=== PATIENT | male | born 1935 | race Caucasian/White ===

== ENCOUNTER 2025-01-03 19:52 | Inpatient (IN) | payer OTHER, SELFPAY ==
[2025-01-03] VITALS (13 sets, daily range): BP systolic 106–187; BP diastolic 57–140; BMI 25.0; BMI 24.7
[2025-01-03 17:17] LABS: % Basophils 0.9 % (0-2); % Eosinophils 3.9 % (0-6); % Immature Granulocytes 0.3 % (0-0.5); % Lymphocytes 20.6 % (20.5-51.1); % Monocytes 8.4 % (1.7-9.3); % Neutrophils 65.9 % (42.2-75.2); Absolute Basophils 0.1 10^3/uL (0-0.2); Absolute Eosinophils 0.4 10^3/uL (0-0.7); Absolute Lymphocytes 1.9 10^3/uL (1.2-3.4); Absolute Monocytes 0.8 10^3/uL (0.1-0.6); Absolute Neutrophils 5.9 10^3/uL (1.4-6.5); Hemoglobin 13.8 g/dL (13.0-18.0); Mean Corp Hgb Conc. 32.9 g/dL (33.0-37.0); Mean Corpuscular Hgb 28.6 pg (27.0-31.0); Mean Platelet Volume 9.2 fL (7.4-10.4); Nucleated Red Blood Cells % 0 % (-); Platelet Count 271 10^3/uL (130-400); Red Blood Cell Count 4.83 10^6/uL (4.70-6.10); Red Cell Dist. Width 13.5 % (11.5-14.5)
[2025-01-03 17:40] LABS: ALT (SGPT) 16 U/L (0-50); AST (SGOT) 19 U/L (17-59); Alkaline Phosphatase 85 U/L (38-126); Blood Urea Nitrogen 22 mg/dl (9-20); Calcium 8.8 mg/dl (8.4-10.2); Carbon Dioxide 29 mmol/L (22-30); Chloride 97 mmol/L (98-107); Glucose 185 mg/dl (70-99); Potassium 4.5 mmol/L (3.5-5.1); Sodium 135 mmol/L (135-145); Total Bilirubin 0.9 mg/dl (0.2-1.3); Total Protein 7.4 g/dl (6.3-8.2); eGFR 52.84
[2025-01-03 18:23] LABS: Lactic Acid 1.7 mmol/L (0.7-2.0)
--- NOTE | 2025-01-03 19:08 | ED.GENMED ---
History of Present Illness
General
Chief Complaint: Vascular Symptoms
Time Seen by Provider: 01/03/25 18:08
History of Present Illness
History of Present Illness:
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 States he has had a wound to the right great toe for the past 2 weeks that over the past
several days has become increasingly gangrenous. Was referred in by podiatry for vascular evaluation. He denies fevers or chills. Does have severe lower extremity neuropathy but denies claudication symptoms
Review of Systems
Review of Systems
Allergies reviewed?: Yes
All Other Systems: ROS reviewed and negative except as documented in HPI and ROS
Phy Exam
Physical Exam
Physical Exam:
GEN: Well appearing, NAD, WDWN
HEENT: Oral mucosa moist, no scleral icterus
Cardiac: Regular rate and rhythm. Dorsalis pedis and posterior tibialis pulses are strong by Doppler on the right
Lung: No respiratory distress, no tachypnea
MSK: No gross deformity or injuries
Skin: Good color, no pallor or jaundice. Dry gangrene to the medial aspect of the right great toe with associated superficial ulceration, moderate erythema and swelling extending beyond the MTP joint. There is an additional gangrenous ulceration
to the lateral hindfoot just proximal to the base of the fifth metatarsal without associated erythema.
Neuro: AO x3, moves all extremities freely
Psych: Calm, cooperative
Course
Orders/Labs/Results
Orders:
Orders
01/03/25 Breakfast
2000 calorie (17 carb) Diabetic
01/03/25 17:11
C-Reactive Protein Urgent
Comment: ADD ON
Complete Blood Count/With Diff Urgent
Comprehensive Metabolic Panel Urgent
Erythrocyte Sed Rate Urgent
Comment: ADD ON
01/03/25 17:56
Foot, Right 3 View [CR Foot - Right Min 3 Views] Urgent
Comment:
Reason For Exam: chronic wound
01/03/25 18:00
Lactic Acid Q4H
Comment: ON ICE, CANCEL 2ND ORDER IF FIRST LACTIC ACID LEVEL <2
Blood Culture Q20M
PAUL Source: Blood/Venous
Specimen Description:
Comment: Urgent from separate sites. If patient screens positive for possible sepsis
Blood Culture Q20M
PAUL Source: Blood/Venous
Specimen Description:
Comment: Urgent from separate sites. If patient screens positive for possible sepsis
01/03/25 19:07
Add On- LAB Urgent
Tests Added?: ESR, CRP
01/03/25 19:24
Vancomycin [Vancocin] 2,000 mg 0.9% Sodium Chloride 500 ml [Nss] 500 ml IV NOW
01/03/25 19:39
Admit/Transfer Patient As Directed
Co-Sign Provider:
Level of Care: Inpatient admission
Assign to:: Telemetry
Physician / Group: bettye
Diagnosis: cellulitis
Reason for Telemetry: Arrhythmia
Date to Stop Telemetry: 01/06/25
Time to Stop Telemetry: 11:00
Reason for Hospitalization: cellulitis
Expected length of stay greater than two midnights?: Yes
ELOS- Estimated Length of Stay in days: 3
I certify the patient meets the requirements for IP care: Yes
PRN Pain Medication Management As Directed
May give lesser potent ordered pain med per pt: Yes
preference::
Protocol:: Medication orders for pain may be administered in a
manner that supports deferring to patient preference
when the pt is:
- Requesting an ordered lesser potent pain medication.
Least to most potent pain medications are defined
as: acetaminophen < NSAID < tramadol < opioids
(morphine, oxycodone, hydromorphone).
- Requesting a lesser dose of the same medication IF
ORDERED.
- Requesting a less intrusive route of administration
if both routes are prescribed by the provider (PO <
IV).
01/03/25 19:40
Code Status As Directed
Resuscitation Status: Do not resuscitate
Reached after discussion with pt or family/Healthcare POA: Yes
DNR Bracelet Application ONCE
01/03/25 19:52
EKG [Electrocardiogram (*1)] Stat
Reason for Study: Atrial Fibrillation
01/03/25 21:02
Acetaminophen [Tylenol] 650 mg PO Q4HPRN PRN
01/03/25 21:45
Lactic Acid Q4H
Comment: ON ICE, CANCEL 2ND ORDER IF FIRST LACTIC ACID LEVEL <2
01/06/25 11:00
DC Protocol for Telemetry ONCE
Abnormal Lab Results
01/03/25
17:11
MCHC 32.9 L g/dL
(33.0-37.0)
Absolute Monos (auto) 0.8 H 10^3/uL
(0.1-0.6)
Chloride 97 L mmol/L
(98-107)
BUN 22 H mg/dl
(9-20)
Glucose 185 H mg/dl
(70-99)
01/03/25 17:11
01/03/25 17:11
Vital Signs
Initial and Last Documented VS:
Initial Vital Signs
Temp Pulse Resp BP Pulse Ox
97.7 F 63 16 123/62 98
01/03/25 17:01 01/03/25 17:01 01/03/25 17:01 01/03/25 17:01 01/03/25 17:01
Last Documented Vital Signs
Temp Pulse Resp BP Pulse Ox
97.7 F 102 22 187/103 96
01/03/25 17:01 01/03/25 21:15 01/03/25 21:15 01/03/25 21:07 01/03/25 21:15
MDM/Problems Addressed
MDM/Problems Addressed:
Patient will be admitted due to cellulitis of the right great toe associated with gangrene. I suspect the gangrene is more of a vascular issue given lack of malodor or discharge. Does have pulses by Doppler however significant atherosclerotic
disease is noted on plain films. Will be admitted on IV antibiotics
*Critical Care Note
Total Time (30-74mins, 75-104mins- exclusive of procedures): Not Applicable
ED Attending Note
-
Portions of this chart may have been created with voice recognition software.� Occasional wrong word or��sound alike� substitutions may have occurred due to the inherent limitations of voice recognition software.
Discharge Plan
Departure
Patient Disposition: Admit
Date of Disposition: 01/03/25
Time of Disposition: 19:10
Admit to: Med/Surg
Presentation/result/management discussed w/ accepting MD/DO: Hospitalist
Discharge Problem:
Cellulitis of great toe, right, Dry gangrene
Interventions
Interventions:
*Risk Screen - Suicide Last Done: 01/03/25 17:06
*General Assessment Last Done: 01/03/25 17:07
*Neglect/Abuse Screening Last Done: 01/03/25 17:57
*ED- Fall Risk Assessment Last Done: 01/03/25 17:06
*ED COVID-19 Vaccine History Last Done: 01/03/25 17:06
ED- Cardiac Assessment Last Done: 01/03/25 18:00
ED- Pulmonary Assessment Last Done: 01/03/25 17:57
ED-Peripheral Vascular Assessment Last Done: 01/03/25 18:00
ED-Skin Assessment Last Done: 01/03/25 18:00
--- NOTE | 2025-01-03 19:14 | HPS.HSE ---
Addendum entered and electronically signed by Guilherme Alcantara DO 01/03/25 21:12:
Patient seen and examined independently. Agree with findings and plan as set forth by ELY Alas.
Patient is an 89y M with PMH significant for ASCVD, DM-II and A-Fib who presents to ED for evaluation of R great toe gangrene. Patient is followed by Band Attacher as an outpatient (not at this facility - associated with [facility]) who saw patient in
the office today and recommended hospitalization for further evaluation of R great toe gangrene. Patient has decreased sensation and thus no significant pain, etc. There is some mild associated redness to the medial aspect of the R foot. Patient
also has two small wounds on the lateral aspect of the R foot that Podiatry states are stable.
Patient denies any fevers / chills, N/V/D, etc.
Ass:
R Great Toe Gangrene
Diabetic Foot Infection
DM-II with Peripheral Neuropathy
ASCVD
Paroxysmal Atrial Fibrillation
BPH
Chronic HF - Unknown Type
Renal Insufficiency - RONDA v CKD
Plan:
Admit for further evaluation and treatment.
IV abx with Vanco / Zosyn for now.
Local care.
Vascular Surgery evaluation for additional recommendations.
Continue usual home medications.
Follow renal function for changes to determine baseline SCr.
Cover with SSI / update A1C.
Original Note:
Family Physician
-
Family Physician: Etelvina Lowe
Chief Complaint
-
right foot wounds
History of Present Illness
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 States he has had a wound to
the right side of the foot for past 4 to 6 weeks. he was treated with oral abx four weeks ago by podiatry. he was noted to have right great toe wound more than two weeks ago. today he was evaluated by podiatry, recommended ER visit for gangrenous
wound. patient denied fever, chills, CUEVAS,dizzy or syncope. denied chest pain, sob.denied abdominal pain,n,v,d. denied dysuria or hematuria.
X-ray of the foot pending. Patient received a dose of vancomycin in ER. Blood culture ordered in the ER. Admitting for further management
Medical History
Past Medical History
Past Medical History: Reports Other
Additional Past Medical History:
Type 2 diabetes
Hypertension
Coronary artery disease
A-fib
LA
Past Surgical History: Reports Other
Additional Past Surgical History:
Cardiac stents
-Back surgery x 2
Social History
Tobacco: Non-smoker
Alcohol: None
Drug: None
Family History
Family History: Not pertinent
Allergies / Home Medications
Allergies reflects when Allergies were last updated in [facility].
Home Medications with original date entered in [facility]
Allergy/Medication List:
Allergies
Allergy/AdvReac Type Severity Reaction Status Date / Time
No Known Allergies Allergy Verified 01/03/25 17:07
Review of Systems
-
Constitutional: Reports No Symptoms
EENT: Reports No Symptoms
Respiratory: Reports No Symptoms
Cardiac: Reports No Symptoms
Abdomen/GI: Reports No Symptoms
: Reports No Symptoms
Musculoskeletal: Reports No Symptoms
Skin: Reports Other (Right foot gangrenous wound, right toe gangrenous wound)
Neurological: Reports No Symptoms
Endocrine: Reports No Symptoms
Hematologic/Lymphatic: Reports No Symptoms
Psych: Reports No Symptoms
Physical Exam
Vital Signs
Vital Signs
Temp Pulse Resp BP Pulse Ox
97.7 F 62 17 120/62 96
01/03/25 17:01 01/03/25 18:01 01/03/25 18:01 01/03/25 18:01 01/03/25 18:01
Physical Exam
General: Well Developed, Well Nourished and No Apparent Distress
HEENT: NormoCephalic, Moist mucous membranes and Atraumatic
Respiratory: Clear
Cardiac: S1/S2 and Regular Rhythm; No Murmur or Rub
GI: Soft, Non Tender, Non Distended and Normal Bowel Sounds; No Organomegaly
Rectal: Deferred by Provider
Musculoskeletal: No Clubbing, No Cyanosis and No Edema
Skin: Rash and Other (ry gangrene to the medial aspect of the right great toe with associated superficial ulceration, moderate erythema and swelling extending beyond the MTP joint. There is an additional gangrenous ulceration to the lateral
hindfoot just proximal to the base of the fifth metatarsal without associated er)
Neuro: AO x 3 and Nonfocal/grossly intact
Psych: Calm
Laboratory Results
-
01/03/25 17:11
01/03/25 17:11
Laboratory Results
Lactic Acid 1.7 mmol/L (0.7-2.0) 01/03/25 18:00
Total Bilirubin 0.9 mg/dl (0.2-1.3) 01/03/25 17:11
AST 19 U/L (17-59) 01/03/25 17:11
ALT 16 U/L (0-50) 01/03/25 17:11
Alkaline Phosphatase 85 U/L (38-126) 01/03/25 17:11
Data Reviewed
-
Lab Data: Labs Reviewed by me
Impression/Plan
-
# Gangrenous right great toe/foot with associated cellulitis
-Vancomycin and Unasyn continued
-vascular consulted
-Tylenol as needed for fever and pain
-X-ray pending
-Blood culture sent from ER
-NPO after MN
# Type 2 diabetes
-Sliding scale
-CHO diet
-hold glimepiride and metformin
-NPH 7 units bid
# Coronary artery disease
-Cardiac stents
# History of neuropathy
-gabapentin continued
# History of A-fib
-Obtain EKG
-Patient is on Xarelto, which will be held
-coreg continued with hold parameter
#BPH
-finasteride continued
#possible CHF
-Lasix continued
-strict I &O
-daily weight
# DVT prophylaxis
-scd
CODE STATUS
# DNR
[2025-01-03 19:19] LABS: Erythrocyte Sed Rate 17 mm/hour (0-20)
[2025-01-03] MEDS: VANCOCIN 540 MG IV (20:02)
[2025-01-03] MEDS: TYLENOL 650 MG PO (21:11)
[2025-01-03 21:27] LABS: Glucose - Point of Care 104 mg/dl (70-99)
[2025-01-03] MEDS: LASIX 40 MG IV (21:39)
--- NOTE | 2025-01-03 22:45 | W.PN.UPDATE ---
Update Note
Progress Note Update
possible CHF exacerbation
-chest x ray with MODERATE ACUTE INTERSTITIAL CARDIOGENIC PULMONARY EDEMA.
-iv Lasix bid
-strict I &O
-daily weight
-obtain ECHO
--- NOTE | 2025-01-03 23:00 | PTCARENOTE ---
Pt admitted to 413-2 from ED. Slid over to bed x3, pt states 'I can't walk. I use a scooter at home' AAOx3, MESA GRANDE wearing b/l aids. Wounds noted on R foot/ big toe, as well as mid back and sacrum/L buttock blanchable red. Dressings placed. pt denies
pain or SOB. VSS. Call pollack within reach.
--- NOTE | 2025-01-03 23:05 | PHA.VAN.IN ---
Assessment
- Assessment
Renal Function: Unknown baseline
Concomitant Antimicrobials: UNASYN
- Previous Dosing Experience
Previous Regimen: NONE
Plan
- Plan
Initial / Loading Dose: 2GM
Maintenance Regimen: DOSING BY RANDOM LEVEL
Monitoring: RANDOM VANCOMYCIN LEVEL 01/04/25 AM
Pharmacokinetics Vancomycin I
- -
Patient Age: 89
Vancomycin Day #: 1
Indication: Skin And Soft Tissue (GANGRENE OF FOOT)
Requesting Provider: LEVON STEINBERG
Height / Weight:
Height 6 ft
Actual Weight 83.6 kg
Pertinent Past Medical History: DM; CHRONIC FOOT WOUNDS
- Vital Signs / Lab Results
Temp Pulse Resp BP Pulse Ox
97.7 F 84 14 106/66 98
01/03/25 17:01 01/03/25 22:30 01/03/25 22:30 01/03/25 22:00 01/03/25 22:15
Lab Results - Hematology
01/03/25
17:11
WBC 9.0
Lab Results - Chemistry
01/03/25
17:11
BUN 22 H
Creatinine 1.3
Albumin 4.0
01/03/25 01/03/25
18:00 21:45
Lactic Acid 1.7 Cancelled
[2025-01-03] MEDS: RESTORIL 30 MG PO (23:15)
[2025-01-03] MEDS: NEURONTIN 300 MG PO (23:15)
[2025-01-03] MEDS: COREG 6.25 MG PO (23:15)
[2025-01-03] MEDS: FLORASTOR 250 MG PO (23:17)
[2025-01-03 23:23] LABS: Glucose - Point of Care 189 mg/dl (70-99)
[2025-01-03] MEDS: HUMULIN N KWIKPEN SC (23:25)
[2025-01-03] MEDS: UNASYN IV (23:51)
[2025-01-04] VITALS (7 sets, daily range): BP systolic 101–139; BP diastolic 52–69; PULSE 59; O2SAT 98; BMI 24.6
[2025-01-04] MEDS: UNASYN IV ×4 (05:22→23:18)
[2025-01-04 05:37] LABS: Glucose - Point of Care 154 mg/dl (70-99)
[2025-01-04] MEDS: NOVOLOG FLEXPEN-LOW RESISTANCE 1 UNITS SC (07:12)
[2025-01-04 07:15] LABS: Hemoglobin 13.7 g/dL (13.0-18.0); Mean Corp Hgb Conc. 33.4 g/dL (33.0-37.0); Mean Corpuscular Hgb 28.4 pg (27.0-31.0); Mean Corpuscular Volume 85.1 fL (80.0-94.0); Platelet Count 241 10^3/uL (130-400); Red Blood Cell Count 4.82 10^6/uL (4.70-6.10); Red Cell Dist. Width 13.6 % (11.5-14.5)
[2025-01-04 07:30] LABS: Blood Urea Nitrogen 23 mg/dl (9-20); Calcium 8.8 mg/dl (8.4-10.2); Carbon Dioxide 26 mmol/L (22-30); Chloride 102 mmol/L (98-107); Estimated Creatinine Clearance 51 ml/min; Glucose 153 mg/dl (70-99); HDL Cholesterol 25 mg/dl; LDL Cholesterol, Calculated 55 mg/dl; Magnesium 2.2 mg/dl (1.6-2.3); Potassium 4.4 mmol/L (3.5-5.1); Sodium 136 mmol/L (135-145); Total Cholesterol 101 mg/dl (50-199); Triglyceride 105 mg/dl (10-149); Very Low Density Lipoprotein 21 mg/dl (0-30); eGFR > 60.00
[2025-01-04 08:00] LABS: TSH Reflex To Free T4 2.94 uIU/ml (0.47-4.68)
--- NOTE | 2025-01-04 08:28 | PHA.VAN.FU ---
Vancomycin Assessment / Plan
- Assessment
Renal Function: SCR Decreasing
In the past 24 hrs, patient has been: Afebrile
Concomitant Antimicrobials: ampicillin/sulbactam
- Assessment - Therapeutic Drug Monitoring
Random Level: 16 - drawn ~11H after 2g loading dose
- Dosing Plan
Dosing by Level: Re-dose today (Vanc 1000mg)
- Monitoring Plan
Random Level: 01/05 06
- Follow Up
Pharmacy will continue to follow.
Vancomycin Follow UP
- -
Patient Age: 89
Vancomycin Day #: 2
Indication: Skin And Soft Tissue
Requesting Provider: Austin Foster
Pertinent Antimicrobial Allergies:
NKDA
Height / Weight:
Height 6 ft
Actual Weight 82.355 kg
Pertinent Past Medical History: DM II
- Vital Signs / Lab Results
Temp Pulse Resp BP Pulse Ox
97.9 F 67 20 102/61 96
01/04/25 03:30 01/04/25 03:30 01/04/25 03:30 01/04/25 03:30 01/04/25 07:55
Lab Results - Hematology
01/03/25 01/04/25
17:11 06:57
WBC 9.0 7.0
Lab Results - Chemistry
01/03/25 01/04/25
17:11 06:57
BUN 22 H 23 H
Creatinine 1.3 1.1
Estimated Creat Clear 51
Albumin 4.0
01/03/25 01/03/25
18:00 21:45
Lactic Acid 1.7 Cancelled
Therapeutic Drug Monitoring
Random Vancomycin 16.0 ug/ml 01/04/25 06:57
--- NOTE | 2025-01-04 08:35 | CARDSERVLU ---
Echocardiogram with Lumason completed after protocol screening completed. Allergies verified.
Patent IV site: __R AC___
IV site flushed with 0.9% NaCl pre and post administration.
Diluted bolus method utilized to enhance visualization of ventricular whyte.
Total volume given: __1.0__ mL
Patient tolerated all procedures well without complications.
[2025-01-04 09:21] LABS: Glycohemoglobin (HgbA1c) 9.3 % (4.0-5.6)
[2025-01-04] MEDS: NEURONTIN 300 MG PO ×3 (09:44→21:40)
[2025-01-04] MEDS: PROSCAR 5 MG PO (09:44)
[2025-01-04] MEDS: COREG 6.25 MG PO ×2 (09:44→21:41)
[2025-01-04] MEDS: LASIX 40 MG IV ×2 (09:45→16:19)
[2025-01-04] MEDS: LIPITOR 40 MG PO (09:45)
[2025-01-04] MEDS: HUMULIN N KWIKPEN 7 UNITS SC (09:46)
--- NOTE | 2025-01-04 09:51 | WOUNDNOTE ---
RIGHT GREAT TOE
--- NOTE | 2025-01-04 09:51 | WOUNDNOTE ---
RIGHT GREAT TOE
--- NOTE | 2025-01-04 09:52 | WOUNDNOTE ---
RIGHT LATERAL MEDIAL FOOT
--- NOTE | 2025-01-04 09:53 | WOUNDNOTE ---
LEFT ANTERIOR LOWER LEG
--- NOTE | 2025-01-04 09:55 | WOUNDNOTE ---
WON RN note: Patient admitted with pulmonary edema and R great toe cellulitis, dry gangrene toe and foot.
See H&P for complete history. Lives at [facility] with .
PMH: Back surgery, AR- cardiac stent, DM, self catheterizes 3 x day, neuropathy, PAD- gangrene of R great toe/foot.
Wound Location and type/assessment: Patient admitted with: Arterial/diabetic wounds to R foot, sent from Extract Operator to have vascular see him in hospital. R great toe dry gangrene, periwound pink moist base, scant drainage. R medial foot and heel
with dry gangrene no drainage. Both feet warm and dry. Vascular on consult, vascular ultrasound pending. Sacrum and L heel are blanchable red. Mid back with chronic ulcer stage 2 PI. Hypergranulated and friable, red base. Patient reports he sits and
sleeps in a recliner chair all day, that is how he got the back wound. He states he gets around the house with a scooter, can assist as needed.
Appetite: NPO otherwise good. Dietary on consult.
Pressure redistribution devices in place: On Accumax, turns self to sides. Air chair cushion on pillow and placed under calves to offload heels. Instructed patient he can take cushion home for use in recliner chair for back.
Plan: Foams applied to back, sacrum and heels. Painted gangrene on R foot with Betadine then dry dressing. Pressure ulcer prevention measures reviewed with patient, states he understands. Will confirm orders with hospitalist and updated nurse Janice.
Updated care plan and will follow as needed.
Note to case management of equipment requested for discharge:TBD
Recommend follow up at wound care center upon discharge.
--- NOTE | 2025-01-04 10:26 | CON.VAS ---
Addendum entered and electronically signed by George Wang MD 01/04/25 16:19:
Seen and examined with FRUIT THINNER. Agree with findings as noted below. 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
dry gangrene. As noted below he has resided in [facility] and uses a scooter to get around secondary to spinal issues. Limited ambulation therefore. He does also have a history of tobacco use smoked for about 20 years but quit 50
years ago. He does have a history of coronary stents, but no lower extremity revascularization procedures ever. No pain in the foot currently.
On exam/ He is awake and alert, oriented x 3. In no acute distress. Breathing is unlabored. Abdomen is soft. Lower extremity with 1+ or 1+/2+ femoral pulses palpable bilaterally. Nonpalpable distally. Feet are warm bilaterally. Right foot
with first toe and fifth metatarsal dry gangrene (see pictures below).
Noninvasive ultrasound studies reviewed. 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
Plan/ Chronic limb threatening ischemia right lower extremity. Discussed with patient risk of amputation without any intervention. Recommend angiography. Discussed with him likely infrapopliteal disease. Therefore discussed scenarios from
angiography to be: #1 successful revascularization with endovascular therapy, #2 need for staged surgical bypass or revascularization, #3 nonreconstructable distal disease which would potentially place him at amputation risk (if not a candidate for
a salvage type procedure such as LimFlow). He understands all these things. Risks/benefits/alternatives of angiography were discussed. He understands all wishes to proceed. Will schedule him for tomorrow for right lower extremity angiogram,
possible angioplasty/stent.
Original Note:
Consultation
Consultation Request
Date/Time Consultation Performed: 01/04/25
Requesting Provider: Hospitalist
Performing Provider: Gabrielle Holland, FRUIT THINNER-C for George Wang MD
Reason for Consultation: Left foot dry gangrene wounds chronic
Medical History
-
Chief Complaint: Right foot dry gangrene
History of Present Illness:
This is an 89-year-old male with significant past medical history for chronic right foot wound, diabetes, CAD, paroxysmal atrial fibrillation, heart failure, BPH, and renal insufficiency who presented to [place] ED on 01/03/2025 at the
encouragement of his outpatient export specialist (out of [facility] network) for progressing right foot wounds. Patient endorses that wounds have been present for roughly 4 weeks, and then about 2 weeks ago they began to transition into gangrene. He
resides in [facility] with his , and utilizes a scooter to get around. He reports that he has been nonambulatory for roughly a year, due to spinal cord compression. He endorses that his ambulatory dysfunction began roughly 2018, when he
noted increased falling. He was seen by neurosurgery and underwent a laminectomy which she was told would improve his ambulation. However, following the surgery he began to slowly decompensate in regards to ambulatory function, thus leading to his
current nonambulatory state. He does also have peripheral neuropathy and endorses near complete lack of sensation in bilateral feet. He has a history of smoking cigarettes for roughly 20 years, but has been a non-smoker for the past 50 years. He
has never seen a vascular surgeon or required intervention to peripheral arteries. He does endorse cardiac catheterization with stent placement. Denies fever, chills, nausea, vomiting, and cough.
Right hallux
Right lateral foot wound
Past Medical History
Past Medical History: Arrhythmias (Atrial fibrillation), CAD, CHF, IDDM and Other (BPH, renal insufficiency)
Past Surgical History: Cardiac (Cardiac cath with PCI), Orthopedic (Laminectomy) and Other
Social History
Tobacco: Former Smoker (Quit roughly 50 years ago but does endorse 20-year history of smoking)
Alcohol: None
Drug: None
Personal:
Living: Assisted Living (Resides at [facility] with )
Allergies / Home Medications
Allergy/AdvReac Type Severity Reaction Status Date / Time
No Known Allergies Allergy Verified 01/03/25 17:07
�Medication �Instructions �Recorded �Confirmed �Type
Saccharomyces boulardii 250 mg 250 mg PO BID Supplement 01/03/25 01/03/25 History
capsule
atorvastatin 40 mg tablet 40 mg PO DAILY High Cholesterol 01/03/25 01/03/25 History
carvedilol 6.25 mg tablet 6.25 mg PO BID Blood Pressure 01/03/25 01/03/25 History
cranberry extract 200 mg capsule 200 mg PO DAILY Supplement 01/03/25 01/03/25 History
(Ellura)
finasteride 5 mg tablet 5 mg PO DAILY BPH 01/03/25 01/03/25 History
fluticasone 250 mcg-salmeterol 50 1 inh inhalation R DAILY 01/03/25 01/03/25 History
mcg/dose blistr powdr for Lung/Breathing Issues
inhalation (Wixela Inhub)
furosemide 40 mg tablet 40 mg PO BID Fluid 01/03/25 01/03/25 History
Retention/Swelling
gabapentin 300 mg capsule 600 mg PO TID Pain 01/03/25 01/03/25 History
glimepiride 4 mg tablet 4 mg PO BID Diabetes 01/03/25 01/03/25 History
insulin NPH isoph U-100 human 100 14 unit SC BID Diabetes 01/03/25 01/03/25 History
unit/mL (3 mL) subcutaneous pen
(Humulin N NPH U-100 Insulin
KwikPen)
metformin 500 mg tablet 500 mg PO DAILY Diabetes 01/03/25 01/03/25 History
polyethylene glycol 3350 17 gram 17 g PO DAILYPRN PRN constipation 01/03/25 01/03/25 History
oral powder packet (Miralax)
rivaroxaban 15 mg tablet (Xarelto) 15 mg PO DAILY Blood Clot 01/03/25 01/03/25 History
Prevention/Tx
temazepam 30 mg capsule 30 mg PO HS Sleep 01/03/25 01/03/25 History
Review of Systems
-
History Source: Patient
Constitutional: Reports No Symptoms
EENT: Reports No Symptoms
Respiratory: Reports No Symptoms
Cardiac: Reports No Symptoms
Vascular: Reports Numbness; Denies Leg Pain / Claudication
Abdomen/GI: Reports No Symptoms
: Reports No Symptoms
Musculoskeletal: Reports No Symptoms
Skin: Reports Other (Dry gangrene to right hallux and lateral aspect of foot, please see pictures in HPI, non-malodorous)
Neurological: Reports No Symptoms
Endocrine: Reports No Symptoms
Physical Exam
Vital Signs
Temp Pulse Resp BP Pulse Ox
98.4 F 62 22 139/69 96
01/04/25 07:42 01/04/25 09:45 01/04/25 07:42 01/04/25 09:45 01/04/25 07:55
Lab Results
01/04/25 06:57
01/04/25 06:57
Physical Exam
General: No Apparent Distress and Comfortable
HEENT: Normocephalic, Anicteric and Atraumatic
Cardiac: Negative JVD
GI: Soft, Non Tender and Non Distended
Musculoskeletal: Edema (Bilateral trace lower extremity edema)
Skin: Other (Dry gangrene to right hallux and lateral aspect of foot, please see pictures in HPI, non-malodorous)
Neuro: Awake and Alert
Pulses: Left Femoral: +1 (Unable to palpate right femoral pulse, unable to palpate bilateral distal pulses)
Assessment / Plan
-
Assessment: 89-year-old male with suspected peripheral arterial disease and chronic right foot lateral and hallux wound
Plan:
Arterial ultrasound with FRANCES/TBI pending, may also require CTA aorta with runoff to assess for inflow disease vs. angiogram. Will have to review risk vs. benefit given RONDA, final surgical plan per attending and pending results of noninvasive
studies.
Continue antibiotics
Recommend consult to wound care nurse
I performed this shared service with the attending. I evaluated the patient [id number] and have entered clinical documentation as shown in the encounter note. I performed the following component(s):�history and physical exam. Note that medical
decision making is not final until attested by vascular attending.
[2025-01-04] MEDS: FLORASTOR 250 MG PO ×2 (10:46→21:42)
[2025-01-04] MEDS: VANCOCIN 200 IV (10:46)
--- NOTE | 2025-01-04 12:39 | W.PN.HOSP.TC ---
Today's Communication/Plan
-
cards consult
DM ASSEMBLER SEMICONDUCTOR consult
diuresis as per cards
apprec vascular--possible intervention tomorrow
Assessment / Plan
Assessment / Plan
pt is an 89 year old male
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
angiogram--perhaps amputation?--cont wound care
acute congestive heart failure exacerbation with preserved EF--ECHO done this AM--will consult cards, daily weights, I/Os--no signs of RONDA on admission (creat 1.3, 1.1)--diuresis per cards--on coreg, lasix, statin,
uncontrolled type 2 DM with neuropathy--HGB A1C 9.3--cont glimepiride, insulin NPH, metformin--may need DM ASSEMBLER SEMICONDUCTOR--poor control not helping with wound healing--cont gabapentin
Coronary artery disease--Cardiac stents in past--cont meds ass able
History of paroxysmal A-fib--Xarelto on hold--consider bridging with IV heparin--will defer to cards
BPH with urinary retention--smallwood placed--cont finasteride
DVT prophylaxis
CODE STATUS--DNR
Anticipated Discharge: > 48 hours
Subjective/Interval History
-
Date of Service: January 04, 2025
pt without c/o
Objective Data
-
Labs:
Laboratory Results
01/04/25
06:57
WBC 7.0
Hgb 13.7
Hct 41.0
Plt Count 241
Sodium 136
Potassium 4.4
Chloride 102
Carbon Dioxide 26
BUN 23 H
Creatinine 1.1
Glucose 153 H
Calcium 8.8
Vital Signs:
max temp for 24 hours
01/03/25
23:40
Temp 98.3 F
Vital Signs
Temp Pulse Resp BP Pulse Ox
97.8 F 61 20 101/52 99
01/04/25 11:48 01/04/25 11:48 01/04/25 11:48 01/04/25 11:48 01/04/25 11:48
I&O
01/03/25 01/04/25 01/05/25
06:59 06:59 06:59
Intake Total 300 / 300
Output Total 600 / 600
Balance -300 / -300
Review of Systems
-
All other systems: Reviewed and negative
Physical Exam
-
General: Well Developed, Well Nourished and No Apparent Distress
HEENT: Normocephalic, Atraumatic and Oxygen
Respiratory: Clear to Auscultation; Negative Wheezes or Crackles
Cardiac: Regular Rhythm and S1/S2; Negative Murmur
GI: Soft, Nontender, Nondistended and Normal Bowel Sounds
Genito-urinary: Smallwood
Musculoskeletal: No Clubbing, No Cyanosis, No Edema and Other (right foot wrapped--pictures reviewed from wound care)
Neuro: Awake and Alert
--- NOTE | 2025-01-04 13:23 | PN.DE.MGMTRT ---
Insulin Management
- -
01/04/2025 Diabetes Management Consult
Patient admitted 01/03 with worsening wound on R great toe, cellulitis, gangrene. Patient is from [facility] medical provider there. PMH Afiv, CAD, CHF, diabetes BPH, renal insufficiency, non healing wound of R great toe and R lateral ankle
both with gangrene. Prior to admission was taking glimepiride 4 mg BID, NPH 14 units BID and metformin 500 mg Daily. A1C on admission 9.3%, cr 1.1, eGFR >60.
Patient is off the unit for ultrasound. Will return to interview him. All information retrieved from chart review and patient nurse.
Patient is currently ordered 7 units NPH bid. With corrective insulin Fasting glucose this AM 154, no further glucose results at this time.
Nurse to notify me when patient returns and glucose is obtained. Will assess glucose results to determine if AC novolog is required.
Patient for possible OR tomorrow will not restart glimepiride 4 mg BID or metformin.
Will follow
Discussed with nurse.
Diabetes History
- -
Type of Diabetes: 2
Pre-Admission Diabetes Regimen
01/03/25 01/04/25
17:11 06:57
Creatinine 1.3 1.1
Lab Results
Hemoglobin A1c 9.3 % (4.0-5.6) H 01/04/25 06:57
Insulin Pump Settings
IP Diabetes Regimen
01/03/25 01/03/25 01/03/25
17:11 21:26 23:22
Glucose 185 H
POC Glucose 104 H 189 H
01/04/25 01/04/25
05:36 06:57
Glucose 153 H
POC Glucose 154 H
Patient Education
--- NOTE | 2025-01-04 13:27 | CON.CAR ---
Addendum entered and electronically signed by Wan Ruano MD 01/04/25 14:59:
I saw and examined the patient.
The Master Rigger's note was reviewed and I agree with the note.
Comment: Briefly, 89-year-old man past medical history of CAD with prior PCI, ischemic cardiomyopathy and heart failure with recovered ejection fraction who presented with gangrene of the right great toe and is planned for intervention tomorrow.
Cardiology is consulted with concern for acute decompensated heart failure.
Patient is not reporting any cardiac complaints to me and feels that his breathing is comfortable on room air.
Based on chest x-ray there was concern for pulmonary edema however his lungs sound clear today after receiving two doses of IV Lasix
Transthoracic echocardiogram earlier today with normal biventricular function and no significant valvular pathology and normal estimated pulmonary artery pressure
Okay to continue IV Lasix today but hopefully can transition back to oral in the next 24 to 48 hours
Agree with checking proBNP for completeness
In regards to his operative risk, he appears relatively well compensated from a heart failure perspective. Given history of CAD and heart failure he is at elevated but not prohibitive risk to proceed. No further cardiac testing necessary at this
time from my standpoint.
Rest per Lupe Tamayo
Original Note:
Consultation
Consultation Request
Date/Time Consultation Performed: 01/04/25
Requesting Provider: Dr. Hannah
Performing Provider: Lupe Tamayo PA-C for Dr. Ruano
Reason for Consultation: CHF, preop
Medical History
-
Chief Complaint: R great toe wound
History of Present Illness:
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
Patient reports R great toe wound which has been worsening over last several weeks. He is noted to be essentially nonambulatory over the last year - he has history of spinal cord compression resulting in laminectomy with subsequent decline. He
reports his blood sugar is not particularly well-controlled, however hemoglobin A1c is typically around 8. He reports no one has been following his sugars as an outpatient. He reports his sugars 'go crazy' in the setting of an infection. Vascular
consulted and patient for possible R great toe amp in AM. Cardiology consulted as CXR showed evidence of acute CHF. He does not weigh himself daily at home, however states that his baseline weight is around 180 pounds. He reports he has been
compliant with p.o. Lasix 40 mg twice daily which he states he has been on since his ME in 2016. He denies known history of cardiomyopathy. Cardiology asked for preop evaluation. He is chronically on po lasix 40mg BID as OP. Not requiring
supplemental O2. He previously followed with Dr. Olivera's of [facility], however was last seen in 2021. He states due to his worsening ambulatory status, he has been unable to make it to appointments. He states he is scheduled to see Dr. Dobbs at [facility] to establish care 01/2025.
PMH:
DM2
Peripheral neuropathy
Chronic CHF
Parox aflutter, asymptomatic, diagnosed 2021
Chronic OAC with xarelto
CAD with posterior ME status post circ PCI 01/2017, LAD with 60% prox stenosis and 80-90% distal stenosis, and known NUT CHOPPER of RCA with collaterals
History of GI bleed 02/2017
History of ischemic cardiomyopathy, EF previously 40-45%, now recovered EF 55% by echo
COPD
CKD
HTN
HLD
BPH
Spinal cord compression s/p laminectomy
Ambulatory dysfunction as result of above, uses scooter
Former smoker
Past Medical History
Past Medical History: Other (in HPI)
Social History
Tobacco: Former Smoker
Alcohol: None
Personal:
Living: Assisted Living (at [facility] with )
Family History
Family History: Reviewed & Not Pertinent
Allergies / Home Medications
Allergy/AdvReac Type Severity Reaction Status Date / Time
No Known Allergies Allergy Verified 01/03/25 17:07
�Medication �Instructions �Recorded �Confirmed �Type
Saccharomyces boulardii 250 mg 250 mg PO BID Supplement 01/03/25 01/03/25 History
capsule
atorvastatin 40 mg tablet 40 mg PO DAILY High Cholesterol 01/03/25 01/03/25 History
carvedilol 6.25 mg tablet 6.25 mg PO BID Blood Pressure 01/03/25 01/03/25 History
cranberry extract 200 mg capsule 200 mg PO DAILY Supplement 01/03/25 01/03/25 History
(Ellura)
finasteride 5 mg tablet 5 mg PO DAILY BPH 01/03/25 01/03/25 History
fluticasone 250 mcg-salmeterol 50 1 inh inhalation R DAILY 01/03/25 01/03/25 History
mcg/dose blistr powdr for Lung/Breathing Issues
inhalation (Wixela Inhub)
furosemide 40 mg tablet 40 mg PO BID Fluid 01/03/25 01/03/25 History
Retention/Swelling
gabapentin 300 mg capsule 600 mg PO TID Pain 01/03/25 01/03/25 History
glimepiride 4 mg tablet 4 mg PO BID Diabetes 01/03/25 01/03/25 History
insulin NPH isoph U-100 human 100 14 unit SC BID Diabetes 01/03/25 01/03/25 History
unit/mL (3 mL) subcutaneous pen
(Humulin N NPH U-100 Insulin
KwikPen)
metformin 500 mg tablet 500 mg PO DAILY Diabetes 01/03/25 01/03/25 History
polyethylene glycol 3350 17 gram 17 g PO DAILYPRN PRN constipation 01/03/25 01/03/25 History
oral powder packet (Miralax)
rivaroxaban 15 mg tablet (Xarelto) 15 mg PO DAILY Blood Clot 01/03/25 01/03/25 History
Prevention/Tx
temazepam 30 mg capsule 30 mg PO HS Sleep 01/03/25 01/03/25 History
Review of Systems
-
History Source: Patient
All other systems: Negative unless noted
Physical Exam
Vital Signs
Temp Pulse Resp BP Pulse Ox
97.8 F 61 20 101/52 96
01/04/25 11:48 01/04/25 11:48 01/04/25 11:48 01/04/25 11:48 01/04/25 13:08
Lab Results
01/04/25 06:57
01/04/25 06:57
Physical Exam
General: No Apparent Distress and Comfortable
HEENT: Normocephalic, Anicteric and Moist Mucous Membranes
Respiratory: Non Labored Respirations
Cardiac: S1/S2 and Regular Rhythm
GI: Soft, Non Tender, Non Distended and Normal Bowel Sounds
Musculoskeletal: No Clubbing, No Cyanosis and No Edema
Skin: Warm and Dry
Neuro: AO x 3
Impression / Plan
-
Primary Duct Layer Helper: Dr. Ortega of [facility], last seen in 2021
Assessment:
Diabetic foot wounds
R great toe cellulitis/dry gangrene
DM2
Peripheral neuropathy
Parox aflutter, asymptomatic, diagnosed 2021
Chronic OAC with xarelto
CAD with posterior ME status post circ PCI 01/2017, LAD with 60% prox stenosis and 80-90% distal stenosis, and known NUT CHOPPER of RCA with collaterals by cath at that time
History of GI bleed 02/2017
History of ischemic cardiomyopathy, EF previously 40-45%, now recovered EF 55% by echo
Chronic HFimpEF
COPD
CKD
HTN
HLD
BPH
Spinal cord compression s/p laminectomy 2018
Ambulatory dysfunction as result of above, uses scooter
Former smoker
DNR code status
Lexiscan stress test 12/2018: Inferoapical scar with eliana-infarct ischemia, EF 56%
Echo 03/26/2022 at [facility]: TDS, EF 55 to 60%, mild MR, mild TR
ECHO 01/04/25: EF 56%, mild MR, mild TR, PAP 25-30mmHg
Plan:
-Patient presented to [facility] on referral from investment banking associate due to progression of diabetic foot wounds with concern for cellulitis/dry gangrene. vascular following. plan for possible R great toe amp in AM
-Records requested, obtained, and reviewed from [facility]. Last EKG from 02/28/2022 showed typical atrial flutter, rate controlled. Last blood work from 09/13/2021 with creatinine of 1.6, hemoglobin A1c of 8.3. Last office note 02/28/22 and Lexiscan stress
test summary 2019 reviewed in addition.
-FR[facility] vascular US pending
-CXR with evidence of acute CHF. proBNP added by me. does not appear grossly volume overloaded on exam today. currently on IV lasix 40mg BID, consider transition back to po lasix in AM. Cr stable at 1.1. on po lasix 40mg BID prior to admission
-in SR/SB on review of tele
-CHF education
-echo with results as above, EF preserved, stable compared to prior study from 2021 at [place]
-Last stress test from 2019 as above
-EKG 01/03 normal sinus rhythm with left axis deviation.
-patient denies CP, SOB.
-patient at elevated but acceptable cardiovascular risk to proceed with planned procedure as scheduled. no further cardiac testing required at this time
-continue wound care
-discussed improved diabetic mgmt. he will need to establish care with PCP at [facility].
-he is scheduled for follow up with Dr. Dobbs at [facility] 01/2025 due to his ambulatory issues
-d/w patient and at bedside
Data Reviewed
-
EKG: Tracing Personally Visualized and interpreted
Radiology: Report Reviewed by me
Medical Tests (Nuc Med, Echo etc): Report Reviewed by me
Labs: Labs Reviewed by me
Old Records: Requested and Reviewed
[2025-01-04 14:08] LABS: Glucose - Point of Care 210 mg/dl (70-99)
[2025-01-04] MEDS: NOVOLOG FLEXPEN-LOW RESISTANCE 2 UNITS SC (14:32)
[2025-01-04] MEDS: NOVOLOG FLEXPEN 3 UNITS SC ×2 (14:33→17:44)
[2025-01-04] MEDS: NOVOLOG FLEXPEN-LOW RESISTANCE SC ×2 (14:37→17:43)
--- NOTE | 2025-01-04 15:00 | CM ---
Patient seen at bedside. Patient lives at [facility] in the independent apartments with . Patient PCP is Dr. Lowe and he uses the [facility]. Patient stated he uses a scooter for all movement in apartment and outside of the
apartment. Patient plan is for discharge home with VN. Patient denied home O2 previously. CM will continue to follow for discharge planning needs.
Plan; SNF vs home with VN pending functional status/medical treatment plans
[2025-01-04 15:51] LABS: NT-proBNP 1240 pg/ml
[2025-01-04 17:04] LABS: Glucose - Point of Care 136 mg/dl (70-99)
[2025-01-04] MEDS: ADVAIR HFA 115/21 MCG INHALER INH (17:45)
[2025-01-04] MEDS: ADVAIR HFA 115/21 MCG INHALER 2 PUFF INH (19:17)
[2025-01-04 21:39] LABS: Glucose - Point of Care 154 mg/dl (70-99)
[2025-01-04] MEDS: RESTORIL 30 MG PO (21:40)
[2025-01-05 03:27] VITALS: BP 116/59
[2025-01-05] MEDS: UNASYN IV ×3 (05:24→17:00)
[2025-01-05 06:00] VITALS: BMI 24.6
[2025-01-05 06:03] LABS: Glucose - Point of Care 127 mg/dl (70-99)
[2025-01-05] MEDS: NOVOLOG FLEXPEN-LOW RESISTANCE SC ×2 (06:07→12:14)
[2025-01-05 07:19] LABS: Hematocrit 43.8 % (39.0-52.0); Hemoglobin 14.5 g/dL (13.0-18.0); Mean Corp Hgb Conc. 33.1 g/dL (33.0-37.0); Mean Corpuscular Hgb 28.8 pg (27.0-31.0); Mean Corpuscular Volume 86.9 fL (80.0-94.0); Platelet Count 246 10^3/uL (130-400); Red Blood Cell Count 5.04 10^6/uL (4.70-6.10); Red Cell Dist. Width 13.7 % (11.5-14.5); White Blood Cell Count 7.6 10^3/uL (4.8-10.8)
[2025-01-05 07:40] LABS: Vancomycin Random 16.8 ug/ml
--- NOTE | 2025-01-05 07:41 | PN.DE.MGMTRT ---
Insulin Management
- -
01/05/2025 Diabetes Management Consult Follow up
Patient admitted 01/03 with worsening wound on R great toe, cellulitis, gangrene. Patient is from [facility] medical provider there. PMH Afiv, CAD, CHF, diabetes BPH, renal insufficiency, non healing wound of R great toe and R lateral ankle
both with gangrene. Prior to admission was taking glimepiride 4 mg BID, NPH 14 units BID and metformin 500 mg Daily. A1C on admission 9.3%, cr 1.1, eGFR >60.
Patient is NPO for procedure today. Awake alert and oriented able to discuss diabetes care.
01/04 Patient ordered 7 units NPH bid. Glucose range yesterday 136 to 210. AC novolog ordered, first dose with lunch. Patient refused evening dose of NPH.
01/05 Fasting glucose this AM 127. Will reduce NPH dose to 10 units and continue novolog 3 units AC with low corrective.
Patient for procedure today, will not restart glimepiride 4 mg BID or metformin.
Will follow
Discussed with nurse.
Diabetes History
- -
Type of Diabetes: 2 requiring insulin
Pre-Admission Diabetes Regimen
Lab Results
Hemoglobin A1c 9.3 % (4.0-5.6) H 01/04/25 06:57
Insulin Pump Settings
IP Diabetes Regimen
01/04/25 01/04/25 01/04/25
14:07 17:03 21:38
POC Glucose 210 H 136 H 154 H
01/05/25
06:02
POC Glucose 127 H
Patient Education
[2025-01-05 07:45] VITALS: BP 125/61
[2025-01-05 07:53] LABS: Blood Urea Nitrogen 23 mg/dl (9-20); Calcium 8.9 mg/dl (8.4-10.2); Carbon Dioxide 30 mmol/L (22-30); Chloride 98 mmol/L (98-107); Estimated Creatinine Clearance 47 ml/min; Glucose 145 mg/dl (70-99); Magnesium 2.1 mg/dl (1.6-2.3); Potassium 4.7 mmol/L (3.5-5.1); Sodium 138 mmol/L (135-145); eGFR 58.17
[2025-01-05] MEDS: NOVOLOG FLEXPEN SC ×2 (08:24→12:14)
[2025-01-05] MEDS: COREG PO (08:25)
[2025-01-05] MEDS: PROSCAR 5 MG PO (08:25)
[2025-01-05] MEDS: NEURONTIN 300 MG PO ×3 (08:25→21:15)
[2025-01-05] MEDS: LASIX 40 MG IV (08:26)
[2025-01-05] MEDS: LIPITOR 40 MG PO (08:26)
[2025-01-05] MEDS: FLORASTOR 250 MG PO ×2 (08:26→21:15)
[2025-01-05] MEDS: ADVAIR HFA 115/21 MCG INHALER 2 PUFF INH ×2 (08:38→20:01)
--- NOTE | 2025-01-05 08:47 | PHA.VAN.FU ---
Vancomycin Assessment / Plan
- Assessment
Renal Function: Stable
WBC's are: WNL
In the past 24 hrs, patient has been: Afebrile
Concomitant Antimicrobials: ampicillin/sulbactam
- Assessment - Therapeutic Drug Monitoring
Random Level: 16.8 - drawn ~20.5H after previous dose of 1000mg
- Dosing Plan
Dosing by Level: Re-dose today (Vanc 750mg)
Dosing Comments: reduced dosing today
- Monitoring Plan
Random Level: 01/06 06
- Follow Up
Pharmacy will continue to follow.
Vancomycin Follow UP
- -
Patient Age: 89
Vancomycin Day #: 3
Indication: Skin And Soft Tissue
Requesting Provider: Austin Foster
Pertinent Antimicrobial Allergies:
NKDA
Height / Weight:
Height 6 ft
Actual Weight 82.185 kg
Pertinent Past Medical History: DM II
- Vital Signs / Lab Results
Temp Pulse Resp BP Pulse Ox
97.5 F 58 16 125/61 96
01/05/25 07:45 01/05/25 07:45 01/05/25 07:45 01/05/25 07:45 01/05/25 07:45
Lab Results - Hematology
01/03/25 01/04/25 01/05/25
17:11 06:57 07:09
WBC 9.0 7.0 7.6
Lab Results - Chemistry
01/03/25 01/04/25 01/05/25
17:11 06:57 07:09
BUN 22 H 23 H 23 H
Creatinine 1.3 1.1 1.2
Estimated Creat Clear 51 47
Albumin 4.0
01/03/25 01/03/25
18:00 21:45
Lactic Acid 1.7 Cancelled
Microbiology Results
01/03/25 18:00 Blood Culture - Preliminary
Blood/Venous No Growth in 24 hours- Final report to follow
01/03/25 18:00 Blood Culture - Preliminary
Blood/Venous No Growth in 24 hours- Final report to follow
Therapeutic Drug Monitoring
Random Vancomycin 16.8 ug/ml 01/05/25 07:09
[2025-01-05 11:25] VITALS: BP 117/53
[2025-01-05 11:54] LABS: Glucose - Point of Care 114 mg/dl (70-99)
--- NOTE | 2025-01-05 12:13 | CM ---
Addendum entered by Chula Weller 01/05/25 14:55:
Procedure delayed until tomorrow per physician.
Original Note:
Patient seen at bedside with physician. Patient for procedure today per physician. CM will continue to follow for discharge planning needs.
Plan; home with VN vs SNF pending functional assessment/medical treatment plan
[2025-01-05] MEDS: VANCOCIN 150 IV (12:15)
--- NOTE | 2025-01-05 13:48 | W.PN.HOSP.TC ---
Today's Communication/Plan
-
waiting for angiogram
Assessment / Plan
Assessment / Plan
pt is an 89 year old male
wounds (POA) arterial/diabetic--right toe gangrene, right medial foot/heel with dry gangrene no drainage, sacrum and left heel red/blanchable, mid back with chronic pressure ulcer stage 2--apprec wound care--mains and service supervisor sent for eval--vascular to do
angiogram--perhaps amputation?--cont wound care
acute congestive heart failure exacerbation with preserved EF--ECHO with preserved EF--apprec cards, daily weights, I/Os--no signs of RONDA on admission (creat 1.3, 1.1)--diuresis per cards--on coreg, lasix, statin,
uncontrolled type 2 DM with neuropathy--HGB A1C 9.3--cont glimepiride, insulin NPH, metformin--apprec DM CIVIL ENGINEERING PROFESSIONAL--poor control not helping with wound healing--cont gabapentin
Coronary artery disease--Cardiac stents in past--cont meds as able
History of paroxysmal A-fib--Xarelto on hold--consider bridging with IV heparin--will defer to cards
BPH with urinary retention--smallwood placed--cont finasteride
DVT prophylaxis
CODE STATUS--DNR
Anticipated Discharge: > 48 hours
Subjective/Interval History
-
Date of Service: January 05, 2025
pt waiting for angiogram
Objective Data
-
Labs:
Laboratory Results
01/05/25
07:09
WBC 7.6
Hgb 14.5
Hct 43.8
Plt Count 246
Sodium 138
Potassium 4.7
Chloride 98
Carbon Dioxide 30
BUN 23 H
Creatinine 1.2
Glucose 145 H
Calcium 8.9
Vital Signs:
max temp for 24 hours
01/05/25
03:27
Temp 98.2 F
Vital Signs
Temp Pulse Resp BP Pulse Ox
97.8 F 63 16 117/53 96
01/05/25 11:25 01/05/25 11:25 01/05/25 11:25 01/05/25 11:25 01/05/25 11:25
I&O
01/04/25 01/05/25 01/06/25
06:59 06:59 06:59
Intake Total 300 / 300 920 / 920
Output Total 600 / 600 1974
Balance -300 / -300 -1055 / -1055
Review of Systems
-
All other systems: Reviewed and negative
Physical Exam
-
General: Well Developed, Well Nourished and No Apparent Distress
HEENT: Normocephalic and Atraumatic; Negative Oxygen
Respiratory: Clear to Auscultation; Negative Wheezes or Rhonchi
Cardiac: Regular Rhythm and S1/S2; Negative Murmur
GI: Soft, Nontender, Nondistended and Normal Bowel Sounds
Musculoskeletal: No Clubbing, No Cyanosis and Other (foot wrapped); Negative No Edema
Neuro: Awake and Alert
Psych: Calm
--- NOTE | 2025-01-05 14:34 | W.PN.CARDCBS ---
Addendum entered and electronically signed by Kia Angelo DO 01/05/25 18:05:
I saw and examined the patient.
The Physical Ther's note was reviewed and I agree with the note.
Comment: Patient was seen and examined prior to anticipated peripheral angiogram later today. Offers no new complaints.
GEN: NAD, RA
LUNGS: Bronchovesicular breath sounds, clear bilaterally
CV: Reg and nancy, S1/S2, no murmur
ABD: soft, BS+, NT/ND
EXT: No edema. Foot wrapped
Plan:
Diabetic foot wounds/cellulitis with dry gangrene
-Vascular surgery consulted with plan for right lower extremity angiogram
-Patient is at elevated risk but acceptable and may proceed with procedure as planned
-Appears euvolemic and will transition to oral Lasix
-Monitor renal function/electrolytes
Will follow along peripherally
Original Note:
Today's Communication / Plan
-
patient at elevated but acceptable cardiovascular risk to proceed with planned procedure, timing per vascular
transition to po lasix 40mg BID
Impression / Plan
-
Primary Industrial Truck Driver: Dr. Ortega of [facility], last seen in 2021
Assessment:
Diabetic foot wounds
R great toe cellulitis/dry gangrene
DM2
Peripheral neuropathy
Parox aflutter, asymptomatic, diagnosed 2021
Chronic OAC with xarelto
CAD with posterior NC status post circ PCI 01/2017, LAD with 60% prox stenosis and 80-90% distal stenosis, and known TANK CREWMEMBER of RCA with collaterals by cath at that time
History of GI bleed 02/2017
History of ischemic cardiomyopathy, EF previously 40-45%, now recovered EF 55% by echo
Chronic HFimpEF
COPD
CKD
HTN
HLD
BPH
Spinal cord compression s/p laminectomy 2018
Ambulatory dysfunction as result of above, uses scooter
Former smoker
DNR code status
Lexiscan stress test 12/2018: Inferoapical scar with eliana-infarct ischemia, EF 56%
Echo 03/26/2022 at [facility]: TDS, EF 55 to 60%, mild MR, mild TR
ECHO 01/04/25: EF 56%, mild MR, mild TR, PAP 25-30mmHg
Plan:
-presented with diabetic foot wounds with cellulitis/dry gangrene
-planned for RLE angiogram. was planned for today but had to be postponed due to vascular schedule. timing TBD
-remains without CP, SOB, palpitations
-BPs stable
-in SB on review of tele
-Cr up slightly to 1.2. transition to po lasix 40mg BID, outpatient dosing
-echo with results as above, EF preserved, stable compared to prior study from 2021 at [place]
-patient at elevated but acceptable cardiovascular risk to proceed with planned procedure as scheduled. no further cardiac testing required at this time
-continue wound care
-discussed need for improved diabetic mgmt. he will need to establish care with PCP at [facility].
-he is scheduled for follow up with Dr. Dobbs at [facility] 01/2025 due to his ambulatory issues
-d/w vascular PA
Progress Note - Industrial Truck Driver
Subjective
Date of Service: January 05, 2025
Without complaints. Disappointed that his procedure has been postponed
Objective
Labs:
01/05/25 07:09
01/05/25 07:09
Labs
Hgb 14.5 g/dL (13.0-18.0) 01/05/25 07:09
Hct 43.8 % (39.0-52.0) 01/05/25 07:09
Plt Count 246 10^3/uL (130-400) 01/05/25 07:09
Sodium 138 mmol/L (135-145) 01/05/25 07:09
Potassium 4.7 mmol/L (3.5-5.1) 01/05/25 07:09
BUN 23 mg/dl (9-20) H 01/05/25 07:09
Creatinine 1.2 mg/dL (0.7-1.3) 01/05/25 07:09
Glucose 145 mg/dl (70-99) H 01/05/25 07:09
Vital Signs and I&O:
Vital Signs
Temp Pulse Resp BP Pulse Ox
97.8 F 63 16 117/53 96
01/05/25 11:25 01/05/25 11:25 01/05/25 11:25 01/05/25 11:25 01/05/25 11:25
Vital Signs
Temp Pulse Resp BP Pulse Ox
97.8 F 63 16 117/53 96
01/05/25 11:25 01/05/25 11:25 01/05/25 11:25 01/05/25 11:25 01/05/25 11:25
Intake & Output
01/03/25 01/04/25 01/05/25 01/06/25
07:59 07:59 07:59 07:59
Intake Total 300 / 300 920 / 920
Output Total 600 / 600 1974
Balance -300 / -300 -1055 / -1055
Physical Exam
Physical Exam
GEN: No distress, awake, alert, oriented x3
HEENT: supple, anicteric, mmm, EOMI.
LUNGS: CTA bilaterally, no wheezes/rales
CV: Reg and nancy, S1/S2, no murmur
ABD: soft, BS+, NT/ND
EXT: No cyanosis, clubbing, edema
NEURO: Gross non-focal
SKIN: Warm, pink, dry. No rash
--- NOTE | 2025-01-05 14:50 | PTCARENOTE ---
Scabbed area on right elbow opned and bleeding; area cleansed with saline, adaptic and silicone border foam applied.
[2025-01-05 16:05] VITALS: BP 123/54
[2025-01-05 16:20] LABS: Glucose - Point of Care 177 mg/dl (70-99)
[2025-01-05] MEDS: NEURONTIN PO (16:52)
[2025-01-05] MEDS: HUMULIN N KWIKPEN 10 UNITS SC ×2 (16:54→21:19)
[2025-01-05] MEDS: NOVOLOG FLEXPEN-LOW RESISTANCE 1 UNITS SC (16:55)
[2025-01-05] MEDS: NOVOLOG FLEXPEN 3 UNITS SC (16:55)
--- NOTE | 2025-01-05 17:03 | W.PN.UPDATE ---
Update Note
Progress Note Update
To the emergency OR add-on to our OR schedule, patient is now rescheduled for tomorrow. N.p.o. at midnight. Patient is aware and agreeable.
[2025-01-05 19:55] VITALS: BP 126/64
[2025-01-05] MEDS: COREG 6.25 MG PO (21:14)
[2025-01-05] MEDS: RESTORIL 30 MG PO (21:15)
[2025-01-05 21:21] LABS: Glucose - Point of Care 281 mg/dl (70-99)
[2025-01-05 23:34] VITALS: BP 129/60
[2025-01-06] VITALS (18 sets, daily range): BP systolic 105–137; BP diastolic 58–76; BMI 24.6
[2025-01-06] MEDS: UNASYN IV ×4 (00:53→18:34)
[2025-01-06] MEDS: NOVOLOG FLEXPEN-LOW RESISTANCE SC ×2 (01:01→18:35)
[2025-01-06 05:47] LABS: Glucose - Point of Care 384 mg/dl (70-99)
[2025-01-06] MEDS: NOVOLOG FLEXPEN-LOW RESISTANCE 5 UNITS SC (05:49)
[2025-01-06] MEDS: ADVAIR HFA 115/21 MCG INHALER 2 PUFF INH ×2 (07:34→19:48)
[2025-01-06 07:44] LABS: Hematocrit 41.2 % (39.0-52.0); Hemoglobin 14.2 g/dL (13.0-18.0); Mean Corp Hgb Conc. 34.5 g/dL (33.0-37.0); Mean Corpuscular Hgb 28.6 pg (27.0-31.0); Mean Corpuscular Volume 83.1 fL (80.0-94.0); Mean Platelet Volume 9.1 fL (7.4-10.4); Platelet Count 240 10^3/uL (130-400); Red Blood Cell Count 4.96 10^6/uL (4.70-6.10); Red Cell Dist. Width 13.6 % (11.5-14.5); White Blood Cell Count 6.6 10^3/uL (4.8-10.8)
--- NOTE | 2025-01-06 07:50 | PN.DE.MGMTRT ---
Insulin Management
- -
01/06/2025: Diabetes Management Follow up
Patient admitted 01/03 with worsening wound on R great toe, cellulitis, gangrene. Patient is from [facility] medical provider there. PMH Afiv, CAD, CHF, diabetes BPH, renal insufficiency, non healing wound of R great toe and R lateral ankle
both with gangrene. Prior to admission was taking glimepiride 4 mg BID, NPH 14 units BID and metformin 500 mg Daily. A1C on admission 9.3%, cr 1.1, eGFR >60.
Patient awake alert and oriented, able to discuss diabetes care. NPO for RLE angiogram today
01/05 Glucose trended up to 281@ HS, pt received an additional dose of NPH 10 units, FBG was 301(V), 384 POC this AM
Will increase his NPH dose to 14 units BID. Will give 10 units NPH this AM while NPO. Continue low corrective.
HOLD NovoLog 3 units AC, Metformin and glimepiride for now while NPO. Will resume Metformin and Glimepiride after procedures.
Will cont to follow. Discussed with nurse.
Diabetes History
- -
Type of Diabetes: 2 requiring insulin
Pre-Admission Diabetes Regimen
01/05/25
07:09
Creatinine 1.2
Lab Results
Hemoglobin A1c 9.3 % (4.0-5.6) H 01/04/25 06:57
Insulin Pump Settings
IP Diabetes Regimen
01/05/25 01/05/25 01/05/25
07:09 11:53 16:18
Glucose 145 H
POC Glucose 114 H 177 H
01/05/25 01/06/25
21:20 05:46
Glucose
POC Glucose 281 H 384 H
Meal type: Lunch
Patient Education
[2025-01-06 08:05] LABS: Vancomycin Random 15.6 ug/ml
[2025-01-06 08:24] LABS: Blood Urea Nitrogen 22 mg/dl (9-20); Calcium 8.9 mg/dl (8.4-10.2); Carbon Dioxide 24 mmol/L (22-30); Chloride 100 mmol/L (98-107); Estimated Creatinine Clearance 51 ml/min; Glucose 301 mg/dl (70-99); Magnesium 2.3 mg/dl (1.6-2.3); Potassium 3.8 mmol/L (3.5-5.1); Sodium 138 mmol/L (135-145); eGFR > 60.00
[2025-01-06 08:30] LABS: Glucose - Point of Care 242 mg/dl (70-99)
[2025-01-06] MEDS: NOVOLOG FLEXPEN SC ×3 (08:32→18:34)
[2025-01-06] MEDS: HUMULIN N KWIKPEN SC (08:33)
[2025-01-06] MEDS: COREG 6.25 MG PO ×2 (08:40→21:28)
[2025-01-06] MEDS: LIPITOR 40 MG PO (08:41)
[2025-01-06] MEDS: LASIX 40 MG PO ×2 (08:41→18:34)
[2025-01-06] MEDS: FLORASTOR 250 MG PO ×2 (08:41→21:28)
[2025-01-06] MEDS: PROSCAR 5 MG PO (08:41)
[2025-01-06] MEDS: NEURONTIN 300 MG PO ×3 (08:41→21:28)
[2025-01-06] MEDS: HUMULIN N KWIKPEN 10 UNITS SC (08:52)
--- NOTE | 2025-01-06 09:44 | PHA.VAN.FU ---
Vancomycin Assessment / Plan
- Assessment
Renal Function: Stable
WBC's are: WNL
In the past 24 hrs, patient has been: Afebrile
Concomitant Antimicrobials: ampicillin/sulbactam
- Assessment - Therapeutic Drug Monitoring
Random Level: 15.6 - drawn ~19H after previous dose of 750mg
- Dosing Plan
Dosing by Level: Re-dose today (Vanc 1000mg)
Level decreased slightly but not as much as would be expected
Anticipate patient may require prolonged re-dosing interval
Patient scheduled for vascular OR today so will re-dose today to ensure levels appropriate through procedure
Will re-dose with 1000mg (~ 12mg/kg) anticipating that may be able to hold dosing tomorrow
- Monitoring Plan
Random Level: 01/07 0600
- Follow Up
Pharmacy will continue to follow.
Vancomycin Follow UP
- -
Patient Age: 89
Vancomycin Day #: 4
Indication: Skin And Soft Tissue
Requesting Provider: Austin Foster
Pertinent Antimicrobial Allergies:
NKDA
Height / Weight:
Height 6 ft
Actual Weight 82.129 kg
Pertinent Past Medical History: DM II
- Vital Signs / Lab Results
Temp Pulse Resp BP Pulse Ox
98.4 F 62 20 132/62 96
01/06/25 07:55 01/06/25 07:55 01/06/25 07:55 01/06/25 07:55 01/06/25 07:55
Lab Results - Hematology
01/03/25 01/04/25 01/05/25
17:11 06:57 07:09
WBC 9.0 7.0 7.6
01/06/25
07:28
WBC 6.6
Lab Results - Chemistry
01/03/25 01/04/25 01/05/25
17:11 06:57 07:09
BUN 22 H 23 H 23 H
Creatinine 1.3 1.1 1.2
Estimated Creat Clear 51 47
Albumin 4.0
01/06/25
07:28
BUN 22 H
Creatinine 1.1
Estimated Creat Clear 51
Albumin
01/03/25 01/03/25
18:00 21:45
Lactic Acid 1.7 Cancelled
Microbiology Results
01/03/25 18:00 Blood Culture - Preliminary
Blood/Venous No Growth in 48 hours- Final report to follow
01/03/25 18:00 Blood Culture - Preliminary
Blood/Venous No Growth in 48 hours- Final report to follow
01/04/25 05:40 MRSA Screen - Final
Nose No Methicillin Resistant Staphylococcus aureus isolated.
Therapeutic Drug Monitoring
Random Vancomycin 15.6 ug/ml 01/06/25 07:28
--- NOTE | 2025-01-06 10:16 | W.PN.CARDCBS ---
Today's Communication / Plan
-
Right lower extremity angiogram today.
Outpatient cardiac follow-up with Dr. Dobbs at [facility]
Impression / Plan
-
Primary Director Mortgage: Dr. Ortega of [facility], last seen in 2021
Assessment:
Diabetic foot wounds
R great toe cellulitis/dry gangrene
DM2
Peripheral neuropathy
Parox aflutter, asymptomatic, diagnosed 2021
Chronic OAC with xarelto
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
History of GI bleed 02/2017
History of ischemic cardiomyopathy, EF previously 40-45%, now recovered EF 55% by echo
Chronic HFimpEF
COPD
CKD
HTN
HLD
BPH
Spinal cord compression s/p laminectomy 2018
Ambulatory dysfunction as result of above, uses scooter
Former smoker
DNR code status
Lexiscan stress test 12/2018: Inferoapical scar with eliana-infarct ischemia, EF 56%
Echo 03/26/2022 at [facility]: TDS, EF 55 to 60%, mild MR, mild TR
ECHO 01/04/25: EF 56%, mild MR, mild TR, PAP 25-30mmHg
Plan:
Diabetic foot wounds/cellulitis with dry gangrene
-Vascular surgery consulted with plan for right lower extremity angiogram today
-Patient is at elevated risk but acceptable and may proceed with procedure as planned
-Appears euvolemic and will transition to oral Lasix
-Monitor renal function/electrolytes
-discussed need for improved diabetic mgmt. he will need to establish care with PCP at [facility].
-he is scheduled for follow up with Dr. Dobbs at [facility] 01/2025 due to his ambulatory issues
-d/w vascular PA
Progress Note - Director Mortgage
Subjective
Date of Service: January 06, 2025
Seen and examined. N.p.o. for angiogram today. No events overnight.
Objective
Labs:
01/06/25 07:28
01/06/25 07:28
Labs
Hgb 14.2 g/dL (13.0-18.0) 01/06/25 07:28
Hct 41.2 % (39.0-52.0) 01/06/25 07:28
Plt Count 240 10^3/uL (130-400) 01/06/25 07:28
Sodium 138 mmol/L (135-145) 01/06/25 07:28
Potassium 3.8 mmol/L (3.5-5.1) 01/06/25 07:28
BUN 22 mg/dl (9-20) H 01/06/25 07:28
Creatinine 1.1 mg/dL (0.7-1.3) 01/06/25 07:28
Glucose 301 mg/dl (70-99) H 01/06/25 07:28
Vital Signs and I&O:
Vital Signs
Temp Pulse Resp BP Pulse Ox
98.4 F 62 20 132/62 96
01/06/25 07:55 01/06/25 07:55 01/06/25 07:55 01/06/25 07:55 01/06/25 07:55
Vital Signs
Temp Pulse Resp BP Pulse Ox
98.4 F 62 20 132/62 96
01/06/25 07:55 01/06/25 07:55 01/06/25 07:55 01/06/25 07:55 01/06/25 07:55
Intake & Output
01/04/25 01/05/25 01/06/25 01/07/25
06:59 06:59 06:59 06:59
Intake Total 300 / 300 920 / 920 750 / 750
Output Total 600 / 600 1974 1125 / 1125
Balance -300 / -300 -1055 / -1055 -375 / -375
Physical Exam
Physical Exam
GEN: NAD, RA
LUNGS: Bronchovesicular breath sounds, clear bilaterally
CV: Reg and nancy, S1/S2, no murmur
ABD: soft, BS+, NT/ND
EXT: No edema. Foot wrapped
[2025-01-06] MEDS: VANCOCIN 200 IV (10:39)
[2025-01-06 11:37] LABS: Glucose - Point of Care 199 mg/dl (70-99)
[2025-01-06] MEDS: DESENEX/MITRAZOL/ZEASORB 1 APPLIC TOPICAL ×2 (11:47→21:29)
[2025-01-06] MEDS: NOVOLOG FLEXPEN-LOW RESISTANCE 1 UNITS SC (11:49)
--- NOTE | 2025-01-06 12:10 | W.PN.HOSP.TC ---
Today's Communication/Plan
-
for OR today
Assessment / Plan
Assessment / Plan
pt is an 89 year old male
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
angiogram today--cont wound care
acute congestive heart failure exacerbation with preserved EF--ECHO with preserved EF--apprec cards, daily weights, I/Os--no signs of RONDA on admission (creat 1.3, 1.1)--diuresis per cards--on coreg, lasix, statin,
uncontrolled type 2 DM with neuropathy--HGB A1C 9.3--cont glimepiride, insulin NPH, metformin--apprec DM CLAIM ANALYST--poor control not helping with wound healing--cont gabapentin
Coronary artery disease--Cardiac stents in past--cont meds as able
History of paroxysmal A-fib--Xarelto on hold--consider bridging with IV heparin--will defer to cards
BPH with urinary retention--smallwood placed--cont finasteride
DVT prophylaxis
CODE STATUS--DNR
Anticipated Discharge: > 48 hours
Subjective/Interval History
-
Date of Service: January 06, 2025
pt waiting to go to OR
Objective Data
-
Labs:
Laboratory Results
01/06/25
07:28
WBC 6.6
Hgb 14.2
Hct 41.2
Plt Count 240
Sodium 138
Potassium 3.8
Chloride 100
Carbon Dioxide 24
BUN 22 H
Creatinine 1.1
Glucose 301 H
Calcium 8.9
Vital Signs:
max temp for 24 hours
01/05/25
19:55
Temp 98.3 F
Vital Signs
Temp Pulse Resp BP Pulse Ox
98.4 F 62 20 132/62 96
01/06/25 07:55 01/06/25 07:55 01/06/25 07:55 01/06/25 07:55 01/06/25 07:55
I&O
01/05/25 01/06/25 01/07/25
06:59 06:59 06:59
Intake Total 920 / 920 750 / 750
Output Total 1974 1125 / 1125
Balance -1055 / -1055 -375 / -375
Review of Systems
-
All other systems: Reviewed and negative
Physical Exam
-
General: Well Developed, Well Nourished and No Apparent Distress
HEENT: Normocephalic and Atraumatic; Negative Oxygen
Respiratory: Clear to Auscultation; Negative Wheezes or Rhonchi
Cardiac: Regular Rhythm and S1/S2; Negative Murmur
GI: Soft, Nontender, Nondistended and Normal Bowel Sounds
Musculoskeletal: No Clubbing, No Cyanosis and No Edema
Neuro: Awake and Alert
--- NOTE | 2025-01-06 13:01 | W.SUR.PREOP ---
Pre-Operative Surgical Note
-
I have examined this patient prior to the performance of the scheduled procedure.
The patient's condition is unchanged from the time of the current History and
Physical and the patient is able to undergo the scheduled procedure.
--- NOTE | 2025-01-06 15:22 | W.SUR.POST ---
Surgical Immediate Post Op
Note
Pre Op Diagnosis: PAD; dry gangrene of R first toe, lateral R foot
Post Op Diagnosis: PAD; dry gangrene of R first toe, lateral R foot
Procedure Performed: RLE angio, shockwave, PHONE BANKER, stent
Primary Surgeon: Cesar Aragon
Secondary Surgeons: Brandon Leonard
Anesthesia: see anesthesia flow sheet
Estimated Blood Loss: 2cc
Fluids: see anesthesia flowsheet
Drains/Shunts: none
Specimens/Cultures: none
Doppler/Duplex/Angio (Y/N): y
Complications: none
Operative Findings: RLE angiogram via antegrade stick in R groin demonstrating popliteal disease, one vessel runoff via AT to the ankle, short segment occlusion, and reconstitution distally via collaterals. Javelin of AT down through the DP
followed by PHONE BANKER of R DP and AT. DCB x 2 to AT takeoff and popliteal artery. BMS to popliteal. Completion angio with one vessel runoff to foot. Palpable DP at ankle, dopplerable DP out to first digit.
[2025-01-06 16:08] LABS: Glucose - Point of Care 121 mg/dl (70-99)
[2025-01-06] MEDS: DILAUDID 0.25 MG IV (16:36)
[2025-01-06] MEDS: NSS 1000 IV (17:16)
--- NOTE | 2025-01-06 17:28 | CM ---
Chart reviewed and patient may benefit from skilled referral sent to [facility]
Plan; To follow with patient progress and assist with discharge planning.
--- NOTE | 2025-01-06 17:50 | PTCARENOTE ---
Pt was received from PACU at 1740. Pt is AAOx3, HOB elevated to 30 degrees at 1750 per order. Right groin site dressing with a small amount on bloody drainage. No increase in drainage per PACU. Neurovascular checks within normal limits. Pt resting
in bed. Family at the bedside.
[2025-01-06 18:18] LABS: Glucose - Point of Care 85 mg/dl (70-99)
[2025-01-06] MEDS: PLAVIX 300 MG PO (18:37)
--- NOTE | 2025-01-06 19:12 | W.PN.UPDATE ---
Update Note
Progress Note Update
Patient seen at bedside
-Betadine to hallux wound
-Wound care consult
-Stable gangrenous changes, no intervention needed at this time
-NWB, touch down for transfers RLE
-Float heels while in bed for offloading
-Will follow
--- NOTE | 2025-01-06 19:29 | OR.RPT ---
Operative Report
Operative Report
Date of Operation: 01/06/2025
Pre Op Diagnosis:
1. Chronic limb threatening ischemia, right lower extremity
2. Atherosclerosis, [place] arteries lower extremity with gangrene and ulceration of the right toes and foot
3. Diabetes complicated by atherosclerosis
Post Op Diagnosis:
1. Chronic limb threatening ischemia, right lower extremity
2. Atherosclerosis, [place] arteries lower extremity with gangrene and ulceration of the right toes and foot
3. Diabetes complicated by atherosclerosis
Procedure:
1.) Intravascular lithotripsy to right anterior tibial artery and dorsalis pedis artery using Shockwave Javelin catheter
2.) Balloon angioplasty of right dorsalis pedis artery (2 mm angioplasty balloon; 2.5 mm noncompliant balloon)
3.) Balloon angioplasty of right anterior tibial artery 2.5 mm angioplasty balloon; 3 mm angioplasty balloon; 3.5 mm angioplasty balloon proximal/origin)
4.) Drug-coated balloon angioplasty of right popliteal artery stenosis behind and below the knee (4 mm x 150 mm Lutonix DCB)
5.) Balloon angioplasty and stenting of right above-knee popliteal artery (6 mm x 120 mm LifeStent; post dilated with 5 mm angioplasty balloon)
6.) Diagnostic right lower extremity arteriogram
7.) Ultrasound-guided percutaneous ANTEGRADE access to the right lower extremity
Surgeon: Cesar Aragon III, MD
Art Coordinator: Brandon Leonard MD, PGY4
Anesthesia: Sedation with local
Fluoroscopy:
38.7 min
75 mGy
17.56 Gy.cm2
Complications: None
Estimated Blood Loss: 20 cc
History and Indications for Procedure: 89-year-old male with multiple medical comorbidities who developed chronic limb threatening ischemia of his right lower extremity manifested by gangrene and nonhealing wounds of his hallux and lateral foot.
Preoperative duplex imaging showed multiphasic common femoral waveforms on the right with no velocity evidence of superficial femoral artery disease. FRANCES was noncompressible and he had a severely reduced TBI indicating the presence of
infrapopliteal disease. I therefore made the decision to proceed with an antegrade access approach on the right.
Procedure in Detail: Elvis Enriquez was correctly identified and placed supine on the operating table. After adequate induction of anesthesia the bilateral groins were prepped and draped in the usual sterile fashion. A timeout was performed with
the nursing and anesthesia staff confirming the patient's identity as well as the nature and laterality of the procedure.
The right common femoral artery was identified under ultrasound guidance. The proximal SFA origin was identified. The arteries were patent. The superior and inferior aspects of the femoral head were identified with radiographic guidance and marked
at the skin level. The proposed puncture site was infiltrated with local anesthesia. Under ultrasound guidance we accessed the origin of the superficial femoral artery with a micropuncture needle and upsized to a 5 Fr sheath over a Umweltech wire. A
diagnostic RIGHT lower extremity arteriogram was then performed which demonstrated the following:
RIGHT LOWER EXTREMITY:
Superficial femoral artery: Patent. Scattered areas of mild stenosis identified. Diffuse peripheral calcification
Popliteal artery: Diffuse disease identified throughout the above-knee popliteal artery, behind the knee and below the knee popliteal artery
Anterior tibial artery: Patent. Scattered areas of high-grade stenosis. Focal occlusion of the dorsalis pedis artery.
Tibioperoneal trunk: Patent but diseased
Peroneal artery: Patent but occluded in the mid calf
Posterior tibial artery: Occluded
ENDOVASCULAR INTERVENTION: Systemic heparin was administered. Exchanged out for a 5 Fr 45 cm sheath over a Storq wire. The radiopaque tip was brought down to the popliteal artery behind the knee. Selected the anterior tibial artery under roadmap
guidance with Quickcross catheter and glidewire. The anterior tibial artery disease was crossed with a Quickcross and Glidewire. At the ankle I exchanged out for a 0.014 Mongo wire. The wire was advanced successfully across the dorsalis pedis
artery occlusion and out towards the hallux. Due to the heavily calcified nature of the anterior tibial artery and dorsalis pedis artery disease and in an effort to successfully cross the lesion, modify the calcium and achieve luminal gain with
endovascular intervention I elected to proceed with intravascular lithotripsy with a Shockwave Javelin catheter. The Javelin catheter was brought into position under radiographic guidance over the 0.014 wire. The catheter was advanced through the
anterior tibial and dorsalis pedis artery and across the disease while simultaneously delivering lithotripsy pulses. 120 pulses were delivered. Subsequent arteriogram demonstrated improvement in flow. A 2 mm angioplasty balloon was then used to
treat the dorsalis pedis artery and distal anterior tibial artery. The balloon was positioned in the desired location and inflated to nominal pressure. A 3-minute inflation was performed. Following this I treated the remainder of the anterior
tibial artery with a 3 mm angioplasty balloon. Each inflation was performed at nominal pressure and held in place for 3 minutes. Subsequent arteriogram demonstrated a significantly improved result but residual stenosis remained in the distal
anterior tibial artery and dorsalis pedis artery. I then brought into position a 2.5 mm angioplasty balloon and treated the dorsalis pedis and distal anterior tibial artery. The balloon was inflated to nominal pressure and held in place for
4-minute inflation. Subsequent arteriogram demonstrated significant improvement with only a focal area of residual stenosis identified. This focal area was treated with a 2.5 mm x 12 mm noncompliant coronary balloon. The balloon was inflated to
burst pressure and held in place at this location for 4-minute inflation. Subsequent arteriogram demonstrated a good result with flow throughout a patent anterior tibial artery and dorsalis pedis artery which was now patent and supplied flow to the
hallux and lateral foot. Significant improvement compared to pretreatment.
I then focused my attention on the more proximal disease. The sheath was pulled back. An arteriogram identified once again the disease in the popliteal artery as well as the anterior tibial artery origin disease. I brought into position a 3.5 mm
x 40 mm angioplasty balloon and placed this across the anterior tibial the balloon was inflated to nominal pressure and held in place for 3-minute inflation artery origin. Before deflating and removing over the wire. The popliteal artery below the
knee and behind the knee was treated with a 4 mm x 150 mm drug-coated angioplasty balloon (Lutonix). The balloon was inflated in the desired location and held in place for 3-minute inflation. Stenosis in the above-knee popliteal artery was treated
with a 6 mm x 120 mm LifeStent. The stent was positioned in the desired location under roadmap guidance and deployed. The stent was profiled with a 5 mm angioplasty balloon. Completion arteriogram demonstrated a widely patent popliteal artery
stent with no residual stenosis identified. The popliteal artery behind the knee and below the knee was patent with no residual stenosis identified. The anterior tibial artery origin and proximal artery were widely patent with no residual stenosis
identified.
Satisfied with this result we concluded the procedure. Protamine was administered. The sheath was removed in the operating room. Direct manual pressure was held over the puncture site until hemostasis was achieved. A sterile dressing was applied.
The patient tolerated the procedure well and was taken to the recovery area in stable condition.
Attestation: I was present and responsible for the entire procedure.
Signed:
Cesar Aragon III, MD
[facility]
[phone] (cell)
[2025-01-06 21:17] LABS: Glucose - Point of Care 151 mg/dl (70-99)
[2025-01-06] MEDS: RESTORIL 30 MG PO (21:28)
[2025-01-06] MEDS: HUMULIN N KWIKPEN 14 UNITS SC (21:29)
[2025-01-07] MEDS: UNASYN IV ×3 (00:25→13:43)
[2025-01-07 03:05] VITALS: BP 105/71
[2025-01-07 06:00] VITALS: BMI 24.7
[2025-01-07 07:32] LABS: Glucose - Point of Care 105 mg/dl (70-99)
[2025-01-07 07:56] LABS: Hematocrit 42.2 % (39.0-52.0); Hemoglobin 13.9 g/dL (13.0-18.0); Mean Corp Hgb Conc. 32.9 g/dL (33.0-37.0); Mean Corpuscular Hgb 28.7 pg (27.0-31.0); Mean Platelet Volume 9.1 fL (7.4-10.4); Platelet Count 239 10^3/uL (130-400); Red Blood Cell Count 4.85 10^6/uL (4.70-6.10); Red Cell Dist. Width 13.8 % (11.5-14.5); White Blood Cell Count 7.6 10^3/uL (4.8-10.8)
[2025-01-07 08:03] VITALS: BP 143/64
[2025-01-07 08:13] LABS: Blood Urea Nitrogen 16 mg/dl (9-20); Calcium 8.6 mg/dl (8.4-10.2); Carbon Dioxide 32 mmol/L (22-30); Chloride 100 mmol/L (98-107); Estimated Creatinine Clearance 47 ml/min; Glucose 107 mg/dl (70-99); Magnesium 2.1 mg/dl (1.6-2.3); Potassium 3.7 mmol/L (3.5-5.1); Sodium 141 mmol/L (135-145); eGFR 58.17
[2025-01-07] MEDS: NOVOLOG FLEXPEN-LOW RESISTANCE SC (08:16)
[2025-01-07 08:17] LABS: Vancomycin Random 15.3 ug/ml
[2025-01-07] MEDS: NEURONTIN 300 MG PO (08:17)
[2025-01-07] MEDS: PROSCAR 5 MG PO (08:18)
[2025-01-07] MEDS: FLORASTOR 250 MG PO (08:18)
[2025-01-07] MEDS: LASIX 40 MG PO (08:18)
[2025-01-07] MEDS: PLAVIX 75 MG PO (08:18)
[2025-01-07] MEDS: COREG 6.25 MG PO (08:19)
[2025-01-07] MEDS: DESENEX/MITRAZOL/ZEASORB 1 APPLIC TOPICAL (08:21)
[2025-01-07] MEDS: LIPITOR 40 MG PO (08:29)
[2025-01-07] MEDS: NOVOLOG FLEXPEN 3 UNITS SC ×2 (08:30→13:43)
[2025-01-07] MEDS: HUMULIN N KWIKPEN 14 UNITS SC (08:31)
--- NOTE | 2025-01-07 08:54 | PHA.VAN.FU ---
Vancomycin Assessment / Plan
- Assessment
Renal Function: Stable
WBC's are: Stable
In the past 24 hrs, patient has been: Afebrile
Concomitant Antimicrobials: AMPICILLIN/SULBACTAM
- Assessment - Therapeutic Drug Monitoring
Random Level: 15.3 - DRAWN ~21 HRS AFTER PREVIOUS DOSE OF 1000MG
- Dosing Plan
Adjust Regimen to: VANCO 1000MG Q24H
- Monitoring Plan
No level(s) ordered at this time: CONSIDER LEVEL PRIOR TO 4TH MAINTENANCE DOSE
- Follow Up
Pharmacy will continue to follow.
Vancomycin Follow UP
- -
Patient Age: 89
Vancomycin Day #: 5
Indication: Skin And Soft Tissue
Requesting Provider: Austin Foster
Pertinent Antimicrobial Allergies:
NKDA
Height / Weight:
Height 6 ft
Actual Weight 82.554 kg
Pertinent Past Medical History: DM II
- Vital Signs / Lab Results
Temp Pulse Resp BP Pulse Ox
98.6 F 63 20 143/64 95
01/07/25 08:03 01/07/25 08:19 01/07/25 08:03 01/07/25 08:19 01/07/25 08:03
Lab Results - Hematology
01/05/25 01/06/25 01/07/25
07:09 07:28 07:34
WBC 7.6 6.6 7.6
Lab Results - Chemistry
01/05/25 01/06/25 01/07/25
07:09 07:28 07:34
BUN 23 H 22 H 16
Creatinine 1.2 1.1 1.2
Estimated Creat Clear 47 51 47
Microbiology Results
01/03/25 18:00 Blood Culture - Preliminary
Blood/Venous No Growth in 72 hours- Final report to follow
01/03/25 18:00 Blood Culture - Preliminary
Blood/Venous No Growth in 72 hours- Final report to follow
01/04/25 05:40 MRSA Screen - Final
Nose No Methicillin Resistant Staphylococcus aureus isolated.
Therapeutic Drug Monitoring
Random Vancomycin 15.3 ug/ml 01/07/25 07:34
--- NOTE | 2025-01-07 09:14 | W.PN.VS ---
Today's Communication / Plan
-
Plan reviewed with attending Dr. Cesar Aragon III
Assessment/Plan
-
Assessment: 89-year-old male POD #1 Intravascular lithotripsy to right anterior tibial artery and dorsalis pedis artery using Shockwave Javelin catheter, balloon angioplasty of right dorsalis pedis artery (2 mm angioplasty balloon; 2.5 mm
noncompliant balloon), balloon angioplasty of right anterior tibial artery 2.5 mm angioplasty balloon; 3 mm angioplasty balloon; 3.5 mm angioplasty balloon proximal/origin), Drug-coated balloon angioplasty of right popliteal artery stenosis behind
and below the knee (4 mm x 150 mm Lutonix DCB), Balloon angioplasty and stenting of right above-knee popliteal artery (6 mm x 120 mm LifeStent; post dilated with 5 mm angioplasty balloon), Diagnostic right lower extremity arteriogram,
Ultrasound-guided percutaneous ANTEGRADE access to the right lower extremity
Plan:
From a vascular surgical perspective okay to reinitiate home anticoagulation
Continue Plavix p.o. 75 mg daily
Remove right groin Tegaderm later this afternoon
Follow-up appointment and ultrasound placed in discharge instructions
We will sign off please call with questions or concerns
Subjective Data
-
Date of Service: January 07, 2025
Patient seen and examined at bedside, offers no complaints. Denies swelling or moderate to severe discomfort at right groin puncture site, does endorse very mild tenderness with deep palpation to right groin puncture site. Tolerating p.o. diet.
Denies nausea, vomiting, fever, and chills.
Objective Data
-
Vital Signs
Temp Pulse Resp BP Pulse Ox
98.6 F 63 20 143/64 95
01/07/25 08:03 01/07/25 08:19 01/07/25 08:03 01/07/25 08:19 01/07/25 08:03
Intake and Output
01/06/25 01/07/25 01/08/25
06:59 06:59 06:59
Intake Total 750 / 750 50 / 50
Output Total 1125 / 1125 850 / 850 900 / 900
Balance -375 / -375 -800 / -800 -900 / -900
Intake:
Oral fluids 480 / 480
IV fluids (Total) 50 / 50
NSS 50 / 50
IV piggybacks 270 / 270
Output:
Urine, Aragon 1125 / 1125 850 / 850 900 / 900
Lab Results
01/07/25 07:34
01/07/25 07:34
Calcium 8.6 mg/dl (8.4-10.2) 01/07/25 07:34
Magnesium 2.1 mg/dl (1.6-2.3) 01/07/25 07:34
Total Bilirubin 0.9 mg/dl (0.2-1.3) 01/03/25 17:11
AST 19 U/L (17-59) 01/03/25 17:11
ALT 16 U/L (0-50) 01/03/25 17:11
Alkaline Phosphatase 85 U/L (38-126) 01/03/25 17:11
Total Protein 7.4 g/dl (6.3-8.2) 01/03/25 17:11
Albumin 4.0 g/dl (3.5-5.0) 01/03/25 17:11
Physical Exam
-
No apparent distress, resting in bed comfortably
No tachycardia
No dyspnea on room air
ABD rotund, nondistended, nontender
Right groin puncture site dry and intact, no evidence of hematoma or edema, all surrounding compartments soft
Right foot with Doppler signal DP
[2025-01-07] MEDS: ADVAIR HFA 115/21 MCG INHALER 2 PUFF INH (09:30)
--- NOTE | 2025-01-07 09:59 | W.PN.UPDATE ---
Update Note
Progress Note Update
Stable from a cardiac standpoint. Agree with vascular recommendations. Agree with recommendations regarding reinitiation of home anticoagulation.
Please call us if we can be of any further assistance.
[2025-01-07] MEDS: VANCOCIN 200 IV (11:11)
[2025-01-07 11:26] VITALS: BP 143/70
[2025-01-07 11:50] LABS: Glucose - Point of Care 166 mg/dl (70-99)
--- NOTE | 2025-01-07 13:40 | W.PN.UPDATE ---
Update Note
Progress Note Update
Patient seen at bedside with stable right foot wounds
-Okay for D/C, follow up 1 week
-Continue home nursing with dressing changes 3 x per week
-ABx per ID
-float heels while in bed, touch down for transfers only, otherwise NWB RLE
--- NOTE | 2025-01-07 13:44 | W.PN.HOSP.TC ---
Today's Communication/Plan
-
d/c
Assessment / Plan
Assessment / Plan
pt is an 89 year old male
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
today--cont wound care--ok for d/c
acute congestive heart failure exacerbation with preserved EF--ECHO with preserved EF--apprec cards, daily weights, I/Os--no signs of RONDA on admission (creat 1.3, 1.1)--diuresis per cards--on coreg, lasix, statin,
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
Coronary artery disease--Cardiac stents in past--cont meds as able
History of paroxysmal A-fib--Xarelto on hold--consider bridging with IV heparin--will defer to cards
BPH with urinary retention--smallwood placed--cont finasteride
DVT prophylaxis
CODE STATUS--DNR
Anticipated Discharge: Today
Subjective/Interval History
-
Date of Service: January 07, 2025
pt asking about d/c--cleared from vascular and podiatry
Objective Data
-
Labs:
Laboratory Results
01/07/25
07:34
WBC 7.6
Hgb 13.9
Hct 42.2
Plt Count 239
Sodium 141
Potassium 3.7
Chloride 100
Carbon Dioxide 32 H
BUN 16
Creatinine 1.2
Glucose 107 H
Calcium 8.6
Vital Signs:
max temp for 24 hours
01/07/25
08:03
Temp 98.6 F
Vital Signs
Temp Pulse Resp BP Pulse Ox
98.1 F 56 20 143/70 95
01/07/25 11:26 01/07/25 11:26 01/07/25 11:26 01/07/25 11:26 01/07/25 11:26
I&O
01/06/25 01/07/25 01/08/25
06:59 06:59 06:59
Intake Total 750 / 750 50 / 50 320 / 320
Output Total 1125 / 1125 850 / 850 900 / 900
Balance -375 / -375 -800 / -800 -580 / -580
Review of Systems
-
All other systems: Reviewed and negative
Physical Exam
-
General: Well Developed, Well Nourished and No Apparent Distress
HEENT: Normocephalic and Atraumatic; Negative Oxygen
Respiratory: Clear to Auscultation; Negative Wheezes or Rhonchi
Cardiac: Regular Rhythm and S1/S2; Negative Murmur
GI: Soft, Nontender, Nondistended and Normal Bowel Sounds
Musculoskeletal: No Clubbing and No Cyanosis
Neuro: Awake and Alert
Psych: Calm
[2025-01-07] MEDS: NOVOLOG FLEXPEN-LOW RESISTANCE 1 UNITS SC (13:45)
--- NOTE | 2025-01-07 13:46 | W.PN.UPDATE ---
Update Note
Progress Note Update
Patient s/p Right Ex Fix application for temporary stabilization of pilon and lisfranc fractures
-Strict NWB RLE
-Ancef x 24 hours
-Dressings C/D/I
-Pain control prn
-Plan for ORIF after swelling improves likely 01/12/25
-Will follow
--- NOTE | 2025-01-07 14:10 | CM ---
CM following re: discharge planning.
Reviewed pt's chart, met with pt and spoke to pt's spouse over the phone to update on discharge plan progress.
Discharge order noted. Both pt and his spouse are aware, expressed their agreement with discharge. IMM reviewed, placed on chart, pt has a copy.
PT and OT evaluations noted - SNF level of care recommended. both pt and his spouse are aware, declined SNF level of care and preferred to return back home with [facility] services. A referral to [facility] made. pt's spouse stated she and
their son Hosea will transport pt home today.
Please fax discharge instruction to [facility] at [phone]
D/C plan: return back to Independent apartment at [facility] with [facility] and family support. Spouse and son to transport.
[2025-01-07 15:54] VITALS: BP 130/61
--- NOTE | 2025-01-08 16:30 | W.DCSUMMARY ---
Discharge Summary
Discharge Data
Date of Admission: 01/03/25
Date of Discharge: 01/07/25
-
Pending Results: No
Hospital Course
Primary care physician : Etelvina Lowe
Principal Discharge diagnosis : Arterial and diabetic wounds present on admission, acute congestive heart failure exacerbation with preserved ejection fraction
Chronic Discharge diagnosis : Uncontrolled type 2 diabetes with neuropathy, coronary artery disease, history of paroxysmal atrial fibrillation, benign prostatic hyperplasia with urinary retention self catheterizes
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 He has a wound on the right side of his foot for the past 4 to 6 weeks as well. He was treated
with oral antibiotics by podiatry 4 weeks prior to admission. He was noted to have the right great toe wound more than 2 weeks prior to admission. Patient denied any fevers chills, nausea, vomiting, diarrhea. Patient was admitted.
Problem #1: Arterial and diabetic wounds present on admission. These wounds included right toe gangrene, right medial foot/heel with dry gangrene and no drainage, sacrum and left heel red/blanchable, mid back with chronic pressure ulcer stage II.
Patient was admitted and seen in consultation by vascular surgery, cardiology, diabetic nurse practitioners. He underwent right lower extremity angiography, shockwave, DETAILER FURNITURE, and stent placement. Blood flow was improved to the lower leg. He was
seen in consultation by podiatry who recommended outpatient follow-up as no acute surgical needs are present. He was started on broad-spectrum antibiotics and will be discharged on Augmentin for 7 more days.
Problem #2: Acute congestive heart failure exacerbation with preserved ejection fraction. Patient was found to be in acute heart failure and cardiology was consulted. They did an echocardiogram, results of which are below. He was given IV Lasix
with improvement prior to being cleared for the vascular surgery procedure. He was continued on Coreg, Lasix, and his statin.
Problem #3: All other medical issues. These include Uncontrolled type 2 diabetes with neuropathy, coronary artery disease, history of paroxysmal atrial fibrillation, benign prostatic hyperplasia with urinary retention self catheterizes. These
medical issues were stable during his hospitalization. Medications were continued as able. In regards to his type 2 diabetes mellitus, this is uncontrolled with a hemoglobin A1c of 9.3. He was seen in consultation by the diabetic nurse
practitioner. Uncontrolled glucose will impede wound healing. Patient did have a Aragon catheter during his hospitalization. This was removed on the day of discharge as the patient self catheterizes.
Patient is stable for discharge home at this time. If there are any questions regarding this dictation or his hospital stay, please not hesitate to call. Our office number is [phone].
Time for discharge 37 minutes.
Important imaging findings :
ECHOCARDIOGRAM CONCLUSIONS:
Normal left ventricular size, wall thickness and systolic function. No gross
regional wall motion abnormalities. LV ejection fraction is 56% by Crandall's
method of discs. Diastolic function indeterminate.
Normal right ventricular size and function.
Mild mitral regurgitation.
Mild tricuspid regurgitation. Estimated pulmonary artery pressure of 25-30 mmHg
No prior study for comparison
Procedure findings :
Pre Op Diagnosis: PAD; dry gangrene of R first toe, lateral R foot
Post Op Diagnosis: PAD; dry gangrene of R first toe, lateral R foot
Procedure Performed: RLE angio, shockwave, DETAILER FURNITURE, stent
Primary Surgeon: Cesar Aragon
Secondary Surgeons: Brandon Leonard
Anesthesia: see anesthesia flow sheet
Estimated Blood Loss: 2cc
Fluids: see anesthesia flowsheet
Drains/Shunts: none
Specimens/Cultures: none
Doppler/Duplex/Angio (Y/N): y
Complications: none
Operative Findings: RLE angiogram via antegrade stick in R groin demonstrating popliteal disease, one vessel runoff via AT to the ankle, short segment occlusion, and reconstitution distally via collaterals. [place] of AT down through the DP
followed by DETAILER FURNITURE of R DP and AT. DCB x 2 to AT takeoff and popliteal artery. BMS to popliteal. Completion angio with one vessel runoff to foot. Palpable DP at ankle, dopplerable DP out to first digit.
Discharge Plan
-
Patient Disposition: Home with Home Care
Discharge Diagnosis/Procedures: Arterial and diabetic wounds present on admission including gangrene, acute congestive heart failure exacerbation with preserved ejection fraction, uncontrolled type 2 diabetes with neuropathy, coronary artery
disease, history of paroxysmal atrial fibrillation, benign prostatic hyperplasia with urinary retention
Condition: Good
Diet: Diabetic, Carb Controlled
Activity: No strenuous activity
Additional Activity: Please do not lift anything greater than 10 pounds for 2 weeks
Driving Restrictions: Not until seen by your Dr
Bathing Restrictions: as per wound care
Others Tests: Your repeat arterial ultrasound appointment is on 02/02 @ 2:30 here at [facility]
Other Services: VN
Activity Restrictions/Additional Instructions:
Wound Care Instructions
R great toe, medial foot and heel: [place] gangrene with Betadine swab then dry dressing change daily.
Mid back: clean with soap and water, silicone foam (can add adaptic if sticking) change daily and prn drainage.
L barrett: clean with soap and water, dry dressing change q 3 days and prn soilage.
Follow up with [facility] and vascular as recommended
Follow up at wound care center for back wound, call for an appointment.
Stand Alone Forms: DC Instr - Vascular OR
Referrals:
Cira Carlson PA-C [Specified Professional Personl] - 02/08/25 11:00 am (Vascular office follow up)
Etelvina Lowe MD [Family Provider] - in less than 1 week
Prescriptions:
New
clopidogrel 75 mg Tablet
75 mg PO DAILY Qty: 90 0RF
gabapentin 300 mg Capsule
300 mg PO TID Qty: 90 0RF
Rx Instructions:
NEW DOSE
miconazole nitrate [Miconazorb AF] 2 % Powder
1 applic topical BID Qty: 85 0RF
amoxicillin-pot clavulanate 500-125 mg tablet
1 tab PO Q12H 7 Days Qty: 14 0RF
Continued
furosemide 40 mg Tablet
40 mg PO BID
atorvastatin 40 mg Tablet
40 mg PO DAILY
metformin 500 mg Tablet
500 mg PO DAILY
fluticasone propion-salmeterol [Wixela Inhub] 250-50 mcg/dose Blister With Device
1 inh INHALATION R DAILY
carvedilol 6.25 mg Tablet
6.25 mg PO BID
polyethylene glycol 3350 [Miralax] 17 gram Powder In Packet
17 g PO DAILYPRN PRN (Reason: constipation)
temazepam 30 mg Capsule
30 mg PO HS
glimepiride 4 mg Tablet
4 mg PO BID
finasteride 5 mg Tablet
5 mg PO DAILY
Humulin N NPH Insulin KwikPen 100 unit/mL (3 mL) Insulin Pen
14 unit SC BID
Saccharomyces boulardii 250 mg Capsule
250 mg PO BID
cranberry extract [Ellura] 200 mg Capsule
200 mg PO DAILY
Xarelto 15 mg Tablet
15 mg PO DAILY
Discontinued
gabapentin 300 mg Capsule
600 mg PO TID
Discharge Orders:
Discharge Patient (As Directed); Ordered 01/07/25
Ordered By: Nohelia Hannah
Discharge Date and Time
Discharge Date/Time: 01/07/25 17:26
Print Language: [place] CITIZEN
== END 2025-01-07 17:26 | disposition home health service (06) | DRG 278 ==
LOC: 4 EAST ACU 19:52
PROVIDERS: Emergency Medicine; Registered Nurse; Surgery Vascular Surgery; ADMITTING PHYSICIAN Hospitalist; ATTENDING PHYSICIAN Internal Medicine; CONSULT PHYSICIAN Internal Medicine Cardiovascular Disease; CONSULT PHYSICIAN Student in an Organized Health Care Education/Training Program; EMERGENCY PHYSICIAN Emergency Medicine; FAMILY PHYSICIAN Internal Medicine Geriatric Medicine; OTHER PHYSICIAN Surgery Vascular Surgery
PROC: 04FP3ZZ Fragmentation of Right Anterior Tibial Artery, Percutaneous Approach (ICD-10-PCS; 2025-01-06)
PROC: 047P3ZZ Dilation of Right Anterior Tibial Artery, Percutaneous Approach (ICD-10-PCS; 2025-01-06)
PROC: 047M3D1 Dilation of Right Popliteal Artery with Intraluminal Device, using Drug-Coated Balloon, Percutaneous Approach (ICD-10-PCS; 2025-01-06)
DX: E11.52 Type 2 diabetes mellitus with diabetic peripheral angiopathy with gangrene (principal); I50.33 Acute on chronic diastolic (congestive) heart failure; I70.261 Atherosclerosis of native arteries of extremities with gangrene, right leg; I48.92 Unspecified atrial flutter; E11.42 Type 2 diabetes mellitus with diabetic polyneuropathy; Z66 Do not resuscitate; I48.0 Paroxysmal atrial fibrillation; I25.10 Atherosclerotic heart disease of native coronary artery without angina pectoris; L03.031 Cellulitis of right toe; N40.1 Benign prostatic hyperplasia with lower urinary tract symptoms; R33.8 Other retention of urine; L89.102 Pressure ulcer of unspecified part of back, stage 2; I25.5 Ischemic cardiomyopathy; L97.519 Non-pressure chronic ulcer of other part of right foot with unspecified severity; I11.0 Hypertensive heart disease with heart failure; E78.00 Pure hypercholesterolemia, unspecified; E11.65 Type 2 diabetes mellitus with hyperglycemia; E11.628 Type 2 diabetes mellitus with other skin complications; I25.2 Old myocardial infarction; Z95.5 Presence of coronary angioplasty implant and graft; Z87.891 Personal history of nicotine dependence; Z79.899 Other long term (current) drug therapy; Z79.84 Long term (current) use of oral hypoglycemic drugs; Z79.4 Long term (current) use of insulin; Z79.01 Long term (current) use of anticoagulants
CPT/HCPCS: 37224; 71045; 73630; 75710; 80048; 80053; 80061; 80202; 82962; 83036; 83605; 83735; 83880; 84443; 85025; 85027; 85652; 86140; 86850; 86900; 86901; 87040; 87070; 93005; 93306; 93922; 93925; 94640; 97163; 99285; C1725; C1769; C1876; C1894; C2623; C9772; Q9950; Q9967

== ENCOUNTER → 2025-01-31 12:30 | Outpatient (REF) | payer OTHER, SELFPAY | LOC: WOUND 12:30 | PROVIDERS: ATTENDING PHYSICIAN Surgery | DX: I70.234 Atherosclerosis of native arteries of right leg with ulceration of heel and midfoot (principal); I70.235 Atherosclerosis of native arteries of right leg with ulceration of other part of foot; L97.519 Non-pressure chronic ulcer of other part of right foot with unspecified severity; I73.9 Peripheral vascular disease, unspecified; E11.65 Type 2 diabetes mellitus with hyperglycemia; Z79.4 Long term (current) use of insulin; Z79.01 Long term (current) use of anticoagulants | CPT/HCPCS: 99203 ==

== ENCOUNTER → 2025-02-10 13:17 | Outpatient (REF) | payer OTHER, SELFPAY | LOC: RAD 13:17 | PROVIDERS: ATTENDING PHYSICIAN Surgery Vascular Surgery; FAMILY PHYSICIAN Internal Medicine Geriatric Medicine | DX: I73.9 Peripheral vascular disease, unspecified (principal) | CPT/HCPCS: 93922; 93925 ==

== ENCOUNTER 2025-05-08 22:29 | Inpatient (IN) | payer OTHER, SELFPAY ==
[2025-05-08 15:36] VITALS: BP 114/54
[2025-05-08 16:15] LABS: Hematocrit 35.4 % (39.0-52.0); Hemoglobin 11.1 g/dL (13.0-18.0); Mean Corp Hgb Conc. 31.4 g/dL (33.0-37.0); Mean Corpuscular Volume 80.1 fL (80.0-94.0); Nucleated Red Blood Cells % 0 % (-); Platelet Count 310 10^3/uL (130-400); Red Cell Dist. Width 13.3 % (11.5-14.5)
[2025-05-08 16:56] LABS: ALT (SGPT) < 10 U/L (0-50); AST (SGOT) 15 U/L (17-59); Albumin 4.1 g/dl (3.5-5.0); Alkaline Phosphatase 92 U/L (38-126); Blood Urea Nitrogen 27 mg/dl (9-20); Calcium 8.8 mg/dl (8.4-10.2); Carbon Dioxide 28 mmol/L (22-30); Chloride 103 mmol/L (98-107); Glucose 199 mg/dl (70-99); Potassium 4.5 mmol/L (3.5-5.1); Sodium 139 mmol/L (135-145); Total Protein 7.4 g/dl (6.3-8.2); eGFR 41.19
[2025-05-08 19:59] VITALS: BMI 24.4
--- NOTE | 2025-05-08 20:01 | ED.GENMED ---
History of Present Illness
General
Chief Complaint: Skin Problem
Time Seen by Provider: 05/08/25 19:43
History of Present Illness
History of Present Illness:
89-year-old male presents the emergency department for evaluation of ulceration and oozing from the right great toe associated with redness and swelling of the right foot. He has a history of insulin-dependent diabetes and peripheral arterial
disease status post stenting in the right lower extremity.He underwent intravascular lithotripsy as well as balloon angioplasty and stenting of numerous vessels to the right lower extremity in December and states he has been doing well since that time.
He denies any fevers or chills. Noted for the past 2 to 3 days he has had bleeding and discharge from the right great toe.
Review of Systems
Review of Systems
Allergies reviewed?: Yes
All Other Systems: ROS reviewed and negative except as documented in HPI and ROS
Phy Exam
Physical Exam
Physical Exam:
GEN: Well appearing, NAD, WDWN
HEENT: Oral mucosa moist, no scleral icterus
Cardiac: Regular rate And rhythm, no murmurs. Right dorsalis pedis pulse strong by Doppler, right posterior tibialis pulse strong by Doppler
Lung: No respiratory distress, no tachypnea
MSK: No gross deformity or injuries
Skin: Good color, no pallor or jaundice. Significant skin excoriation and ulceration to the right medial great toe with overlying eschar, does not probe beyond the superficial layer. There is an additional ulceration to the right lateral foot at
the base of the fifth metatarsal but also does not probe with an overlying eschar. Diffuse edema to the right foot with erythema
Neuro: AO x3, moves all extremities freely
Psych: Calm, cooperative
Course
Orders/Labs/Results
Orders:
Orders
05/08/25 15:39
CR Foot - Right Min 3 Views Urgent
Comment:
Reason For Exam: oozing wound
05/08/25 16:07
Complete Blood Count/With Diff Urgent
Comprehensive Metabolic Panel Urgent
Lactic Acid Urgent
05/08/25 20:14
Wound Culture [Wound/Abscess/Other Culture] Urgent
PAUL Source: Toe
Specimen Description:
Date Specimen was Collected: 05/08/25
Time Specimen was Collected: 20:10
Comment: R great toe
05/08/25 20:25
Vancomycin [Vancocin] 2,000 mg 0.9% Sodium Chloride 500 ml [Nss] 500 ml IV NOW
05/08/25 21:36
Temazepam [Restoril] 15 mg PO NOW STA
05/08/25 21:38
Admit/Transfer Patient As Directed
Co-Sign Provider:
Level of Care: Inpatient admission
Assign to:: Telemetry
Physician / Group: Quinton
Diagnosis: Osteomyelitis R Great Toe
Reason for Telemetry: Arrhythmia
Date to Stop Telemetry: 05/11/25
Time to Stop Telemetry: 11:00
Reason for Hospitalization: Osteomyelitis R Great Toe
Expected length of stay greater than two midnights?: Yes
ELOS- Estimated Length of Stay in days: 4
I certify the patient meets the requirements for IP care: Yes
PRN Pain Medication Management As Directed
May give lesser potent ordered pain med per pt: Yes
preference::
Protocol:: Medication orders for pain may be administered in a
manner that supports deferring to patient preference
when the pt is:
- Requesting an ordered lesser potent pain medication.
Least to most potent pain medications are defined
as: acetaminophen < NSAID < tramadol < opioids
(morphine, oxycodone, hydromorphone).
- Requesting a lesser dose of the same medication IF
ORDERED.
- Requesting a less intrusive route of administration
if both routes are prescribed by the provider (PO <
IV).
05/08/25 21:42
Gabapentin [Neurontin] 1,800 mg PO NOW STA
05/08/25 21:43
Code Status As Directed
Resuscitation Status: Do not resuscitate
Reached after discussion with pt or family/Healthcare POA: Yes
05/08/25 21:44
DNR Bracelet Application ONCE
05/11/25 11:00
DC Protocol for Telemetry ONCE
Abnormal Lab Results
05/08/25
16:07
RBC 4.42 L 10^6/uL
(4.70-6.10)
Hgb 11.1 L g/dL
(13.0-18.0)
Hct 35.4 L %
(39.0-52.0)
MCH 25.1 L pg
(27.0-31.0)
MCHC 31.4 L g/dL
(33.0-37.0)
Absolute Monos (auto) 0.8 H 10^3/uL
(0.1-0.6)
Monocytes % 10.0 H %
(1.7-9.3)
BUN 27 H mg/dl
(9-20)
Creatinine 1.6 H mg/dL
(0.7-1.3)
Glucose 199 H mg/dl
(70-99)
AST 15 L U/L
(17-59)
05/08/25 16:07
05/08/25 16:07
Vital Signs
Initial and Last Documented VS:
Initial Vital Signs
Temp Pulse Resp BP Pulse Ox
98.0 F 66 18 114/54 97
05/08/25 15:36 05/08/25 15:36 05/08/25 15:36 05/08/25 15:36 05/08/25 15:36
Last Documented Vital Signs
Temp Pulse Resp BP Pulse Ox
97.7 F 66 18 148/85 98
05/08/25 20:06 05/08/25 15:36 05/08/25 15:36 05/08/25 20:05 05/08/25 20:06
MDM/Problems Addressed
MDM/Problems Addressed:
Given patient has signs of active cellulitis with severe swelling and erythema of the foot we will start empiric antibiotics. Wound culture from the right great toe was sent. Will be admitted for acute osteomyelitis of the right great toe and
concern for developing osteomyelitis of the right lateral foot
*Pulse Oximetry
SaO2: 97
Oxygen Mode of Delivery: Room air
Patient hypoxic: no
*Critical Care Note
Total Time (30-74mins, 75-104mins- exclusive of procedures): Not Applicable
ED Attending Note
-
Portions of this chart may have been created with voice recognition software.� Occasional wrong word or��sound alike� substitutions may have occurred due to the inherent limitations of voice recognition software.
Discharge Plan
Departure
Patient Disposition: Admit
Date of Disposition: 05/08/25
Time of Disposition: 20:16
Admit to: Med/Surg
Admit to doctor: Quinton
Presentation/result/management discussed w/ accepting MD/DO: Hospitalist
Discharge Problem:
Right hallux osteomyelitis, Cellulitis of foot, right
Prescriptions:
No Action
furosemide 40 mg Tablet
40 mg PO BID
atorvastatin 40 mg Tablet
40 mg PO DAILY
metformin 500 mg Tablet
500 mg PO DAILY
fluticasone propion-salmeterol [Wixela Inhub] 250-50 mcg/dose Blister With Device
1 inh INHALATION R DAILY
carvedilol 6.25 mg Tablet
6.25 mg PO BID
polyethylene glycol 3350 [Miralax] 17 gram Powder In Packet
8.5 g PO DAILY
temazepam 30 mg Capsule
30 mg PO HS
glimepiride 4 mg Tablet
4 mg PO BID
finasteride 5 mg Tablet
5 mg PO DAILY
Humulin N NPH Insulin KwikPen 100 unit/mL (3 mL) Insulin Pen
14 unit SC BID
Saccharomyces boulardii 250 mg Capsule
250 mg PO BID
cranberry extract [Ellura] 200 mg Capsule
200 mg PO DAILY
Xarelto 15 mg Tablet
15 mg PO DAILY
clopidogrel 75 mg Tablet
75 mg PO DAILY Qty: 90 0RF
gabapentin 300 mg capsule
1,800 mg PO HS
Patient Comments:
05/08/2025, precribed for pt. to take 2 capsules TID but pt. takes all 6 capsules at once at bedtime.
Interventions
Interventions:
*Risk Screen - Suicide Last Done: 05/08/25 19:59
*General Assessment Last Done: 05/08/25 15:36
*Neglect/Abuse Screening Last Done: 05/08/25 20:01
*ED- Fall Risk Assessment Last Done: 05/08/25 19:59
*ED COVID-19 Vaccine History Last Done: 05/08/25 19:59
ED-Skin Assessment Last Done: 05/08/25 20:06
Discharge Date and Time
Print Language: ARMENIAN
[2025-05-08 20:05] VITALS: BP 148/85
[2025-05-08] MEDS: VANCOCIN 540 MG IV (20:36)
[2025-05-08 21:00] VITALS: BP 135/76
--- NOTE | 2025-05-08 21:48 | HPS.HSE ---
Family Physician
-
Family Physician: Etelvina Lowe
Chief Complaint
-
R Toe Wound
History of Present Illness
Patient is an 89y M with PMH significant for ASCVD, HTN and DM-II who presents to ED complaining of worsening R great toe wound. Patient was previously hospitalized at in December of this year for similar complaints. He was evaluated at that
time Vascular Surgery and Podiatry. He underwent angio of the RLE with balloon angioplasty and stent placement. He has been receiving wound care at [facility] and has followed up with Vascular and Ortho / Podiatry as an outpatient. Patient
states that his wound has been 'stable' since that time - until about 2 days ago when he noted increased / new drainage or discharge from the area. He reports scant amount of blood. He has chronic neuropathic pain in both feet - no change in this.
He denies any fevers / chills, N/V/D, etc.
He spoke with [facility] this afternoon and was advised to present to the ED for evaluation of these wound changes.
Medical History
Past Medical History
Past Medical History: Reports Other
Additional Past Medical History:
ASCVD (CAD, PAD)
Paroxysmal Atrial Fibrillation
Hypertension
DM-II
BPH / Chronic Urinary Retention
Chronic HFpEF
CKD III
Past Surgical History: Reports Other
Additional Past Surgical History:
Cardiac stents
Back surgery x 2
RLE Angio / Stent (01/06/25)
Social History
Tobacco: Non-smoker
Alcohol: None
Drug: None
Family History
Family History: Not pertinent
Allergies / Home Medications
Allergies reflects when Allergies were last updated in [employer].
Home Medications with original date entered in [facility]
Allergy/Medication List:
Allergies
Allergy/AdvReac Type Severity Reaction Status Date / Time
No Known Allergies Allergy Verified 05/08/25 15:36
Home Medications
Saccharomyces boulardii 250 mg capsule 250 mg PO BID Supplement 01/03/25
atorvastatin 40 mg tablet 40 mg PO DAILY High Cholesterol 01/03/25
carvedilol 6.25 mg tablet 6.25 mg PO BID Blood Pressure 01/03/25
cranberry extract 200 mg capsule (Ellura) 200 mg PO DAILY Supplement 01/03/25
finasteride 5 mg tablet 5 mg PO DAILY BPH 01/03/25
fluticasone 250 mcg-salmeterol 50 mcg/dose blistr powdr for inhalation (Wixela Inhub) 1 inh inhalation R DAILY Lung/Breathing Issues 01/03/25
furosemide 40 mg tablet 40 mg PO BID Fluid Retention/Swelling 01/03/25
glimepiride 4 mg tablet 4 mg PO BID Diabetes 01/03/25
insulin NPH isoph U-100 human 100 unit/mL (3 mL) subcutaneous pen (Humulin N NPH U-100 Insulin KwikPen) 14 unit SC BID Diabetes 01/03/25
metformin 500 mg tablet 500 mg PO DAILY Diabetes 01/03/25
polyethylene glycol 3350 17 gram oral powder packet (Miralax) 8.5 g PO DAILY 01/03/25
rivaroxaban 15 mg tablet (Xarelto) 15 mg PO DAILY Blood Clot Prevention/Tx 01/03/25
temazepam 30 mg capsule 30 mg PO HS Sleep 01/03/25
clopidogrel 75 mg tablet 75 mg PO DAILY Blood clot prevention/tx #90 tabs 01/06/25
gabapentin 300 mg capsule 1,800 mg PO HS Neurological Condition 05/08/25
Review of Systems
-
History Source: Patient
A 12 point ROS was completed and negative except as noted: Yes
Constitutional: Denies Fever or Chills
Respiratory: Denies Cough or Trouble Breathing
Cardiac: Denies Chest Pain or Palpitations
Abdomen/GI: Denies Abdominal Pain, Nausea, Vomiting or Diarrhea
: Reports Difficulty Voiding; Denies Dysuria
Musculoskeletal: Reports Edema
Skin: Reports Other (R great toe wound with oozing / discharge.)
Neurological: Reports Other (bilateral foot pain - chronic)
Physical Exam
Vital Signs
Vital Signs
Temp Pulse Resp BP Pulse Ox
97.7 F 66 18 148/85 98
05/08/25 20:06 05/08/25 15:36 05/08/25 15:36 05/08/25 20:05 05/08/25 20:06
Physical Exam
General: Other (89y M in no acute distress.)
HEENT: Moist mucous membranes and PERRLA
Respiratory: Clear; No Wheezes, Rales or Rhonchi
Cardiac: S1/S2, Regular Rhythm and Murmur (II/ TIKI)
GI: Soft, Non Tender, Non Distended and Normal Bowel Sounds
Musculoskeletal: No Clubbing, No Cyanosis and Other (1+ pitting edema of the feet bilaterally. R great toe with eschar formation and scant serosanguinous discharge. )
Neuro: AO x 3
Hematologic/Lymphatic: Other (Excellent pulses at the R foot.)
Laboratory Results
-
05/08/25 16:07
05/08/25 16:07
Laboratory Results
Lactic Acid 1.8 mmol/L (0.7-2.0) 05/08/25 16:07
Total Bilirubin 0.6 mg/dl (0.2-1.3) 05/08/25 16:07
AST 15 U/L (17-59) L 05/08/25 16:07
ALT < 10 U/L (0-50) 05/08/25 16:07
Alkaline Phosphatase 92 U/L (38-126) 05/08/25 16:07
Impression/Plan
-
A/P: Patient is an 89y M with PMH signficant for ASCVD, HTN and DM-II who presents to ED fo evaluation of worsening R great toe wound.
R Great Toe Osteomeylitis
- Admit for further evaluation and treatment.
- X-rays done in the ED this evening show bony changes of the R great toe distal phalanx concerning for osteomyelitis.
- IV abx for now with Vanco / Zosyn.
- Follow-up operative culture data and adjust regimen as appropriate.
- Ortho / Podiatry consulted for further evaluation and possible amputation.
- Follow temperature curve / monitor for any new symptoms.
RONDA on CKD III
- SCr = 1.6 increased from prior baseline of 1.2.
- Hold Lasix acutely.
- Follow labs / lytes for changes.
ASCVD
- s/p recent RLE angio with stenting on 01/06/25.
- Excellent pulses appreciated at the R foot on today's exam.
- Will ask Vascular Surgery to evaluate - but suspect any remaining issues are non-intervenable / small vessel issues.
- Holding Plavix / Xarelto acutely given potential surgery.
- Will begin ASA 81mg daily for now instead given stent placement.
Paroxysmal Atrial Fibrillation
- Stable. Continue carvedilol.
- Holding xarelto acutely as noted above.
Chronic HFpEF
- Stable. Does not appear grossly volume overloaded.
- Holding Lasix acutely as noted above.
- Follow I/Os, daily weights, etc.
DM-II
- Stable. Hold oral med regimen acutely.
- Follow glucose and cover with SSI as needed.
- Update A1C.
BPH / Chronic Bladder Outlet Obstruction
- Patient notes that he self-caths at home 3 times daily - and still has incontinence / overflow in the interim.
- He is requesting Aragon placement during his stay.
DVT Prophylaxis: Subcut Heparin while Xarelto on hold.
Code Status: DNR
[2025-05-08 22:00] VITALS: BP 156/84
--- NOTE | 2025-05-08 22:16 | W.PN.UPDATE ---
Update Note
Progress Note Update
Patient with worsening Right foot gangrene with new onset cellulitis and acute osteomyelitis
-NPO for possibe OR tomorrow
-Will re-evaluate on morning rounds
-Likely will need vascular input
-Full consult to follow
[2025-05-08 23:05] VITALS: BP 133/78; BMI 24.8
[2025-05-08] MEDS: ZOSYN 50 IV (23:51)
[2025-05-09] VITALS (17 sets, daily range): BP systolic 12–131; BP diastolic 51–64; BMI 24.8; BMI 24.7; BMI 24.0
[2025-05-09] MEDS: NEURONTIN 1800 MG PO (00:11)
[2025-05-09] MEDS: RESTORIL 15 MG PO (01:18)
[2025-05-09] MEDS: ZOSYN 50 IV ×3 (05:10→19:01)
[2025-05-09 07:04] LABS: Hematocrit 32.5 % (39.0-52.0); Hemoglobin 10.3 g/dL (13.0-18.0); Mean Corp Hgb Conc. 31.7 g/dL (33.0-37.0); Mean Corpuscular Volume 80.2 fL (80.0-94.0); Platelet Count 298 10^3/uL (130-400); Red Cell Dist. Width 13.4 % (11.5-14.5)
[2025-05-09 07:35] LABS: Blood Urea Nitrogen 24 mg/dl (9-20); Calcium 8.4 mg/dl (8.4-10.2); Carbon Dioxide 27 mmol/L (22-30); Chloride 106 mmol/L (98-107); Estimated Creatinine Clearance 43 ml/min; Glucose 136 mg/dl (70-99); Potassium 4.1 mmol/L (3.5-5.1); Sodium 140 mmol/L (135-145); eGFR 52.84
[2025-05-09] MEDS: LIPITOR 40 MG PO (08:12)
[2025-05-09] MEDS: LOW STRENGTH ASPIRIN 81 MG PO (08:12)
[2025-05-09] MEDS: PROSCAR 5 MG PO (08:12)
[2025-05-09] MEDS: COREG 6.25 MG PO ×2 (08:12→20:04)
[2025-05-09] MEDS: HEPARIN SC (08:23)
[2025-05-09] MEDS: ADVAIR HFA 115/21 MCG INHALER 2 PUFF INH (08:26)
--- NOTE | 2025-05-09 08:31 | CON.VAS ---
Documented by User: Chelsey Carrasquillo MD, Resident 05/09/25 08:51
Consultation
Consultation Request
Date/Time Consultation Requested: 05/08/2025; 22:00
Date/Time Consultation Performed: 05/09/25; 8:00
Requesting Provider: Guilherme Alcantara
Performing Provider: Cesar Aragon
Reason for Consultation: R toe osteo
Medical History
-
Chief Complaint: R toe ulceration & infection
History of Present Illness:
Patient is an 89y M with PMH significant for ASCVD, HTN, CKD III, a fib (on Xarelto), DM-II, & chronic R foot wound who p/w worsening R great toe wound. Vascular consulted for eval for operative mgmt of RLE vasculature.
Pt noticed worsening wound on R great toe 2 days prior to presentation, with ulceration, pain, new drainage/discharge. Advised to present to ED. In December 2024, seen by vascular & podiatry and underwent angio of the RLE with balloon angioplasty and
stent placement. He has been receiving wound care at [facility] and has followed up with Vascular and Ortho / Podiatry as an outpatient. He has chronic neuropathic pain in both feet - no change in this. Denied fevers / chills, N/V/D on
presentation. Last peripheral arterial US study done on February 10, 2025, demonstrated right FRANCES 0.23 and right TBI 0.09, previously 0.17. Patient had been scheduled for RLE arteriogram for May 23.
X-rays in ED showed bony changes of the right great toe distal phalanx concerning for osteomyelitis. Started on IV antibiotics (Vanco/Zosyn). Held Xarelto.
Pt this am reports pain well-controlled. Concern for new blood blisters on underside of left great toe and second toe that recently appeared. Reports that spoke with podiatry and understands plan for right great toe amputation today.
Past Medical History
Past Medical History: IDDM, Renal Failure (CKD III ) and Other (ASCVD, paroxysmal A-fib, chronic HFpEF)
Past Surgical History: Other (RLE angio/stent (december 2024) ; cardiac stents)
Social History
Tobacco: Non-Smoker
Allergies / Home Medications
Allergy/AdvReac Type Severity Reaction Status Date / Time
No Known Allergies Allergy Verified 05/08/25 15:36
�Medication �Instructions �Recorded �Confirmed �Type
Saccharomyces boulardii 250 mg 250 mg PO BID Supplement 01/03/25 05/08/25 History
capsule
atorvastatin 40 mg tablet 40 mg PO DAILY High Cholesterol 01/03/25 05/08/25 History
carvedilol 6.25 mg tablet 6.25 mg PO BID Blood Pressure 01/03/25 05/08/25 History
cranberry extract 200 mg capsule 200 mg PO DAILY Supplement 01/03/25 05/08/25 History
(Ellura)
finasteride 5 mg tablet 5 mg PO DAILY BPH 01/03/25 05/08/25 History
fluticasone 250 mcg-salmeterol 50 1 inh inhalation R DAILY 01/03/25 05/08/25 History
mcg/dose blistr powdr for Lung/Breathing Issues
inhalation (Wixela Inhub)
furosemide 40 mg tablet 40 mg PO BID Fluid 01/03/25 05/08/25 History
Retention/Swelling
glimepiride 4 mg tablet 4 mg PO BID Diabetes 01/03/25 05/08/25 History
insulin NPH isoph U-100 human 100 14 unit SC BID Diabetes 01/03/25 05/08/25 History
unit/mL (3 mL) subcutaneous pen
(Humulin N NPH U-100 Insulin
KwikPen)
metformin 500 mg tablet 500 mg PO DAILY Diabetes 01/03/25 05/08/25 History
polyethylene glycol 3350 17 gram 8.5 g PO DAILY Constipation 01/03/25 05/08/25 History
oral powder packet (Miralax)
rivaroxaban 15 mg tablet (Xarelto) 15 mg PO DAILY Blood Clot 01/03/25 05/08/25 History
Prevention/Tx
temazepam 30 mg capsule 30 mg PO HS Sleep 01/03/25 05/08/25 History
clopidogrel 75 mg tablet 75 mg PO DAILY Blood clot 01/06/25 05/08/25 Rx
prevention/tx #90 tabs
gabapentin 300 mg capsule 1,800 mg PO HS Neurological 05/08/25 05/08/25 History
Condition
Review of Systems
-
History Source: Patient
Constitutional: Reports No Symptoms
Skin: Reports Other (2 blood blisters on distal left great toe and left second toe; right great toe pain)
Physical Exam
Vital Signs
Temp Pulse Resp BP Pulse Ox
97.9 F 63 16 113/61 96
05/09/25 07:25 05/09/25 08:12 05/09/25 08:30 05/09/25 08:12 05/09/25 08:30
Lab Results
05/09/25 06:33
05/09/25 06:33
Physical Exam
General: Well Developed
HEENT: Normocephalic, Anicteric and Atraumatic
Respiratory: Non Labored Respirations
Musculoskeletal: Edema
Skin: Other (R great toe with ulceration, swelling, erythema; L great toe & second toe with blood blisters on sole/tip)
Neuro: Awake, Alert and Oriented
Psych: Calm
Assessment / Plan
-
Patient is an 89y M with PMH significant for ASCVD, HTN, CKD III, a fib (on Xarelto), DM-II, & chronic R foot wound who p/w worsening R great toe wound. Vascular consulted for eval for operative mgmt of RLE vasculature.
Assessment: AVSS. Patient planned for OR with podiatry this afternoon for amputation of right great toe secondary to osteomyelitis. Patient due for peripheral vascular ultrasound to evaluate flow, ideally to be done prior to amputation today. The
following amputation, advise performing right lower extremity arteriogram to evaluate for blood flow as it may influence potential for right foot wound healing. Patient had been scheduled for RLE arteriogram in office on May 23. New blistering on
left foot likely warrants future left lower extremity arteriogram to be conducted at future point anytime with RLE taking precedence.
Plan:
- RLE vascular ultrasound for flow evaluation this morning
- OR today with podiatry for right great toe amputation
- RLE angiogram later this week
- Follow-up outpatient regarding LLE angiogram
Data Reviewed
-
Ultrasound: Report Reviewed by me
Labs: Labs Reviewed by me
Critical Care Time (in minutes): 35
Total Time Spent with Patient (in minutes): 15

Documented by User: Cesar Aragon III, MD 05/09/25 15:52
Assessment / Plan
-
Patient is an 89y M with PMH significant for ASCVD, HTN, CKD III, a fib (on Xarelto), DM-II, & chronic R foot wound who p/w worsening R great toe wound. Vascular consulted for eval for operative mgmt of RLE vasculature.
Assessment: AVSS. Patient planned for OR with podiatry this afternoon for amputation of right great toe secondary to osteomyelitis. Patient due for peripheral vascular ultrasound to evaluate flow, ideally to be done prior to amputation today. The
following amputation, advise performing right lower extremity arteriogram to evaluate for blood flow as it may influence potential for right foot wound healing. Patient had been scheduled for RLE arteriogram in office on May 23. New blistering on
left foot likely warrants future left lower extremity arteriogram to be conducted at future point anytime with RLE taking precedence.
Plan:
- RLE vascular ultrasound for flow evaluation this morning
- OR today with podiatry for right great toe amputation
- RLE angiogram later this week
- Follow-up outpatient regarding LLE angiogram
ATTENDING ADDENDUM:
This patient was seen and examined in collaboration with Dr. Carrasquillo. I agree with the history and physical exam as well as the assessment and plan. I have the following additions:
Patient is well-known to me Zaire Jensen MD PGY2 prior endovascular intervention for limb threatening ischemia on the right lower extremity. He is now admitted with worsening gangrene of the right great toe along with osteomyelitis. New left
toe wounds as well
He has nonpalpable pedal pulses bilaterally
I personally reviewed his lower extremity arterial studies. He has significant arterial disease bilaterally with noncompressible ABIs and abnormal toe pressures
My recommendation is that we proceed with an updated right lower extremity arteriogram and possible endovascular intervention given upcoming amputation by Dr. Fierro. Will plan to stage an arteriogram/endovascular intervention of the left lower
extremity, perhaps while he is in-house.
Discussed plan with Dr. Fierro as well as the patient who agrees with this approach
Call with questions or concerns
Arteriogram tentatively planned for Monday, May 12, 2025
Signed:
Cesar Aragon III, MD
Vascular Surgery
[facility]
--- NOTE | 2025-05-09 11:24 | W.PN.HOSP.TC ---
Today's Communication/Plan
-
renally dose-gabapentin
IV abx for now
vascular/podiatry following
cr improving
restart DOAC post op/surgery clearance
Assessment / Plan
Assessment / Plan
General: Other (89y M in no acute distress.)
HEENT: Moist mucous membranes and PERRLA
Respiratory: Clear; No Wheezes, Rales or Rhonchi
Cardiac: S1/S2, Regular Rhythm and Murmur (II/ TIKI)
GI: Soft, Non Tender, Non Distended and Normal Bowel Sounds
Musculoskeletal: No Clubbing, No Cyanosis and Other (1+ pitting edema of the feet bilaterally. R great toe with eschar formation and scant serosanguinous discharge. )
Neuro: AO x 3
A/P: Patient is an 89y M with H signficant for ASCVD, HTN and DM-II who presents to ED fo evaluation of worsening R great toe wound.
R Great Toe Osteomeylitis
- X-rays done in the ED this evening show bony changes of the R great toe distal phalanx concerning for osteomyelitis.
- IV abx for now with Vanco / Zosyn.
- Follow-up operative culture data and adjust regimen as appropriate.
- Ortho / Podiatry consulted for further evaluation and possible amputation. If amputation-?surgical cure. Probably will require ID input in next 24h.
- Follow temperature curve / monitor for any new symptoms.
- Arterial US ordered urgently per vascular. May require vascular intervention. Await further input.
RONDA on CKD III
- SCr = 1.3 downtreneded.
- Hold Lasix acutely for now.
- Follow labs / lytes for changes.
PAD
- s/p recent RLE angio with stenting on 01/06/25.
- Excellent pulses appreciated at the R foot on today's exam.
- Holding Plavix / Xarelto acutely given potential surgery.
- Will begin ASA 81mg daily for now instead given stent placement.
Paroxysmal Atrial Fibrillation
- Stable. Continue carvedilol.
- Holding xarelto acutely as noted above.
Chronic HFpEF
- Stable. Does not appear grossly volume overloaded.
- Holding Lasix acutely as noted above.
- Follow I/Os, daily weights, etc.
DM-II
- Stable. Hold oral med regimen acutely.
- Follow glucose and cover with SSI as needed.
- Update A1C.
BPH / Chronic Bladder Outlet Obstruction
- Patient notes that he self-caths at home 3 times daily - and still has incontinence / overflow in the interim.
- He is requesting Aragon placement during his stay.
Neuropathy
-gabapentin dose decreased -renally dose.
DVT Prophylaxis: Subcut Heparin while Xarelto on hold.
Code Status: DNR
Anticipated Discharge: > 48 hours
Subjective/Interval History
-
Date of Service: May 09, 2025
Seen post ultrasounds
Denies any severe pain to the right foot
Objective Data
-
Labs:
Laboratory Results
05/09/25
06:33
WBC 7.8
Hgb 10.3 L
Hct 32.5 L
Plt Count 298
Sodium 140
Potassium 4.1
Chloride 106
Carbon Dioxide 27
BUN 24 H
Creatinine 1.3
Glucose 136 H
Calcium 8.4
Vital Signs:
Vital Signs
Temp Pulse Resp BP Pulse Ox
98.4 F 62 18 101/53 96
05/09/25 11:08 05/09/25 11:08 05/09/25 11:08 05/09/25 11:08 05/09/25 11:08
I&O
05/08/25 05/09/25 05/10/25
06:59 06:59 06:59
Intake Total 100 / 100
Output Total 225 / 225
Balance -125 / -125
Data Reviewed
-
Total Time Spent with Patient (in minutes): 55
--- NOTE | 2025-05-09 11:25 | WOUNDNOTE ---
L GREAT AND 2ND TOE PLANTAR
--- NOTE | 2025-05-09 11:25 | WOUNDNOTE ---
L ANTERIOR VIEW OF TOES
--- NOTE | 2025-05-09 11:26 | WOUNDNOTE ---
R ANTERIOR VIEW OF TOES
--- NOTE | 2025-05-09 11:27 | WOUNDNOTE ---
SACRUM AND GLUTEAL CLEFT
--- NOTE | 2025-05-09 11:28 | WOUNDNOTE ---
R LATERAL FOOT AND HEEL
--- NOTE | 2025-05-09 11:30 | WOUNDNOTE ---
[facility] RN note: Patient admitted with R hallux osteomyelitis.
See H&P for complete history.
PMH: 89-year-old male presents the emergency department for evaluation of ulceration and oozing from the right great toe associated with redness and swelling of the right foot. He has a history of insulin-dependent diabetes and peripheral arterial
disease status post stenting in the right lower extremity.He underwent intravascular lithotripsy as well as balloon angioplasty and stenting of numerous vessels to the right lower extremity in December and states he has been doing well since that time.
Wound Location and type/assessment: Patient admitted with: foul smelling necrotic R great toe with additional necrotic black eschar on lateral foot, heel and few toes. Patient for OR later today for an amputation per Dr. Fierro, pending vascular
input. Patient had an arterial study done this morning and results pending. L great and 2nd toe with intact dry blood blisters. Patient reports no pain in feet due to neuropathy. Patient turned self to side, sacrum blanchable red with tiny dry scab
in gluteal cleft. Suspect scab is old PI that scabbed over. Patient reports he had a sore there in past and admits to sitting in chair allot. Mid back with atypical raised pink bishop paiute, tiny drainage in center. Patient reports his primary MD silver
nitrated site twice and it came back. Has not been to a extractions technician yet.
Appetite: NPO for OR.
Pressure redistribution devices in place: On [employer], called bed [employer] to bring a [facility] [place] air bed to floor. Nurse Jeimy aware to switch bed when patient goes to OR. Pillows under calves and foams applied to heels to protect.
Plan: Painted eschar on feet/toes with Betadine. Covered R foot with abd pads and aneta. Silicone foam in use on sacrum and back, re applied after assessing. Recommended to patient to see extractions technician for back growth.
Will confirm orders with hospitalist and follow along peripherally, assist as needed.
Updated nurse and care plan.
Note to case management of equipment requested for discharge: TBD.
Recommend follow up with vascular and podiatry.
--- NOTE | 2025-05-09 15:39 | PHA.VAN.IN ---
Assessment
- Assessment
Renal Function: Appears similar to baseline
Concomitant Antimicrobials: piperacillin/tazobactam
Plan
- Plan
Initial / Loading Dose: 2000mg - 05/08 20:36
Maintenance Regimen: dosing by level - give 1000mg x1 today
Monitoring: random 05/10 06
Pharmacokinetics Vancomycin I
- -
Patient Age: 89
Patient Sex: Male
Vancomycin Day #: 1
Indication: Bone And Joint
Requesting Provider: Dr. Alcantara
Pertinent Antimicrobial Allergies:
NKDA
Height / Weight:
Height 6 ft
Actual Weight 82.611 kg
Pertinent Past Medical History: CKD III, PAD, DM II
- Vital Signs / Lab Results
Temp Pulse Resp BP Pulse Ox
98.6 F 64 18 112/62 96
05/09/25 15:30 05/09/25 15:30 05/09/25 15:30 05/09/25 15:30 05/09/25 15:30
Lab Results - Hematology
05/08/25 05/09/25
16:07 06:33
WBC 7.9 7.8
Lab Results - Chemistry
05/08/25 05/09/25
16:07 06:33
BUN 27 H 24 H
Creatinine 1.6 H 1.3
Estimated Creat Clear 43
Albumin 4.1
05/08/25
16:07
Lactic Acid 1.8
Microbiology Results
05/08/25 20:14 Gram Stain - Preliminary
Toe
--- NOTE | 2025-05-09 16:50 | PTCARENOTE ---
Pt is on his way down to OR at this time with transport, the chart and zosyn dose
[2025-05-09] MEDS: ZOSYN IV (17:17)
--- NOTE | 2025-05-09 17:45 | W.PN.UPDATE ---
Update Note
Progress Note Update
s/p right hallux partial ampuation and lateral wound debridement
-Santyl to lateral wound
-Dressing changes daily
-Heel weight bearing RLE for transfers only
-Presumed surgical cure, 2 weeks soft tissue coverage for ABx
-Await further vascular plans
-Will follow
[2025-05-09 17:53] LABS: Glucose - Point of Care 86 mg/dl (70-99)
[2025-05-09] MEDS: HEPARIN 5000 UNITS SC (20:04)
[2025-05-09] MEDS: NEURONTIN 900 MG PO (21:41)
[2025-05-09] MEDS: RESTORIL 30 MG PO (21:42)
[2025-05-09] MEDS: DILAUDID 0.5 MG IV (22:15)
[2025-05-10] VITALS (8 sets, daily range): BP systolic 106–133; BP diastolic 52–65; PULSE 65; O2SAT 96; BMI 24.0
--- NOTE | 2025-05-10 01:15 | PTCARENOTE ---
19:30 Pt rec'vd from PACU , indwelling smallwood in place, Lisa OCCUPATIONAL HEALTH PHYSIOTHERAPIST assessed right foot with receiving nurse dressing to right foot CDI Kerlix weak palpable pulses. VS stable, pt oriented to unit .
[2025-05-10] MEDS: ZOSYN 50 IV ×4 (02:34→19:55)
--- NOTE | 2025-05-10 05:56 | PTCARENOTE ---
Patient refused to take weight. Nurse was present.
[2025-05-10 06:07] LABS: Hematocrit 32.2 % (39.0-52.0); Hemoglobin 10.2 g/dL (13.0-18.0); Mean Corp Hgb Conc. 31.7 g/dL (33.0-37.0); Mean Corpuscular Volume 80.1 fL (80.0-94.0); Nucleated Red Blood Cells % 0 % (-); Platelet Count 304 10^3/uL (130-400); Red Cell Dist. Width 13.3 % (11.5-14.5)
[2025-05-10 06:35] LABS: Blood Urea Nitrogen 26 mg/dl (9-20); Calcium 8.4 mg/dl (8.4-10.2); Carbon Dioxide 28 mmol/L (22-30); Chloride 105 mmol/L (98-107); Estimated Creatinine Clearance 37 ml/min; Glucose 252 mg/dl (70-99); Potassium 4.7 mmol/L (3.5-5.1); Sodium 136 mmol/L (135-145); eGFR 44.50
--- NOTE | 2025-05-10 06:47 | PTCARENOTE ---
pt refused am wt, turning and reposition, dressing changes and refused Doppler . Pt was educated regarding skin, mobility and pulses, pt did refuse however the importance of doppler pt did accept Doppler pulse checks.
[2025-05-10] MEDS: ADVAIR HFA 115/21 MCG INHALER 2 PUFF INH (07:39)
[2025-05-10 07:40] LABS: Glucose - Point of Care 229 mg/dl (70-99)
[2025-05-10] MEDS: PROSCAR 5 MG PO (08:36)
[2025-05-10] MEDS: COREG 6.25 MG PO ×2 (08:36→19:55)
[2025-05-10] MEDS: LIPITOR 40 MG PO (08:36)
[2025-05-10] MEDS: HEPARIN 5000 UNITS SC (08:37)
[2025-05-10] MEDS: SANTYL OINTMENT 1 APPLIC TOPICAL (08:38)
[2025-05-10] MEDS: PLAVIX 75 MG PO (08:58)
--- NOTE | 2025-05-10 08:59 | PHA.VAN.FU ---
Vancomycin Assessment / Plan
- Assessment
Renal Function: SCR Increasing
WBC's are: WNL
In the past 24 hrs, patient has been: Afebrile
Concomitant Antimicrobials: piperacillin/tazobactam
- Assessment - Therapeutic Drug Monitoring
Random Level: 15.7 - drawn ~12.5H after previous dose of 1000mg
Vancomycin received in OR yesterday: Vancomycin 1000 g 05/09/2025 17:18
- Dosing Plan
Dosing by Level: Re-dose today (Vanc 1000mg)
- Monitoring Plan
Random Level: 05/11 06
- Follow Up
Pharmacy will continue to follow.
Vancomycin Follow UP
- -
Patient Age: 89
Patient Sex: Male
Vancomycin Day #: 2
Indication: Bone And Joint
Requesting Provider: Dr. Alcantara
Pertinent Antimicrobial Allergies:
NKDA
Height / Weight:
Height 6 ft
Actual Weight 80.286 kg
Pertinent Past Medical History: CKD III, PAD, DM II
- Vital Signs / Lab Results
Temp Pulse Resp BP Pulse Ox
97.8 F 70 16 128/66 95
05/10/25 07:22 05/10/25 08:36 05/10/25 07:42 05/10/25 08:36 05/10/25 07:42
Lab Results - Hematology
05/08/25 05/09/25 05/10/25
16:07 06:33 05:51
WBC 7.9 7.8 7.3
Lab Results - Chemistry
05/08/25 05/09/25 05/10/25
16:07 06:33 05:51
BUN 27 H 24 H 26 H
Creatinine 1.6 H 1.3 1.5 H
Estimated Creat Clear 43 37
Albumin 4.1
05/08/25
16:07
Lactic Acid 1.8
Microbiology Results
05/09/25 06:51 MRSA Screen - Final
Nose No Methicillin Resistant Staphylococcus aureus isolated.
05/09/25 17:26 Gram Stain - Preliminary
Foot - Right
05/08/25 20:14 Gram Stain - Preliminary
Toe
Therapeutic Drug Monitoring
Random Vancomycin 15.7 ug/ml 05/10/25 05:51
[2025-05-10] MEDS: LOW STRENGTH ASPIRIN PO (09:02)
[2025-05-10 09:12] LABS: Glycohemoglobin (HgbA1c) 7.4 % (4.0-5.6)
--- NOTE | 2025-05-10 09:15 | W.PN.UPDATE ---
Update Note
Progress Note Update
s/p right hallux partial ampuation and lateral wound debridement
-Santyl to lateral wound, dressing changed
-Dressing changes daily
-Heel weight bearing RLE for transfers only
-Presumed surgical cure, 2 weeks soft tissue coverage for ABx
-Await further vascular plans, pending angiogram
-Will follow
--- NOTE | 2025-05-10 09:30 | WOUNDNOTE ---
[facility] RN note: Patient on a [employer] air bed. Discussed with DUNCAN Ricketts who will coordinate switching bed to a air bed (i.e. [facility] Max air). T/c Spoke with Bed tech [employer] who will bring air mattress. Patient's sacrum slow to vivien red with a small dry
scab. Sacral shaped silicone border foam applied. Patient turned to L semi side lying position with help from [facility] RN senior office support assistant sosa Quinn. Heels off bed with pillows. t/c SPD and ordered a bariatric air chair cushion to help off load heels. Discussed
with DUNCAN Ricketts. Air chair cushion given. Care plan to be updated. Will follow peripherally as needed.
--- NOTE | 2025-05-10 10:12 | CON.ID ---
Consultation
-
Date/Time Consultation Requested: 05/10/2025824
Date/Time Consultation Performed: 05/10/2025 0930
Requesting Provider: Dr. Nunez
Performing Provider: Dr. Parra
Reason for Consultation: Right foot osteomyelitis
Chief Complaint / Past History
History of Present Illness
Elvis Enriquez is an 89-year-old male being seen in Infectious Disease consultation at the request of Dr. Nunez in regards to right foot osteomyelitis. History is obtained from chart review, along with patient interview.
The patient has a significant past medical history of PAD, along with diabetes mellitus with significant neuropathy. The patient was admitted to [facility] in December 2024 secondary to PAD and right hallux dry gangrene. At that time he
underwent right lower extremity angiography with stent placement. He was evaluated by Podiatry, but no surgery was deemed necessary and he was discharged on a 7-day course of Augmentin.
The patient reports that he has remained stable over the past several months, but approximately 3 2 to 3 days ago he developed some bleeding and discharge from the tip of his right hallux. He called his Annual Giving Manager and was advised to go to the
emergency room. Here he was evaluated, and it was determined that there was osteomyelitis of the distal tip of the right hallux. The patient was taken to the OR yesterday and underwent a partial right hallux amputation. Patient also admits that
since December she has had a right lateral foot wound which has been otherwise stable. An additional wound is reportedly now healed.
The patient admits to some prior mild erythema of the right foot, but denies any pain secondary to underlying neuropathy.
Past History
Additional Past Medical History:
CAD; Hx [facility]
DM with neuropathy
Atrial fibrillation
COPD
Additional Past Surgical History:
Lower extremity angiography
Cervical and lumbar laminectomy
PCI with stenting
Allergy History:
No Known Allergies Allergy (Verified 05/08/25 15:36)
Medications Reviewed: Yes
Current Antibiotics:
Zosyn 3.375 g IV every 6 hours
Vancomycin (dosing per pharmacy
Social History
Tobacco: Non-Smoker
Alcohol: Former
Drug: None
Employment: Retired
Family History
Family History: Not Pertinent
Review of Systems
Vital Signs
Temp Pulse Resp BP Pulse Ox
97.8 F 70 16 128/66 95
05/10/25 07:22 05/10/25 08:36 05/10/25 07:42 05/10/25 08:36 05/10/25 07:42
Physical Exam
Physical Exam
Constitutional: No Acute Distress, Comfortable, Chronically Ill and Non-toxic
Head: Normocephalic
Eyes: Pupils Equal, Pupils Round, No Conjunctival Hemorrhage and Sclera Anicteric
Oral: No Thrush and No Ulcers
Cardiovascular: Irregular Rate and S1/S2; Negative S3/S4
Pulmonary: Clear; Negative Wheezes, Rales or Rhonchi
Gastrointestinal: Soft, Non Tender, Non Distended and Normal Bowel Sounds
Extremities: Edema (1+ lower extremities) and Erythema (Minimal right foot)
Skin: Warm and Dry; Negative Rash or Jaundice
Wound: Other (Right hallux status post partial amputation. Sutures intact. No drainage. Right lateral foot wound noted with positive probe to bone)
Neurological: Awake and Alert
Psychological: Calm
Lab / Diagnostic Study Results
05/10/25 05:51
05/10/25 05:51
Abs Immat Gran (auto) 0.1 10^3/uL (0-0.05) H 05/10/25 05:51
Absolute Neuts (auto) 6.0 10^3/uL (1.4-6.5) 05/10/25 05:51
Absolute Lymphs (auto) 0.8 10^3/uL (1.2-3.4) L 05/10/25 05:51
Absolute Monos (auto) 0.5 10^3/uL (0.1-0.6) 05/10/25 05:51
Absolute Basos (auto) 0.0 10^3/uL (0-0.2) 05/10/25 05:51
Immature Gran % 0.7 % (0-0.5) H 05/10/25 05:51
Neutrophils % 82.2 % (42.2-75.2) H 05/10/25 05:51
Lymphocytes % 10.2 % (20.5-51.1) L 05/10/25 05:51
Monocytes % 6.3 % (1.7-9.3) 05/10/25 05:51
Eosinophils % 0.1 % (0-6) 05/10/25 05:51
Basophils % 0.5 % (0-2) 05/10/25 05:51
Lactic Acid 1.8 mmol/L (0.7-2.0) 05/08/25 16:07
Microbiology Results
Micro:
05/08/25 20:14 Wound Culture - Preliminary
Toe Pseudomonas aeruginosa
Staphylococcus aureus
Gram Stain - Preliminary
05/09/25 06:51 MRSA Screen - Final
Nose No Methicillin Resistant Staphylococcus aureus isolated.
05/09/25 17:26 Wound Culture - Pending
Foot - Right Gram Stain - Preliminary
05/09/25 17:26 Anaerobic Culture - Pending
Foot - Right
Imaging:
05/08/2025 X-ray right foot: Diffuse osteopenia noted. New osseous erosion of the distal phalanx of the great toe with adjacent soft tissue swelling and questionable subcutaneous gas. Mild degenerative changes of the first metatarsal joint.
Extensive vascular calcifications. The soft tissue swelling at the great toe tip consistent with acute osteomyelitis. Please see full dictation for additional detail. Film personally viewed.
Assessment / Plan
Right hallux osteomyelitis s/p partial amputation
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
Profound neuropathy
Diabetes mellitus (uncontrolled; HbA1c = 7.4)
Renal insufficiency
PAD
CAD
A-fib
COPD
Recommendations:
Right hallux wound culture reveals growth of Pseudomonas aeruginosa and Staph aureus (sensitivities pending)
Additional right foot wound culture on 05/09 is pending. Source unclear (?Right lateral foot wound)
Continue with empiric Zosyn and vancomycin pending further cultures.
Follow vancomycin levels closely to prevent nephrotoxicity.
Recommend MRI of right foot to determine whether there is osteomyelitis adjacent to the chronic wound on the lateral aspect of the foot.
Follow white count and temperature.
Await further culture data to further guide antibiotic selection and potential de-escalation.
Local care to the right foot wound.
Further recommendations as additional data is available.
Care Review
Plan reviewed with: Physician
--- NOTE | 2025-05-10 11:01 | W.PN.HOSP.TC ---
Today's Communication/Plan
-
Continue with broad-spectrum antibiotics for now
Monitor creatinine closely.
If with worsening of creatinine may need nephrology input as plan for arteriogram
Restarted Plavix
Heparin infusion
Assessment / Plan
Assessment / Plan
General: in NAD, hard of hearing
HEENT: Moist mucous membranes
Respiratory: Clear; No Wheezes, Rales or Rhonchi
Cardiac: S1/S2, Regular Rhythm and Murmur
GI: Soft, Non Tender, Non Distended and Normal Bowel Sounds
Musculoskeletal: No Clubbing, No Cyanosis and Other (1+ pitting edema of the feet bilaterally. R foot covered in dressing)
Neuro: AO x 3
A/P: Patient is an 89y M with PMH signficant for ASCVD, HTN and DM-II who presents to ED fo evaluation of worsening R great toe wound.
R Great Toe Osteomeylitis
- X-rays done in the ED this evening show bony changes of the R great toe distal phalanx concerning for osteomyelitis.
- IV abx for now with Vanco / Zosyn.
- Follow-up operative culture data and adjust regimen as appropriate.
- Ortho / Podiatry consulted for further evaluation and possible amputation.
- Wound cultures for Pseudomonas and Staph aureus.
- Plan for right lower extremity arteriogram on Thursday.
- ID consultation
RONDA on CKD III
- SCr = 1.3 downtreneded.
- Hold Lasix acutely for now.
- Follow labs / lytes for changes.
PAD
- s/p recent RLE angio with stenting on 01/06/25.
- Discussed with vascular surgery. Recommending to restart Plavix.
Paroxysmal Atrial Fibrillation
- Stable. Continue carvedilol.
- Per vascular surgery and podiatry okay to be started on heparin infusion.
Chronic HFpEF
- Stable. Does not appear grossly volume overloaded.
- Holding Lasix acutely as noted above.
- Follow I/Os, daily weights, etc.
DM-II
- Stable. Hold oral med regimen acutely.
- Follow glucose and cover with SSI as needed.
- Update A1C at 7.4.
BPH / Chronic Bladder Outlet Obstruction
- Patient notes that he self-caths at home 3 times daily - and still has incontinence / overflow in the interim.
- He is requesting Aragon placement during his stay.
Neuropathy
-gabapentin dose decreased -renally dose.
DVT Prophylaxis: Heparin infusion
Code Status: DNR
Discussed with vascular surgery
Anticipated Discharge: > 48 hours
Subjective/Interval History
-
Date of Service: May 10, 2025
Status post operating room
No overnight events
states of intermittent R foot pain
Objective Data
-
Labs:
Laboratory Results
05/10/25
05:51
WBC 7.3
Hgb 10.2 L
Hct 32.2 L
Plt Count 304
Sodium 136
Potassium 4.7
Chloride 105
Carbon Dioxide 28
BUN 26 H
Creatinine 1.5 H
Glucose 252 H
Calcium 8.4
Vital Signs:
Vital Signs
Temp Pulse Resp BP Pulse Ox
97.8 F 70 16 128/66 95
05/10/25 07:22 05/10/25 08:36 05/10/25 07:42 05/10/25 08:36 05/10/25 07:42
I&O
05/09/25 05/10/25 05/11/25
06:59 06:59 06:59
Intake Total 100 / 100 660 / 660
Output Total 225 / 225 1900 / 1900 350 / 350
Balance -125 / -125 -1900 / -1900 310 / 310
Data Reviewed
-
Total Time Spent with Patient (in minutes): 55
[2025-05-10] MEDS: VANCOCIN 200 IV (11:42)
[2025-05-10 12:00] LABS: APTT 30.8 Sec (23.4-35.0)
[2025-05-10 12:06] LABS: Glucose - Point of Care 235 mg/dl (70-99)
[2025-05-10] MEDS: HEPARIN 25000 UNITS/250 ML IV (12:21)
[2025-05-10] MEDS: NOVOLOG FLEXPEN-LOW RESISTANCE 2 UNITS SC (12:41)
--- NOTE | 2025-05-10 16:44 | CM ---
Alert awake oriented patient who lives with his Peg at [facility] .He is assisted with care by private care givers.He is assisted.PT indicated SNF . Pt declined SNF . He requested to return to [facility] with RN. He uses scooter and wheel
chair.
Nazario ROCHA hx / No SNF history
Pharmacy [facility]
PCP DR Bee Lowe
PLAN Return to [facility]
[2025-05-10] MEDS: NOVOLOG FLEXPEN-LOW RESISTANCE 3 UNITS SC (17:39)
[2025-05-10 17:40] LABS: Glucose - Point of Care 262 mg/dl (70-99)
[2025-05-10 19:32] LABS: APTT > 200 Sec (23.4-35.0)
[2025-05-10 21:15] LABS: Glucose - Point of Care 267 mg/dl (70-99)
[2025-05-10] MEDS: NEURONTIN 900 MG PO (21:30)
[2025-05-10] MEDS: RESTORIL 30 MG PO (21:30)
[2025-05-10] MEDS: DILAUDID 0.5 MG IV (22:45)
[2025-05-11] VITALS (7 sets, daily range): BP systolic 123–142; BP diastolic 57–68; BMI 24.4
[2025-05-11] MEDS: ZOSYN 50 IV ×4 (02:30→21:00)
[2025-05-11 04:13] LABS: APTT 154.1 Sec (23.4-35.0)
[2025-05-11 07:15] LABS: Glucose - Point of Care 180 mg/dl (70-99)
[2025-05-11] MEDS: ADVAIR HFA 115/21 MCG INHALER 2 PUFF INH (08:54)
[2025-05-11] MEDS: NOVOLOG FLEXPEN-LOW RESISTANCE 1 UNITS SC (09:01)
[2025-05-11] MEDS: PROSCAR 5 MG PO (09:02)
[2025-05-11] MEDS: LIPITOR 40 MG PO (09:02)
[2025-05-11] MEDS: FLUSH (NSS) 1 FLUSH IV (09:02)
[2025-05-11] MEDS: PLAVIX 75 MG PO (09:02)
[2025-05-11] MEDS: COREG 6.25 MG PO ×2 (09:03→21:00)
--- NOTE | 2025-05-11 09:57 | CM ---
Reviewed the chart notes and spoke with the patient at the bedside. Patient is s/p right hallux amputation. Per PT notes, patient was unable to pivot to chair due to weakness. Patient refusing possible need for SNF prior to transitioning back to
home. Patient resides in independent living at [facility]. CM continues to be available to patient/family and is monitoring medical plan for needs at discharge.
Plan: Discharge plans will depend on the patient's progress.
[2025-05-11 11:12] LABS: APTT 76.5 Sec (23.4-35.0)
[2025-05-11 11:18] LABS: Glucose - Point of Care 250 mg/dl (70-99)
[2025-05-11 11:33] LABS: Blood Urea Nitrogen 23 mg/dl (9-20); Calcium 8.3 mg/dl (8.4-10.2); Carbon Dioxide 27 mmol/L (22-30); Chloride 103 mmol/L (98-107); Estimated Creatinine Clearance 40 ml/min; Glucose 222 mg/dl (70-99); Potassium 3.7 mmol/L (3.5-5.1); Sodium 135 mmol/L (135-145); eGFR 48.34
[2025-05-11] MEDS: NOVOLOG FLEXPEN-LOW RESISTANCE 3 UNITS SC (12:03)
[2025-05-11] MEDS: VISBIOME 1 CAP PO (12:04)
--- NOTE | 2025-05-11 12:08 | W.PN.HOSP.TC ---
Today's Communication/Plan
-
Continue current broad-spectrum Vanco and Zosyn
Wound culture with polymicrobial growth
Creatinine improving
Continue with Plavix and heparin infusion
Probiotics added
Assessment / Plan
Assessment / Plan
General: in NAD, hard of hearing
HEENT: Moist mucous membranes
Respiratory: Clear; No Wheezes, Rales or Rhonchi
Cardiac: S1/S2, Regular Rhythm and Murmur
GI: Soft, Non Tender, Non Distended and Normal Bowel Sounds
Musculoskeletal: No Clubbing, No Cyanosis and Other (1+ pitting edema of the feet bilaterally. R foot covered in dressing)
Neuro: AO x 3
A/P: Patient is an 89y M with PMH significant for ASCVD, HTN and DM-II who presents to ED fo evaluation of worsening R great toe wound.
Right hallux gangrene with osteomyelitis and subcutaneous wound concern for cellulitis
- X-rays done in the ED this evening show bony changes of the R great toe distal phalanx concerning for osteomyelitis.
- IV abx for now with Vanco / Zosyn. Added probiotic.
- Status post right partial hallux amputation and wound debridement
- Wound cultures for Pseudomonas and Staph aureus and Klebsiella.
- May require additional imaging. Will discuss with ID.
- Plan for right lower extremity arteriogram on Thursday.
- ID consultation
RONDA on CKD III
- Creatinine improving.
- Hold Lasix acutely for now.
- Follow labs / lytes for changes.
PAD
- s/p recent RLE angio with stenting on 01/06/25.
- Continue with Plavix.
Paroxysmal Atrial Fibrillation
- Stable. Continue carvedilol.
- Per vascular surgery and podiatry okay to be started on heparin infusion.
Chronic HFpEF
- Stable. Does not appear grossly volume overloaded.
- Holding Lasix acutely as noted above.
- Follow I/Os, daily weights, etc.
DM-II uncontrolled
- Stable. Hold oral med regimen acutely.
- Follow glucose and cover with SSI as needed. Add low-dose Lantus
- Update A1C at 7.4.
BPH / Chronic Bladder Outlet Obstruction
- Patient notes that he self-caths at home 3 times daily - and still has incontinence / overflow in the interim.
- He is requesting Aragon placement during his stay.
Neuropathy
-gabapentin dose decreased -renally dose.
DVT Prophylaxis: Heparin infusion
Code Status: DNR
Anticipated Discharge: > 48 hours
Subjective/Interval History
-
Date of Service: May 11, 2025
Requesting probiotic. States history of C. difficile in the past.
No overnight events
Remains on heparin drip
Objective Data
-
Labs:
Laboratory Results
05/11/25 05/11/25
03:29 10:51
APTT 154.1 H* 76.5 H
Sodium 135
Potassium 3.7
Chloride 103
Carbon Dioxide 27
BUN 23 H
Creatinine 1.4 H
Glucose 222 H
Calcium 8.3 L
Vital Signs:
Vital Signs
Temp Pulse Resp BP Pulse Ox
98.0 F 82 16 142/68 94
05/11/25 07:15 05/11/25 08:58 05/11/25 08:58 05/11/25 07:15 05/11/25 08:58
I&O
05/10/25 05/11/25 05/12/25
06:59 06:59 06:59
Intake Total 1190 / 1190
Output Total 1900 / 1900 850 / 850
Balance -1900 / -1900 340 / 340
Data Reviewed
-
Total Time Spent with Patient (in minutes): 55
[2025-05-11] MEDS: MIRALAX 17 GRAMS PO (13:04)
[2025-05-11] MEDS: SANTYL OINTMENT 1 APPLIC TOPICAL (13:04)
[2025-05-11] MEDS: HEPARIN 25000 UNITS/250 ML IV (14:09)
[2025-05-11] MEDS: LASIX 40 MG PO (14:57)
--- NOTE | 2025-05-11 14:59 | PTCARENOTE ---
pt c/o feeling SOB at rest, pox 97% on RA, lungs diminished throughout. Pt upset concerning not receiving Lasix this am. Dr Carol Nunez notified and Lasix PO provided per DEC. care ongoing.
--- NOTE | 2025-05-11 15:16 | W.PN.ID1 ---
Date of Service
Date of Service: May 11, 2025
Today's Communication
Continue Zosyn. Discontinue further vancomycin.
Assessment / Plan
Right hallux osteomyelitis s/p partial amputation
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
Profound neuropathy
Diabetes mellitus (uncontrolled; HbA1c = 7.4)
Renal insufficiency
PAD
CAD
A-fib
COPD
Recommendations:
Right hallux wound culture reveals growth of Pseudomonas aeruginosa and Staph aureus (MSSA)
Additional right foot wound culture on 05/09 is pending. Source unclear (?Right lateral foot wound)
Continue with empiric Zosyn. Discontinue further vancomycin.
MRI of right foot (ordered) to determine whether there is osteomyelitis adjacent to the chronic wound on the lateral aspect of the foot.
Follow white count and temperature.
Local care to the right foot wound.
Close monitoring of left toes for development of ongoing ischemic changes.
Further recommendations as additional data is available.
Chief Complaint
-: Other (Right hallux osteomyelitis)
Subjective / Review of Systems
Patient seen and examined. Reports shortness of breath today. Pain is controlled in the right foot.
Review of Systems: No Fever and No Chills
Vital Signs / Physical Exam
Vital Signs
Vital Signs
Temp Pulse Resp BP Pulse Ox
97.9 F 77 22 125/66 97
05/11/25 15:01 05/11/25 15:01 05/11/25 15:01 05/11/25 15:01 05/11/25 15:01
Physical Exam
Constitutional: No Acute Distress, Comfortable, Chronically Ill and Non-toxic
Eyes: Sclera Anicteric
Cardiovascular: S1/S2; Negative S3/S4
Pulmonary: Clear and Non Labored; Negative Wheezes or Rales
Gastrointestinal: Soft and Non Tender
Skin: Other (Left hallux tip with unstageable eschar. Developing eschar noted at the tip of left second toe)
Wound: Other (Right hallux area dressed.)
Neurological: Awake and Alert
Psychological: Calm
Objective Data
Lab Data
Lab Results
05/10/25 11:24
05/11/25 10:51
APTT 76.5 Sec (23.4-35.0) H 05/11/25 10:51
Estimated Creat Clear 40 ml/min 05/11/25 10:51
Lactic Acid 1.8 mmol/L (0.7-2.0) 05/08/25 16:07
Total Bilirubin 0.6 mg/dl (0.2-1.3) 05/08/25 16:07
AST 15 U/L (17-59) L 05/08/25 16:07
ALT < 10 U/L (0-50) 05/08/25 16:07
Alkaline Phosphatase 92 U/L (38-126) 05/08/25 16:07
Most recent labs reviewed.
Micro Results:
05/09/25 17:26 Anaerobic Culture - Preliminary
Foot - Right Culture pending. Anaerobic cultures are examined after 3
days incubation. Additional information to follow.
05/09/25 17:26 Wound Culture - Preliminary
Foot - Right Pseudomonas aeruginosa
Klebsiella pneumoniae
S aureus-Methicillin Sensitive
Gram Stain - Preliminary
05/08/25 20:14 Wound Culture - Final
Toe Pseudomonas aeruginosa
S aureus-Methicillin Sensitive
Gram Stain - Final
05/09/25 06:51 MRSA Screen - Final
Nose No Methicillin Resistant Staphylococcus aureus isolated.
Imaging:
05/08/2025 X-ray right foot: Diffuse osteopenia noted. New osseous erosion of the distal phalanx of the great toe with adjacent soft tissue swelling and questionable subcutaneous gas. Mild degenerative changes of the first metatarsal joint.
Extensive vascular calcifications. The soft tissue swelling at the great toe tip consistent with acute osteomyelitis. Please see full dictation for additional detail. Film personally viewed.
--- NOTE | 2025-05-11 16:02 | PN.CDI ---
CDI
- -
CDI:
Physician Documentation Request
Admit Date: 05/08/25 22:29
Dear Doctor ,
Please review the following and provide your response in the progress notes.
Clinical Indicators:
Pt admitted with right hallux gangrene /osteomyelitis
Podiatry consult ,'...discussed need for right hallux amputation secondary to acute on chronic gangrenous changes and osteomyelitis as well as debridement of gangrenous patches....'
Foot Xray 05/08, ' There is new osseous erosion of the distal phalanx of the great toe with adjacent soft tissue swelling and questionable subcutaneous gas. ....'
ID consult, ' ...admitted to [facility] in December 2024 secondary to PAD and right hallux dry gangrene. ..Zosyn 3.375 g IV every 6 hours Vancomycin (dosing per pharmacy...'
Please Further specify the above findings/Diagnosis of gangrene:
Diabetes with Dry gangrene
Diabetes with gangrene only
Other ( please specify)
Use of terms such as suspected, likely, concern for, or probable (associated with a specific diagnosis that is being evaluated, monitored, or treated as if it exists) are acceptable and can be coded in the inpatient setting, when documented at the
time of discharge.
Thank you,
Claudia Guerrero RN
CDI Specialist
[place] [facility]
Please use your independent medical judgment in providing your response.
[2025-05-11 16:21] LABS: Glucose - Point of Care 228 mg/dl (70-99)
[2025-05-11] MEDS: NOVOLOG FLEXPEN-LOW RESISTANCE 2 UNITS SC (17:44)
[2025-05-11 18:11] LABS: APTT 56.3 Sec (23.4-35.0)
[2025-05-11 20:35] LABS: Glucose - Point of Care 164 mg/dl (70-99)
[2025-05-11] MEDS: LANTUS 0.04 UNITS SC (20:59)
[2025-05-11] MEDS: DILAUDID 0.5 MG IV (20:59)
[2025-05-11] MEDS: NEURONTIN 900 MG PO (21:00)
[2025-05-11] MEDS: RESTORIL 30 MG PO (21:00)
[2025-05-12] VITALS (25 sets, daily range): BP systolic 114–152; BP diastolic 50–77; BMI 24.1
[2025-05-12 01:19] LABS: APTT 110.5 Sec (23.4-35.0)
[2025-05-12] MEDS: ZOSYN 50 IV ×4 (01:39→21:19)
[2025-05-12 05:54] LABS: Glucose - Point of Care 149 mg/dl (70-99)
[2025-05-12] MEDS: ADVAIR HFA 115/21 MCG INHALER 2 PUFF INH (07:44)
[2025-05-12] MEDS: LIPITOR 40 MG PO (07:50)
[2025-05-12] MEDS: SANTYL OINTMENT 1 APPLIC TOPICAL (07:50)
[2025-05-12] MEDS: VISBIOME 1 CAP PO (07:50)
[2025-05-12] MEDS: PROSCAR 5 MG PO (07:50)
[2025-05-12] MEDS: PLAVIX 75 MG PO (07:50)
[2025-05-12] MEDS: COREG 6.25 MG PO ×2 (07:51→22:56)
[2025-05-12] MEDS: MIRALAX PO (07:51)
--- NOTE | 2025-05-12 08:45 | W.PN.HOSP.TC ---
Today's Communication/Plan
-
cont zosyn
[facility] mgmt - will inform on LLE dry gangrene
Assessment / Plan
Assessment / Plan
89yo M with PMHx of HTN, BPH, neuropathy, DM, CAD, PAD s/p stent in RLE on Xarelto, bedbound for years due to Hx of lower back pain s/p Sx and eventual calf atrophy due to poor ambulatory capacity came with worsening RLE swelling, found R hallux OM
and had amputation by podiatry on 05/09/25
A/P:
#R hallux acute OM
#L foot found, chronic
#PAD with L foot dry gangrene of 1st and 2nd toes, chronic limb ischemia
Podiatry follows: s/p hallux amputation on 05/09/25
ID continuing Zosyn only as of 05/11/25 pending further wound Cx taken periOP
MRI R foot to look or extent of lateral foot infection
Wound care
[facility]x for angiogram on 05/12/25 on R, then planned for L
cont heparin drip, Plavix
#RONDA on CKD stage 3
Holding lasix
follow Cr
#Paroxysmal Afib
#Chronic HFpEF
#BPH
#Neuropathy
Requested [place]
watch for fluid overload
cont rate control
#DM type 2 with neuropathy
Insulin SS, accuchgecks, DM diet
#Chronic mild anemia
outpatient folow up with PCP
#Chronic ambulatory dysfnction
essentially bedbound for couple of years
rehab
DVT ppx hep drip
DNR/DNI
I have spent at least 56min reviewing chart, test results, communication with consultants and providing direct patient care
Anticipated Discharge: > 48 hours
Subjective/Interval History
-
Date of Service: May 12, 2025
Objective Data
-
Labs:
Laboratory Results
05/12/25 05/12/25 05/12/25
00:56 06:00 07:30
WBC Pending
Hgb Pending
Hct Pending
Plt Count Pending
PT Pending
INR Pending
APTT 110.5 H Pending Pending
Sodium Pending
Potassium Pending
Chloride Pending
Carbon Dioxide Pending
BUN Pending
Creatinine Pending
Glucose Pending
Calcium Pending
Vital Signs:
Vital Signs
Temp Pulse Resp BP Pulse Ox
98.4 F 67 16 135/59 95
05/12/25 07:13 05/12/25 07:51 05/12/25 07:48 05/12/25 07:51 05/12/25 07:48
I&O
05/11/25 05/12/25 05/13/25
06:59 06:59 06:59
Intake Total 1190 / 1190 619 / 619
Output Total 850 / 850 2600 / 2600
Balance 340 / 340 -1980 /
Review of Systems
-
History Source: Patient
All other systems: Reviewed and negative
Physical Exam
-
General: Comfortable
HEENT: Normocephalic and Hearing Impaired
Respiratory: Clear to Auscultation
GI: Soft, Nontender and Nondistended
Musculoskeletal: Other (R foot in dressing, dark discoloration on 1st and 2nd toes on L)
Neuro: Awake, Alert, Oriented and AO x 3
Psych: Calm
[2025-05-12 09:20] LABS: Hematocrit 30.7 % (39.0-52.0); Hemoglobin 10.1 g/dL (13.0-18.0); Mean Corp Hgb Conc. 32.9 g/dL (33.0-37.0); Mean Corpuscular Volume 77.7 fL (80.0-94.0); Platelet Count 283 10^3/uL (130-400); Red Cell Dist. Width 13.6 % (11.5-14.5)
--- NOTE | 2025-05-12 09:20 | PN.CDI ---
CDI
- -
CDI:
Physician Documentation Request
Admit Date: 05/08/25 22:29
Dear Doctor ,
Please review the following and provide your response in the progress notes.
Clinical Indicators:
The diagnosis of soft tissue swelling and questionable subcutaneous gas. was included in the signed Foot Xray on 05/08.
Additional clinical indicators in the chart include:
Progress note 05/12, ' [facility] mgmt - will inform on LLE dry gangrene ...#PAD with L foot dry gangrene of 1st and 2nd toes, chronic limb ischemia...'
Foot Xray: 'There is new osseous erosion of the distal phalanx of the great toe with adjacent soft tissue swelling and questionable subcutaneous gas.'
Please further specify the diagnosis of gangrene :
Dry Gangrene/ Gas Gangrene
Dry Gangrene only
Other ( please specify )
Use of terms such as suspected, likely, concern for, or probable are acceptable for a diagnosis that is being evaluated, monitored or treated as if it exists and can be coded in the inpatient setting, when documented at the time of discharge.
Thank you,
Claudia Guerrero RN
CDI Specialist
[place] [facility]
Please use your independent medical judgment in providing your response.
[2025-05-12 09:29] LABS: INR 1.22; PT 15.7 Sec (11.4-14.6)
[2025-05-12 09:31] LABS: APTT 87.0 Sec (23.4-35.0)
--- NOTE | 2025-05-12 10:05 | W.PN.ID1 ---
Date of Service
Date of Service: May 12, 2025
Today's Communication
Continue Zosyn for today. Await MRI
Assessment / Plan
Right hallux osteomyelitis s/p partial amputation
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
Profound neuropathy
Diabetes mellitus (uncontrolled; HbA1c = 7.4)
Renal insufficiency
PAD
CAD
A-fib
COPD
Recommendations:
Right hallux wound culture with growth of Pseudomonas aeruginosa and Staph aureus (MSSA).
Additional right foot wound culture on 05/09 is pending. Source unclear (?Right lateral foot wound)
Continue with empiric Zosyn.
MRI of right foot (ordered) to determine whether there is osteomyelitis adjacent to the chronic wound on the lateral aspect of the foot.
Follow white count and temperature.
Local care to the right foot wound.
Close monitoring of left toes for development of progressive ischemic changes.
����������������������������������������������������������
Chief Complaint
-: Other (Right hallux osteomyelitis)
Subjective / Review of Systems
Review of Systems: No Fever and No Chills
Vital Signs / Physical Exam
Vital Signs
Vital Signs
Temp Pulse Resp BP Pulse Ox
98.4 F 67 16 135/59 95
05/12/25 07:13 05/12/25 07:51 05/12/25 07:48 05/12/25 07:51 05/12/25 07:48
Physical Exam
Constitutional: No Acute Distress, Comfortable, Chronically Ill and Non-toxic
Eyes: Sclera Anicteric
Cardiovascular: S1/S2; Negative S3/S4
Pulmonary: Clear and Non Labored; Negative Wheezes or Rales
Gastrointestinal: Soft and Non Tender
Skin: Other (Left hallux tip with unstageable eschar. Developing eschar noted at the tip of left second toe)
Wound: Other (Right hallux area dressed. Sutures in place. No drainage.)
Neurological: Awake and Alert
Psychological: Calm
Objective Data
Lab Data
Lab Results
05/12/25 09:08
PT 15.7 Sec (11.4-14.6) H 05/12/25 09:08
INR 1.22 05/12/25 09:08
APTT 87.0 Sec (23.4-35.0) H 05/12/25 09:08
APTT Cancelled 05/12/25 09:08
Estimated Creat Clear 40 ml/min 05/11/25 10:51
Lactic Acid 1.8 mmol/L (0.7-2.0) 05/08/25 16:07
Total Bilirubin 0.6 mg/dl (0.2-1.3) 05/08/25 16:07
AST 15 U/L (17-59) L 05/08/25 16:07
ALT < 10 U/L (0-50) 05/08/25 16:07
Alkaline Phosphatase 92 U/L (38-126) 05/08/25 16:07
Most recent labs reviewed.
Micro Results:
05/09/25 17:26 Anaerobic Culture - Preliminary
Foot - Right Culture pending. Anaerobic cultures are examined after 3
days incubation. Additional information to follow.
05/09/25 17:26 Wound Culture - Preliminary
Foot - Right Pseudomonas aeruginosa
Klebsiella pneumoniae
S aureus-Methicillin Sensitive
Gram Stain - Preliminary
05/08/25 20:14 Wound Culture - Final
Toe Pseudomonas aeruginosa
S aureus-Methicillin Sensitive
Gram Stain - Final
05/09/25 06:51 MRSA Screen - Final
Nose No Methicillin Resistant Staphylococcus aureus isolated.
Imaging:
05/08/2025 X-ray right foot: Diffuse osteopenia noted. New osseous erosion of the distal phalanx of the great toe with adjacent soft tissue swelling and questionable subcutaneous gas. Mild degenerative changes of the first metatarsal joint.
Extensive vascular calcifications. The soft tissue swelling at the great toe tip consistent with acute osteomyelitis. Please see full dictation for additional detail. Film personally viewed.
[2025-05-12 10:13] LABS: Blood Urea Nitrogen 20 mg/dl (9-20); Calcium 8.4 mg/dl (8.4-10.2); Carbon Dioxide 22 mmol/L (22-30); Chloride 108 mmol/L (98-107); Estimated Creatinine Clearance 40 ml/min; Glucose 131 mg/dl (70-99); Potassium 3.8 mmol/L (3.5-5.1); Sodium 137 mmol/L (135-145); eGFR 48.34
[2025-05-12 11:50] LABS: Glucose - Point of Care 125 mg/dl (70-99)
--- NOTE | 2025-05-12 14:39 | CM ---
Reviewed the chart notes. MRI results pending. Patient continues to want home with VN services, no SNF. CM continues to be available to patient/family and is monitoring medical plan for needs at discharge.
Plan: Discharge plans will depend on the patient's progress.
[2025-05-12 17:22] LABS: Glucose - Point of Care 116 mg/dl (70-99)
--- NOTE | 2025-05-12 17:34 | PTCARENOTE ---
DUNCAN Franco received report from 2S RN. VSS. Pt seen by anesthesia, awaiting to be seen by MD Aragon prior to procedure.
--- NOTE | 2025-05-12 19:57 | W.SUR.POST ---
Surgical Immediate Post Op
Note
Pre Op Diagnosis: Critical limb ischemia
Post Op Diagnosis: Critical limb ischemia
Procedure Performed: RLE angiogram via R SFA antegrade access. Intravascular lithotripsy and angioplasty of anterior tibial artery and dorsalis pedis.
Primary Surgeon:Cesar Aragon III, MD
Secondary Surgeons: Tommy Blandon MD
Anesthesia: see anesthesia report
Estimated Blood Loss: 2 cc
Fluids: see anesthesia report
Drains/Shunts: none
Specimens/Cultures: none
Doppler/Duplex/Angio (Y/N): Y
Complications: none
Operative Findings: RLE angiogram via R SFA antegrade access. Intravascular lithotripsy and angioplasty of anterior tibial artery and dorsalis pedis.
--- NOTE | 2025-05-12 20:55 | PTCARENOTE ---
PT received in PACU @ 1948, Sheath removed @ 1956, Pressure was held for a total of 43 mins until hemostasis achieved, Hemostasis achieved @ 2044, DR Aragon at bedside to check pulses and sheath site
[2025-05-12] MEDS: SUBLIMAZE 25 MCG IV (21:14)
[2025-05-12] MEDS: NSS 1000 IV (21:18)
[2025-05-12 21:32] LABS: Glucose - Point of Care 115 mg/dl (70-99)
[2025-05-12] MEDS: DILAUDID 0.5 MG IV (22:00)
--- NOTE | 2025-05-12 22:15 | PTCARENOTE ---
Patient back from OR at 2150. Pt AOx3, spoke to his on the phone. Vital signs and assessment done, see flowsheets. Gave dilaudid per order, see MAR. neurovascular checks completed as ordered. Will continue to monitor. Call pollack within reach.
[2025-05-12] MEDS: NEURONTIN 900 MG PO (22:55)
[2025-05-12] MEDS: LANTUS 0.04 UNITS SC (22:56)
[2025-05-12] MEDS: RESTORIL 30 MG PO (22:57)
[2025-05-13] VITALS (8 sets, daily range): BP systolic 106–130; BP diastolic 50–62; BMI 24.4
[2025-05-13] MEDS: ZOSYN 50 IV ×4 (01:43→20:15)
[2025-05-13] MEDS: DILAUDID 0.5 MG IV ×3 (02:41→22:18)
[2025-05-13 05:48] LABS: Blood Urea Nitrogen 18 mg/dl (9-20); Calcium 8.5 mg/dl (8.4-10.2); Carbon Dioxide 25 mmol/L (22-30); Chloride 105 mmol/L (98-107); Estimated Creatinine Clearance 37 ml/min; Glucose 101 mg/dl (70-99); Iron 30 ug/dl (49-181); Potassium 3.9 mmol/L (3.5-5.1); Sodium 140 mmol/L (135-145); eGFR 44.50
[2025-05-13 05:59] LABS: Total Iron Binding Capacity 299 ug/dl (261-462)
[2025-05-13 06:23] LABS: Ferritin 20.5 ng/ml (17.9-464.0)
[2025-05-13] MEDS: ADVAIR HFA 115/21 MCG INHALER 2 PUFF INH (07:20)
[2025-05-13 08:01] LABS: Glucose - Point of Care 96 mg/dl (70-99)
[2025-05-13] MEDS: NOVOLOG FLEXPEN-LOW RESISTANCE SC (08:59)
[2025-05-13] MEDS: LIPITOR 40 MG PO (09:01)
[2025-05-13] MEDS: COREG 6.25 MG PO ×2 (09:01→20:17)
[2025-05-13] MEDS: PLAVIX 75 MG PO (09:01)
[2025-05-13] MEDS: MIRALAX 17 GRAMS PO (09:01)
[2025-05-13] MEDS: VISBIOME 1 CAP PO (09:01)
[2025-05-13] MEDS: PROSCAR 5 MG PO (09:01)
[2025-05-13] MEDS: SANTYL OINTMENT 1 APPLIC TOPICAL (09:02)
--- NOTE | 2025-05-13 09:16 | W.PN.VS ---
Addendum entered and electronically signed by ELY Ramirez 05/15/25 09:49:
correction multi-Podus boot to RIGHT lower extremity as blood flow to DP is optimal in dorsiflexion position, order reads RIGHT
Original Note:
Today's Communication / Plan
-
Patient seen and examined at bedside with attending Dr. Pollard, below plan reviewed with attending.
Assessment/Plan
-
Assessment: 89-year-old male POD #1 RLE angiogram via R SFA antegrade access. Intravascular lithotripsy and angioplasty of anterior tibial artery and dorsalis pedis.
Plan:
Okay to reinitiate anticoagulation of heparin infusion
Trend kidney function with a.m. BMP
Continue Plavix p.o. 75 mg daily
Remove right groin Tegaderm later this afternoon
Possible left lower extremity angiogram planned for Thursday pending kidney function
N.p.o. at midnight on 05/15 in preparation of possible angiogram for Thursday
Recommend Multi-Podus boot to left lower extremity as blood flow to DP is optimal in dorsiflexion position
Subjective Data
-
Date of Service: May 13, 2025
Patient seen and examined at bedside, denies pain at right groin puncture site. Reports eagerness for angiogram of left leg as he would like to be discharged soon as possible. Reeducated patient on importance of observing kidney function in
between angiograms, we will tentatively plan for angiogram on left lower extremity for Thursday if patient has appropriate response with kidney function.
Objective Data
-
Vital Signs
Temp Pulse Resp BP Pulse Ox
98.1 F 65 16 106/62 97
05/13/25 07:30 05/13/25 07:30 05/13/25 07:30 05/13/25 07:30 05/13/25 07:30
Intake and Output
05/12/25 05/13/25 05/14/25
06:59 06:59 06:59
Intake Total 619 / 619 100 / 100
Output Total 2600 / 2600 520 / 520 325 / 325
Balance -1980 / -1980 - / - - / -
Intake:
Oral fluids 300 / 300
IV fluids (Total) 75 / 75
IV piggybacks 244 / 244 100 / 100
Output:
Urine, Aragon 2600 / 2600 520 / 520 325 / 325
Lab Results
05/12/25 09:08
05/13/25 05:00
Calcium 8.5 mg/dl (8.4-10.2) 05/13/25 05:00
Total Bilirubin 0.6 mg/dl (0.2-1.3) 05/08/25 16:07
AST 15 U/L (17-59) L 05/08/25 16:07
ALT < 10 U/L (0-50) 05/08/25 16:07
Alkaline Phosphatase 92 U/L (38-126) 05/08/25 16:07
Total Protein 7.4 g/dl (6.3-8.2) 05/08/25 16:07
Albumin 4.1 g/dl (3.5-5.0) 05/08/25 16:07
Physical Exam
-
No apparent distress, resting in bed comfortably
No tachycardia
No dyspnea on room air
ABD rotund, nondistended, nontender
Right groin puncture site dry and intact, no evidence of hematoma or edema, all surrounding compartments soft
Right foot with Doppler signal DP
--- NOTE | 2025-05-13 10:14 | W.PN.ID1 ---
Date of Service
Date of Service: May 13, 2025
Today's Communication
Continue antibiotics.
Assessment / Plan
Right hallux osteomyelitis s/p partial amputation
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
Right fifth met osteomyelitis
Profound neuropathy
Diabetes mellitus (uncontrolled; HbA1c = 7.4)
Renal insufficiency
PAD
CAD
A-fib
COPD
Recommendations:
Right hallux wound culture with growth of Pseudomonas aeruginosa and Staph aureus (MSSA).
Additional right foot wound culture on 05/09 reveals Pseudomonas aeruginosa, Klebsiella pneumoniae and MSSA.
MRI of the right foot reviewed. Official read reports 'osteomyelitis' at hallux amputation site, which I suspect is reactive secondary to amputation. Additionally, osteomyelitis noted in the fifth metatarsal, adjacent to the longstanding wound.
Given findings of osteomyelitis of the fifth metatarsal, would continue with Zosyn. All isolates noted to be susceptible. Unless area is resected, patient will require a 6-week course of antibiotics.
Follow white count and temperature.
Local care to the right foot wound.
Close monitoring of left toes for development of progressive ischemic changes.
����������������������������������������������������������
Chief Complaint
-: Other (Right hallux osteomyelitis)
Subjective / Review of Systems
Review of Systems: No Fever and No Chills
Vital Signs / Physical Exam
Vital Signs
Vital Signs
Temp Pulse Resp BP Pulse Ox
98.1 F 65 16 106/62 97
05/13/25 07:30 05/13/25 07:30 05/13/25 07:30 05/13/25 07:30 05/13/25 07:30
Physical Exam
Constitutional: No Acute Distress, Comfortable and Non-toxic
Eyes: Sclera Anicteric
Pulmonary: Non Labored
Gastrointestinal: Non Distended
Skin: Other (Left hallux tip with unstageable eschar. Developing eschar noted at the tip of left second toe)
Wound: Other (Right hallux area dressed. Sutures in place. No drainage. Right lateral foot wound dressed. No strikethrough.)
Neurological: Awake and Alert
Psychological: Calm
Objective Data
Lab Data
Lab Results
05/12/25 09:08
05/13/25 05:00
PT 15.7 Sec (11.4-14.6) H 05/12/25 09:08
INR 1.22 05/12/25 09:08
APTT 87.0 Sec (23.4-35.0) H 05/12/25 09:08
APTT Cancelled 05/12/25 09:08
Estimated Creat Clear 37 ml/min 05/13/25 05:00
Lactic Acid 1.8 mmol/L (0.7-2.0) 05/08/25 16:07
Total Bilirubin 0.6 mg/dl (0.2-1.3) 05/08/25 16:07
AST 15 U/L (17-59) L 05/08/25 16:07
ALT < 10 U/L (0-50) 05/08/25 16:07
Alkaline Phosphatase 92 U/L (38-126) 05/08/25 16:07
Most recent labs reviewed.
Micro Results:
05/09/25 17:26 Anaerobic Culture - Preliminary
Foot - Right Culture pending. Anaerobic cultures are examined after 3
days incubation. Additional information to follow.
05/09/25 17:26 Wound Culture - Preliminary
Foot - Right Pseudomonas aeruginosa
Klebsiella pneumoniae
S aureus-Methicillin Sensitive
Gram Stain - Preliminary
05/08/25 20:14 Wound Culture - Final
Toe Pseudomonas aeruginosa
S aureus-Methicillin Sensitive
Gram Stain - Final
05/09/25 06:51 MRSA Screen - Final
Nose No Methicillin Resistant Staphylococcus aureus isolated.
Imaging:
05/11/2025 MRI right lower extremity: first toe has been amputated to the level of the distal aspect of the proximal phalanx. Bone marrow edema and enhancement of the first proximal phalanx adjacent to the resection margin noted. Soft tissue wound
at the lateral aspect of the proximal forefoot with associated bone marrow edema enhancement and T1 hypointense marrow replacement of the base of the fifth metatarsal adjacent to the soft tissue ulceration. No acute fracture or dislocation.
05/08/2025 X-ray right foot: Diffuse osteopenia noted. New osseous erosion of the distal phalanx of the great toe with adjacent soft tissue swelling and questionable subcutaneous gas. Mild degenerative changes of the first metatarsal joint.
Extensive vascular calcifications. The soft tissue swelling at the great toe tip consistent with acute osteomyelitis. Please see full dictation for additional detail. Film personally viewed.
[2025-05-13 10:43] LABS: APTT 31.4 Sec (23.4-35.0)
[2025-05-13 11:22] LABS: Glucose - Point of Care 213 mg/dl (70-99)
[2025-05-13] MEDS: HEPARIN 25000 UNITS/250 ML IV (11:30)
--- NOTE | 2025-05-13 12:34 | W.PN.HOSP.TC ---
Today's Communication/Plan
-
cont heparin
start iron
pending LLE angio
Assessment / Plan
Assessment / Plan
89yo M with PMHx of HTN, BPH, neuropathy, DM, CAD, PAD s/p stent in RLE on Xarelto, bedbound for years due to Hx of lower back pain s/p Sx and eventual calf atrophy due to poor ambulatory capacity came with worsening RLE swelling, found R hallux OM
and had amputation by podiatry on 05/09/25. RLE angio with RLE angiogram via R SFA antegrade access. Intravascular lithotripsy and angioplasty of anterior tibial artery and dorsalis pedis on 05/12/25, pending LLE angio. Also found Acute osteomyelitis
at the base of the fifth proximal phalanx adjacent to the soft tissue wound and will need 6 weeks of Abx since debridement will not reach surgical cure
A/P:
#R hallux acute OM
#L foot found, chronic
#PAD with L foot dry gangrene of 1st and 2nd toes, chronic limb ischemia
Podiatry follows: s/p hallux amputation on 05/09/25
ID continuing Zosyn only as of 05/11/25 pending further wound Cx taken periOP
MRI R foot: Acute osteomyelitis at the base of the fifth proximal phalanx adjacent to the soft tissue wound at the lateral aspect of the proximal forefoot. Without Sx intervention will need 6 weeks of Abx - as per podiatry - debridement will not be
able to acheve surgical cure
Acute osteomyelitis of the first proximal phalanx at the amputation margin - most liekly postOP changes
Wound care
VascSx for angiogram on 05/12/25 on R - RLE angiogram via R SFA antegrade access. Intravascular lithotripsy and angioplasty of anterior tibial artery and dorsalis pedis, then planned for L on 05/15/25
cont heparin drip, Plavix
#RONDA on CKD stage 3
Holding lasix
follow Cr
#Paroxysmal Afib
#Chronic HFpEF
#BPH
#Neuropathy
Requested [facility]
watch for fluid overload
cont rate control
#DM type 2 with neuropathy
Insulin SS, accuchgecks, DM diet
#Chronic mild anemia. JOHANNA
outpatient follow up with PCP for GI referral
Iron
#Chronic ambulatory dysfunction
essentially bedbound for couple of years
rehab
DVT ppx hep drip
DNR/DNI
I have spent at least 56min reviewing chart, test results, communication with consultants and providing direct patient care
Anticipated Discharge: > 48 hours
Subjective/Interval History
-
Date of Service: May 13, 2025
Objective Data
-
Labs:
Laboratory Results
05/13/25 05/13/25 05/13/25
05:00 10:27 17:30
APTT 31.4 Pending
Sodium 140
Potassium 3.9
Chloride 105
Carbon Dioxide 25
BUN 18
Creatinine 1.5 H
Glucose 101 H
Calcium 8.5
Vital Signs:
Vital Signs
Temp Pulse Resp BP Pulse Ox
98.8 F 80 16 116/58 95
05/13/25 11:20 05/13/25 11:20 05/13/25 11:20 05/13/25 11:20 05/13/25 11:20
I&O
05/12/25 05/13/25 05/14/25
06:59 06:59 06:59
Intake Total 619 / 619 100 / 100
Output Total 2600 / 2600 520 / 520 325 / 325
Balance -1980 / -1980 - / - - /
Review of Systems
-
History Source: Patient
All other systems: Reviewed and negative
Physical Exam
-
General: No Apparent Distress
HEENT: Normocephalic
Cardiac: Regular Rhythm
GI: Soft, Nontender and Nondistended
Neuro: Awake
Psych: Calm
[2025-05-13] MEDS: NOVOLOG FLEXPEN-LOW RESISTANCE 2 UNITS SC ×2 (13:49→18:08)
[2025-05-13] MEDS: FERRLECIT 110 MG IV (13:57)
[2025-05-13 16:42] LABS: Glucose - Point of Care 244 mg/dl (70-99)
[2025-05-13 19:04] LABS: APTT 175.3 Sec (23.4-35.0)
[2025-05-13] MEDS: NEURONTIN 900 MG PO (20:17)
[2025-05-13 22:07] LABS: Glucose - Point of Care 199 mg/dl (70-99)
[2025-05-13] MEDS: RESTORIL 30 MG PO (22:17)
[2025-05-13] MEDS: LANTUS 0.04 UNITS SC (22:19)
[2025-05-14] MEDS: ZOSYN 50 IV ×2 (02:14→08:49)
[2025-05-14 02:36] LABS: Hematocrit 30.9 % (39.0-52.0); Hemoglobin 9.9 g/dL (13.0-18.0); Mean Corp Hgb Conc. 32.0 g/dL (33.0-37.0); Mean Corpuscular Volume 78.0 fL (80.0-94.0); Nucleated Red Blood Cells % 0 % (-); Platelet Count 296 10^3/uL (130-400); Red Cell Dist. Width 13.6 % (11.5-14.5)
[2025-05-14 02:47] LABS: APTT 87.6 Sec (23.4-35.0)
[2025-05-14 03:02] LABS: Blood Urea Nitrogen 20 mg/dl (9-20); Calcium 8.2 mg/dl (8.4-10.2); Carbon Dioxide 25 mmol/L (22-30); Chloride 106 mmol/L (98-107); Estimated Creatinine Clearance 43 ml/min; Glucose 159 mg/dl (70-99); Potassium 3.4 mmol/L (3.5-5.1); Sodium 137 mmol/L (135-145); eGFR 52.84
[2025-05-14 06:00] VITALS: BMI 24.5
[2025-05-14] MEDS: ADVAIR HFA 115/21 MCG INHALER 2 PUFF INH (07:22)
[2025-05-14 07:35] VITALS: BP 116/60
[2025-05-14 07:50] LABS: Glucose - Point of Care 140 mg/dl (70-99)
[2025-05-14] MEDS: NOVOLOG FLEXPEN-LOW RESISTANCE SC (08:49)
[2025-05-14] MEDS: COREG 6.25 MG PO ×2 (08:50→20:13)
[2025-05-14] MEDS: LIPITOR 40 MG PO (08:50)
[2025-05-14] MEDS: PROSCAR 5 MG PO (08:50)
[2025-05-14] MEDS: PLAVIX 75 MG PO (08:50)
[2025-05-14] MEDS: VISBIOME 1 CAP PO (08:50)
[2025-05-14] MEDS: KCL 20 MEQ PO ×2 (08:50→20:13)
[2025-05-14] MEDS: SANTYL OINTMENT 1 APPLIC TOPICAL (08:50)
[2025-05-14] MEDS: MIRALAX 17 GRAMS PO (08:51)
[2025-05-14 08:53] LABS: APTT 84.0 Sec (23.4-35.0)
[2025-05-14] MEDS: HEPARIN 25000 UNITS/250 ML IV (09:57)
--- NOTE | 2025-05-14 11:37 | W.PN.ID1 ---
Date of Service
Date of Service: May 14, 2025
Today's Communication
Continue antibiotics.
Assessment / Plan
Right hallux osteomyelitis s/p partial amputation
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
Right fifth met osteomyelitis
Profound neuropathy
Diabetes mellitus (uncontrolled; HbA1c = 7.4)
Renal insufficiency
PAD
CAD
A-fib
COPD
Recommendations:
Right hallux wound culture with growth of Pseudomonas aeruginosa and Staph aureus (MSSA).
Additional right foot wound culture on 05/09 reveals Pseudomonas aeruginosa, Klebsiella pneumoniae and MSSA.
MRI of the right foot reviewed. Official read reports 'osteomyelitis' at hallux amputation site, which I suspect is reactive secondary to amputation.
Additionally, osteomyelitis noted in the fifth metatarsal, adjacent to the longstanding wound. Area with positive probe to bone.
Given findings of osteomyelitis of the fifth metatarsal, would continue with Zosyn. All isolates noted to be susceptible. Unless area is resected, patient will require a 6-week course of antibiotics.
Follow white count and temperature.
Local care to the right foot wound.
Close monitoring of left toes for development of progressive ischemic changes.
����������������������������������������������������������
Chief Complaint
-: Other (Right hallux osteomyelitis)
Subjective / Review of Systems
Review of Systems: No Fever and No Chills
Vital Signs / Physical Exam
Vital Signs
Vital Signs
Temp Pulse Resp BP Pulse Ox
98.4 F 73 18 116/60 91
05/14/25 07:35 05/14/25 07:35 05/14/25 07:35 05/14/25 07:35 05/14/25 07:35
Physical Exam
Constitutional: No Acute Distress, Comfortable and Non-toxic
Eyes: Sclera Anicteric
Pulmonary: Non Labored
Gastrointestinal: Non Distended
Skin: Other (Left hallux tip with unstageable eschar. Developing eschar noted at the tip of left second toe)
Wound: Other (Right hallux area dressed. Sutures in place. No drainage. Right lateral foot wound dressed. No strikethrough.)
Neurological: Awake and Alert
Psychological: Calm
Objective Data
Lab Data
Lab Results
05/14/25 02:28
05/14/25 02:28
PT 15.7 Sec (11.4-14.6) H 05/12/25 09:08
INR 1.22 05/12/25 09:08
APTT 84.0 Sec (23.4-35.0) H 05/14/25 08:33
Estimated Creat Clear 43 ml/min 05/14/25 02:28
Lactic Acid 1.8 mmol/L (0.7-2.0) 05/08/25 16:07
Total Bilirubin 0.6 mg/dl (0.2-1.3) 05/08/25 16:07
AST 15 U/L (17-59) L 05/08/25 16:07
ALT < 10 U/L (0-50) 05/08/25 16:07
Alkaline Phosphatase 92 U/L (38-126) 05/08/25 16:07
Most recent labs reviewed.
Micro Results:
05/09/25 17:26 Anaerobic Culture - Preliminary
Foot - Right Culture pending. Anaerobic cultures are examined after 3
days incubation. Additional information to follow.
05/09/25 17:26 Wound Culture - Preliminary
Foot - Right Pseudomonas aeruginosa
Klebsiella pneumoniae
S aureus-Methicillin Sensitive
Gram Stain - Preliminary
05/08/25 20:14 Wound Culture - Final
Toe Pseudomonas aeruginosa
S aureus-Methicillin Sensitive
Gram Stain - Final
05/09/25 06:51 MRSA Screen - Final
Nose No Methicillin Resistant Staphylococcus aureus isolated.
Wound/abscess/other Cult Preliminary 05/11/25-1032
Few Pseudomonas aeruginosa
Few Klebsiella pneumoniae
Moderate S aureus-Methicillin Sensitive*
Organism 1 Pseudomonas aeruginosa
Organism 2 Klebsiella pneumoniae
Organism 3 S aureus-Methicillin Sensitive
1. Pseudomonas aeruginosa
M.I.C. RX
--------- ---
Aztreonam <=4 S
Cefepime <=2 S
Ceftazidime <=1 S
Ciprofloxacin <=0.25 S
Meropenem <=1 S
Piperacillin/Tazobactam <=8 S
Tobramycin <=2 S
2. Klebsiella pneumoniae
M.I.C. RX
--------- ---
Amoxicillin/Potas. Clavulanate >16/8 R
Ampicillin >16 R
Ampicillin/Sulbactam 16/8 I
Aztreonam <=4 S
Cefazolin >16 R
Cefepime <=2 S
Ceftazidime <=1 S
Ceftriaxone <=1 S
Ertapenem <=0.5 S
Ciprofloxacin <=0.25 S
Gentamicin <=2 S
Meropenem <=1 S
Piperacillin/Tazobactam <=8 S
Tetracycline 8 I
Tobramycin <=2 S
Trimethoprim/Sulfamethoxazole <=2/38 S
3. S aureus-Methicillin Sensitive
M.I.C. RX
--------- ---
Amoxicillin/Potas. Clavulanate <=4/2 S
Ampicillin <=2 R
Clindamycin <=0.5 S
Gentamicin <=4 S
Erythromycin <=0.5 S
Levofloxacin <=1 S
Oxacillin <=0.25 S
Tetracycline <=4 S
Trimethoprim/Sulfamethoxazole <=0.5/9.5 S
Vancomycin 1 S
Imaging:
05/11/2025 MRI right lower extremity: first toe has been amputated to the level of the distal aspect of the proximal phalanx. Bone marrow edema and enhancement of the first proximal phalanx adjacent to the resection margin noted. Soft tissue wound
at the lateral aspect of the proximal forefoot with associated bone marrow edema enhancement and T1 hypointense marrow replacement of the base of the fifth metatarsal adjacent to the soft tissue ulceration. No acute fracture or dislocation.
05/08/2025 X-ray right foot: Diffuse osteopenia noted. New osseous erosion of the distal phalanx of the great toe with adjacent soft tissue swelling and questionable subcutaneous gas. Mild degenerative changes of the first metatarsal joint.
Extensive vascular calcifications. The soft tissue swelling at the great toe tip consistent with acute osteomyelitis. Please see full dictation for additional detail. Film personally viewed.
[2025-05-14 12:05] LABS: Glucose - Point of Care 172 mg/dl (70-99)
--- NOTE | 2025-05-14 12:18 | W.PN.HOSP.TC ---
Today's Communication/Plan
-
replete potassium
cont ZOsyn
Angio in AM
cont hep drip
Assessment / Plan
Assessment / Plan
89yo M with PMHx of HTN, BPH, neuropathy, DM, CAD, PAD s/p stent in RLE on Xarelto, bedbound for years due to Hx of lower back pain s/p Sx and eventual calf atrophy due to poor ambulatory capacity came with worsening RLE swelling, found R hallux OM
and had amputation by podiatry on 05/09/25. RLE angio with RLE angiogram via R SFA antegrade access. Intravascular lithotripsy and angioplasty of anterior tibial artery and dorsalis pedis on 05/12/25, pending LLE angio. Also found Acute osteomyelitis
at the base of the fifth proximal phalanx adjacent to the soft tissue wound and will need 6 weeks of Abx since debridement will not reach surgical cure
A/P:
#R hallux acute OM
#L foot found, chronic
#PAD with L foot dry gangrene of 1st and 2nd toes, chronic limb ischemia
Podiatry follows: s/p hallux amputation on 05/09/25
ID continuing Zosyn only as of 05/11/25 pending further wound Cx taken periOP
MRI R foot: Acute osteomyelitis at the base of the fifth proximal phalanx adjacent to the soft tissue wound at the lateral aspect of the proximal forefoot. Without Sx intervention will need 6 weeks of Abx (zosyn) - as per podiatry - debridement will
not be able to achieve surgical cure
Acute osteomyelitis of the first proximal phalanx at the amputation margin - most liekly postOP changes
Wound care
VascSx for angiogram on 05/12/25 on R - RLE angiogram via R SFA antegrade access. Intravascular lithotripsy and angioplasty of anterior tibial artery and dorsalis pedis, then planned for L on 05/15/25
cont heparin drip, Plavix
#RONDA on CKD stage 3
Holding lasix
follow Cr
#Paroxysmal Afib
#Chronic HFpEF
#BPH
#Neuropathy
Requested [facility]
watch for fluid overload
cont rate control
#DM type 2 with neuropathy
Insulin SS, accuchgecks, DM diet
#Chronic mild anemia. JOHANNA
outpatient follow up with PCP for GI referral
Iron
#Chronic ambulatory dysfunction
essentially bedbound for couple of years
rehab
DVT ppx hep drip
DNR/DNI
I have spent at least 38min reviewing chart, test results, communication with consultants and providing direct patient care
Anticipated Discharge: > 48 hours
Subjective/Interval History
-
Date of Service: May 14, 2025
Objective Data
-
Labs:
Laboratory Results
05/14/25 05/14/25
02:28 08:33
WBC 8.0
Hgb 9.9 L
Hct 30.9 L
Plt Count 296
APTT 87.6 H 84.0 H
Sodium 137
Potassium 3.4 L
Chloride 106
Carbon Dioxide 25
BUN 20
Creatinine 1.3
Glucose 159 H
Calcium 8.2 L
Vital Signs:
Vital Signs
Temp Pulse Resp BP Pulse Ox
98.4 F 73 18 116/60 91
05/14/25 07:35 05/14/25 07:35 05/14/25 07:35 05/14/25 07:35 05/14/25 07:35
I&O
05/13/25 05/14/25 05/15/25
06:59 06:59 06:59
Intake Total 1460 / 1460
Output Total 520 / 520 1275 / 1275
Balance -520 / -520 185 / 185
Review of Systems
-
History Source: Patient
All other systems: Reviewed and negative
Physical Exam
-
General: No Apparent Distress
HEENT: Normocephalic and Hearing Impaired
Respiratory: Clear to Auscultation
GI: Soft, Nontender and Nondistended
Neuro: Awake, Alert, Oriented and AO x 3
Psych: Calm
[2025-05-14] MEDS: NOVOLOG FLEXPEN-LOW RESISTANCE 1 UNITS SC (13:39)
[2025-05-14] MEDS: FERRLECIT 110 MG IV (14:04)
[2025-05-14] MEDS: ZOSYN 100 IV ×2 (14:04→20:13)
[2025-05-14 15:45] VITALS: BP 110/58
[2025-05-14] MEDS: DILAUDID 0.5 MG IV ×2 (17:30→21:36)
[2025-05-14 17:32] LABS: Glucose - Point of Care 208 mg/dl (70-99)
[2025-05-14] MEDS: NOVOLOG FLEXPEN-LOW RESISTANCE 2 UNITS SC (17:40)
[2025-05-14] MEDS: NEURONTIN 900 MG PO (20:13)
[2025-05-14 21:37] LABS: Glucose - Point of Care 139 mg/dl (70-99)
[2025-05-14] MEDS: LANTUS 0.04 UNITS SC (21:41)
[2025-05-14] MEDS: RESTORIL 30 MG PO (21:41)
[2025-05-14 23:00] VITALS: BP 113/49
[2025-05-15] VITALS (11 sets, daily range): BP systolic 105–136; BP diastolic 50–71; BMI 24.5
[2025-05-15] MEDS: ZOSYN 100 IV ×4 (01:34→20:45)
[2025-05-15] MEDS: NOVOLOG FLEXPEN-LOW RESISTANCE SC ×3 (07:00→17:16)
[2025-05-15 07:11] LABS: APTT 41.6 Sec (23.4-35.0)
[2025-05-15 07:26] LABS: Blood Urea Nitrogen 18 mg/dl (9-20); Calcium 8.6 mg/dl (8.4-10.2); Carbon Dioxide 26 mmol/L (22-30); Chloride 108 mmol/L (98-107); Estimated Creatinine Clearance 37 ml/min; Glucose 117 mg/dl (70-99); Potassium 3.7 mmol/L (3.5-5.1); Sodium 139 mmol/L (135-145); eGFR 44.50
--- NOTE | 2025-05-15 09:48 | W.SUR.POST ---
Surgical Immediate Post Op
Note
Pre Op Diagnosis: Critical limb ischemia
Post Op Diagnosis: Critial limb ischemia
Procedure Performed: LLE angiography via retrograde R femoral access. Intravascular lithotripsy ([place]). DCB to distal popliteal, popliteal artery stent. Drug coated stent (6x80 to popliteal artery)
Primary Surgeon: Cesar Aragon III, MD
Secondary Surgeons: Tommy Blandon MD
Anesthesia: see anesthesia report
Estimated Blood Loss: 2 cc
Fluids: see anesthesia report
Drains/Shunts: None
Specimens/Cultures: None
Doppler/Duplex/Angio (Y/N): Y
Complications: none
Operative Findings: LLE above knee popliteal disease. Single vessel AT runoff with multiple stenotic segments.
[2025-05-15 10:50] LABS: Glucose - Point of Care 121 mg/dl (70-99)
[2025-05-15] MEDS: MORPHINE SULFATE 1 MG IV (11:05)
[2025-05-15] MEDS: ADVAIR HFA 115/21 MCG INHALER INH (11:10)
--- NOTE | 2025-05-15 11:45 | PTCARENOTE ---
Patient received from PACU at 1145. Patient with doppler pedal pulse, right groin dressing CDI. Call pollack in reach, patient called and updated that he is back in his room. Patient is cranky and c/o that he is being kept in the dark. Patient is
refusing to eat lunch. Physician at bedside and updated patient about angioplasty and called spouse.
[2025-05-15] MEDS: LIPITOR 40 MG PO (12:01)
[2025-05-15] MEDS: VISBIOME 1 CAP PO (12:01)
[2025-05-15] MEDS: PROSCAR 5 MG PO (12:01)
[2025-05-15] MEDS: COREG 6.25 MG PO ×2 (12:01→20:45)
[2025-05-15] MEDS: SANTYL OINTMENT 1 APPLIC TOPICAL (12:02)
[2025-05-15] MEDS: MIRALAX 17 GRAMS PO (12:03)
[2025-05-15] MEDS: NSS 1000 IV (12:07)
[2025-05-15] MEDS: PLAVIX 75 MG PO (12:11)
--- NOTE | 2025-05-15 12:35 | W.PN.HOSP.TC ---
Today's Communication/Plan
-
anticoagulation as per VascSX
follow Cr
Echo
Assessment / Plan
Assessment / Plan
89yo M with PMHx of HTN, BPH, neuropathy, DM, CAD, PAD s/p stent in RLE on Xarelto, bedbound for years due to Hx of lower back pain s/p Sx and eventual calf atrophy due to poor ambulatory capacity came with worsening RLE swelling, found R hallux OM
and had amputation by podiatry on 05/09/25. RLE angio with RLE angiogram via R SFA antegrade access. Intravascular lithotripsy and angioplasty of anterior tibial artery and dorsalis pedis on 05/12/25, pending LLE angio. Also found Acute osteomyelitis
at the base of the fifth proximal phalanx adjacent to the soft tissue wound and will need 6 weeks of Abx since debridement will not reach surgical cure
A/P:
#R hallux acute OM
#L foot found, chronic
#PAD with L foot dry gangrene of 1st and 2nd toes, chronic limb ischemia
Podiatry follows: s/p hallux amputation on 05/09/25
ID continuing Zosyn only as of 05/11/25 with Pseudomonas, K.pneumonia, MSSA, Peptostreptococcus prevotti - all sensitive to Zosyn
MRI R foot: Acute osteomyelitis at the base of the fifth proximal phalanx adjacent to the soft tissue wound at the lateral aspect of the proximal forefoot. Without Sx intervention will need 6 weeks of Abx (zosyn) - as per podiatry - debridement will
not be able to achieve surgical cure
Acute osteomyelitis of the first proximal phalanx at the amputation margin - most likely postOP changes
Wound care
VascSx for angiogram on 05/12/25 on R - RLE angiogram via R SFA antegrade access. Intravascular lithotripsy and angioplasty of anterior tibial artery and dorsalis pedis, on 05/15/25: LLE angiography via retrograde R femoral access. Intravascular
lithotripsy (Javelin). DCB to distal popliteal, popliteal artery stent. Drug coated stent (6x80 to popliteal artery)
Anticoag as per VascSx, Plavix
#RONDA on CKD stage 3
Holding lasix
follow Cr
#Systolic cardiac murmur
review of Echo from december 2024 - no significant valvular disease
will repeat
#Paroxysmal Afib
#Chronic HFpEF
#BPH
#Neuropathy
Requested smallwood
watch for fluid overload
cont rate control
#DM type 2 with neuropathy
Insulin SS, accuchgecks, DM diet
#Chronic mild anemia. JOHANNA
outpatient follow up with PCP for GI referral
Iron
#Chronic ambulatory dysfunction
essentially bedbound for couple of years
rehab
DVT ppx hep drip
DNR/DNI
I have spent at least 51min reviewing chart, test results, communication with consultants and providing direct patient care
Anticipated Discharge: 24 - 48 hours
Subjective/Interval History
-
Date of Service: May 15, 2025
Objective Data
-
Labs:
Laboratory Results
05/15/25
06:53
APTT 41.6 H
Sodium 139
Potassium 3.7
Chloride 108 H
Carbon Dioxide 26
BUN 18
Creatinine 1.5 H
Glucose 117 H
Calcium 8.6
Vital Signs:
Vital Signs
Temp Pulse Resp BP Pulse Ox
97.5 F 69 15 130/68 92
05/15/25 11:45 05/15/25 11:45 05/15/25 11:45 05/15/25 11:45 05/15/25 11:45
I&O
05/14/25 05/15/25 05/16/25
06:59 06:59 06:59
Intake Total 1460 / 1460 1000 / 1000
Output Total 1275 / 1275 1200 / 1200
Balance 185 / 185 -200 / -200
Review of Systems
-
History Source: Patient
All other systems: Reviewed and negative
Physical Exam
-
General: No Apparent Distress
HEENT: Normocephalic
Respiratory: Clear to Auscultation
Cardiac: Regular Rhythm and Murmur
GI: Soft, Nontender and Nondistended
Skin: Warm
Neuro: Awake, Alert, Oriented and AO x 3
Psych: Calm
--- NOTE | 2025-05-15 12:54 | OR.RPT ---
Operative Report
Operative Report
Date of Operation: 05/12/2025
Pre Op Diagnosis:
1. [place] artery atherosclerosis with right lateral foot ulcer and gangrene
2. Right hallux amputation for gangrene and osteomyelitis
Post Op Diagnosis:
1. [place] artery atherosclerosis with right lateral foot ulcer and gangrene
2. Right hallux amputation for gangrene and osteomyelitis
Procedure:
1.) Intravascular lithotripsy to right anterior tibial artery and dorsalis pedis artery (Shockwave Javelin)
2.) Balloon angioplasty of right anterior tibial artery (2 mm x 100 mm angioplasty balloon distal; 3 mm x 220 mm balloon mid/proximal)
3.) Balloon angioplasty of right dorsalis pedis artery (2 mm x 100 mm angioplasty balloon; 2.25 mm x 20 mm noncompliant balloon)
4.) Diagnostic right lower extremity arteriogram
5.) Ultrasound guided percutaneous ANTEGRADE access to the right common femoral artery
Surgeon: Cesar Aragon III, MD
Cupola Liner Helper: Tommy Blandon MD PGY-6
Anesthesia: Sedation with local
Fluoroscopy:
28.6 min
62 mGy
11.36 gy.cm2
Complications: None
Estimated Blood Loss: Less than 20 cc
History and Indications for Procedure: 89-year-old male with known peripheral arterial occlusive disease. He developed gangrene of his right hallux and an associated infection. He underwent toe amputation and I recommended an arteriogram with
possible endovascular intervention.
Procedure in Detail: Elvis Enriquez was correctly identified and placed supine on the operating table. After adequate induction of anesthesia the bilateral groins were prepped and draped in the usual sterile fashion. A timeout was performed with
the nursing and anesthesia staff confirming the patient's identity as well as the nature and laterality of the procedure.
The right common femoral artery was identified under ultrasound guidance. The artery was patent. The superior and inferior aspects of the femoral head were identified with radiographic guidance and marked at the skin level. The proposed puncture
site was infiltrated with local anesthesia. Under ultrasound guidance we accessed the right at the common femoral artery SFA origin in an antegrade direction with a micropuncture needle and upsized to a 5 Fr sheath over a [employer] wire. A diagnostic
right lower extremity arteriogram was then performed which demonstrated the following:
RIGHT LOWER EXTREMITY:
Profunda femoral artery: Patent
Superficial femoral artery: Patent. No significant stenosis identified
Popliteal artery: Patent. Mild stenosis at the proximal aspect of the popliteal artery stent. Popliteal artery stent is patent with no significant in-stent restenosis. Popliteal artery below the knee patent.
Anterior tibial artery: Patent with diffuse segmental high-grade stenoses throughout. Dorsalis pedis artery occluded proximally with distal reconstitution identified
Tibioperoneal trunk: Patent but heavily diseased
Peroneal artery: Patent proximal aspect but occluded thereafter
Posterior tibial artery: Occluded with no distal reconstitution identified
ENDOVASCULAR INTERVENTION: Systemic heparin was administered. Exchanged out for a 5 Fr 45 cm sheath over a [employer] wire. Selected the anterior tibial artery under roadmap guidance with Quickcross catheter and glidewire. The anterior tibial artery
disease was crossed with a Quickcross and Glidewire. The wire and catheter were advanced into the distal anterior tibial artery and subtraction angio confirmed proper position in the true lumen. A 0.014 wire and 0.014 Quickcross were then used to
navigate across the occluded dorsalis pedis artery segment and into the distal reconstituted segment. We confirmed proper position in the true lumen with an arteriogram through the 0.014 Quickcross.
Due to the heavily calcified nature of the anterior tibial artery and dorsalis pedis artery disease and in an effort to successfully cross the lesion, modify the calcium and achieve luminal gain with endovascular intervention I elected to proceed
with intravascular lithotripsy with a Shockwave Javelin catheter. The Javelin catheter was brought into position under radiographic guidance over the 0.014 wire. The Javelin catheter was advanced through the anterior tibial artery and dorsalis pedis
artery while simultaneously delivering lithotripsy pulses. 120 pulses were delivered. Subsequent arteriogram demonstrated improved luminal gain. I then followed this with 2 mm x 100 mm angioplasty balloon across the previously occluded dorsalis
pedis artery segment and extending proximally to the distal anterior tibial artery. The balloon was positioned in the desired location under roadmap guidance and inflated to nominal pressure for 3-minute inflation. We then used a 3 mm x 220 mm
angioplasty balloon to treat the remaining length of anterior tibial artery from the distal aspect to its origin. The balloon was positioned in the desired location under roadmap guidance, inflated to nominal pressure and held in place for 3-minute
inflation at each segment. 2 separate inflations were performed.
Subsequent arteriogram demonstrated significant improvement. There was brisk flow through the anterior tibial artery and a now patent dorsalis pedis artery with clear flow out to the forefoot and hallux. An area of residual stenosis was identified
in the proximal dorsalis pedis artery which was treated with a 2.25 mm x 20 mm noncompliant balloon at burst pressure for a 4-minute inflation. Subsequent arteriogram demonstrated significant improvement with brisk flow through the anterior tibial
artery and dorsalis pedis artery.
Satisfied with this result we concluded the procedure. Protamine was administered. The sheath was secured in place with the plan to pull it in the recovery room.
The patient tolerated the procedure well and was taken to the recovery area in stable condition.
Attestation: I was present and responsible for the entire procedure.
Signed:
Cesar Aragon III, MD
Vascular Surgery
[facility]
[2025-05-15] MEDS: FERRLECIT 110 MG IV (14:44)
--- NOTE | 2025-05-15 15:08 | CM ---
Addendum entered by Maria Esther Marquez RN 05/15/25 15:28:
Received call from patient's son with questions regarding IV abx administration. Discussed that no VNs would come to the patient's home four times daily to administer medication. Patient's son provide with attending ortho office number and ID
office number. Son question if the medication can be oral instead.
Original Note:
Reviewed the chart notes and spoke with the patient at the bedside. Discussed with the patient that he would required IV abx for six weeks per notes. Discussed SNF for IV abx and therapy. Permission granted to send referral to the [facility].
CM continues to be available to patient/family and is monitoring medical plan for needs at discharge.
Plan: Discharge to SNF/rehab once medically stable. Auth will be required.
--- NOTE | 2025-05-15 15:41 | VATNOTE ---
Routine rounds: attempted to assess pt's IVs at this time, when asked if I could look at his IVs he responded 'no! I'm tired of people looking at me today.' Asked pt if I could come back later, pt said 'OK.' Will try and return later for PIV
assessment.
--- NOTE | 2025-05-15 15:46 | WOUNDNOTE ---
R LATERAL FOOT AND HEEL
--- NOTE | 2025-05-15 15:47 | WOUNDNOTE ---
L GREAT TOE AND 2ND TOE
--- NOTE | 2025-05-15 15:48 | WOUNDNOTE ---
SACRUM WITH SKIN TAG
[2025-05-15] MEDS: DILAUDID 0.5 MG IV ×2 (15:49→22:30)
--- NOTE | 2025-05-15 15:58 | WOUNDNOTE ---
WON RN NOTE: Followed up today with assist of nurse Marisa who helped me turn patient. Small scab on sacrum fell off revealing what appears to be a skin tag. Had soft BM, skin care given, sacrum and buttocks blanchable red. Mid back with dry chronic
raised growth unchanged. L great and 2nd toe unchanged. L heel intact, using Prevalon heel boot that was ordered by vascular. R heel scab fell off and now with small callus. R lateral foot with yellow slough mixed with pink, Santyl in use. R great
toe amp site with sutures, no drainage, tip discolored purple. confirmed with Dr. Fierro that discoloration not new. Dressings changed and repositioned onto R semi side lying position. Air cushion under R heel and on [facility] max air bed.
--- NOTE | 2025-05-15 16:25 | PTCARENOTE ---
RN to remove smallwood per protocol. Patient refused for smallwood to be removed. Patient states, 'I have to be straight cathed 3x a day. I would rather keep the catheter in place.' Physician made aware, awaiting response.
[2025-05-15 16:32] LABS: Glucose - Point of Care 148 mg/dl (70-99)
--- NOTE | 2025-05-15 19:40 | OR.RPT ---
Operative Report
Operative Report
Date of Operation: 05/15/2025
Pre Op Diagnosis: [place] artery atherosclerosis with left toe gangrene
Post Op Diagnosis: [place] artery atherosclerosis with left toe gangrene
Procedure:
1.) Intravascular lithotripsy to left popliteal artery (Shockwave Javelin)
2.) Intravascular lithotripsy to left anterior tibial artery (Shockwave Javelin)
3.) Balloon angioplasty and drug-eluting stent placement to left popliteal artery (6 mm x 80 mm Zilver PTX)
4.) Balloon angioplasty of left anterior tibial artery (3 mm x 200 mm balloon; 3.5 mm x 60 mm balloon)
5.) Diagnostic aortobiiliac arteriogram
6.) Diagnostic left lower extremity arteriogram
7.) Ultrasound-guided percutaneous access to the right common femoral artery
Surgeon: Cesar Aragon III, MD
Steam Box Hand: Tommy Blandon MD PGY-6
Anesthesia: Sedation with local
Fluoroscopy:
41.3 min
172 mGy
45.23 Gy.cm2
Complications: None
Estimated Blood Loss: Less than 20 cc
History and Indications for Procedure: 89 yo male with known peripheral arterial occlusive disease. Developed gangrenous skin changes of the toes on his left foot.
Procedure in Detail: Elvis Enriquez was correctly identified and placed supine on the operating table. After adequate induction of anesthesia the bilateral groins were prepped and draped in the usual sterile fashion. A timeout was performed with
the nursing and anesthesia staff confirming the patient's identity as well as the nature and laterality of the procedure.
The right common femoral artery was identified under ultrasound guidance. The artery was patent. The superior and inferior aspects of the femoral head were identified with radiographic guidance and marked at the skin level. The proposed puncture
site was infiltrated with local anesthesia. Under ultrasound guidance we accessed the right common femoral artery with a micropuncture needle and upsized to a 5 Fr sheath over a [employer] wire. The wire and a [employer]cher hook flush catheter were
advanced into the distal abdominal aorta and a diagnostic aorto-biiliac arteriogram was performed:
AORTO-ILIAC ARTERIOGRAM:
Aorta: Patent with no significant stenosis identified
Right common iliac artery: Patent with no significant stenosis identified
Right external iliac artery: Patent with no significant stenosis identified
Left common iliac artery: Patent with no significant stenosis identified
Left external iliac artery: Patent with no significant stenosis identified
Under roadmap guidance using a Glidewire and the Shepherds hook catheter we selected the left common iliac artery and then the external iliac artery. A catheter was tracked up and over the aortic bifurcation and placed in the distal external iliac
artery. A diagnostic left lower extremity arteriogram was then performed which demonstrated the following:
LEFT LOWER EXTREMITY:
Common femoral artery: Patent with no significant stenosis identified
Profunda femoral artery: Patent with no significant stenosis identified
Superficial femoral artery: Patent with no significant stenosis identified
Popliteal artery: Patent. Significant long segment stenosis identified behind the knee and below the knee
Anterior tibial artery: Patent as the single tibial artery runoff. Diffusely diseased. Scattered areas of high-grade stenosis identified. Continues across the ankle to form the dorsalis pedis artery which supplies the forefoot.
Tibioperoneal trunk: Patent but heavily diseased
Peroneal artery: Occluded
Posterior tibial artery: Occluded
ENDOVASCULAR INTERVENTION: Systemic heparin was administered. Selected the superficial femoral artery with the Quickcross and shepherds hook catheter. Exchanged out for a 6 Fr 90 cm sheath over a [employer] wire. Using a Quickcross catheter and
Glidewire under roadmap guidance we were able to navigate through the popliteal artery stenosis. We then selected the anterior tibial artery with the same approach. The catheter and wire were advanced into the mid anterior tibial artery. We
exchanged out for a 0.014 wire.
Due to the heavily calcified nature of the popliteal artery and anterior tibial artery disease and in an effort to successfully cross the lesion, modify the calcium and achieve luminal gain with endovascular intervention I elected to proceed with
intravascular lithotripsy with a Shockwave Javelin catheter. The Javelin catheter was brought into position and the popliteal artery under radiographic guidance over the 0.014 wire. The Javelin catheter was advanced through the popliteal artery and
anterior tibial artery and across the disease while simultaneously delivering lithotripsy pulses. 120 pulses were delivered. Subsequent arteriogram demonstrated improvement.
A 3 mm x 200 mm angioplasty balloon was used to treat the entire length of anterior tibial artery from the ankle to the origin. The balloon was brought into position under roadmap guidance. The balloon was inflated to nominal pressure and held in
place at each segment for 3 minutes. 2 separate inflations were performed to treat the entire length of the anterior tibial artery.
A 4 mm x 100 mm Lutonix drug-coated angioplasty balloon was then brought into position to treat the popliteal artery stenosis below the knee and behind the knee. This was positioned in the desired location, inflated to nominal pressure and then
slowly deflated and removed over the wire. Subsequent arteriogram demonstrated a dissection in the popliteal artery behind the knee. This was treated with a 6 mm x 80 mm Zilver PTX stent. The stent was brought into position under roadmap guidance
and deployed in the desired location. The stent was profiled with a 5 mm angioplasty balloon. Subsequent arteriogram demonstrated an excellent technical result with a widely patent popliteal artery and no significant residual stenosis identified.
The proximal anterior tibial artery was treated with a 3.5 mm x 60 mm angioplasty balloon with a 3-minute inflation at nominal pressure.
COMPLETION ARTERIOGRAM: Excellent technical result. Widely patent popliteal artery stent with brisk flow and no significant residual stenosis identified. Widely patent anterior tibial artery with brisk flow across the ankle and into the foot via
the dorsalis pedis artery. Improved flow to the forefoot was identified compared to pretreatment..
Satisfied with this result we concluded the procedure. The sheath tip was pulled back into the right external iliac artery. Protamine was administered. The sheath was pulled with direct manual pressure held over the puncture site until hemostasis
was achieved. A sterile dressing was applied..
The patient tolerated the procedure well and was taken to the recovery area in stable condition.
Attestation: I was present and responsible for the entire procedure.
Signed:
Cesar Aragon III, MD
Vascular Surgery
[facility]
[2025-05-15] MEDS: NEURONTIN 900 MG PO (21:30)
[2025-05-15] MEDS: RESTORIL 30 MG PO (21:30)
[2025-05-15] MEDS: LANTUS 0.04 UNITS SC (21:37)
[2025-05-15 21:39] LABS: Glucose - Point of Care 125 mg/dl (70-99)
[2025-05-16] MEDS: ZOSYN 100 IV ×4 (02:30→20:34)
[2025-05-16 03:12] VITALS: BP 120/58
[2025-05-16 06:00] VITALS: BMI 24.5
[2025-05-16 06:56] LABS: Hematocrit 30.6 % (39.0-52.0); Hemoglobin 9.5 g/dL (13.0-18.0); Mean Corp Hgb Conc. 31.0 g/dL (33.0-37.0); Mean Corpuscular Volume 80.1 fL (80.0-94.0); Nucleated Red Blood Cells % 0 % (-); Platelet Count 317 10^3/uL (130-400); Red Cell Dist. Width 14.1 % (11.5-14.5)
[2025-05-16] MEDS: ADVAIR HFA 115/21 MCG INHALER 2 PUFF INH (07:31)
[2025-05-16 07:35] VITALS: BP 130/66
[2025-05-16 07:37] LABS: ALT (SGPT) 23 U/L (0-50); AST (SGOT) 21 U/L (17-59); Albumin 3.1 g/dl (3.5-5.0); Alkaline Phosphatase 90 U/L (38-126); Blood Urea Nitrogen 14 mg/dl (9-20); Calcium 8.2 mg/dl (8.4-10.2); Carbon Dioxide 26 mmol/L (22-30); Chloride 107 mmol/L (98-107); Estimated Creatinine Clearance 40 ml/min; Glucose 90 mg/dl (70-99); Potassium 3.7 mmol/L (3.5-5.1); Sodium 139 mmol/L (135-145); Total Protein 6.1 g/dl (6.3-8.2); eGFR 48.34
[2025-05-16 08:08] LABS: Glucose - Point of Care 102 mg/dl (70-99)
[2025-05-16] MEDS: NOVOLOG FLEXPEN-LOW RESISTANCE SC ×3 (09:12→17:24)
[2025-05-16] MEDS: COREG 6.25 MG PO ×2 (09:16→20:34)
[2025-05-16] MEDS: LIPITOR 40 MG PO (09:17)
[2025-05-16] MEDS: VISBIOME 1 CAP PO (09:17)
[2025-05-16] MEDS: SANTYL OINTMENT 1 APPLIC TOPICAL (09:17)
[2025-05-16] MEDS: PLAVIX 75 MG PO (09:17)
[2025-05-16] MEDS: MIRALAX PO (09:17)
[2025-05-16] MEDS: PROSCAR 5 MG PO (09:17)
--- NOTE | 2025-05-16 10:08 | CM ---
Addendum entered by Payal Casillas 05/16/25 14:21:
spoke with patient and updated Peg & daughter in law Amada (Rich ) [phone]
PLAN: [facility], pending bed availability, with IV antibiotic
Addendum entered by Payal Casillas 05/16/25 14:04:
Spoke with Bee at [facility], no bed available tomorrow, possibly /Thursday
PICC to be placed
Original Note:
Patient chart reviewed
vascular procedure yesterday
Referral in [facility] for [facility]
will need IV abx 6 wks
LM for Bee to update
PLAN: [facility] when stable, IV abx
--- NOTE | 2025-05-16 10:36 | W.PN.VS ---
Addendum entered and electronically signed by Cesar Aragon III, MD 05/16/25 17:59:
This patient was seen and examined in collaboration with Dr. Carrasquillo. I agree with the history and physical exam as well as the assessment and plan.
Signed:
Cesar Aragon III, MD
Vascular Surgery
[facility]
Original Note:
Today's Communication / Plan
-
Plan:
Restart home xarelto today
Continue Plavix p.o. 75 mg daily
Remove right groin Tegaderm later this afternoon
Continue Multi-Podus boot to left lower extremity as blood flow to DP is optimal in dorsiflexion position
Abx mgmt per primary team
Signed off from vascular perspective
Assessment/Plan
-
89-year-old male POD#1 s/p LLE angiography via retrograde R femoral access w intravascular lithotripsy & DCB to distal popliteal, popliteal artery stent; POD#4 s/p RLE angiogram via R SFA antegrade access w intravascular lithotripsy and angioplasty
of anterior tibial artery and dorsalis pedis, now recovering post-op.
Assessment: Recovering well post-op, no concerns. AVSS.
Plan:
Restart home xarelto today
Continue Plavix p.o. 75 mg daily
Remove right groin Tegaderm later this afternoon
Continue Multi-Podus boot to left lower extremity as blood flow to DP is optimal in dorsiflexion position
Abx mgmt per primary team
Signed off from vascular perspective
-
Total Time Spent with Patient (in minutes): 10
Subjective Data
-
Date of Service: May 16, 2025
Pt without new complaints this morning. No new pain or changes overnight. Curious about plan for IV abx post-discharge.
Objective Data
-
Vital Signs
Temp Pulse Resp BP Pulse Ox
99.2 F 73 18 127/82 93
05/16/25 07:35 05/16/25 09:16 05/16/25 07:35 05/16/25 09:16 05/16/25 07:35
Intake and Output
05/15/25 05/16/25 05/17/25
06:59 06:59 06:59
Intake Total 1000 / 1000 740 / 740
Output Total 1200 / 1200 550 / 550
Balance -200 / -200 190 / 190
Intake:
Oral fluids 1000 / 1000 540 / 540
IV piggybacks 200 / 200
Output:
Urine, Aragon 1200 / 1200 550 / 550
Other:
Number of unmeasured liquid
stools
Rectum 1
Lab Results
05/16/25 05:55
05/16/25 05:55
Calcium 8.2 mg/dl (8.4-10.2) L 05/16/25 05:55
Total Bilirubin 0.6 mg/dl (0.2-1.3) 05/16/25 05:55
AST 21 U/L (17-59) 05/16/25 05:55
ALT 23 U/L (0-50) 05/16/25 05:55
Alkaline Phosphatase 90 U/L (38-126) 05/16/25 05:55
Total Protein 6.1 g/dl (6.3-8.2) L 05/16/25 05:55
Albumin 3.1 g/dl (3.5-5.0) L 05/16/25 05:55
Physical Exam
-
General: no apparent distress, resting in bed comfortably
Pulm: non-labored respirations
Abdominal: nondistended
MSK/Vascular: R groin puncture site dry and intact, no evidence of hematoma or edema, all surrounding compartments soft; unchanged from prior exam
[2025-05-16 11:20] VITALS: BP 129/61
--- NOTE | 2025-05-16 11:25 | W.PN.ID1 ---
Date of Service
Date of Service: May 16, 2025
Today's Communication
Continue abx.
Assessment / Plan
Right hallux osteomyelitis s/p partial amputation
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
Right fifth met osteomyelitis
Profound neuropathy
Diabetes mellitus (uncontrolled; HbA1c = 7.4)
Renal insufficiency
PAD
CAD
A-fib
COPD
Recommendations:
Right hallux wound culture with growth of Pseudomonas aeruginosa and Staph aureus (MSSA).
Additional right foot wound culture on 05/09 reveals Pseudomonas aeruginosa, Klebsiella pneumoniae and MSSA.
MRI of the right foot reviewed. Official read reports 'osteomyelitis' at hallux amputation site, which I suspect is reactive secondary to amputation.
Additionally, osteomyelitis noted in the fifth metatarsal, adjacent to the longstanding wound. Area with positive probe to bone.
Given findings of osteomyelitis of the fifth metatarsal, would continue with Zosyn. All isolates from superficial wound culture noted to be susceptible.
Unless area is resected, patient will require a 6-week course of antibiotics.
Follow white count and temperature.
Local care to the right foot wound.
Close monitoring of left toes for development of progressive ischemic changes.
����������������������������������������������������������
Chief Complaint
-: Other (Right hallux osteomyelitis)
Subjective / Review of Systems
Review of Systems: No Fever and No Chills
Vital Signs / Physical Exam
Vital Signs
Vital Signs
Temp Pulse Resp BP Pulse Ox
99.2 F 73 18 127/82 93
05/16/25 07:35 05/16/25 09:16 05/16/25 07:35 05/16/25 09:16 05/16/25 07:35
Physical Exam
Constitutional: No Acute Distress, Comfortable and Non-toxic
Eyes: Sclera Anicteric
Pulmonary: Non Labored
Gastrointestinal: Non Distended
Skin: Other (Left hallux tip with unstageable eschar. Developing eschar noted at the tip of left second toe)
Wound: Other (Right hallux area dressed. Sutures in place. No drainage. Right lateral foot wound dressed. No strikethrough.)
Neurological: Awake and Alert
Psychological: Calm
Objective Data
Lab Data
Lab Results
05/16/25 05:55
05/16/25 05:55
PT 15.7 Sec (11.4-14.6) H 05/12/25 09:08
INR 1.22 05/12/25 09:08
APTT 41.6 Sec (23.4-35.0) H 05/15/25 06:53
Estimated Creat Clear 40 ml/min 05/16/25 05:55
Lactic Acid 1.8 mmol/L (0.7-2.0) 05/08/25 16:07
Total Bilirubin 0.6 mg/dl (0.2-1.3) 05/16/25 05:55
AST 21 U/L (17-59) 05/16/25 05:55
ALT 23 U/L (0-50) 05/16/25 05:55
Alkaline Phosphatase 90 U/L (38-126) 05/16/25 05:55
Most recent labs reviewed.
Micro Results:
05/09/25 17:26 Wound Culture - Final
Foot - Right Pseudomonas aeruginosa
Klebsiella pneumoniae
S aureus-Methicillin Sensitive
Gram Stain - Final
05/09/25 17:26 Anaerobic Culture - Final
Foot - Right Peptostreptococcus prevotii
05/08/25 20:14 Wound Culture - Final
Toe Pseudomonas aeruginosa
S aureus-Methicillin Sensitive
Gram Stain - Final
05/09/25 06:51 MRSA Screen - Final
Nose No Methicillin Resistant Staphylococcus aureus isolated.
Wound/abscess/other Cult Preliminary 05/11/25-1032
Few Pseudomonas aeruginosa
Few Klebsiella pneumoniae
Moderate S aureus-Methicillin Sensitive*
Organism 1 Pseudomonas aeruginosa
Organism 2 Klebsiella pneumoniae
Organism 3 S aureus-Methicillin Sensitive
1. Pseudomonas aeruginosa
M.I.C. RX
--------- ---
Aztreonam <=4 S
Cefepime <=2 S
Ceftazidime <=1 S
Ciprofloxacin <=0.25 S
Meropenem <=1 S
Piperacillin/Tazobactam <=8 S
Tobramycin <=2 S
2. Klebsiella pneumoniae
M.I.C. RX
--------- ---
Amoxicillin/Potas. Clavulanate >16/8 R
Ampicillin >16 R
Ampicillin/Sulbactam 16/8 I
Aztreonam <=4 S
Cefazolin >16 R
Cefepime <=2 S
Ceftazidime <=1 S
Ceftriaxone <=1 S
Ertapenem <=0.5 S
Ciprofloxacin <=0.25 S
Gentamicin <=2 S
Meropenem <=1 S
Piperacillin/Tazobactam <=8 S
Tetracycline 8 I
Tobramycin <=2 S
Trimethoprim/Sulfamethoxazole <=2/38 S
3. S aureus-Methicillin Sensitive
M.I.C. RX
--------- ---
Amoxicillin/Potas. Clavulanate <=4/2 S
Ampicillin <=2 R
Clindamycin <=0.5 S
Gentamicin <=4 S
Erythromycin <=0.5 S
Levofloxacin <=1 S
Oxacillin <=0.25 S
Tetracycline <=4 S
Trimethoprim/Sulfamethoxazole <=0.5/9.5 S
Vancomycin 1 S
Imaging:
05/11/2025 MRI right lower extremity: first toe has been amputated to the level of the distal aspect of the proximal phalanx. Bone marrow edema and enhancement of the first proximal phalanx adjacent to the resection margin noted. Soft tissue wound
at the lateral aspect of the proximal forefoot with associated bone marrow edema enhancement and T1 hypointense marrow replacement of the base of the fifth metatarsal adjacent to the soft tissue ulceration. No acute fracture or dislocation.
05/08/2025 X-ray right foot: Diffuse osteopenia noted. New osseous erosion of the distal phalanx of the great toe with adjacent soft tissue swelling and questionable subcutaneous gas. Mild degenerative changes of the first metatarsal joint.
Extensive vascular calcifications. The soft tissue swelling at the great toe tip consistent with acute osteomyelitis. Please see full dictation for additional detail. Film personally viewed.
[2025-05-16 11:49] LABS: Glucose - Point of Care 112 mg/dl (70-99)
--- NOTE | 2025-05-16 11:56 | CON.CAR ---
Addendum entered and electronically signed by Wan Ruano MD 05/16/25 14:56:
I saw and examined the patient.
The Weight Guesser's note was reviewed and I agree with the note.
Comment: Briefly, 89-year-old man past medical history of heart failure with preserved ejection fraction, atrial flutter, hypertension, hyperlipidemia, diabetes complicated by peripheral neuropathy who presents with cellulitis of the right great
toe.
Echocardiogram was performed this admission showed echodensity involving the mitral valve for which cardiology is consulted
Transthoracic echo from 01/04/2025 as well as 05/15/2025 reviewed. Both show dense mitral annular calcification and focal thickening/calcification of mitral leaflets and chordae. But most recent study was technically difficult and there does not
appear to be any change within limits of the study quality.
No high grade valvular disease� mitral regurgitation graded as mild on both studies
There does not seem to be concern for active clinical endocarditis. Patient has remained afebrile here and no stigmata of infectious endocarditis on physical exam. Prior blood cultures were no growth.
At this point would not pursue GEORGES, especially when weighing risk/benefit given his age and comorbidities.
Stable cardiac status, we will sign off
Patient should follow-up with his primary it infrastructure manager Dr. Dobbs
Original Note:
Consultation
Consultation Request
Date/Time Consultation Performed: 05/16/25
Requesting Provider: Dr. Gonzalez
Performing Provider: Lupe Tamayo PA-C for Dr. Ruano
Reason for Consultation: abnormal echo
Medical History
-
Chief Complaint: R foot pain/drainage
History of Present Illness:
Patient is a 89 yo M with PMH of DM2 with peripheral neuropathy, chronic CHF, Parox aflutter (asymptomatic) on chronic xarelto, HTN, HLD, BPH who presented to [facility] 05/09/25 due to worsening of R great toe wound. He had been admitted in 12/2024 for R
first toe wound and underwent ENVIRONMENTAL SERVICES LEAD and stent during that admission. He underwent right partial hallux amputation and subcutaneous wound debridement by podiatry 05/09/2025, followed by right lower extremity angiogram with intravascular lithotripsy and
angioplasty of anterior tibial artery and dorsalis pedis by vascular 05/12/2025. He then underwent left lower extremity angiogram with intravascular lithotripsy, with stent placement to popliteal artery 05/15/25. He lives at [facility] and states
he gets around in a scooter but is mostly nonambulatory. he has history of spinal cord compression resulting in laminectomy with subsequent decline. He is on plavix and xarelto 15mg QPM. He is receiving IV abx per ID. Underwent echo due to murmur
noted on exam and report lists slightly mobile calcified echodensity on anterior mitral valve leaflet as well as MAC and mild MR resulting in cardiology consultation. He was previously followed by Dr. Beauchamp of [facility], however is transferring his
care to Dr. Dobbs at [facility] however has not yet established care. He denies CP, SOB, palpitations.
PMH:
PAD s/p ENVIRONMENTAL SERVICES LEAD and stent RLE 12/2024
DM2
Peripheral neuropathy
Chronic CHF
Parox aflutter, asymptomatic, diagnosed 2021
Chronic OAC with xarelto
CAD with posterior UT status post circ PCI 01/2017, LAD with 60% prox stenosis and 80-90% distal stenosis, and known OCC THERAPY ASST of RCA with collaterals
History of GI bleed 02/2017
History of recovered ischemic cardiomyopathy
COPD
CKD
HTN
HLD
BPH
Spinal cord compression s/p laminectomy
Ambulatory dysfunction as result of above, uses scooter
Former smoker
Past Medical History
Past Medical History: Other (in HPI)
Social History
Tobacco: Former Smoker
Alcohol: None
Personal:
Living: Assisted Living (at [facility] with )
Family History
Family History: Reviewed & Not Pertinent
Allergies / Home Medications
Allergy/AdvReac Type Severity Reaction Status Date / Time
No Known Allergies Allergy Verified 05/08/25 15:36
�Medication �Instructions �Recorded �Confirmed �Type
Saccharomyces boulardii 250 mg 250 mg PO BID Supplement 01/03/25 05/08/25 History
capsule
atorvastatin 40 mg tablet 40 mg PO DAILY High Cholesterol 01/03/25 05/08/25 History
carvedilol 6.25 mg tablet 6.25 mg PO BID Blood Pressure 01/03/25 05/08/25 History
cranberry extract 200 mg capsule 200 mg PO DAILY Supplement 01/03/25 05/08/25 History
(Ellura)
finasteride 5 mg tablet 5 mg PO DAILY BPH 01/03/25 05/08/25 History
fluticasone 250 mcg-salmeterol 50 1 inh inhalation R DAILY 01/03/25 05/08/25 History
mcg/dose blistr powdr for Lung/Breathing Issues
inhalation (Wixela Inhub)
furosemide 40 mg tablet 40 mg PO BID Fluid 01/03/25 05/08/25 History
Retention/Swelling
glimepiride 4 mg tablet 4 mg PO BID Diabetes 01/03/25 05/08/25 History
insulin NPH isoph U-100 human 100 14 unit SC BID Diabetes 01/03/25 05/08/25 History
unit/mL (3 mL) subcutaneous pen
(Humulin N NPH U-100 Insulin
KwikPen)
metformin 500 mg tablet 500 mg PO DAILY Diabetes 01/03/25 05/08/25 History
polyethylene glycol 3350 17 gram 8.5 g PO DAILY Constipation 01/03/25 05/08/25 History
oral powder packet (Miralax)
rivaroxaban 15 mg tablet (Xarelto) 15 mg PO DAILY Blood Clot 01/03/25 05/08/25 History
Prevention/Tx
temazepam 30 mg capsule 30 mg PO HS Sleep 01/03/25 05/08/25 History
clopidogrel 75 mg tablet 75 mg PO DAILY Blood clot 01/06/25 05/08/25 Rx
prevention/tx #90 tabs
gabapentin 300 mg capsule 1,800 mg PO HS Neurological 05/08/25 05/08/25 History
Condition
Review of Systems
-
History Source: Patient
All other systems: Negative unless noted
Physical Exam
Vital Signs
Temp Pulse Resp BP Pulse Ox
99.2 F 73 18 127/82 93
05/16/25 07:35 05/16/25 09:16 05/16/25 07:35 05/16/25 09:16 05/16/25 07:35
Lab Results
05/16/25 05:55
05/16/25 05:55
Physical Exam
General: No Apparent Distress, Comfortable and Other (on supp O2)
HEENT: Normocephalic, Anicteric and Moist Mucous Membranes
Respiratory: Clear and Non Labored Respirations
Cardiac: S1/S2, Regular Rhythm and Murmur
GI: Soft, Non Tender, Non Distended and Normal Bowel Sounds
Musculoskeletal: No Clubbing, No Cyanosis and Other (LLE in boot, RLE with dressing to foot)
Skin: Warm and Dry
Neuro: AO x 3
Impression / Plan
-
Primary Medical Records Technician: Previously Dr. Ortega, transferring care to Dr. Dobbs as resident of [facility]
Assessment:
Presentation with worsening of R foot wound
s/p LLE angiography via retrograde R femoral access w intravascular lithotripsy & DCB to distal popliteal, popliteal artery stent 05/15/25
s/p RLE angiogram via R SFA antegrade access w intravascular lithotripsy and angioplasty of anterior tibial artery and dorsalis pedis 05/12/25
s/p right partial hallux amputation and subcutaneous wound debridement by podiatry 05/09/2025
Abnormal echo with concern for MAC vs echodensity
PAD s/p ENVIRONMENTAL SERVICES LEAD and stent RLE 12/2024
DM2
Peripheral neuropathy
Chronic CHF
Parox aflutter, asymptomatic, diagnosed 2021
Chronic OAC with xarelto
CAD with posterior UT status post circ PCI 01/2017, LAD with 60% prox stenosis and 80-90% distal stenosis, and known OCC THERAPY ASST of RCA with collaterals
History of GI bleed 02/2017
History of recovered ischemic cardiomyopathy
COPD
CKD
HTN
HLD
BPH
Spinal cord compression s/p laminectomy
Ambulatory dysfunction as result of above, uses scooter
Former smoker
DNR code status
Echo 01/04/2025: EF 56%, mild MR, mild TR, PAP 25 to 30 mmHg
Echo 05/15/2025: TDS, EF 55 to 60%, MAC, slightly mobile calcified echodensity seen on anterior mitral valve leaflet, mild MR, mild TR, PAP 45 to 50 mmHg
Plan:
- Patient presented with right foot wound and underwent right partial hallux amputation and wound debridement on 05/09, followed by vascular evaluation including right lower extremity angiogram resulting in angioplasty of anterior tibial artery and
dorsalis pedis as well as left lower extremity angiography with intravascular lithotripsy and DCB to distal popliteal, popliteal artery stent
- Echocardiogram was ordered due to murmur noted on exam, with report listing normal EF and slightly mobile calcified echodensity seen on anterior mitral valve leaflet, however was technically difficult study. will have it infrastructure manager review echo
images
- ID following. Continue antibiotics at their direction. No clear evidence of bacteremia, although blood cultures not obtained. Without leukocytosis and afebrile since admission
- Given advanced age, chronic ambulatory dysfunction (mostly bedbound--> scooter), and other comorbidities, even if has evidence of endocarditis would be managed conservatively as not a candidate for open heart surgery. Would continue 6 weeks of
antibiotics per ID and likely defer procedures such as GEORGES as would not exchange specialist at this time.
- continue post op care
- continue plavix, xarelto
- encouraged patient to establish cardiac care with Dr. Dobbs for OP follow up
Data Reviewed
-
Medical Tests (Nuc Med, Echo etc): Report Reviewed by me
Labs: Labs Reviewed by me
Old Records: Reviewed
--- NOTE | 2025-05-16 13:02 | W.PN.HOSP.TC ---
Today's Communication/Plan
-
PICC
CM for placemnt
Assessment / Plan
Assessment / Plan
89yo M with PMHx of HTN, BPH, neuropathy, DM, CAD, PAD s/p stent in RLE on Xarelto, bedbound for years due to Hx of lower back pain s/p Sx and eventual calf atrophy due to poor ambulatory capacity came with worsening RLE swelling, found R hallux OM
and had amputation by podiatry on 05/09/25. RLE angio with RLE angiogram via R SFA antegrade access. Intravascular lithotripsy and angioplasty of anterior tibial artery and dorsalis pedis on 05/12/25, pending LLE angio. Also found Acute osteomyelitis
at the base of the fifth proximal phalanx adjacent to the soft tissue wound and will need 6 weeks of Abx since debridement will not reach surgical cure
A/P:
#R hallux acute OM
#L foot found, chronic
#PAD with L foot dry gangrene of 1st and 2nd toes, chronic limb ischemia
Podiatry follows: s/p hallux amputation on 05/09/25
ID continuing Zosyn only as of 05/11/25 with Pseudomonas, K.pneumonia, MSSA, Peptostreptococcus prevotti - all sensitive to Zosyn
MRI R foot: Acute osteomyelitis at the base of the fifth proximal phalanx adjacent to the soft tissue wound at the lateral aspect of the proximal forefoot. Without Sx intervention will need 6 weeks of Abx (zosyn) - as per podiatry - debridement will
not be able to achieve surgical cure. COnt Zosyn 4.5mg q6h until 06/19/25
Acute osteomyelitis of the first proximal phalanx at the amputation margin - most likely postOP changes
Wound care
VascSx for angiogram on 05/12/25 on R - RLE angiogram via R SFA antegrade access. Intravascular lithotripsy and angioplasty of anterior tibial artery and dorsalis pedis, on 05/15/25: LLE angiography via retrograde R femoral access. Intravascular
lithotripsy (Javelin). DCB to distal popliteal, popliteal artery stent. Drug coated stent (6x80 to popliteal artery)
Anticoag as per VascSx, Plavix
#RONDA on CKD stage 3
Holding lasix
follow Cr
#Systolic cardiac murmur
Echo with slightly mobile mass on MV. No Bcx during this admission. ID is not concenred for possible endocarditis. Even if vegetations: not candidate for Sx and will cont same 6 weeks Abx course as already planned - as per Card
#Paroxysmal Afib
#Chronic HFpEF
#BPH
#Neuropathy
Requested smallwood
watch for fluid overload
cont rate control
#DM type 2 with neuropathy
Insulin SS, accuchgecks, DM diet
#Chronic mild anemia. JOHANNA
outpatient follow up with PCP for GI referral
Iron
#Chronic ambulatory dysfunction
essentially bedbound for couple of years
rehab
DVT ppx hep drip
DNR/DNI
I have spent at least 38min reviewing chart, test results, communication with consultants and providing direct patient care
Anticipated Discharge: Within 24 hours
Subjective/Interval History
-
Date of Service: May 16, 2025
Objective Data
-
Labs:
Laboratory Results
05/16/25
05:55
WBC 7.9
Hgb 9.5 L
Hct 30.6 L
Plt Count 317
Sodium 139
Potassium 3.7
Chloride 107
Carbon Dioxide 26
BUN 14
Creatinine 1.4 H
Glucose 90
Calcium 8.2 L
Total Bilirubin 0.6
AST 21
ALT 23
Alkaline Phosphatase 90
Vital Signs:
Vital Signs
Temp Pulse Resp BP Pulse Ox
99.2 F 69 16 129/61 97
05/16/25 11:20 05/16/25 11:20 05/16/25 11:20 05/16/25 11:20 05/16/25 11:20
I&O
05/15/25 05/16/25 05/17/25
06:59 06:59 06:59
Intake Total 1000 / 1000 740 / 740
Output Total 1200 / 1200 550 / 550 200 / 200
Balance -200 / -200 190 / 190 -200 / -200
Review of Systems
-
History Source: Patient
All other systems: Reviewed and negative
Physical Exam
-
General: No Apparent Distress
Respiratory: Clear to Auscultation
Cardiac: Regular Rhythm
GI: Soft and Nontender
Musculoskeletal: No Clubbing, No Cyanosis and No Edema
Neuro: Awake, Alert, Oriented and AO x 3
Psych: Calm
[2025-05-16] MEDS: XARELTO 15 MG PO (13:03)
[2025-05-16] MEDS: FERRLECIT 110 MG IV (14:54)
--- NOTE | 2025-05-16 15:35 | VATNOTE ---
Picc order in place. Picc on hold per patient. Patient does not want the picc placed until he speaks with the Surgeons about his care. Primary RN made aware. Awaiting to place the picc.
[2025-05-16 15:40] VITALS: BP 129/64
[2025-05-16] MEDS: DILAUDID 0.5 MG IV ×2 (16:32→20:42)
[2025-05-16 16:34] LABS: Glucose - Point of Care 97 mg/dl (70-99)
[2025-05-16 19:53] VITALS: BP 126/63
[2025-05-16] MEDS: NEURONTIN 900 MG PO (20:33)
[2025-05-16 21:35] LABS: Glucose - Point of Care 190 mg/dl (70-99)
[2025-05-16] MEDS: RESTORIL 30 MG PO (21:40)
[2025-05-16] MEDS: LANTUS 0.04 UNITS SC (21:40)
[2025-05-16 23:24] VITALS: BP 117/65
[2025-05-17] MEDS: ZOSYN 100 IV ×4 (01:27→21:27)
[2025-05-17 06:19] VITALS: BMI 24.8
[2025-05-17 07:30] VITALS: BP 124/71
[2025-05-17 07:59] LABS: Glucose - Point of Care 143 mg/dl (70-99)
[2025-05-17] MEDS: NOVOLOG FLEXPEN-LOW RESISTANCE SC (08:02)
[2025-05-17] MEDS: ADVAIR HFA 115/21 MCG INHALER 2 PUFF INH (08:05)
[2025-05-17] MEDS: PROSCAR 5 MG PO (08:08)
[2025-05-17] MEDS: VISBIOME 2 CAP PO (08:08)
[2025-05-17] MEDS: LIPITOR 40 MG PO (08:08)
[2025-05-17] MEDS: XARELTO 15 MG PO (08:08)
[2025-05-17] MEDS: PLAVIX 75 MG PO (08:09)
[2025-05-17] MEDS: COREG 6.25 MG PO ×2 (08:09→21:27)
[2025-05-17] MEDS: SANTYL OINTMENT 1 APPLIC TOPICAL (08:12)
[2025-05-17 11:38] LABS: Glucose - Point of Care 247 mg/dl (70-99)
--- NOTE | 2025-05-17 12:09 | W.PN.HOSP.TC ---
Today's Communication/Plan
-
declined PICC yesterday, now agreeable - RN aware
CM for placemnt afterwards
Assessment / Plan
Assessment / Plan
89yo M with PMHx of HTN, BPH, neuropathy, DM, CAD, PAD s/p stent in RLE on Xarelto, bedbound for years due to Hx of lower back pain s/p Sx and eventual calf atrophy due to poor ambulatory capacity came with worsening RLE swelling, found R hallux OM
and had amputation by podiatry on 05/09/25. RLE angio with RLE angiogram via R SFA antegrade access. Intravascular lithotripsy and angioplasty of anterior tibial artery and dorsalis pedis on 05/12/25, pending LLE angio. Also found Acute osteomyelitis
at the base of the fifth proximal phalanx adjacent to the soft tissue wound and will need 6 weeks of Abx since debridement will not reach surgical cure. Pending d/c to rehab to continue Zosyn till 06/19/25
A/P:
#R hallux acute OM
#L foot found, chronic
#PAD with L foot dry gangrene of 1st and 2nd toes, chronic limb ischemia
Podiatry follows: s/p hallux amputation on 05/09/25
ID continuing Zosyn only as of 05/11/25 with Pseudomonas, K.pneumonia, MSSA, Peptostreptococcus prevotti - all sensitive to Zosyn
MRI R foot: Acute osteomyelitis at the base of the fifth proximal phalanx adjacent to the soft tissue wound at the lateral aspect of the proximal forefoot. Without Sx intervention will need 6 weeks of Abx (zosyn) - as per podiatry - debridement will
not be able to achieve surgical cure. COnt Zosyn 4.5mg q6h until 06/19/25
Acute osteomyelitis of the first proximal phalanx at the amputation margin - most likely postOP changes
Wound care
VascSx for angiogram on 05/12/25 on R - RLE angiogram via R SFA antegrade access. Intravascular lithotripsy and angioplasty of anterior tibial artery and dorsalis pedis, on 05/15/25: LLE angiography via retrograde R femoral access. Intravascular
lithotripsy (Javelin). DCB to distal popliteal, popliteal artery stent. Drug coated stent (6x80 to popliteal artery)
Anticoag as per VascSx, Plavix
#RONDA on CKD stage 3
Holding lasix
follow Cr
#Systolic cardiac murmur
Echo with slightly mobile mass on MV. No Bcx during this admission. ID is not concenred for possible endocarditis. Even if vegetations: not candidate for Sx and will cont same 6 weeks Abx course as already planned - as per Card
#Paroxysmal Afib
#Chronic HFpEF
#BPH
#Neuropathy
Requested smallwood
watch for fluid overload
cont rate control
#DM type 2 with neuropathy
Insulin SS, accuchgecks, DM diet
#Chronic mild anemia. JOHANNA
outpatient follow up with PCP for GI referral
Iron
#Chronic ambulatory dysfunction
essentially bedbound for couple of years
rehab
DVT ppx hep drip
DNR/DNI
I have spent at least 38min reviewing chart, test results, communication with consultants and providing direct patient care
Anticipated Discharge: Within 24 hours
Subjective/Interval History
-
Date of Service: May 17, 2025
Objective Data
-
Vital Signs:
Vital Signs
Temp Pulse Resp BP Pulse Ox
99.7 F 80 16 124/71 92
05/17/25 07:30 05/17/25 08:06 05/17/25 08:06 05/17/25 07:30 05/17/25 08:06
I&O
05/16/25 05/17/25 05/18/25
06:59 06:59 06:59
Intake Total 740 / 740 210 / 210 480 / 480
Output Total 550 / 550 575 / 575
Balance 190 / 190 -365 / -365 480 / 480
Review of Systems
-
History Source: Patient
All other systems: Reviewed and negative
Physical Exam
-
General: No Apparent Distress
HEENT: Normocephalic and Hearing Impaired
GI: Soft, Nontender and Nondistended
Neuro: Awake, Alert, Oriented and AO x 3
Psych: Calm
[2025-05-17] MEDS: NOVOLOG FLEXPEN-LOW RESISTANCE 2 UNITS SC (12:30)
[2025-05-17] MEDS: IMODIUM 2 MG PO ×2 (12:31→21:39)
[2025-05-17 13:01] LABS: Blood Urea Nitrogen 13 mg/dl (9-20); Calcium 8.5 mg/dl (8.4-10.2); Carbon Dioxide 24 mmol/L (22-30); Chloride 108 mmol/L (98-107); Estimated Creatinine Clearance 43 ml/min; Glucose 204 mg/dl (70-99); Potassium 3.5 mmol/L (3.5-5.1); Sodium 140 mmol/L (135-145); eGFR 52.84
[2025-05-17] MEDS: FERRLECIT 110 MG IV (13:12)
[2025-05-17 13:22] VITALS: BP 128/64; PULSE 74; O2SAT 93
--- NOTE | 2025-05-17 13:28 | VATNOTE ---
Discussed PICC line placement with pt, OK to come back and place around 1600.
[2025-05-17] MEDS: ROXICODONE 5 MG PO (13:51)
[2025-05-17] MEDS: BALMEX CREAM 1 APPLIC TOPICAL ×2 (13:51→21:38)
--- NOTE | 2025-05-17 15:27 | PTCARENOTE ---
Report called to Martina on . Transport took pt in bed with belongings.
--- NOTE | 2025-05-17 15:37 | W.PN.ID1 ---
Date of Service
Date of Service: May 17, 2025
Today's Communication
Continue abx.
Assessment / Plan
Right hallux osteomyelitis s/p partial amputation
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
Right fifth met osteomyelitis
Profound neuropathy
Diabetes mellitus (uncontrolled; HbA1c = 7.4)
Renal insufficiency
PAD
CAD
A-fib
COPD
Recommendations:
Right hallux wound culture with growth of Pseudomonas aeruginosa and Staph aureus (MSSA).
Additional right foot wound culture on 05/09 reveals Pseudomonas aeruginosa, Klebsiella pneumoniae and MSSA.
MRI of the right foot reviewed. Official read reports 'osteomyelitis' at hallux amputation site, which I suspect is reactive secondary to amputation.
Additionally, osteomyelitis noted in the fifth metatarsal, adjacent to the longstanding wound. Area with positive probe to bone.
Given findings of osteomyelitis of the fifth metatarsal, would continue with Zosyn. All isolates from superficial wound culture noted to be susceptible.
Patient will require a 6-week course of antibiotics.
IV infusion sheet given to Case Management.
Follow white count and temperature.
Local care to the right foot wound.
Close monitoring of left toes for development of progressive ischemic changes.
����������������������������������������������������������
Chief Complaint
-: Other (Right hallux osteomyelitis)
Subjective / Review of Systems
Review of Systems: No Fever, No Chills and Diarrhea
Vital Signs / Physical Exam
Vital Signs
Vital Signs
Temp Pulse Resp BP Pulse Ox
99.7 F 80 16 124/71 92
05/17/25 07:30 05/17/25 08:06 05/17/25 08:06 05/17/25 07:30 05/17/25 08:06
Physical Exam
Constitutional: No Acute Distress, Comfortable and Non-toxic
Eyes: Sclera Anicteric
Pulmonary: Non Labored
Gastrointestinal: Non Distended
Skin: Other (Left hallux tip with unstageable eschar. Developing eschar noted at the tip of left second toe)
Wound: Other (Right hallux area dressed. Sutures in place. No drainage. Right lateral foot wound dressed. No strikethrough.)
Neurological: Awake and Alert
Psychological: Calm
Objective Data
Lab Data
Lab Results
05/16/25 05:55
05/17/25 12:31
PT 15.7 Sec (11.4-14.6) H 05/12/25 09:08
INR 1.22 05/12/25 09:08
APTT 41.6 Sec (23.4-35.0) H 05/15/25 06:53
Estimated Creat Clear 43 ml/min 05/17/25 12:31
Lactic Acid 1.8 mmol/L (0.7-2.0) 05/08/25 16:07
Total Bilirubin 0.6 mg/dl (0.2-1.3) 05/16/25 05:55
AST 21 U/L (17-59) 05/16/25 05:55
ALT 23 U/L (0-50) 05/16/25 05:55
Alkaline Phosphatase 90 U/L (38-126) 05/16/25 05:55
Most recent labs reviewed.
Micro Results:
05/17/25 09:37 C. difficile GDH Antigen & Toxins - Final
Feces/Stool Negative for toxigenic C.difficile
05/09/25 17:26 Wound Culture - Final
Foot - Right Pseudomonas aeruginosa
Klebsiella pneumoniae
S aureus-Methicillin Sensitive
Gram Stain - Final
05/09/25 17:26 Anaerobic Culture - Final
Foot - Right Peptostreptococcus prevotii
05/08/25 20:14 Wound Culture - Final
Toe Pseudomonas aeruginosa
S aureus-Methicillin Sensitive
Gram Stain - Final
05/09/25 06:51 MRSA Screen - Final
Nose No Methicillin Resistant Staphylococcus aureus isolated.
Wound/abscess/other Cult Preliminary 05/11/25-3
Few Pseudomonas aeruginosa
Few Klebsiella pneumoniae
Moderate S aureus-Methicillin Sensitive*
Organism 1 Pseudomonas aeruginosa
Organism 2 Klebsiella pneumoniae
Organism 3 S aureus-Methicillin Sensitive
1. Pseudomonas aeruginosa
M.I.C. RX
--------- ---
Aztreonam <=4 S
Cefepime <=2 S
Ceftazidime <=1 S
Ciprofloxacin <=0.25 S
Meropenem <=1 S
Piperacillin/Tazobactam <=8 S
Tobramycin <=2 S
2. Klebsiella pneumoniae
M.I.C. RX
--------- ---
Amoxicillin/Potas. Clavulanate >16/8 R
Ampicillin >16 R
Ampicillin/Sulbactam 16/8 I
Aztreonam <=4 S
Cefazolin >16 R
Cefepime <=2 S
Ceftazidime <=1 S
Ceftriaxone <=1 S
Ertapenem <=0.5 S
Ciprofloxacin <=0.25 S
Gentamicin <=2 S
Meropenem <=1 S
Piperacillin/Tazobactam <=8 S
Tetracycline 8 I
Tobramycin <=2 S
Trimethoprim/Sulfamethoxazole <=2/38 S
3. S aureus-Methicillin Sensitive
M.I.C. RX
--------- ---
Amoxicillin/Potas. Clavulanate <=4/2 S
Ampicillin <=2 R
Clindamycin <=0.5 S
Gentamicin <=4 S
Erythromycin <=0.5 S
Levofloxacin <=1 S
Oxacillin <=0.25 S
Tetracycline <=4 S
Trimethoprim/Sulfamethoxazole <=0.5/9.5 S
Vancomycin 1 S
Imaging:
05/11/2025 MRI right lower extremity: first toe has been amputated to the level of the distal aspect of the proximal phalanx. Bone marrow edema and enhancement of the first proximal phalanx adjacent to the resection margin noted. Soft tissue wound
at the lateral aspect of the proximal forefoot with associated bone marrow edema enhancement and T1 hypointense marrow replacement of the base of the fifth metatarsal adjacent to the soft tissue ulceration. No acute fracture or dislocation.
05/08/2025 X-ray right foot: Diffuse osteopenia noted. New osseous erosion of the distal phalanx of the great toe with adjacent soft tissue swelling and questionable subcutaneous gas. Mild degenerative changes of the first metatarsal joint.
Extensive vascular calcifications. The soft tissue swelling at the great toe tip consistent with acute osteomyelitis. Please see full dictation for additional detail. Film personally viewed.
[2025-05-17 15:45] VITALS: BP 139/69
--- NOTE | 2025-05-17 15:46 | CM ---
Reviewed the chart notes and spoke with the patient at the bedside. IV abx script sent via [facility]. PICC to be placed today. Covid Screen required day of d/c. IMM reviewed. CM continues to be available to patient/family and is monitoring
medical plan for needs at discharge.
Plan: Discharge to [facility] when medically stable. Hoping for tomorrow.
[2025-05-17 16:05] LABS: Glucose - Point of Care 190 mg/dl (70-99)
[2025-05-17] MEDS: DILAUDID 0.5 MG IV ×2 (16:12→21:28)
[2025-05-17] MEDS: NOVOLOG FLEXPEN-LOW RESISTANCE 1 UNITS SC (17:00)
--- NOTE | 2025-05-17 18:29 | PTCARENOTE ---
1530 Pt received via bed from [address] [place] [address]. Pt oriented to staff, environment and call light system. Mahesh 16 FR to gravity. All needs met at this time.
[2025-05-17 21:24] LABS: Glucose - Point of Care 145 mg/dl (70-99)
[2025-05-17] MEDS: RESTORIL 30 MG PO (21:26)
[2025-05-17] MEDS: LANTUS 0.04 UNITS SC (21:27)
[2025-05-17] MEDS: NEURONTIN 900 MG PO (21:27)
[2025-05-17 23:30] VITALS: BP 117/56
[2025-05-18] MEDS: ZOSYN 100 IV ×4 (02:50→19:00)
[2025-05-18] MEDS: ADVAIR HFA 115/21 MCG INHALER 2 PUFF INH (07:23)
[2025-05-18 07:54] LABS: Glucose - Point of Care 130 mg/dl (70-99)
[2025-05-18 08:07] VITALS: BP 135/63
[2025-05-18] MEDS: NOVOLOG FLEXPEN-LOW RESISTANCE SC ×3 (08:43→16:52)
[2025-05-18] MEDS: PROSCAR 5 MG PO (08:44)
[2025-05-18] MEDS: LIPITOR 40 MG PO (08:44)
[2025-05-18] MEDS: VISBIOME 2 CAP PO (08:44)
[2025-05-18] MEDS: XARELTO 15 MG PO (08:44)
[2025-05-18] MEDS: PLAVIX 75 MG PO (08:45)
[2025-05-18] MEDS: COREG 6.25 MG PO ×2 (08:45→19:00)
[2025-05-18] MEDS: SANTYL OINTMENT TOPICAL (08:45)
[2025-05-18] MEDS: LASIX 40 MG IV ×2 (08:59→16:13)
--- NOTE | 2025-05-18 10:05 | W.PN.HOSP.TC ---
Today's Communication/Plan
-
Subacute CHF - diuresis IV today labs in AM
PICC line to be placed (patient declined yesterday again since had visitors, when IV team arrived)
Probable D/C in AM
Assessment / Plan
Assessment / Plan
89yo M with PMHx of chronic urinary retention - on intermittent straight cath, HTN, BPH, neuropathy, DM, CAD, PAD s/p stent in RLE on Xarelto, bedbound for years due to Hx of lower back pain s/p Sx and eventual calf atrophy due to poor ambulatory
capacity came with worsening RLE swelling, found R hallux OM and had amputation by podiatry on 05/09/25. RLE angio with RLE angiogram via R SFA antegrade access. Intravascular lithotripsy and angioplasty of anterior tibial artery and dorsalis pedis
on 05/12/25, pending LLE angio. Also found Acute osteomyelitis at the base of the fifth proximal phalanx adjacent to the soft tissue wound and will need 6 weeks of Abx since debridement will not reach surgical cure. Pending d/c to rehab to continue
Zosyn till 06/19/25
A/P:
#R hallux acute OM
#L foot found, chronic
#PAD with L foot dry gangrene of 1st and 2nd toes, chronic limb ischemia
Podiatry follows: s/p hallux amputation on 05/09/25
ID continuing Zosyn only as of 05/11/25 with Pseudomonas, K.pneumonia, MSSA, Peptostreptococcus prevotti - all sensitive to Zosyn
MRI R foot: Acute osteomyelitis at the base of the fifth proximal phalanx adjacent to the soft tissue wound at the lateral aspect of the proximal forefoot. Without Sx intervention will need 6 weeks of Abx (zosyn) - as per podiatry - debridement will
not be able to achieve surgical cure. COnt Zosyn 4.5mg q6h until 06/19/25
Acute osteomyelitis of the first proximal phalanx at the amputation margin - most likely postOP changes
Wound care
VascSx for angiogram on 05/12/25 on R - RLE angiogram via R SFA antegrade access. Intravascular lithotripsy and angioplasty of anterior tibial artery and dorsalis pedis, on 05/15/25: LLE angiography via retrograde R femoral access. Intravascular
lithotripsy ([place]). DCB to distal popliteal, popliteal artery stent. Drug coated stent (6x80 to popliteal artery)
Anticoag as per VascSx, Plavix
#Subacute HFpEF with Acute respiratory insufficiency
#Pulmonary HTN
##CKD stage 3 with RONDA on admision (resolved)
Lasix held due to contrast administration
Patient developed dyspnea and mild pulmonary edema on XR on 05/18/25 - start IV lasix for 1 day and restart home Lasix afterwards
wean off O2
#Systolic cardiac murmur
Echo with slightly mobile mass on MV. No Bcx during this admission. ID is not concerned for possible endocarditis. Even if vegetations: not candidate for Sx and will cont same 6 weeks Abx course as already planned - as per Card
#Paroxysmal Afib
#Chronic HFpEF
#BPH
#Neuropathy
Requested [place]
watch for fluid overload
cont rate control
#DM type 2 with neuropathy
Insulin SS, accuchgecks, DM diet
#Chronic mild anemia. JOHANNA
outpatient follow up with PCP for GI referral
Iron
#Chronic urinary retention
usually straight cath as needed
[place] in hospital as requested by patient - remove upon d/c
#Chronic ambulatory dysfunction
essentially bedbound for couple of years
rehab
DVT ppx hep drip
DNR/DNI
I have spent at least 58min reviewing chart, test results, communication with consultants and providing direct patient care
Anticipated Discharge: Within 24 hours
Subjective/Interval History
-
Date of Service: May 18, 2025
Objective Data
-
Vital Signs:
Vital Signs
Temp Pulse Resp BP Pulse Ox
98.8 F 71 18 135/63 94
05/18/25 08:07 05/18/25 08:59 05/18/25 08:07 05/18/25 08:59 05/18/25 08:57
I&O
05/17/25 05/18/25 05/19/25
06:59 06:59 06:59
Intake Total 210 / 210 580 / 580 710 / 710
Output Total 575 / 575 125 / 125 250 / 250
Balance -365 / -365 455 / 455 460 / 460
Review of Systems
-
History Source: Patient
All other systems: Reviewed and negative
Respiratory: Reports Trouble Breathing
Physical Exam
-
General: No Apparent Distress and Comfortable
HEENT: Normocephalic
Respiratory: Clear to Auscultation
GI: Soft, Nontender and Nondistended
Musculoskeletal: No Clubbing, No Cyanosis and No Edema
Neuro: Awake, Alert, Oriented and AO x 3
Psych: Calm
[2025-05-18] MEDS: IMODIUM 2 MG PO ×2 (10:11→19:01)
[2025-05-18] MEDS: DILAUDID 0.5 MG IV (10:12)
[2025-05-18] MEDS: BALMEX CREAM 1 APPLIC TOPICAL ×2 (10:52→19:01)
[2025-05-18 11:14] VITALS: BMI 24.6
[2025-05-18 12:04] LABS: Glucose - Point of Care 135 mg/dl (70-99)
[2025-05-18 15:00] VITALS: BP 116/55
--- NOTE | 2025-05-18 15:09 | CM ---
CM following for discharge to [facility]. Updated referral sent via [facility] today.
Ambulance transport to be requested at discharge.
[2025-05-18 16:12] VITALS: BP 114/60; PULSE 65; O2SAT 96
[2025-05-18 16:52] LABS: Glucose - Point of Care 143 mg/dl (70-99)
[2025-05-18] MEDS: ROXICODONE 5 MG PO ×2 (17:10→22:16)
[2025-05-18 19:04] VITALS: BP 130/64
[2025-05-18 20:44] LABS: Glucose - Point of Care 189 mg/dl (70-99)
[2025-05-18] MEDS: LANTUS 0.04 UNITS SC (21:52)
[2025-05-18] MEDS: NEURONTIN 900 MG PO (21:53)
[2025-05-18] MEDS: RESTORIL 30 MG PO (21:53)
[2025-05-18 22:51] VITALS: BP 127/62
[2025-05-19] MEDS: ZOSYN 100 IV ×4 (01:47→21:57)
[2025-05-19 05:41] LABS: Blood Urea Nitrogen 14 mg/dl (9-20); Calcium 7.7 mg/dl (8.4-10.2); Carbon Dioxide 27 mmol/L (22-30); Chloride 106 mmol/L (98-107); Estimated Creatinine Clearance 37 ml/min; Glucose 118 mg/dl (70-99); Magnesium 1.9 mg/dl (1.6-2.3); Potassium 2.8 mmol/L (3.5-5.1); Sodium 140 mmol/L (135-145); eGFR 44.50
[2025-05-19] MEDS: KCL 270 MEQ IV ×2 (06:36→11:12)
[2025-05-19 07:00] VITALS: BP 118/62
[2025-05-19] MEDS: ADVAIR HFA 115/21 MCG INHALER 2 PUFF INH (07:23)
[2025-05-19 08:04] LABS: Glucose - Point of Care 123 mg/dl (70-99)
[2025-05-19] MEDS: NOVOLOG FLEXPEN-LOW RESISTANCE SC (08:53)
[2025-05-19] MEDS: PROSCAR 5 MG PO (09:02)
[2025-05-19] MEDS: PLAVIX 75 MG PO (09:02)
[2025-05-19] MEDS: VISBIOME 2 CAP PO (09:02)
[2025-05-19] MEDS: LIPITOR 40 MG PO (09:02)
[2025-05-19] MEDS: COREG 6.25 MG PO ×2 (09:06→21:57)
[2025-05-19] MEDS: XARELTO 15 MG PO (09:07)
[2025-05-19] MEDS: SOLU-MEDROL PF 60 MG IV (10:24)
[2025-05-19] MEDS: DUONEB 3 ML INH ×3 (11:10→19:23)
[2025-05-19] MEDS: SANTYL OINTMENT 1 APPLIC TOPICAL (11:11)
[2025-05-19] MEDS: CALCIUM GLUCONATE 100 IV (11:11)
--- NOTE | 2025-05-19 11:18 | W.PN.ID1 ---
Date of Service
Date of Service: May 19, 2025
Today's Communication
Continue current course of antibiotics.
Assessment / Plan
Right hallux osteomyelitis s/p partial amputation
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
Right fifth met osteomyelitis
Profound neuropathy
Diabetes mellitus (uncontrolled; HbA1c = 7.4)
Renal insufficiency
PAD
CAD
A-fib
COPD
Recommendations:
Right hallux wound culture with growth of Pseudomonas aeruginosa and Staph aureus (MSSA).
Additional right foot wound culture on 05/09 reveals Pseudomonas aeruginosa, Klebsiella pneumoniae and MSSA.
MRI of the right foot reviewed. Official read reports 'osteomyelitis' at hallux amputation site, which I suspect is reactive secondary to amputation.
Osteomyelitis noted in the fifth metatarsal, adjacent to the longstanding wound. Area with positive probe to bone.
Given findings of osteomyelitis of the fifth metatarsal, would continue with Zosyn. All isolates from superficial wound culture noted to be susceptible.
Patient will require a 6-week course of antibiotics. (Through 06/18/2025). Weekly labs (BMP, CBC, ESR, CRP) were ordered to be faxed to my office.
IV infusion sheet given to Case Management.
Patient for possible discharge to [facility].
Local care to the right foot wound.
Close monitoring of left toes for development of progressive ischemic changes.
����������������������������������������������������������
Chief Complaint
-: Other (Right hallux osteomyelitis)
Subjective / Review of Systems
Review of Systems: No Fever and No Chills
Vital Signs / Physical Exam
Vital Signs
Vital Signs
Temp Pulse Resp BP Pulse Ox
97.7 F 76 20 118/62 86
05/19/25 07:00 05/19/25 11:14 05/19/25 11:14 05/19/25 09:06 05/19/25 11:14
Physical Exam
Constitutional: No Acute Distress, Comfortable and Non-toxic
Eyes: Sclera Anicteric
Pulmonary: Non Labored
Gastrointestinal: Non Distended
Skin: Other (Left hallux tip with unstageable eschar. Developing eschar noted at the tip of left second toe)
Wound: Other (Right hallux area dressed. Sutures in place. No drainage. Right lateral foot wound dressed. No strikethrough.)
Neurological: Awake and Alert
Psychological: Calm
Objective Data
Lab Data
Lab Results
05/16/25 05:55
05/19/25 04:59
PT 15.7 Sec (11.4-14.6) H 05/12/25 09:08
INR 1.22 05/12/25 09:08
APTT 41.6 Sec (23.4-35.0) H 05/15/25 06:53
Estimated Creat Clear 37 ml/min 05/19/25 04:59
Lactic Acid 1.8 mmol/L (0.7-2.0) 05/08/25 16:07
Total Bilirubin 0.6 mg/dl (0.2-1.3) 05/16/25 05:55
AST 21 U/L (17-59) 05/16/25 05:55
ALT 23 U/L (0-50) 05/16/25 05:55
Alkaline Phosphatase 90 U/L (38-126) 05/16/25 05:55
Most recent labs reviewed.
Micro Results:
05/17/25 09:37 C. difficile GDH Antigen & Toxins - Final
Feces/Stool Negative for toxigenic C.difficile
05/09/25 17:26 Wound Culture - Final
Foot - Right Pseudomonas aeruginosa
Klebsiella pneumoniae
S aureus-Methicillin Sensitive
Gram Stain - Final
05/09/25 17:26 Anaerobic Culture - Final
Foot - Right Peptostreptococcus prevotii
05/08/25 20:14 Wound Culture - Final
Toe Pseudomonas aeruginosa
S aureus-Methicillin Sensitive
Gram Stain - Final
05/09/25 06:51 MRSA Screen - Final
Nose No Methicillin Resistant Staphylococcus aureus isolated.
Wound/abscess/other Cult Preliminary 05/11/25-1033
Few Pseudomonas aeruginosa
Few Klebsiella pneumoniae
Moderate S aureus-Methicillin Sensitive*
Organism 1 Pseudomonas aeruginosa
Organism 2 Klebsiella pneumoniae
Organism 3 S aureus-Methicillin Sensitive
1. Pseudomonas aeruginosa
M.I.C. RX
--------- ---
Aztreonam <=4 S
Cefepime <=2 S
Ceftazidime <=1 S
Ciprofloxacin <=0.25 S
Meropenem <=1 S
Piperacillin/Tazobactam <=8 S
Tobramycin <=2 S
2. Klebsiella pneumoniae
M.I.C. RX
--------- ---
Amoxicillin/Potas. Clavulanate >16/8 R
Ampicillin >16 R
Ampicillin/Sulbactam 16/8 I
Aztreonam <=4 S
Cefazolin >16 R
Cefepime <=2 S
Ceftazidime <=1 S
Ceftriaxone <=1 S
Ertapenem <=0.5 S
Ciprofloxacin <=0.25 S
Gentamicin <=2 S
Meropenem <=1 S
Piperacillin/Tazobactam <=8 S
Tetracycline 8 I
Tobramycin <=2 S
Trimethoprim/Sulfamethoxazole <=2/38 S
3. S aureus-Methicillin Sensitive
M.I.C. RX
--------- ---
Amoxicillin/Potas. Clavulanate <=4/2 S
Ampicillin <=2 R
Clindamycin <=0.5 S
Gentamicin <=4 S
Erythromycin <=0.5 S
Levofloxacin <=1 S
Oxacillin <=0.25 S
Tetracycline <=4 S
Trimethoprim/Sulfamethoxazole <=0.5/9.5 S
Vancomycin 1 S
Imaging:
05/11/2025 MRI right lower extremity: first toe has been amputated to the level of the distal aspect of the proximal phalanx. Bone marrow edema and enhancement of the first proximal phalanx adjacent to the resection margin noted. Soft tissue wound
at the lateral aspect of the proximal forefoot with associated bone marrow edema enhancement and T1 hypointense marrow replacement of the base of the fifth metatarsal adjacent to the soft tissue ulceration. No acute fracture or dislocation.
05/08/2025 X-ray right foot: Diffuse osteopenia noted. New osseous erosion of the distal phalanx of the great toe with adjacent soft tissue swelling and questionable subcutaneous gas. Mild degenerative changes of the first metatarsal joint.
Extensive vascular calcifications. The soft tissue swelling at the great toe tip consistent with acute osteomyelitis. Please see full dictation for additional detail. Film personally viewed.
--- NOTE | 2025-05-19 11:21 | W.PN.HOSP.TC ---
Today's Communication/Plan
-
replete and follow potassium
wean off O2
steroids
follow for clinical improvement
BNP in AM if not improving today
Assessment / Plan
Assessment / Plan
89yo M with PMHx of chronic urinary retention - on intermittent straight cath, HTN, BPH, neuropathy, DM, CAD, PAD s/p stent in RLE on Xarelto, bedbound for years due to Hx of lower back pain s/p Sx and eventual calf atrophy due to poor ambulatory
capacity came with worsening RLE swelling, found R hallux OM and had amputation by podiatry on 05/09/25. RLE angio with RLE angiogram via R SFA antegrade access. Intravascular lithotripsy and angioplasty of anterior tibial artery and dorsalis pedis
on 05/12/25, pending LLE angio. Also found Acute osteomyelitis at the base of the fifth proximal phalanx adjacent to the soft tissue wound and will need 6 weeks of Abx since debridement will not reach surgical cure. Pending d/c to rehab to continue
Zosyn till 06/19/25
A/P:
#R hallux acute OM
#L foot found, chronic
#PAD with L foot dry gangrene of 1st and 2nd toes, chronic limb ischemia
Podiatry follows: s/p hallux amputation on 05/09/25
ID continuing Zosyn only as of 05/11/25 with Pseudomonas, K.pneumonia, MSSA, Peptostreptococcus prevotti - all sensitive to Zosyn
MRI R foot: Acute osteomyelitis at the base of the fifth proximal phalanx adjacent to the soft tissue wound at the lateral aspect of the proximal forefoot. Without Sx intervention will need 6 weeks of Abx (zosyn) - as per podiatry - debridement will
not be able to achieve surgical cure. COnt Zosyn 4.5mg q6h until 06/19/25, PICC placed on 05/18/25
Acute osteomyelitis of the first proximal phalanx at the amputation margin - most likely postOP changes
Wound care
VascSx for angiogram on 05/12/25 on R - RLE angiogram via R SFA antegrade access. Intravascular lithotripsy and angioplasty of anterior tibial artery and dorsalis pedis, on 05/15/25: LLE angiography via retrograde R femoral access. Intravascular
lithotripsy ([place]). DCB to distal popliteal, popliteal artery stent. Drug coated stent (6x80 to popliteal artery)
Anticoag as per VascSx, Plavix
#Subacute HFpEF with Acute respiratory insufficiency
#Pulmonary HTN
##CKD stage 3 with RONDA on admission (resolved)
Lasix held due to contrast administration
Patient developed dyspnea and mild pulmonary edema on XR on 05/18/25 - start IV lasix for 1 day and restart home Lasix afterwards
wean off O2
#COPD
mild exacerbation
Wheezing on 05/19/25
Short course of prednisone
cont bronchodilators
#hypokalemia
#Hypocalcemia
2/2 diuresis
replete and follow
#Systolic cardiac murmur
Echo with slightly mobile mass on MV. No Bcx during this admission. ID is not concerned for possible endocarditis. Even if vegetations: not candidate for Sx and will cont same 6 weeks Abx course as already planned - as per Card
#Paroxysmal Afib
#Chronic HFpEF
#BPH
#Neuropathy
Requested [place]
watch for fluid overload
cont rate control
#DM type 2 with neuropathy
Insulin SS, accuchgecks, DM diet
#Chronic mild anemia. JOHANNA
outpatient follow up with PCP for GI referral
Iron
#Chronic urinary retention
usually straight cath as needed
[place] in hospital as requested by patient - remove upon d/c
#Chronic ambulatory dysfunction
essentially bedbound for couple of years
rehab
DVT ppx hep drip
DNR/DNI
I have spent at least 52min reviewing chart, test results, communication with consultants and providing direct patient care
Anticipated Discharge: Within 24 hours
Subjective/Interval History
-
Date of Service: May 19, 2025
Objective Data
-
Labs:
Laboratory Results
05/19/25
04:59
Sodium 140
Potassium 2.8 L
Chloride 106
Carbon Dioxide 27
BUN 14
Creatinine 1.5 H
Glucose 118 H
Calcium 7.7 L
Vital Signs:
Vital Signs
Temp Pulse Resp BP Pulse Ox
97.7 F 76 20 118/62 86
05/19/25 07:00 05/19/25 11:14 05/19/25 11:14 05/19/25 09:06 05/19/25 11:14
I&O
05/18/25 05/19/25 05/20/25
06:59 06:59 06:59
Intake Total 580 / 580 2069
Output Total 125 / 125 1829 / 1829
Balance 455 / 455 240 / 240
Review of Systems
-
History Source: Patient
All other systems: Reviewed and negative
Physical Exam
-
General: No Apparent Distress
HEENT: Normocephalic
Respiratory: Clear to Auscultation
Cardiac: Regular Rhythm
GI: Soft, Nontender and Nondistended
Neuro: Awake, Alert, Oriented and AO x 3
Psych: Calm
[2025-05-19 12:08] LABS: Glucose - Point of Care 154 mg/dl (70-99)
[2025-05-19] MEDS: NOVOLOG FLEXPEN-LOW RESISTANCE 1 UNITS SC (13:08)
[2025-05-19 14:03] LABS: Potassium 4.2 mmol/L (3.5-5.1)
--- NOTE | 2025-05-19 14:14 | CM ---
Pt is cleared for discharge today, however [facility] will not accept until Thursday due to being 'too late in the day'. [facility] will accept transfer on Thursday, May 22. Ambulance transport will need to be arranged on Thursday.
--- NOTE | 2025-05-19 14:15 | WOUNDNOTE ---
WOC RN NOTE: Confirmed that patient is on [employer].
[2025-05-19 15:00] VITALS: BP 136/77
[2025-05-19] MEDS: LASIX 40 MG IV (16:51)
[2025-05-19 18:01] LABS: Glucose - Point of Care 325 mg/dl (70-99)
[2025-05-19] MEDS: NOVOLOG FLEXPEN-LOW RESISTANCE 4 UNITS SC (18:18)
[2025-05-19 21:19] LABS: Glucose - Point of Care 319 mg/dl (70-99)
[2025-05-19] MEDS: NEURONTIN 900 MG PO (21:53)
[2025-05-19] MEDS: RESTORIL 30 MG PO (21:54)
[2025-05-19] MEDS: LANTUS 0.04 UNITS SC (22:28)
[2025-05-19] MEDS: DILAUDID 0.25 MG IV (22:28)
[2025-05-19] MEDS: NOVOLOG FLEXPEN 4 UNITS SC (22:29)
[2025-05-19 22:44] VITALS: BP 138/71
[2025-05-20] MEDS: ZOSYN 100 IV ×4 (02:54→21:34)
[2025-05-20 06:00] VITALS: BMI 25.2
[2025-05-20 06:32] LABS: Blood Urea Nitrogen 18 mg/dl (9-20); Calcium 8.4 mg/dl (8.4-10.2); Carbon Dioxide 25 mmol/L (22-30); Chloride 107 mmol/L (98-107); Estimated Creatinine Clearance 35 ml/min; Glucose 192 mg/dl (70-99); Magnesium 2.1 mg/dl (1.6-2.3); Potassium 3.7 mmol/L (3.5-5.1); Sodium 140 mmol/L (135-145); eGFR 41.19
[2025-05-20 07:00] VITALS: BP 114/62
[2025-05-20] MEDS: ADVAIR HFA 115/21 MCG INHALER 2 PUFF INH (07:25)
[2025-05-20] MEDS: DUONEB 3 ML INH ×2 (07:25→19:55)
[2025-05-20] MEDS: KCL 20 MEQ PO ×2 (08:40→08:43)
[2025-05-20] MEDS: VISBIOME 2 CAP PO (08:40)
[2025-05-20] MEDS: XARELTO 15 MG PO (08:41)
[2025-05-20] MEDS: COREG 6.25 MG PO ×2 (08:41→21:47)
[2025-05-20] MEDS: PLAVIX 75 MG PO (08:41)
[2025-05-20] MEDS: LIPITOR 40 MG PO (08:42)
[2025-05-20] MEDS: LASIX 40 MG IV ×2 (08:42→16:21)
[2025-05-20 08:46] LABS: Glucose - Point of Care 170 mg/dl (70-99)
[2025-05-20] MEDS: PROSCAR 5 MG PO (08:55)
[2025-05-20] MEDS: NOVOLOG FLEXPEN-LOW RESISTANCE 1 UNITS SC (09:14)
[2025-05-20] MEDS: IMODIUM 2 MG PO ×2 (10:07→16:21)
--- NOTE | 2025-05-20 10:46 | W.PN.HOSP.TC ---
Addendum entered and electronically signed by Brady Gonzalez MD 05/20/25 11:15:
Patient previously on Gabapentin 1800 HS for LE pain at night that was helpful - will restart in attempt to wean off Oxycodon
Addendum entered and electronically signed by Brady Gonzalez MD 05/20/25 10:52:
Plan discussed with in details
Original Note:
Today's Communication/Plan
-
cont Lasix today sinc eBNP still elevated
no wheezing - no need for further steroids
wean off O2
follow BMP and replete potassium
Guafenisin since c/o non-productive cough (no signs of pneumonia on XR)
Assessment / Plan
Assessment / Plan
89yo M with PMHx of chronic urinary retention - on intermittent straight cath, HTN, BPH, neuropathy, DM, CAD, PAD s/p stent in RLE on Xarelto, bedbound for years due to Hx of lower back pain s/p Sx and eventual calf atrophy due to poor ambulatory
capacity came with worsening RLE swelling, found R hallux OM and had amputation by podiatry on 05/09/25. RLE angio with RLE angiogram via R SFA antegrade access. Intravascular lithotripsy and angioplasty of anterior tibial artery and dorsalis pedis
on 05/12/25, pending LLE angio. Also found Acute osteomyelitis at the base of the fifth proximal phalanx adjacent to the soft tissue wound and will need 6 weeks of Abx since debridement will not reach surgical cure. Pending d/c to rehab to continue
Zosyn till 06/19/25, however delayed
A/P:
#R hallux acute OM
#L foot found, chronic
#PAD with L foot dry gangrene of 1st and 2nd toes, chronic limb ischemia
Podiatry follows: s/p hallux amputation on 05/09/25
ID continuing Zosyn only as of 05/11/25 with Pseudomonas, K.pneumonia, MSSA, Peptostreptococcus prevotti - all sensitive to Zosyn
MRI R foot: Acute osteomyelitis at the base of the fifth proximal phalanx adjacent to the soft tissue wound at the lateral aspect of the proximal forefoot. Without Sx intervention will need 6 weeks of Abx (zosyn) - as per podiatry - debridement will
not be able to achieve surgical cure. COnt Zosyn 4.5mg q6h until 06/19/25, PICC placed on 05/18/25
Acute osteomyelitis of the first proximal phalanx at the amputation margin - most likely postOP changes
Wound care
VascSx for angiogram on 05/12/25 on R - RLE angiogram via R SFA antegrade access. Intravascular lithotripsy and angioplasty of anterior tibial artery and dorsalis pedis, on 05/15/25: LLE angiography via retrograde R femoral access. Intravascular
lithotripsy ([facility]). DCB to distal popliteal, popliteal artery stent. Drug coated stent (6x80 to popliteal artery)
Anticoag as per VascSx, Plavix
#Subacute HFpEF with Acute respiratory insufficiency
#Pulmonary HTN
##CKD stage 3 with RONDA on admission (resolved)
Lasix held due to contrast administration
Patient developed dyspnea and mild pulmonary edema on XR on 05/18/25 - start IV lasix and restart home Lasix afterwards
wean off O2
#COPD
mild exacerbation
Wheezing on 05/19/25
Short course of prednisone
cont bronchodilators
#hypokalemia
#Hypocalcemia
2/2 diuresis
replete and follow
#Systolic cardiac murmur
Echo with slightly mobile mass on MV. No Bcx during this admission. ID is not concerned for possible endocarditis. Even if vegetations: not candidate for Sx and will cont same 6 weeks Abx course as already planned - as per Card
#Paroxysmal Afib
#Chronic HFpEF
#BPH
#Neuropathy
Requested [place]
watch for fluid overload
cont rate control
#DM type 2 with neuropathy
Insulin SS, accuchgecks, DM diet
#Chronic mild anemia. JOHANNA
outpatient follow up with PCP for GI referral
Iron
#Chronic urinary retention
usually straight cath as needed
[place] in hospital as requested by patient - remove upon d/c
#Chronic ambulatory dysfunction
essentially bedbound for couple of years
rehab
DVT ppx hep drip
DNR/DNI
I have spent at least 51min reviewing chart, test results, communication with consultants and providing direct patient care
Anticipated Discharge: 24 - 48 hours
Subjective/Interval History
-
Date of Service: May 20, 2025
Objective Data
-
Labs:
Laboratory Results
05/20/25
05:50
Sodium 140
Potassium 3.7
Chloride 107
Carbon Dioxide 25
BUN 18
Creatinine 1.6 H
Glucose 192 H
Calcium 8.4
Vital Signs:
Vital Signs
Temp Pulse Resp BP Pulse Ox
97.6 F 63 16 114/62 95
05/20/25 07:00 05/20/25 07:29 05/20/25 07:29 05/20/25 07:00 05/20/25 07:29
I&O
05/19/25 05/20/25 05/21/25
06:59 06:59 06:59
Intake Total 2069 750 / 750
Output Total 1830 1829 1800 / 1800
Balance 240 / 240 -1050 / -1050
Review of Systems
-
History Source: Patient
All other systems: Reviewed and negative
Respiratory: Reports Cough
Physical Exam
-
General: No Apparent Distress
HEENT: Normocephalic
Respiratory: Clear to Auscultation
GI: Soft, Nontender and Nondistended
Musculoskeletal: No Clubbing, No Cyanosis and No Edema
Skin: Warm
Neuro: Awake, Alert, Oriented and AO x 3
Psych: Calm
[2025-05-20] MEDS: SANTYL OINTMENT 1 APPLIC TOPICAL (11:09)
[2025-05-20] MEDS: ROBITUSSIN 200 MG PO ×4 (11:24→21:36)
[2025-05-20 11:34] LABS: Glucose - Point of Care 239 mg/dl (70-99)
[2025-05-20] MEDS: NOVOLOG FLEXPEN-LOW RESISTANCE 2 UNITS SC ×2 (12:49→18:16)
[2025-05-20 15:00] VITALS: BP 114/60
[2025-05-20 16:23] LABS: Glucose - Point of Care 217 mg/dl (70-99)
[2025-05-20] MEDS: RESTORIL 30 MG PO (21:35)
[2025-05-20] MEDS: NEURONTIN 1800 MG PO (21:35)
[2025-05-20] MEDS: ROXICODONE 5 MG PO (21:39)
[2025-05-20 21:50] LABS: Glucose - Point of Care 204 mg/dl (70-99)
[2025-05-20] MEDS: LANTUS 0.04 UNITS SC (21:50)
[2025-05-20 23:18] VITALS: BP 126/71
[2025-05-21] MEDS: ZOSYN 100 IV ×4 (03:25→21:46)
[2025-05-21 06:00] VITALS: BMI 24.8
[2025-05-21] MEDS: IMODIUM 2 MG PO ×3 (06:16→22:34)
[2025-05-21 07:00] VITALS: BP 153/84
[2025-05-21] MEDS: ADVAIR HFA 115/21 MCG INHALER 2 PUFF INH (07:52)
[2025-05-21 07:57] LABS: Hematocrit 30.8 % (39.0-52.0); Hemoglobin 9.7 g/dL (13.0-18.0); Mean Corp Hgb Conc. 31.5 g/dL (33.0-37.0); Mean Corpuscular Volume 82.1 fL (80.0-94.0); Nucleated Red Blood Cells % 0 % (-); Platelet Count 339 10^3/uL (130-400); Red Cell Dist. Width 17.2 % (11.5-14.5)
[2025-05-21 07:58] LABS: Glucose - Point of Care 176 mg/dl (70-99)
[2025-05-21 08:17] LABS: Blood Urea Nitrogen 18 mg/dl (9-20); Calcium 8.2 mg/dl (8.4-10.2); Carbon Dioxide 28 mmol/L (22-30); Chloride 105 mmol/L (98-107); Estimated Creatinine Clearance 37 ml/min; Glucose 180 mg/dl (70-99); Magnesium 2.0 mg/dl (1.6-2.3); Potassium 3.5 mmol/L (3.5-5.1); Sodium 140 mmol/L (135-145); eGFR 44.50
[2025-05-21] MEDS: SANTYL OINTMENT 1 APPLIC TOPICAL (08:44)
[2025-05-21] MEDS: ROBITUSSIN 200 MG PO (08:49)
[2025-05-21] MEDS: LIPITOR 40 MG PO (08:49)
[2025-05-21] MEDS: COREG 6.25 MG PO ×2 (08:50→21:47)
[2025-05-21] MEDS: PROSCAR 5 MG PO (08:50)
[2025-05-21] MEDS: XARELTO 15 MG PO (08:50)
[2025-05-21] MEDS: VISBIOME 2 CAP PO (08:50)
[2025-05-21] MEDS: PLAVIX 75 MG PO (08:50)
[2025-05-21] MEDS: LASIX 40 MG IV ×2 (08:51→16:58)
[2025-05-21] MEDS: KCL 20 MEQ PO ×2 (08:51→21:48)
[2025-05-21] MEDS: NOVOLOG FLEXPEN-LOW RESISTANCE 1 UNITS SC ×2 (08:51→12:29)
[2025-05-21] MEDS: KCL PO (09:11)
[2025-05-21] MEDS: ROXICODONE 5 MG PO ×2 (09:28→21:48)
[2025-05-21 11:33] LABS: Glucose - Point of Care 172 mg/dl (70-99)
--- NOTE | 2025-05-21 12:21 | W.PN.HOSP.TC ---
Today's Communication/Plan
-
Cough still present, but no wheezing - advised incentive spirometry
cont Lasix for today
increase Potassium for today
Assessment / Plan
Assessment / Plan
89yo M with PMHx of chronic urinary retention - on intermittent straight cath, HTN, BPH, neuropathy, DM, CAD, PAD s/p stent in RLE on Xarelto, bedbound for years due to Hx of lower back pain s/p Sx and eventual calf atrophy due to poor ambulatory
capacity came with worsening RLE swelling, found R hallux OM and had amputation by podiatry on 05/09/25. RLE angio with RLE angiogram via R SFA antegrade access. Intravascular lithotripsy and angioplasty of anterior tibial artery and dorsalis pedis
on 05/12/25, pending LLE angio. Also found Acute osteomyelitis at the base of the fifth proximal phalanx adjacent to the soft tissue wound and will need 6 weeks of Abx since debridement will not reach surgical cure. Pending d/c to rehab to continue
Zosyn till 06/19/25, however delayed due to placement and new CHF with cough
A/P:
#Subacute HFpEF with Acute respiratory insufficiency
#Pulmonary HTN
##CKD stage 3 with RONDA on admission (resolved)
#Cough
antitussives
XR without overt pneumonia
suspect atelectasis and CHF exacerbation - treat volume overload and provide incentive spirometer
Lasix held due to contrast administration
Patient developed dyspnea and mild pulmonary edema on XR on 05/18/25 - start IV lasix and restart home Lasix afterwards
wean off O2
#R hallux acute OM
#L foot found, chronic
#PAD with L foot dry gangrene of 1st and 2nd toes, chronic limb ischemia
Podiatry follows: s/p hallux amputation on 05/09/25
ID continuing Zosyn only as of 05/11/25 with Pseudomonas, K.pneumonia, MSSA, Peptostreptococcus prevotti - all sensitive to Zosyn
MRI R foot: Acute osteomyelitis at the base of the fifth proximal phalanx adjacent to the soft tissue wound at the lateral aspect of the proximal forefoot. Without Sx intervention will need 6 weeks of Abx (zosyn) - as per podiatry - debridement will
not be able to achieve surgical cure. COnt Zosyn 4.5mg q6h until 06/19/25, PICC placed on 05/18/25
Acute osteomyelitis of the first proximal phalanx at the amputation margin - most likely postOP changes
Wound care
VascSx for angiogram on 05/12/25 on R - RLE angiogram via R SFA antegrade access. Intravascular lithotripsy and angioplasty of anterior tibial artery and dorsalis pedis, on 05/15/25: LLE angiography via retrograde R femoral access. Intravascular
lithotripsy ([place]). DCB to distal popliteal, popliteal artery stent. Drug coated stent (6x80 to popliteal artery)
Anticoag as per VascSx, Plavix
#COPD
mild exacerbation
Wheezing on 05/19/25 rapidly resolved on single dose Solumedrol
cont bronchodilators
#hypokalemia
#Hypocalcemia
2/2 diuresis
replete and follow
#Systolic cardiac murmur
Echo with slightly mobile mass on MV. No Bcx during this admission. ID is not concerned for possible endocarditis. Even if vegetations: not candidate for Sx and will cont same 6 weeks Abx course as already planned - as per Card
#Paroxysmal Afib
#Chronic HFpEF
#BPH
#Neuropathy
Requested [place]
watch for fluid overload
cont rate control
#DM type 2 with neuropathy
Insulin SS, accuchgecks, DM diet
#Chronic mild anemia. JOHANNA
outpatient follow up with PCP for GI referral
Iron
#Chronic urinary retention
usually straight cath as needed
[place] in hospital as requested by patient - remove upon d/c
#Chronic ambulatory dysfunction
essentially bedbound for couple of years
rehab
DVT ppx hep drip
DNR/DNI
I have spent at least 36min reviewing chart, test results, communication with consultants and providing direct patient care
Anticipated Discharge: Within 24 hours
Subjective/Interval History
-
Date of Service: May 21, 2025
Objective Data
-
Labs:
Laboratory Results
05/21/25
07:48
WBC 9.3
Hgb 9.7 L
Hct 30.8 L
Plt Count 339
Sodium 140
Potassium 3.5
Chloride 105
Carbon Dioxide 28
BUN 18
Creatinine 1.5 H
Glucose 180 H
Calcium 8.2 L
Vital Signs:
Vital Signs
Temp Pulse Resp BP Pulse Ox
98.0 F 80 16 153/84 93
05/21/25 07:00 05/21/25 08:51 05/21/25 07:56 05/21/25 08:51 05/21/25 08:00
I&O
05/20/25 05/21/25 05/22/25
06:59 06:59 06:59
Intake Total 750 / 750 1220 / 1220
Output Total 1800 / 1800 1800 / 1800
Balance -1050 / -1050 -580 / -580
Review of Systems
-
History Source: Patient
All other systems: Reviewed and negative
Respiratory: Reports Cough
Physical Exam
-
General: No Apparent Distress
HEENT: Normocephalic
Respiratory: Clear to Auscultation
GI: Soft, Nontender and Nondistended
Musculoskeletal: No Clubbing, No Cyanosis and No Edema
Neuro: Awake, Alert, Oriented and AO x 3
Psych: Calm
[2025-05-21] MEDS: ROBITUSSIN DM 5 ML PO (13:18)
[2025-05-21 15:00] VITALS: BP 125/68
[2025-05-21 16:43] LABS: Glucose - Point of Care 231 mg/dl (70-99)
[2025-05-21] MEDS: NOVOLOG FLEXPEN-LOW RESISTANCE 2 UNITS SC (16:58)
[2025-05-21 21:45] LABS: Glucose - Point of Care 177 mg/dl (70-99)
[2025-05-21] MEDS: LANTUS 0.04 UNITS SC (21:49)
[2025-05-21] MEDS: RESTORIL 30 MG PO (21:49)
[2025-05-21] MEDS: NEURONTIN 1800 MG PO (21:49)
[2025-05-21 23:10] VITALS: BP 136/69
[2025-05-22] MEDS: ZOSYN 100 IV ×3 (02:20→13:19)
[2025-05-22 06:00] VITALS: BMI 24.9
[2025-05-22] MEDS: ADVAIR HFA 115/21 MCG INHALER 2 PUFF INH (07:09)
[2025-05-22 07:29] VITALS: BP 131/67
[2025-05-22] MEDS: LIPITOR 40 MG PO (07:49)
[2025-05-22] MEDS: VISBIOME 2 CAP PO (07:49)
[2025-05-22] MEDS: KCL 20 MEQ PO (07:49)
[2025-05-22] MEDS: COREG 6.25 MG PO (07:50)
[2025-05-22] MEDS: LASIX 40 MG IV (07:50)
[2025-05-22] MEDS: XARELTO 15 MG PO (07:51)
[2025-05-22] MEDS: PLAVIX 75 MG PO (07:51)
[2025-05-22] MEDS: PROSCAR 5 MG PO (07:51)
[2025-05-22] MEDS: NOVOLOG FLEXPEN-LOW RESISTANCE 1 UNITS SC (07:53)
[2025-05-22 07:54] LABS: Glucose - Point of Care 162 mg/dl (70-99)
[2025-05-22 08:44] LABS: Blood Urea Nitrogen 20 mg/dl (9-20); Calcium 8.5 mg/dl (8.4-10.2); Carbon Dioxide 29 mmol/L (22-30); Chloride 106 mmol/L (98-107); Estimated Creatinine Clearance 37 ml/min; Glucose 145 mg/dl (70-99); Magnesium 2.0 mg/dl (1.6-2.3); Potassium 3.7 mmol/L (3.5-5.1); Sodium 141 mmol/L (135-145); eGFR 44.50
--- NOTE | 2025-05-22 11:28 | W.PN.ID1 ---
Date of Service
Date of Service: May 22, 2025
Today's Communication
Continue current antibiotics.
Assessment / Plan
Right hallux osteomyelitis s/p partial amputation
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
Right fifth met osteomyelitis
Profound neuropathy
Diabetes mellitus (uncontrolled; HbA1c = 7.4)
Renal insufficiency
PAD
CAD
A-fib
COPD
Recommendations:
Right hallux wound culture with growth of Pseudomonas aeruginosa and Staph aureus (MSSA).
Additional right foot wound culture on 05/09 reveals Pseudomonas aeruginosa, Klebsiella pneumoniae and MSSA.
MRI of the right foot reviewed. Official read reports 'osteomyelitis' at hallux amputation site, which I suspect is reactive secondary to amputation.
Osteomyelitis noted in the fifth metatarsal, adjacent to the longstanding wound. Area with positive probe to bone.
Continue with Zosyn. All isolates from superficial wound culture noted to be susceptible.
Patient will require a 6-week course of antibiotics. (Through 06/18/2025). Weekly labs (BMP, CBC, ESR, CRP) were ordered to be faxed to my office.
IV infusion sheet given to Case Management.
Patient for [facility] discharge to [facility]
Local care to the right foot wound.
Close monitoring of left toes for development of progressive ischemic changes.
����������������������������������������������������������
Chief Complaint
-: Other (Right hallux osteomyelitis)
Subjective / Review of Systems
Review of Systems: No Fever, No Chills and No Nausea
Vital Signs / Physical Exam
Vital Signs
Vital Signs
Temp Pulse Resp BP Pulse Ox
98.2 F 65 15 131/67 95
05/22/25 07:29 05/22/25 07:50 05/22/25 07:29 05/22/25 07:50 05/22/25 10:28
Physical Exam
Constitutional: No Acute Distress, Comfortable and Non-toxic
Eyes: Sclera Anicteric
Cardiovascular: S1/S2; Negative S3/S4
Pulmonary: Non Labored; Negative Wheezes or Rales
Gastrointestinal: Soft, Non Tender and Non Distended
Extremities: Negative Edema
Skin: Other (Dry unstageable eschars on left hallux and left second toe)
Wound: Other (Right hallux amp site C/D/I. Sutures in place. Right lateral foot wound dressed.)
Neurological: Awake and Alert
Psychological: Calm
Objective Data
Lab Data
Lab Results
05/21/25 07:48
05/22/25 07:35
PT 15.7 Sec (11.4-14.6) H 05/12/25 09:08
INR 1.22 05/12/25 09:08
APTT 41.6 Sec (23.4-35.0) H 05/15/25 06:53
Estimated Creat Clear 37 ml/min 05/22/25 07:35
Lactic Acid 1.8 mmol/L (0.7-2.0) 05/08/25 16:07
Total Bilirubin 0.6 mg/dl (0.2-1.3) 05/16/25 05:55
AST 21 U/L (17-59) 05/16/25 05:55
ALT 23 U/L (0-50) 05/16/25 05:55
Alkaline Phosphatase 90 U/L (38-126) 05/16/25 05:55
Most recent labs reviewed.
Micro Results:
05/17/25 09:37 C. difficile GDH Antigen & Toxins - Final
Feces/Stool Negative for toxigenic C.difficile
05/09/25 17:26 Wound Culture - Final
Foot - Right Pseudomonas aeruginosa
Klebsiella pneumoniae
S aureus-Methicillin Sensitive
Gram Stain - Final
05/09/25 17:26 Anaerobic Culture - Final
Foot - Right Peptostreptococcus prevotii
05/08/25 20:14 Wound Culture - Final
Toe Pseudomonas aeruginosa
S aureus-Methicillin Sensitive
Gram Stain - Final
05/09/25 06:51 MRSA Screen - Final
Nose No Methicillin Resistant Staphylococcus aureus isolated.
Wound/abscess/other Cult Preliminary 05/11/25-1033
Few Pseudomonas aeruginosa
Few Klebsiella pneumoniae
Moderate S aureus-Methicillin Sensitive*
Organism 1 Pseudomonas aeruginosa
Organism 2 Klebsiella pneumoniae
Organism 3 S aureus-Methicillin Sensitive
1. Pseudomonas aeruginosa
M.I.C. RX
--------- ---
Aztreonam <=4 S
Cefepime <=2 S
Ceftazidime <=1 S
Ciprofloxacin <=0.25 S
Meropenem <=1 S
Piperacillin/Tazobactam <=8 S
Tobramycin <=2 S
2. Klebsiella pneumoniae
M.I.C. RX
--------- ---
Amoxicillin/Potas. Clavulanate >16/8 R
Ampicillin >16 R
Ampicillin/Sulbactam 16/8 I
Aztreonam <=4 S
Cefazolin >16 R
Cefepime <=2 S
Ceftazidime <=1 S
Ceftriaxone <=1 S
Ertapenem <=0.5 S
Ciprofloxacin <=0.25 S
Gentamicin <=2 S
Meropenem <=1 S
Piperacillin/Tazobactam <=8 S
Tetracycline 8 I
Tobramycin <=2 S
Trimethoprim/Sulfamethoxazole <=2/38 S
3. S aureus-Methicillin Sensitive
M.I.C. RX
--------- ---
Amoxicillin/Potas. Clavulanate <=4/2 S
Ampicillin <=2 R
Clindamycin <=0.5 S
Gentamicin <=4 S
Erythromycin <=0.5 S
Levofloxacin <=1 S
Oxacillin <=0.25 S
Tetracycline <=4 S
Trimethoprim/Sulfamethoxazole <=0.5/9.5 S
Vancomycin 1 S
Imaging:
05/11/2025 MRI right lower extremity: first toe has been amputated to the level of the distal aspect of the proximal phalanx. Bone marrow edema and enhancement of the first proximal phalanx adjacent to the resection margin noted. Soft tissue wound
at the lateral aspect of the proximal forefoot with associated bone marrow edema enhancement and T1 hypointense marrow replacement of the base of the fifth metatarsal adjacent to the soft tissue ulceration. No acute fracture or dislocation.
05/08/2025 X-ray right foot: Diffuse osteopenia noted. New osseous erosion of the distal phalanx of the great toe with adjacent soft tissue swelling and questionable subcutaneous gas. Mild degenerative changes of the first metatarsal joint.
Extensive vascular calcifications. The soft tissue swelling at the great toe tip consistent with acute osteomyelitis. Please see full dictation for additional detail. Film personally viewed.
--- NOTE | 2025-05-22 11:40 | W.PN.HOSP.TC ---
Today's Communication/Plan
-
Transition to p.o. diuretics
Adjusted diabetic regimen
Assessment / Plan
Assessment / Plan
89yo M with PMHx of chronic urinary retention - on intermittent straight cath, HTN, BPH, neuropathy, DM, CAD, PAD s/p stent in RLE on Xarelto, bedbound for years due to Hx of lower back pain s/p Sx and eventual calf atrophy due to poor ambulatory
capacity came with worsening RLE swelling, found R hallux OM and had amputation by podiatry on 05/09/25. RLE angio with RLE angiogram via R SFA antegrade access. Intravascular lithotripsy and angioplasty of anterior tibial artery and dorsalis pedis
on 05/12/25, pending LLE angio. Also found Acute osteomyelitis at the base of the fifth proximal phalanx adjacent to the soft tissue wound and will need 6 weeks of Abx since debridement will not reach surgical cure. Pending d/c to rehab to continue
Zosyn till 06/19/25, however delayed due to placement and new CHF with cough
A/P:
#Subacute HFpEF with Acute respiratory insufficiency
#Pulmonary HTN
##CKD stage 3 with RONDA on admission (resolved)
#Cough
antitussives
XR without overt pneumonia
suspect atelectasis and CHF exacerbation - treat volume overload and provide incentive spirometer
Lasix held due to contrast administration
Patient developed dyspnea and mild pulmonary edema on XR on 05/18/25 - start IV lasix and restart home Lasix on discharge. Patient currently denies any chest pain or shortness of breath. Denies any PND orthopnea. Restart home regimen of Lasix.
wean off O2
proBNP decrease significantly
#R hallux acute OM
#L foot found, chronic
#PAD with L foot dry gangrene of 1st and 2nd toes, chronic limb ischemia
Podiatry follows: s/p hallux amputation on 05/09/25
ID continuing Zosyn only as of 05/11/25 with Pseudomonas, K.pneumonia, MSSA, Peptostreptococcus prevotti - all sensitive to Zosyn
MRI R foot: Acute osteomyelitis at the base of the fifth proximal phalanx adjacent to the soft tissue wound at the lateral aspect of the proximal forefoot. Without Sx intervention will need 6 weeks of Abx (zosyn) - as per podiatry - debridement will
not be able to achieve surgical cure. COnt Zosyn 4.5mg q6h until 06/19/25, PICC placed on 05/18/25
Acute osteomyelitis of the first proximal phalanx at the amputation margin - most likely postOP changes
Wound care
VascSx for angiogram on 05/12/25 on R - RLE angiogram via R SFA antegrade access. Intravascular lithotripsy and angioplasty of anterior tibial artery and dorsalis pedis, on 05/15/25: LLE angiography via retrograde R femoral access. Intravascular
lithotripsy ([place]). DCB to distal popliteal, popliteal artery stent. Drug coated stent (6x80 to popliteal artery)
Anticoag as per VascSx, Plavix and xarelto
#COPD
mild exacerbation
Wheezing on 05/19/25 rapidly resolved on single dose Solumedrol
cont bronchodilators
#hypokalemia
#Hypocalcemia
2/2 diuresis
replete and follow
#Systolic cardiac murmur
Echo with slightly mobile mass on MV. No Bcx during this admission. ID is not concerned for possible endocarditis. Even if vegetations: not candidate for Sx and will cont same 6 weeks Abx course as already planned - as per Card
#Paroxysmal Afib
#Chronic HFpEF
#BPH
#Neuropathy
Requested [place]
watch for fluid overload
cont rate control
#DM type 2 with neuropathy
Continue with glargine, accuchgecks, DM diet
#Chronic mild anemia. JOHANNA
outpatient follow up with PCP for GI referral
Iron
#Chronic urinary retention
usually straight cath as needed
[place] in hospital as requested by patient - remove upon d/c
#Chronic ambulatory dysfunction
essentially bedbound for couple of years
rehab
DVT ppx hep drip
DNR/DNI
More than 30 minutes spent in discharge including
Final examination of the patient
Summarizing hospital stay
Instructions for continuing care to all relevant caregivers
Preparation of discharge records, prescriptions, and referral forms
Total time spent (in minutes): 52
Anticipated Discharge: Today
Subjective/Interval History
-
Date of Service: May 22, 2025
States he is feeling better
Denies any chest pain or shortness of breath
Objective Data
-
Labs:
Laboratory Results
05/22/25
07:35
Sodium 141
Potassium 3.7
Chloride 106
Carbon Dioxide 29
BUN 20
Creatinine 1.5 H
Glucose 145 H
Calcium 8.5
Vital Signs:
Vital Signs
Temp Pulse Resp BP Pulse Ox
98.2 F 65 15 131/67 95
05/22/25 07:29 05/22/25 07:50 05/22/25 07:29 05/22/25 07:50 05/22/25 10:28
I&O
05/21/25 05/22/25 05/23/25
06:59 06:59 06:59
Intake Total 1220 / 1220 960 / 960 480 / 480
Output Total 1800 / 1800 1650 / 1650 900 / 900
Balance -580 / -580 -690 / -690 -420 / -420
Physical Exam
-
General: Well Nourished and No Apparent Distress
HEENT: Normocephalic and Oxygen
Respiratory: Clear to Auscultation (anterior )
Cardiac: S1/S2
GI: Soft, Nontender, Nondistended and Normal Bowel Sounds
Musculoskeletal: No Clubbing, No Cyanosis and Other (R foot covered in dressing )
Neuro: Awake, Alert, Oriented and AO x 3; Negative Slurred Speech or Facial Droop
Psych: Calm
[2025-05-22 12:05] LABS: Glucose - Point of Care 296 mg/dl (70-99)
--- NOTE | 2025-05-22 12:20 | W.DCSUMMARY ---
Discharge Summary
Discharge Data
Date of Admission: 05/08/25
Date of Discharge: 05/22/25
-
Pending Results: No
Hospital Course
89yo M with PMHx of chronic urinary retention - on intermittent straight cath, HTN, BPH, neuropathy, DM, CAD, PAD s/p stent in RLE on Xarelto, bedbound for years due to Hx of lower back pain s/p Sx and eventual calf atrophy due to poor ambulatory
capacity came with worsening RLE swelling, found R hallux OM and had amputation by podiatry on 05/09/25. RLE angio with RLE angiogram via R SFA antegrade access. Intravascular lithotripsy and angioplasty of anterior tibial artery and dorsalis pedis
on 05/12/25. Also found Acute osteomyelitis at the base of the fifth proximal phalanx adjacent to the soft tissue wound and will need 6 weeks of Abx since debridement will not reach surgical cure. Patient also required mild oxygenation which I
suspect is secondary to atelectasis and mild CHF. IV Lasix was started. Patient will need to be continued on Zosyn per ID recommendation till June 19. PICC line was placed. Patient was complaining of shortness of breath no chest pain
lightheadedness dizziness. IV Lasix was transitioned to p.o. 40 mg Lasix home regimen as patient with significant improvement in symptoms. Patient hemoglobin and creatinine was stable. Patient proBNP down trended. Patient was eval by physical
and Occupational Therapy. [facility] with [facility] line for IV antibiotics.
Discharge Plan
-
Patient Disposition: Halfway/SNF
Discharge Diagnosis/Procedures: Right hallux acute osteomyelitis
Left foot wound chronic
Peripheral arterial disease with left foot dry gangrene
Bilateral lower extremity arteriogram
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
Hypokalemia
Hypocalcemia
Subacute HFpEF
Acute respiratory insufficiency
Acute kidney injury on chronic kidney disease
Condition: Fair
Diet: Diabetic, Carb Controlled and Restrict fluids to 48 oz
Blood Work: BMP, CBC, ESR, CRP) were ordered to be faxed to Dr. Parra office.
Others Tests: Your follow up arterial ultrasound is scheduled on 06/12/2025 at 11am here at [facility]
Activity Restrictions/Additional Instructions:
Wound Care Instructions
05/09/25 s/p right hallux partial amputation and lateral wound debridement
-Santyl to lateral wound
-Dressing changes daily
-Heel weight bearing RLE for transfers only
L great and 2nd toe eschar: paint with Betadine daily, cover with slipper sock to protect.
Back and sacrum: clean with soap and water, Silicone foam change q 3 days and prn soilage
Heels: skin prep and adhesive foam change q 3 days and prn soilage.
Pillow under calves
leg elevation when sitting
Evaluate for an air mattress.
Follow up with vascular and podiatry
Stand Alone Forms: Vascular Surg Discharge Instr
Referrals:
Etelvina Lowe MD [Family Provider, Internal Medicine] - in less than 1 week
Emily Velazquez CRNP [Specified Professional Personl, Vascular Surgery] - 06/15/25 10:00 am
Prescriptions:
New
potassium chloride 20 mEq Tablet,Er Particles/Crystals
20 meq PO DAILY 30 Days Qty: 30 0RF
Zosyn in dextrose (iso-osm) 4.5 gram/100 mL Piggyback
4.5 g IV Q6H 27 Days Qty: 11983 0RF
Insulin Glargine Lantus [Lantus] 4 UNITS
Subcutaneous Insulin Syringe [Syringe-Insulin] 0 UNIT
As Directed mls/hr SC HS
Ordered By: Zaire Nunez MD
Last Taken: 05/21/25 21:49 0.04 mls
Santyl 250 unit/gram Ointment
1 applic topical DAILY Qty: 15 0RF
Lactobac/Bifidobac [Visbiome]
2 cap PO DAILY 30 Days 0RF
oxycodone 5 mg Tablet
5 mg PO BIDPRN PRN (Reason: severe pain) Qty: 6 0RF
Continued
furosemide 40 mg Tablet
40 mg PO BID
atorvastatin 40 mg Tablet
40 mg PO DAILY
metformin 500 mg Tablet
500 mg PO DAILY
fluticasone propion-salmeterol [Wixela Inhub] 250-50 mcg/dose Blister With Device
1 inh INHALATION R DAILY
carvedilol 6.25 mg Tablet
6.25 mg PO BID
polyethylene glycol 3350 [Miralax] 17 gram Powder In Packet
8.5 g PO DAILY
finasteride 5 mg Tablet
5 mg PO DAILY
Saccharomyces boulardii 250 mg Capsule
250 mg PO BID
cranberry extract [Ellura] 200 mg Capsule
200 mg PO DAILY
Xarelto 15 mg Tablet
15 mg PO DAILY
clopidogrel 75 mg Tablet
75 mg PO DAILY Qty: 90 0RF
gabapentin 300 mg capsule
1,800 mg PO HS
Patient Comments:
05/08/2025, precribed for pt. to take 2 capsules TID but pt. takes all 6 capsules at once at bedtime.
temazepam 30 mg Capsule
30 mg PO HS 3 Days Qty: 3 0RF
Discontinued
glimepiride 4 mg Tablet
4 mg PO BID
Humulin N NPH Insulin KwikPen 100 unit/mL (3 mL) Insulin Pen
14 unit SC BID
Discharge Orders:
Discharge Patient (As Directed); Ordered 05/22/25
Ordered By: Zaire Nunez
Discharge Date and Time
Discharge Date/Time: 05/22/25 16:02
Print Language: LAO
[2025-05-22] MEDS: SANTYL OINTMENT 1 APPLIC TOPICAL (13:14)
[2025-05-22] MEDS: NOVOLOG FLEXPEN-LOW RESISTANCE 3 UNITS SC (13:16)
[2025-05-22 15:04] VITALS: BP 149/69
--- NOTE | 2025-05-22 15:10 | CM ---
Pt is cleared for discharge to [facility] today. Transport apple picker time is 1530. Bee at [facility] aware and will have IV abx as ordered for his 8PM dose.
CM contacted Mrs. Enriquez to make her aware of plans for Elvis's return today via ambulance. IMM reviewed and she gave verbal consent for discharge and the IMM.
[facility] Report: [phone]
[facility]
[2025-05-22 15:19] LABS: COVID-19 Antigen Negative (Negative)
== END 2025-05-22 16:02 | DRG 278 ==
LOC: 3 WEST ACU 22:29
PROVIDERS: Emergency Medicine; Internal Medicine; Internal Medicine Infectious Disease; Nurse Practitioner; ADMITTING PHYSICIAN Hospitalist; ATTENDING PHYSICIAN Hospitalist; CONSULT PHYSICIAN Internal Medicine Cardiovascular Disease; CONSULT PHYSICIAN Surgery Vascular Surgery; EMERGENCY PHYSICIAN Emergency Medicine; FAMILY PHYSICIAN Internal Medicine Geriatric Medicine; OTHER PHYSICIAN Internal Medicine Infectious Disease; OTHER PHYSICIAN Student in an Organized Health Care Education/Training Program
PROC: 0Y6P0Z1 Detachment at Right 1st Toe, High, Open Approach (ICD-10-PCS; 2025-05-09)
PROC: 0JBQ0ZZ Excision of Right Foot Subcutaneous Tissue and Fascia, Open Approach (ICD-10-PCS; 2025-05-09)
PROC: 047V3ZZ Dilation of Right Foot Artery, Percutaneous Approach (ICD-10-PCS; 2025-05-12)
PROC: 04FY3ZZ Fragmentation of Lower Artery, Percutaneous Approach (ICD-10-PCS; 2025-05-12)
PROC: 04FP3ZZ Fragmentation of Right Anterior Tibial Artery, Percutaneous Approach (ICD-10-PCS; 2025-05-12)
PROC: 047P3ZZ Dilation of Right Anterior Tibial Artery, Percutaneous Approach (ICD-10-PCS; 2025-05-12)
PROC: B41F1ZZ Fluoroscopy of Right Lower Extremity Arteries using Low Osmolar Contrast (ICD-10-PCS; 2025-05-12)
PROC: 04FQ3ZZ Fragmentation of Left Anterior Tibial Artery, Percutaneous Approach (ICD-10-PCS; 2025-05-15)
PROC: 047Q3ZZ Dilation of Left Anterior Tibial Artery, Percutaneous Approach (ICD-10-PCS; 2025-05-15)
PROC: 047N341 Dilation of Left Popliteal Artery with Drug-eluting Intraluminal Device, using Drug-Coated Balloon, Percutaneous Approach (ICD-10-PCS; 2025-05-15)
PROC: B41G1ZZ Fluoroscopy of Left Lower Extremity Arteries using Low Osmolar Contrast (ICD-10-PCS; 2025-05-15)
PROC: 04FN3ZZ Fragmentation of Left Popliteal Artery, Percutaneous Approach (ICD-10-PCS; 2025-05-15)
DX: E11.52 Type 2 diabetes mellitus with diabetic peripheral angiopathy with gangrene (principal); I50.33 Acute on chronic diastolic (congestive) heart failure; I13.0 Hypertensive heart and chronic kidney disease with heart failure and stage 1 through stage 4 chronic kidney disease, or unspecified chronic kidney disease; M86.172 Other acute osteomyelitis, left ankle and foot; L03.115 Cellulitis of right lower limb; M86.171 Other acute osteomyelitis, right ankle and foot; I70.263 Atherosclerosis of native arteries of extremities with gangrene, bilateral legs; I48.92 Unspecified atrial flutter; J98.11 Atelectasis; N17.9 Acute kidney failure, unspecified; J44.1 Chronic obstructive pulmonary disease with (acute) exacerbation; E11.69 Type 2 diabetes mellitus with other specified complication; I25.10 Atherosclerotic heart disease of native coronary artery without angina pectoris; N18.30 Chronic kidney disease, stage 3 unspecified; E11.42 Type 2 diabetes mellitus with diabetic polyneuropathy; E87.6 Hypokalemia; E83.51 Hypocalcemia; R06.89 Other abnormalities of breathing; T50.1X5A Adverse effect of loop [high-ceiling] diuretics, initial encounter; R01.1 Cardiac murmur, unspecified; I48.0 Paroxysmal atrial fibrillation; N40.1 Benign prostatic hyperplasia with lower urinary tract symptoms; R33.8 Other retention of urine; E11.22 Type 2 diabetes mellitus with diabetic chronic kidney disease; D50.9 Iron deficiency anemia, unspecified; Z66 Do not resuscitate; E11.621 Type 2 diabetes mellitus with foot ulcer; L97.519 Non-pressure chronic ulcer of other part of right foot with unspecified severity; I27.20 Pulmonary hypertension, unspecified; I34.81 Nonrheumatic mitral (valve) annulus calcification; D72.829 Elevated white blood cell count, unspecified; Z74.01 Bed confinement status; Z11.52 Encounter for screening for COVID-19; Z95.820 Peripheral vascular angioplasty status with implants and grafts; Z95.5 Presence of coronary angioplasty implant and graft; Z79.4 Long term (current) use of insulin; Z79.01 Long term (current) use of anticoagulants; I25.2 Old myocardial infarction; Z87.891 Personal history of nicotine dependence
CPT/HCPCS: 71045; 73630; 73720; 75625; 75710; 80048; 80053; 80202; 82728; 82962; 83036; 83540; 83550; 83605; 83735; 83880; 84132; 85025; 85027; 85610; 85730; 87070; 87075; 87076; 87077; 87147; 87186; 87205; 87324; 87449; 87811; 88305; 88311; 93308; 93321; 93325; 93922; 93925; 94640; 96361; 96365; 97163; 97167; 97530; 99285; A9575; C1725; C1769; C1874; C1894; C9765; C9772; J2916; Q9967

== ENCOUNTER → 2025-07-04 13:28 | Outpatient (REF) | payer OTHER, SELFPAY | LOC: RAD 13:28 | PROVIDERS: ATTENDING PHYSICIAN Registered Nurse | DX: I73.9 Peripheral vascular disease, unspecified (principal) | CPT/HCPCS: 93922; 93925 ==

== ENCOUNTER 2025-07-07 14:23 | Inpatient (IN) | payer OTHER, SELFPAY ==
[2025-07-07 12:11] VITALS: BP 109/56
[2025-07-07 12:47] LABS: Hematocrit 39.1 % (39.0-52.0); Hemoglobin 12.7 g/dL (13.0-18.0); Mean Corp Hgb Conc. 32.5 g/dL (33.0-37.0); Mean Corpuscular Volume 80.5 fL (80.0-94.0); Nucleated Red Blood Cells % 0 % (-); Platelet Count 322 10^3/uL (130-400); Red Cell Dist. Width 18.5 % (11.5-14.5)
[2025-07-07 12:49] LABS: APTT 38.6 Sec (23.4-35.0)
[2025-07-07 13:00] VITALS: BP 100/57
--- NOTE | 2025-07-07 13:04 | ED.GENMED ---
History of Present Illness
General
Chief Complaint: Vascular Symptoms
Time Seen by Provider: 07/07/25 13:03
History of Present Illness
History of Present Illness:
FOCUSED PAST MEDICAL HISTORY
- Osteomyelitis, diabetes, neuropathy, intermittently straight caths, stent in right lower extremity on Xarelto, bedbound for years related to back pain
REVIEW OF OLD RECORDS
- I reviewed Dr. Nunez's note from April of this year when the patient was admitted. At that time the patient had right hallux osteomyelitis and amputation by podiatry 05/09/2025. The patient also had stage arterial procedure of the right lower
extremity at that time. He was on Zosyn via PICC.
Arterial ultrasound from 07/04/2025 showed:
1. Right lower extremity: FRANCES unobtainable secondary to noncompressibility of the vessels. Toe brachial index (obtained at the second toe) 0.04, severely reduced. (Prior study it was not measurable). Heavily calcified vessels. Multiphasic waveforms
from the common femoral through popliteal artery with no velocity elevation to suggest any significant stenosis. Stent in the right SFA is not identified due to calcification, but again no velocity elevation noted to suggest any stenosis. Continuous
Doppler waveform dorsalis pedis and posterior tibial arteries are monophasic. 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
2. Left lower extremity: FRANCES unobtainable secondary to noncompressibility of the vessels. TBI is 0.40, moderately reduced. Improved significantly from prior study (prior TBI was 0). Multiphasic waveforms from common femoral through popliteal artery
with no velocity elevation to suggest any significant stenosis. Continuous Doppler waveforms at the dorsalis pedis are multiphasic now. (Posterior tibial artery continuous Doppler signal not obtained).
Note:
CHIEF COMPLAINT(S)
Concern for vascular compromise in the right lower extremity.
HISTORY OF PRESENT ILLNESS
The patient is an 89-year-old male with a history of partial amputation related to osteomyelitis in April, performed by Dr. Fierro. Following the surgery, the patient was treated with intravenous Zosyn, administered via a peripherally inserted
central catheter (PICC line). Today, the patient visited Dr. Fierro, who reviewed an outpatient arterial ultrasound of the right lower extremity. The findings suggested potential vascular compromise, prompting the referral for further vascular
management.
PAST MEDICAL AND SURGICAL HISTORY
Partial amputation in April due to osteomyelitis.
ADDITIONAL HISTORY OBTAINED FROM SOURCES OTHER THAN THE PATIENT
According to Dr. Stanton office, the recent outpatient ultrasonography raised concerns for vascular and arterial compromise of the right lower extremity.
CHRONIC MEDICAL CONDITIONS SIGNIFICANTLY AFFECTING CARE
Diabetic neuropathy.
REVIEW OF SYSTEMS
- Neurological: Absent sensation in the right foot, likely related to diabetic neuropathy.
- Vascular: Evidence of necrosis at multiple sites on the right foot.
- General: The patient appears chronically ill and somewhat pale.
PHYSICAL EXAM
General: Appears chronically ill, somewhat pale, no acute distress. Appears generally weak and debilitated.
Skin: Areas of necrosis present on the dorsum of the right foot and stump of the right first toe, and tips of toes two and four.
Head: Normocephalic, atraumatic.
Neck: Supple, trachea midline.
Eye Ears, nose, mouth and throat: Oral mucosa moist.
Cardiovascular: Normal peripheral perfusion, no edema.
Respiratory: Respirations are non-labored.
Gastrointestinal: Abdomen nondistended.
Back: Decreased active range of motion which is chronic
Musculoskeletal: Normal range of motion, normal strength. On examination, the patient presents with necrosis at the stump of the right first toe, dorsum of the right foot, and small areas of necrosis at the tips of toes two and four. The patient is
experiencing absent sensation in the foot attributed to diabetic neuropathy and appears chronically ill and somewhat pale. The patient is noted to have a Aragon catheter in place and a wheelchair at the bedside.
Neurological: Alert and oriented to person, place, time, and situation, absent sensation in the right foot.
Psychiatric: Cooperative, appropriate mood & affect.
PROBLEM LIST
Acute:
- Vascular compromise, right lower extremity
- Necrosis of the right lower extremity
Chronic:
- Diabetic neuropathy
PLAN
- Discuss with vascular specialist for further recommendations.
- Review recent ultrasound imaging for detailed assessment of vascular status.
DIFFERENTIAL DIAGNOSIS
The Differential Diagnosis includes, in no particular order and is not limited to:
1. Peripheral arterial disease
2. Diabetic foot syndrome
3. Osteomyelitis recurrence
4. Critical limb ischemia
5. Necrotizing fasciitis
6. Deep vein thrombosis
7. Cellulitis
8. Charcot foot
9. Gout
10. Thrombophlebitis
SUMMARY OF ENCOUNTER
The patient was seen in the emergency department due to concerns regarding vascular compromise of the right lower extremity. Following a review of the patients condition and consultation with Dr. Aragon, it was determined that the patient requires
hospital admission for further evaluation and management. Additional studies on the affected leg are anticipated to better assess the situation and guide treatment.
DISPOSITION
Admit
MANAGEMENT OF THE PATIENTS CARE WAS DISCUSSED WITH
Discussed with Dr. Aragon, who is aware of the patients condition and the decision for hospital admission. The hospitalist team is to see the patient for further management once admitted.
PLAN
Admit the patient to the hospital for further vascular studies and evaluation by the hospitalist team. Keep the affected area open for other specialists to assess before any further dressing decisions are made.
DIAGNOSIS
1. Peripheral vascular disease, unspecified - I73.9
2. Diabetic neuropathy - E11.40
3. Necrosis of soft tissues - M72.6
LABS
- White count 8.9, hemoglobin 12.7, BUN 26, creatinine 1.3, glucose 150
UPDATE
- At 1:30 PM: I notified Dr. Aragon
- At 2 PM: Dr. Aragon recommends hospitalist admission and they will see in consultation
Phy Exam
Physical Exam
Physical Exam:
See HPI
Course
Orders/Labs/Results
Orders:
Orders
07/07/25 12:27
CBC/With Diff [Complete Blood Count/With Diff] Urgent
CMP [Comprehensive Metabolic Panel] Urgent
PTT Urgent
07/07/25 13:38
Urinalysis Reflex To Culture Urgent
Abnormal Lab Results
07/07/25
12:27
Hgb 12.7 L g/dL
(13.0-18.0)
MCH 26.1 L pg
(27.0-31.0)
MCHC 32.5 L g/dL
(33.0-37.0)
RDW 18.5 H %
(11.5-14.5)
Absolute Monos (auto) 0.8 H 10^3/uL
(0.1-0.6)
Lymphocytes % 18.7 L %
(20.5-51.1)
APTT 38.6 H Sec
(23.4-35.0)
BUN 26 H mg/dl
(9-20)
Glucose 150 H mg/dl
(70-99)
07/07/25 12:27
07/07/25 12:27
Vital Signs
Initial and Last Documented VS:
Initial Vital Signs
Temp Pulse Resp BP Pulse Ox
36.5 C 63 20 109/56 97
07/07/25 12:11 07/07/25 12:11 07/07/25 12:11 07/07/25 12:11 07/07/25 12:11
Last Documented Vital Signs
Temp Pulse Resp BP Pulse Ox
36.5 C 63 20 100/57 99
07/07/25 12:11 07/07/25 12:11 07/07/25 12:11 07/07/25 13:00 07/07/25 14:02
*Pulse Oximetry
SaO2: 97
Oxygen Mode of Delivery: Room air
Patient hypoxic: no
*Critical Care Note
Total Time (30-74mins, 75-104mins- exclusive of procedures): Not Applicable
ED Attending Note
-
Portions of this chart may have been created with voice recognition software.� Occasional wrong word or��sound alike� substitutions may have occurred due to the inherent limitations of voice recognition software.
Discharge Plan
Departure
Patient Disposition: Admit
Date of Disposition: 07/07/25
Time of Disposition: 14:08
Presentation/result/management discussed w/ accepting MD/DO: Hospitalist
Discharge Problem:
Peripheral arterial disease
Prescriptions:
No Action
furosemide 40 mg Tablet
40 mg PO BID
atorvastatin 40 mg Tablet
40 mg PO DAILY
metformin 500 mg Tablet
500 mg PO DAILY
fluticasone propion-salmeterol [Wixela Inhub] 250-50 mcg/dose Blister With Device
1 inh INHALATION R DAILY
carvedilol 6.25 mg Tablet
6.25 mg PO BID
polyethylene glycol 3350 [Miralax] 17 gram Powder In Packet
8.5 g PO DAILY
finasteride 5 mg Tablet
5 mg PO DAILY
Saccharomyces boulardii 250 mg Capsule
250 mg PO BID
cranberry extract [Ellura] 200 mg Capsule
200 mg PO DAILY
Xarelto 15 mg Tablet
15 mg PO DAILY
clopidogrel 75 mg Tablet
75 mg PO DAILY Qty: 90 0RF
gabapentin 300 mg capsule
1,800 mg PO HS
Patient Comments:
05/08/2025, precribed for pt. to take 2 capsules TID but pt. takes all 6 capsules at once at bedtime.
potassium chloride 20 mEq Tablet,Er Particles/Crystals
20 meq PO DAILY 30 Days Qty: 30 0RF
Zosyn in dextrose (iso-osm) 4.5 gram/100 mL Piggyback
4.5 g IV Q6H 27 Days Qty: 94803 0RF
Insulin Glargine Lantus [Lantus] 4 UNITS
Subcutaneous Insulin Syringe [Syringe-Insulin] 0 UNIT
As Directed mls/hr SC HS
Ordered By: Zaire Nunez MD
Last Taken: Unknown
Santyl 250 unit/gram Ointment
1 applic topical DAILY Qty: 15 0RF
Lactobac/Bifidobac [Visbiome]
2 cap PO DAILY 30 Days 0RF
oxycodone 5 mg Tablet
5 mg PO BIDPRN PRN (Reason: severe pain) Qty: 6 0RF
temazepam 30 mg Capsule
30 mg PO HS 3 Days Qty: 3 0RF
Referrals:
UNKNOWN - PT DOES,NOT KNOW [Family Provider]
Interventions
Interventions:
*Risk Screen - Suicide Last Done: 07/07/25 12:15
*General Assessment Last Done: 07/07/25 12:15
*Neglect/Abuse Screening Last Done: 07/07/25 12:15
Discharge Date and Time
Print Language: ARABIC
[2025-07-07 13:31] LABS: ALT (SGPT) 23 U/L (0-50); AST (SGOT) 25 U/L (17-59); Albumin 4.0 g/dl (3.5-5.0); Alkaline Phosphatase 113 U/L (38-126); Blood Urea Nitrogen 26 mg/dl (9-20); Calcium 9.2 mg/dl (8.4-10.2); Carbon Dioxide 28 mmol/L (22-30); Chloride 99 mmol/L (98-107); Glucose 150 mg/dl (70-99); Potassium 4.3 mmol/L (3.5-5.1); Sodium 138 mmol/L (135-145); Total Protein 7.5 g/dl (6.3-8.2); eGFR 52.84
[2025-07-07 14:00] VITALS: BP 109/67
--- NOTE | 2025-07-07 14:33 | HPS.HSE ---
Family Physician
-
Family Physician: NOT KNOW UNKNOWN - PT DOES
Chief Complaint
-
Right foot diabetic infection and concern for gangrene
History of Present Illness
89-year-old male who is currently in the jail and [facility] with known history of A-fib A-fib, peripheral vascular disease, prior osteomyelitis of the right foot and completed course of IV Zosyn last week, saw his software engineer advisor Dr. Fierro
today regarding the result of lower extremity ulcer ultrasound scan concern for some vascular compromise therefore he directed him to come to the ER to be evaluated by vascular surgery.
Patient awake, alert and oriented x 3 lethargic but denies any pain or any discomfort, admitted eating drinking well, no nausea or vomiting or fever or chill or any urinary or GI symptoms and no bleeding event as she takes Xarelto.
Medical History
Past Medical History
Past Medical History: Reports Other
Additional Past Medical History:
Past medical history:
Peripheral vascular disease
Insulin-dependent diabetes mellitus
Paroxysmal A-fib
Coronary artery disease status post stenting
BPH
Osteomyelitis
Surgical history:
Balloon angioplasty of the right dorsalis pedis artery in January 06, 2025
Right partial hallux amputation and subcutaneous (Dr. Fierro) 05/09/2025
right lower extremity arteriogram, balloon angioplasty of right anterior tibial artery, balloon angioplasty of right dorsalis pedis artery (Dr. Aragon) 05/12/2025
Balloon angioplasty and drug-eluting stent placement to left popliteal artery (Dr. Aragon)
Social history: Usual lives at home with his since his discharge and jail in [facility], denies smoking or any alcohol or drug use and is ambulating with some assistance.
Family history: Positive for diabetes, hypertension, coronary artery disease
Past Surgical History: Reports Other
Social History
Alcohol: Other
Family History
Family History: Other
Allergies / Home Medications
Allergies reflects when Allergies were last updated in [employer].
Home Medications with original date entered in [facility]
Allergy/Medication List:
Allergies
Allergy/AdvReac Type Severity Reaction Status Date / Time
No Known Allergies Allergy Verified 05/08/25 15:36
Home Medications
Saccharomyces boulardii 250 mg capsule 250 mg PO BID Supplement 01/03/25
atorvastatin 40 mg tablet 40 mg PO DAILY High Cholesterol 01/03/25
carvedilol 6.25 mg tablet 6.25 mg PO BID Blood Pressure 01/03/25
cranberry extract 200 mg capsule (Ellura) 200 mg PO DAILY Supplement 01/03/25
finasteride 5 mg tablet 5 mg PO DAILY BPH 01/03/25
fluticasone 250 mcg-salmeterol 50 mcg/dose blistr powdr for inhalation (Wixela Inhub) 1 inh inhalation R DAILY Lung/Breathing Issues 01/03/25
furosemide 40 mg tablet 40 mg PO BID Fluid Retention/Swelling 01/03/25
metformin 500 mg tablet 500 mg PO DAILY Diabetes 01/03/25
polyethylene glycol 3350 17 gram oral powder packet (Miralax) 8.5 g PO DAILY Constipation 01/03/25
rivaroxaban 15 mg tablet (Xarelto) 15 mg PO DAILY Blood Clot Prevention/Tx 01/03/25
clopidogrel 75 mg tablet 75 mg PO DAILY Blood clot prevention/tx #90 tabs 01/06/25
gabapentin 300 mg capsule 1,800 mg PO HS Neurological Condition 05/08/25
Insulin Glargine Lantus [Lantus] 4 units As Directed mls/hr SC HS 05/22/25
Lactobac/Bifidobac [Visbiome] 2 cap PO DAILY 30 days 05/22/25
collagenase clostridium histo. 250 unit/gram topical ointment (Santyl) 1 applic topical DAILY #15 grams 05/22/25
oxycodone 5 mg tablet 5 mg PO BIDPRN PRN severe pain #6 tabs 05/22/25
piperacillin-tazobactam 4.5 gram/100 mL dextrose(iso-osm) IV piggyback (Zosyn) 4.5 g (112.5 mL) IV Q6H 27 days #12,150 mL 05/22/25
potassium chloride 20 mEq tablet,extended release(part/cryst) 20 meq PO DAILY 30 days #30 tabs 05/22/25
temazepam 30 mg capsule 30 mg PO HS Sleep 3 days #3 caps 05/22/25
Review of Systems
-
A 12 point ROS was completed and negative except as noted: Yes
Physical Exam
Vital Signs
Vital Signs
Temp Pulse Resp BP Pulse Ox
97.7 F 63 20 100/57 99
07/07/25 12:11 07/07/25 12:11 07/07/25 12:11 07/07/25 13:00 07/07/25 14:02
Physical exam:
General: Awake, lethargic but oriented x3, not in distress and holds appropriate conversation.
HEENT: No active discharge, ecchymosis or bruising, moist lips, tongue and mucous membrane.
Eyes: No discharge or red conjunctiva, no nystagmus, pupils are reactive and equal
Neck:Supple, no JVD no bruit no goiter.
Respiratory: Normal AP contour and diameter, normal chest wall movement, normal respiratory effort, no respiratory distress,
Lungs: Good air entry bilaterally, no wheezing or rhonchi, no rales or crackles
Heart: S1, S2 regular, normal rate, no added sound.
Gastrointestinal: Positive bowel sounds, soft, nontender, no guarding or rigidity or organomegaly
Musculoskeletal: Black discoloration of the tip of the right big toe and superficial wounds in the plantar aspect of the right foot, and some superficial wound and black discoloration of 2 toes on the left foot, no chest wall abnormality or
tenderness. All joints and extremities have good range of motion, no muscle tenderness or any joint swelling or tenderness.
Extremities: No pitting edema, dry scaly skin, wounds in black discoloration as above, skin of the lower extremities are warm.
Skin: Dry scaly skin of the lower extremities and wounds and abnormalities as an musculoskeletal
Neurological: Awake, alert and oriented x3, hearing impairment appreciated, mild cognitive decline appreciated speech clear and comprehensive, good muscle tone,
Psychiatric: Normal mood, normal thought and judgment, normal mood and flat affect,
Physical Exam
General: Other
Laboratory Results
-
07/07/25 12:
07/07/25:
Laboratory Results
APTT 38.6 Sec (23.4-35.0) H 07/07/25
Total Bilirubin 0.6 mg/dl (0.2-1.3) 07/07/25
AST 25 U/L (17-59) 07/07/25
ALT 23 U/L (0-50) 07/07/25
Alkaline Phosphatase 113 U/L (38-126) 07/07/25
Arterial ultrasound from 07/04/2025 showed:
1. Right lower extremity: FRANCES unobtainable secondary to noncompressibility of the vessels. Toe brachial index (obtained at the second toe) 0.04, severely reduced. (Prior study it was not measurable). Heavily calcified vessels. Multiphasic waveforms
from the common femoral through popliteal artery with no velocity elevation to suggest any significant stenosis. Stent in the right SFA is not identified due to calcification, but again no velocity elevation noted to suggest any stenosis. Continuous
Doppler waveform dorsalis pedis and posterior tibial arteries are monophasic. 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
2. Left lower extremity: FRANCES unobtainable secondary to noncompressibility of the vessels. TBI is 0.40, moderately reduced. Improved significantly from prior study (prior TBI was 0). Multiphasic waveforms from common femoral through popliteal artery
with no velocity elevation to suggest any significant stenosis. Continuous Doppler waveforms at the dorsalis pedis are multiphasic now. (Posterior tibial artery continuous Doppler signal not obtained).
Data Reviewed
-
Diagnostic Radiology: Report Reviewed by me and Discussed with Patient
Lab Data: Labs Reviewed by me and Discussed with Patient
Old Records: Reviewed
Impression/Plan
-
IMPRESSION:
89-year-old male with history of diabetes, peripheral vascular disease and recent osteomyelitis of the right big hallux was partial amputation, presented back again with black discoloration and wounds of the right big toe and arch ultrasound,
concerning for some vascular compromise.
Peripheral vascular disease:
-Arterial ultrasound results as above:
- Cover with a broad-spectrum antibiotic with Vanco and cefepime
- Vascular surgery, podiatry and ID consult
- Hold Xarelto and started on heparin drip and monitor for bleeding as discussed with the patient expressed understanding
- Tight control of the blood sugar.
- Vascular surgery planning angiogram beginning of next week
Recent osteomyelitis of the right hallux:
- Status post partial amputation and long-term IV antibiotics completed oh week ago
- Manage as above
- Podiatry and ID consult.
Diabetes mellitus:
- On the long-term insulin, will continue
- Hold metformin
-Glucoscan and monitor blood sugar
Atrial fibrillation:
- On carvedilol will continue
- Hold Xarelto and start heparin drip in anticipation for vascular intervention next week.
Coronary artery disease status post stent:
- Continue Plavix, beta-andrew, statin
All discussed with the patient in detail expressed understanding of the question answered
CODE STATUS is DNR/DNI discussed with the patient
DVT prophylaxis heparin drip
[2025-07-07 15:00] VITALS: BP 138/77
--- NOTE | 2025-07-07 15:05 | CON.VAS ---
Consultation
Consultation Request
Date/Time Consultation Performed: 07/07/2025 at 2:30 PM
Performing Provider: Mahesh
Reason for Consultation: PAD evaluation
Medical History
-
Chief Complaint: Nonhealing right lower extremity wounds
History of Present Illness:
89-year-old male with past medical history significant for A-fib, PVD, diabetes, CAD status post stenting, BPH, osteomyelitis, partial right hallux amputation April 2025, right DP angioplasty in December 2024, right AT and DP angioplasty April 2025
presents today to the emergency room today from his marketing copywriter office for nonhealing right foot wounds/vascular evaluation.
Patient seen at bedside this afternoon with Dr. Aragon in the emergency room. Images below of bilateral foot wounds right> left. Nonpalpable distal pulses.
Vascular procedure history:
01/06/2025�Intravascular lithotripsy to right anterior tibial artery and dorsalis pedis artery using Shockwave Javelin catheter
Balloon angioplasty of right dorsalis pedis artery (2 mm angioplasty balloon; 2.5 mm noncompliant balloon)
Balloon angioplasty of right anterior tibial artery 2.5 mm angioplasty balloon; 3 mm angioplasty balloon; 3.5 mm angioplasty balloon proximal/origin)
Drug-coated balloon angioplasty of right popliteal artery stenosis behind and below the knee (4 mm x 150 mm Lutonix DCB)
Balloon angioplasty and stenting of right above-knee popliteal artery (6 mm x 120 mm LifeStent; post dilated with 5 mm angioplasty balloon)
05/12/2025�Intravascular lithotripsy to right anterior tibial artery and dorsalis pedis artery (Shockwave Javelin)
Balloon angioplasty of right anterior tibial artery (2 mm x 100 mm angioplasty balloon distal; 3 mm x 220 mm balloon mid/proximal)
Balloon angioplasty of right dorsalis pedis artery (2 mm x 100 mm angioplasty balloon; 2.25 mm x 20 mm noncompliant balloon)
05/15/2025- Intravascular lithotripsy to left popliteal artery (Shockwave Javelin)
Intravascular lithotripsy to left anterior tibial artery (Shockwave Javelin)
Balloon angioplasty and drug-eluting stent placement to left popliteal artery (6 mm x 80 mm Zilver PTX)
Balloon angioplasty of left anterior tibial artery (3 mm x 200 mm balloon; 3.5 mm x 60 mm balloon)
Right foot
Left foot
Past Medical History
Past Medical History: Other (PAD, diabetes, A-fib, CAD, BPH, osteomyelitis)
Past Surgical History: Other (Balloon angioplasty of right TP December 2024, right partial hallux imitation by Dr. Fierro in April 2025, right lower extremity balloon angioplasty of right TP and DP arteries April 2025, balloon angioplasty and
drug-eluting stent placement to left popliteal artery by Dr. Aragon.)
Social History
Personal:
Living: Assisted Living ([facility] with his )
Family History
Family History: Reviewed & Not Pertinent
Allergies / Home Medications
Allergy/AdvReac Type Severity Reaction Status Date / Time
No Known Allergies Allergy Verified 05/08/25 15:36
�Medication �Instructions �Recorded �Confirmed �Type
Saccharomyces boulardii 250 mg 250 mg PO BID Supplement 01/03/25 05/08/25 History
capsule
atorvastatin 40 mg tablet 40 mg PO DAILY High Cholesterol 01/03/25 05/08/25 History
carvedilol 6.25 mg tablet 6.25 mg PO BID Blood Pressure 01/03/25 05/08/25 History
cranberry extract 200 mg capsule 200 mg PO DAILY Supplement 01/03/25 05/08/25 History
(Ellura)
finasteride 5 mg tablet 5 mg PO DAILY BPH 01/03/25 05/08/25 History
fluticasone 250 mcg-salmeterol 50 1 inh inhalation R DAILY 01/03/25 05/08/25 History
mcg/dose blistr powdr for Lung/Breathing Issues
inhalation (Wixela Inhub)
furosemide 40 mg tablet 40 mg PO BID Fluid 01/03/25 05/08/25 History
Retention/Swelling
metformin 500 mg tablet 500 mg PO DAILY Diabetes 01/03/25 05/08/25 History
polyethylene glycol 3350 17 gram 8.5 g PO DAILY Constipation 01/03/25 05/08/25 History
oral powder packet (Miralax)
rivaroxaban 15 mg tablet (Xarelto) 15 mg PO DAILY Blood Clot 01/03/25 05/08/25 History
Prevention/Tx
clopidogrel 75 mg tablet 75 mg PO DAILY Blood clot 01/06/25 05/08/25 Rx
prevention/tx #90 tabs
gabapentin 300 mg capsule 1,800 mg PO HS Neurological 05/08/25 05/08/25 History
Condition
Insulin Glargine Lantus As Directed mls/hr SC HS 05/22/25 Rx
[Lantus] 4 units
Lactobac/Bifidobac [Visbiome] 2 cap PO DAILY 30 days 05/22/25 Rx
collagenase clostridium histo. 250 1 applic topical DAILY #15 grams 05/22/25 Rx
unit/gram topical ointment (Santyl)
oxycodone 5 mg tablet 5 mg PO BIDPRN PRN severe pain #6 05/22/25 Rx
tabs
piperacillin-tazobactam 4.5 4.5 g (112.5 mL) IV Q6H 27 days 05/22/25 Rx
gram/100 mL dextrose(iso-osm) IV #12,150 mL
piggyback (Zosyn)
potassium chloride 20 mEq 20 meq PO DAILY 30 days #30 tabs 05/22/25 Rx
tablet,extended release(part/cryst)
temazepam 30 mg capsule 30 mg PO HS Sleep 3 days #3 caps 05/22/25 Rx
Review of Systems
-
History Source: Patient
All other systems: Negative unless noted
Constitutional: Reports No Symptoms
EENT: Reports No Symptoms
Respiratory: Reports No Symptoms
Cardiac: Reports No Symptoms
Vascular: Denies Leg Pain / Claudication
Abdomen/GI: Reports No Symptoms
: Reports No Symptoms
Musculoskeletal: Reports No Symptoms
Skin: Reports Other (Nonhealing wounds bilateral feet)
Neurological: Reports No Symptoms
Physical Exam
Vital Signs
Temp Pulse Resp BP Pulse Ox
97.7 F 63 20 100/57 99
07/07/25 12:11 07/07/25 12:11 07/07/25 12:11 07/07/25 13:00 07/07/25 14:02
Lab Results
07/07/25 12:27
07/07/25 12:27
Physical Exam
General: No Apparent Distress
HEENT: Normocephalic and Atraumatic
Respiratory: Non Labored Respirations
Cardiac: Negative JVD
GI: Soft and Non Tender
Musculoskeletal: No Clubbing, No Cyanosis and No Edema
Skin: Dry and Other (See images above)
Neuro: Awake, Alert and Oriented
Psych: Calm
Pulses: Bilateral Popliteal: Doppler (Nonpalpable) and Bilateral Dorsalis Pedis: Doppler (Nonpalpable)
Assessment / Plan
-
89-year-old male here with nonhealing right lower extremity wounds, sent in by his marketing copywriter
Patient known to our service last intervention was April 2025
Plan:
Admit to hospitalist
Heparin drip, hold Xarelto
Local wound care
Planning for right lower extremity arteriogram on Wednesday 07/11
Data Reviewed
-
Ultrasound: Discussed with Patient
Labs: Labs Reviewed by me
[2025-07-07 16:04] LABS: Urine Character Clear (Clear)
[2025-07-07 16:11] LABS: Glucose - Point of Care 99 mg/dl (70-99)
[2025-07-07 16:14] VITALS: BP 144/72
[2025-07-07 16:17] LABS: Urine Red Blood Cell 0-2 /HPF (0-2); Urine Squamous Cell 0-2 /LPF (Few)
[2025-07-07 16:20] VITALS: BMI 22.9
[2025-07-07 16:31] VITALS: BMI 22.9
--- NOTE | 2025-07-07 16:38 | PHA.VAN.IN ---
Assessment
- Assessment
Renal Function: Appears similar to baseline
Concomitant Antimicrobials: cefepime
AUC Dosing Plan
- Dosing Variables
Dosing Weight (kg): 76.43
Dosing CrCl (ml/min): 42
Vd coefficient (L/kg): 0.7
- Empiric Dosing
Initial / Loading Dose: will load with 1500mg IV ONCE
Maintenance Regimen: 1000mg q24h
Estimated AUC (mcg*h/mL): 485
Estimated Peak (mcg*h/mL): 30.6
Estimated Trough (mcg/ml): 12.4
Estimated Half Life (H): 17.7
- Monitoring
No levels ordered at this time: consider within next few days
MRSA Screen: Ordered per protocol
Pharmacokinetics Vancomycin I
- -
Patient Age: 89
Patient Sex: Male
Vancomycin Day #: 1
Indication: Skin And Soft Tissue
Requesting Provider: Austin Foster
Pertinent Antimicrobial Allergies:
NKDA
Height / Weight:
Height 6 ft
Actual Weight 76.43 kg
Pertinent Past Medical History: osteomyelitis s/p toe amputation, PAD
- Vital Signs / Lab Results
Temp Pulse Resp BP Pulse Ox
98 F 67 20 144/72 100
07/07/25 16:14 07/07/25 16:14 07/07/25 16:14 07/07/25 16:14 07/07/25 16:14
Lab Results - Hematology
07/07/25
12:27
WBC 8.9
Lab Results - Chemistry
07/07/25
12:27
BUN 26 H
Creatinine 1.3
Albumin 4.0
Lab Results - Urine
07/07/25
15:22
Urine Nitrite (Reflex) Negative
Leukocyte Esterase Rfl 3+ A
Urine WBC (Reflex) 11-15 A
Ur Squamous Epith Cells 0-2
Urine Bacteria (Reflex) Few A
[2025-07-07] MEDS: NOVOLOG FLEXPEN-LOW RESISTANCE SC (16:42)
[2025-07-07] MEDS: HEPARIN 25000 UNITS/250 ML IV (17:51)
[2025-07-07] MEDS: STERILE WATER FOR INJECTION 10 ML IV (17:51)
[2025-07-07] MEDS: MAXIPIME 1000 MG IV (17:51)
[2025-07-07] MEDS: VANCOCIN 530 MG IV (18:26)
[2025-07-07] MEDS: COREG 6.25 MG PO (19:53)
[2025-07-07] MEDS: NEURONTIN 1800 MG PO (22:10)
[2025-07-07] MEDS: RESTORIL 30 MG PO (22:10)
[2025-07-07 22:59] LABS: Glucose - Point of Care 158 mg/dl (70-99)
[2025-07-07 23:26] VITALS: BP 103/55
[2025-07-08 00:36] LABS: APTT 52.2 Sec (23.4-35.0)
[2025-07-08] MEDS: DILAUDID 0.25 MG IV (00:47)
[2025-07-08] MEDS: MAXIPIME 1000 MG IV ×3 (01:10→17:04)
[2025-07-08] MEDS: STERILE WATER FOR INJECTION 10 ML IV ×3 (01:10→17:03)
[2025-07-08] MEDS: VANCOCIN 200 IV (06:16)
[2025-07-08 07:15] VITALS: BP 106/59
[2025-07-08 07:46] LABS: Hematocrit 35.9 % (39.0-52.0); Hemoglobin 11.8 g/dL (13.0-18.0); Mean Corp Hgb Conc. 32.9 g/dL (33.0-37.0); Mean Corpuscular Volume 80.0 fL (80.0-94.0); Platelet Count 295 10^3/uL (130-400); Red Cell Dist. Width 18.5 % (11.5-14.5)
[2025-07-08 07:55] LABS: APTT 98.9 Sec (23.4-35.0)
[2025-07-08 07:55] LABS: Glucose - Point of Care 160 mg/dl (70-99)
[2025-07-08] MEDS: COREG 6.25 MG PO ×2 (08:05→19:55)
[2025-07-08] MEDS: LASIX 40 MG PO ×2 (08:05→16:14)
[2025-07-08] MEDS: NOVOLOG FLEXPEN-LOW RESISTANCE 1 UNITS SC (08:05)
[2025-07-08] MEDS: PLAVIX 75 MG PO (08:06)
[2025-07-08] MEDS: PROSCAR 5 MG PO (08:06)
[2025-07-08] MEDS: LIPITOR 40 MG PO (08:06)
[2025-07-08 08:57] LABS: Blood Urea Nitrogen 25 mg/dl (9-20); Calcium 8.4 mg/dl (8.4-10.2); Carbon Dioxide 26 mmol/L (22-30); Chloride 102 mmol/L (98-107); Estimated Creatinine Clearance 46 ml/min; Glucose 159 mg/dl (70-99); Potassium 3.7 mmol/L (3.5-5.1); Sodium 135 mmol/L (135-145); eGFR 58.17
--- NOTE | 2025-07-08 09:09 | PHA.VAN.FU ---
Vancomycin Assessment / Plan
- Assessment
Renal Function: Stable
WBC's are: WNL
In the past 24 hrs, patient has been: Afebrile
Concomitant Antimicrobials: cefepime
- Dosing Plan
Continue: Vanc 1000mg Q24H
- Monitoring Plan
No level(s) ordered at this time: consider levels in next few days
- Follow Up
Pharmacy will continue to follow.
Vancomycin Follow UP
- -
Patient Age: 89
Patient Sex: Male
Vancomycin Day #: 2
Indication: Skin And Soft Tissue
Requesting Provider: Austin Foster
Pertinent Antimicrobial Allergies:
NKDA
Height / Weight:
Height 6 ft
Actual Weight 76.43 kg
Pertinent Past Medical History: DM, PVD
- Vital Signs / Lab Results
Temp Pulse Resp BP Pulse Ox
98.1 F 65 16 106/59 95
07/08/25 07:15 07/08/25 08:05 07/08/25 07:15 07/08/25 08:05 07/08/25 08:52
Lab Results - Hematology
07/07/25 07/07/25 07/08/25
12:27 16:09 07:33
WBC 8.9 Cancelled 8.1
Lab Results - Chemistry
07/07/25 07/08/25
12:27 07:33
BUN 26 H 25 H
Creatinine 1.3 1.2
Estimated Creat Clear 46
Albumin 4.0
Lab Results - Urine
07/07/25
15:22
Urine Nitrite (Reflex) Negative
Leukocyte Esterase Rfl 3+ A
Ur Squamous Epith Cells 0-2
--- NOTE | 2025-07-08 09:49 | W.PN.UPDATE ---
Update Note
Progress Note Update
89M w/ gangrenous changes to b/l feet R>L
- LWC rendered betadine paint, dry chux
- continue offloading precautions
- angio Tues w/ Vascular
- WBAT b/l
- will monitor, full consult note to follow
[2025-07-08 10:39] LABS: Glycohemoglobin (HgbA1c) 7.2 % (4.0-5.6)
[2025-07-08 11:50] LABS: Glucose - Point of Care 143 mg/dl (70-99)
[2025-07-08] MEDS: NOVOLOG FLEXPEN-LOW RESISTANCE SC ×2 (11:51→16:22)
--- NOTE | 2025-07-08 12:20 | W.PN.HOSP.TC ---
Today's Communication/Plan
-
Assessment / Plan
Assessment / Plan
General: No Apparent Distress, Comfortable and Conversant
HEENT: NormoCephalic, Moist mucous membranes, Atraumatic
Respiratory: Clear and Non Labored Respirations
Cardiac: S1/S2 and Regular Rhythm; No Rub or Gallop
GI: Soft, Non Tender, Non Distended and Normal Bowel Sounds
Musculoskeletal: No Edema, decreased muscle bulk throughout, right foot with wound dressing CDI
Skin: Warm and dry
: NO Aragon
Neuro: Awake, Alert, Nonfocal/grossly intact
Psych: Calm and cooperative
Mr. Enriquez is an 89-year-old male with a medical history of paroxysmal A-fib, IDDM, neuropathy, PAD (s/p angioplasty and stenting), CAD (status post stents), and right foot osteomyelitis (status post recent right hallux partial amputation) who
presented at the urging of his primary mfg assoc (Dr. Fierro). Apparently he had recently completed a course of IV Zosyn for right foot osteomyelitis. Dr. Fierro was concerned about possible vascular compromise of his right lower extremity and
so sent patient for further evaluation. He has been started on antibiotics with vancomycin and cefepime and admitted for further evaluation and management.
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
- Both feet have signs of acute infection with the right worse than left
- Antibiotic coverage with vancomycin and cefepime for now
- Vascular surgery planning arteriogram on 07/11
- Anticoagulating with IV heparin drip for now, home Xarelto on hold
- Continue local wound care offloading
- Okay for weightbearing as tolerated
- Continue Plavix and statin
IDDM:
- Hemoglobin A1c 7.2%
- Uses NPH and metformin at home
- Will use sliding scale insulin for now
- Diabetic diet
- Continue Accu-Cheks, adjust regimen as needed
Paroxysmal A-fib:
- Currently well-controlled
- Continue beta-blockade with home carvedilol
- Anticoagulating with IV heparin drip, holding Xarelto
DVT prophylaxis: IV heparin
CODE STATUS: DNR
Total time spent on today's encounter was 53 minutes
Anticipated Discharge: > 48 hours
Subjective/Interval History
-
Date of Service: July 08, 2025
Patient was seen and examined at bedside this morning. Currently comfortable, no pain in his foot. Awaiting arteriogram which is planned for 07/11. Remains on IV heparin drip.
Objective Data
-
Labs:
Laboratory Results
07/08/25 07/08/25 07/08/25
00:17 07:32 07:33
WBC 8.1
Hgb 11.8 L
Hct 35.9 L
Plt Count 295
APTT 52.2 H 98.9 H
Sodium 135
Potassium 3.7
Chloride 102
Carbon Dioxide 26
BUN 25 H
Creatinine 1.2
Glucose 159 H
Calcium 8.4
07/08/25
14:15
WBC
Hgb
Hct
Plt Count
APTT Pending
Sodium
Potassium
Chloride
Carbon Dioxide
BUN
Creatinine
Glucose
Calcium
Vital Signs:
Vital Signs
Temp Pulse Resp BP Pulse Ox
98.1 F 65 16 106/59 95
07/08/25 07:15 07/08/25 08:05 07/08/25 07:15 07/08/25 08:05 07/08/25 08:52
I&O
07/07/25 07/08/25 07/09/25
06:59 06:59 06:59
Intake Total 1076 / 1076
Output Total 525 / 525
Balance 551 / 551
Review of Systems
-
History Source: Patient
All other systems: Reviewed and negative
Physical Exam
-
General: No Apparent Distress
[2025-07-08 14:32] LABS: APTT 73.9 Sec (23.4-35.0)
--- NOTE | 2025-07-08 14:33 | CM ---
Initial assessment completed with pt at bedside.
Pt is an 89yr old male admitted with necrosis of right lower extremity.
Pt is coming from [facility] placement that was meant to be short term.
Resident has an apartment in [place] with his and was admitted to [facility] in April post hallux amputation. Per pt, he still has a plan to return to his apartment.
Pt says that right now, he is needing assistance with transfers and is mostly back and forth from bed to wheelchair; not walking.
Per , pt has poor engagement, and is very stubborn. leaves all healthcare decision making to pt, and says up until this point has been able to make those decisions.
Right now, vascular involved for osteomyelitis. Arteriogram on 07/11 and on abx treatment
PCP; Dr. Lowe
[facility]
PLAN; Likely return to [facility]
[2025-07-08 15:00] VITALS: BP 133/61
[2025-07-08] MEDS: HEPARIN 25000 UNITS/250 ML IV (16:14)
[2025-07-08 16:23] LABS: Glucose - Point of Care 129 mg/dl (70-99)
--- NOTE | 2025-07-08 18:21 | PTCARENOTE ---
Hep gtt infusing through L wrist at 11ml/hr, therapeutic x2 PTTs, next lab draw tomorrow AM. R foot wounds swabbed with Betadine and wrapped in chux per podiatry, B/L LEs in offloading boots. Sacrum MASD vs stage 2, barrier ointment and foam
applied, open area along spine covered with foam. Patient maintained on q2hr turns, ringing appropriately.
[2025-07-08] MEDS: NEURONTIN 1800 MG PO (21:30)
[2025-07-08] MEDS: RESTORIL 30 MG PO (21:30)
--- NOTE | 2025-07-08 21:35 | PTCARENOTE ---
Pt requested Dilaudid for 8 out of 10 b/l foot pain. I had just given him 1800mg gabapentin and Restoril. Spoke to MIXER BLENDER outside pt room when I came out. MIXER BLENDER did not want to give Dilaudid along with Gabapentin mg and Restoril.
[2025-07-08 21:49] LABS: Glucose - Point of Care 149 mg/dl (70-99)
[2025-07-08 23:00] VITALS: BP 124/59
[2025-07-09] MEDS: STERILE WATER FOR INJECTION 10 ML IV ×3 (01:25→17:12)
[2025-07-09] MEDS: MAXIPIME 1000 MG IV ×3 (01:25→17:12)
[2025-07-09] MEDS: VANCOCIN 200 IV (05:02)
[2025-07-09 06:49] LABS: Hematocrit 35.2 % (39.0-52.0); Hemoglobin 11.7 g/dL (13.0-18.0); Mean Corp Hgb Conc. 33.2 g/dL (33.0-37.0); Mean Corpuscular Volume 79.1 fL (80.0-94.0); Platelet Count 285 10^3/uL (130-400); Red Cell Dist. Width 18.3 % (11.5-14.5)
[2025-07-09 07:01] LABS: APTT 125.4 Sec (23.4-35.0)
[2025-07-09 07:06] VITALS: BP 129/66
[2025-07-09 07:11] LABS: Glucose - Point of Care 176 mg/dl (70-99)
[2025-07-09] MEDS: NOVOLOG FLEXPEN-LOW RESISTANCE 1 UNITS SC (07:20)
[2025-07-09] MEDS: PROSCAR 5 MG PO (07:21)
[2025-07-09] MEDS: PLAVIX 75 MG PO (07:21)
[2025-07-09] MEDS: LIPITOR 40 MG PO (07:21)
[2025-07-09] MEDS: COREG 6.25 MG PO ×2 (07:21→20:32)
[2025-07-09] MEDS: LASIX 40 MG PO ×2 (07:21→15:38)
--- NOTE | 2025-07-09 08:03 | PHA.VAN.FU ---
Vancomycin Assessment / Plan
- Assessment
Renal Function: No New Labs Today
WBC's are: WNL
In the past 24 hrs, patient has been: Afebrile
Concomitant Antimicrobials: cefepime
- Dosing Plan
Continue: Vanc 1000mg Q24H
- Monitoring Plan
No level(s) ordered at this time: consider levels in next few days
- Follow Up
Pharmacy will continue to follow.
Vancomycin Follow UP
- -
Patient Age: 89
Patient Sex: Male
Vancomycin Day #: 3
Indication: Skin And Soft Tissue
Requesting Provider: Austin Foster
Pertinent Antimicrobial Allergies:
NKDA
Height / Weight:
Height 6 ft
Actual Weight 76.43 kg
Pertinent Past Medical History: DM, PVD
- Vital Signs / Lab Results
Temp Pulse Resp BP Pulse Ox
97.7 F 71 16 129/66 96
07/09/25 07:06 07/09/25 07:21 07/09/25 07:06 07/09/25 07:21 07/09/25 07:30
Lab Results - Hematology
07/07/25 07/07/25 07/08/25
12:27 16:09 07:33
WBC 8.9 Cancelled 8.1
07/09/25
06:37
WBC 8.9
Lab Results - Chemistry
07/07/25 07/08/25
12:27 07:33
BUN 26 H 25 H
Creatinine 1.3 1.2
Estimated Creat Clear 46
Albumin 4.0
Lab Results - Urine
07/07/25
15:22
Urine Nitrite (Reflex) Negative
Leukocyte Esterase Rfl 3+ A
Ur Squamous Epith Cells 0-2
Microbiology Results
07/07/25 15:22 Urine Culture - Preliminary
Urine Pseudomonas species
[2025-07-09 12:11] LABS: Glucose - Point of Care 268 mg/dl (70-99)
[2025-07-09] MEDS: NOVOLOG FLEXPEN-LOW RESISTANCE 3 UNITS SC (12:18)
--- NOTE | 2025-07-09 13:35 | W.PN.HOSP.TC ---
Today's Communication/Plan
-
Assessment / Plan
Assessment / Plan
General: No Apparent Distress, Comfortable and Conversant
HEENT: NormoCephalic, Moist mucous membranes, Atraumatic
Respiratory: Clear and Non Labored Respirations
Cardiac: S1/S2 and Regular Rhythm; No Rub or Gallop
GI: Soft, Non Tender, Non Distended and Normal Bowel Sounds
Musculoskeletal: No Edema, decreased muscle bulk throughout, right foot with wound dressing CDI
Skin: Warm and dry, bilateral gangrenous foot wounds
: NO Aragon
Neuro: Awake, Alert, Nonfocal/grossly intact
Psych: Calm and cooperative
Mr. Enriquez is an 89-year-old male with a medical history of paroxysmal A-fib, IDDM, neuropathy, PAD (s/p angioplasty and stenting), CAD (status post stents), and right foot osteomyelitis (status post recent right hallux partial amputation) who
presented at the urging of his primary datawarehouse developer (Dr. Fierro). Apparently he had recently completed a course of IV Zosyn for right foot osteomyelitis. Dr. Fierro was concerned about possible vascular compromise of his right lower extremity and
so sent patient for further evaluation. He has been started on antibiotics with vancomycin and cefepime and admitted for further evaluation and management.
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
- Both feet have signs of acute infection with the right worse than left
- Antibiotic coverage with vancomycin and cefepime for now
- Vascular surgery planning arteriogram on 07/11
- Anticoagulating with IV heparin drip for now, home Xarelto on hold
- Continue local wound care offloading
- Okay for weightbearing as tolerated
- Continue Plavix and statin
- Small dose IV Dilaudid at night for neuropathic pain
IDDM:
- Hemoglobin A1c 7.2%
- Uses NPH and metformin at home
- Will use sliding scale insulin for now
- Diabetic diet
- Continue Accu-Cheks, adjust regimen as needed
Paroxysmal A-fib:
- Currently well-controlled
- Continue beta-blockade with home carvedilol
- Anticoagulating with IV heparin drip, holding Xarelto
DVT prophylaxis: IV heparin
CODE STATUS: DNR
Total time spent on today's encounter was 55 minutes
Anticipated Discharge: > 48 hours
Subjective/Interval History
-
Date of Service: July 09, 2025
Patient was seen and examined at bedside this morning. He is awaiting arteriogram lower extremity. Reports neuropathy pain at night.
Objective Data
-
Labs:
Laboratory Results
07/09/25 07/09/25
06:37 12:59
WBC 8.9
Hgb 11.7 L
Hct 35.2 L
Plt Count 285
APTT 125.4 H Pending
Vital Signs:
Vital Signs
Temp Pulse Resp BP Pulse Ox
97.7 F 71 16 129/66 96
07/09/25 07:06 07/09/25 07:21 07/09/25 07:06 07/09/25 07:21 07/09/25 07:30
I&O
07/08/25 07/09/25 07/10/25
06:59 06:59 06:59
Intake Total 1076 / 1076 670 / 670
Output Total 525 / 525 1400 / 1400
Balance 551 / 551 -730 / -730
Review of Systems
-
History Source: Patient
All other systems: Reviewed and negative
Skin: Reports Sores (Bilateral feet)
Neuro: Reports Other (Neuropathy bilateral lower extremities worse at night)
Physical Exam
-
General: No Apparent Distress
[2025-07-09 13:36] LABS: APTT 77.6 Sec (23.4-35.0)
--- NOTE | 2025-07-09 13:50 | CHAP ---
Mr. Enriquez was intently studying his tablet when this breakdown worker arrived. He said he's doing well and has good support. He asked breakdown worker to help him find call pollack and scrap charger cord, and expressed his thanks for this assistance. Emotional support
provided.
[2025-07-09 15:21] VITALS: BP 119/49
[2025-07-09] MEDS: HEPARIN 25000 UNITS/250 ML IV (15:37)
[2025-07-09 17:08] LABS: Glucose - Point of Care 132 mg/dl (70-99)
[2025-07-09] MEDS: NOVOLOG FLEXPEN-LOW RESISTANCE SC (17:11)
[2025-07-09 20:13] LABS: APTT 88.2 Sec (23.4-35.0)
[2025-07-09 21:45] LABS: Glucose - Point of Care 276 mg/dl (70-99)
[2025-07-09] MEDS: NEURONTIN 1800 MG PO (22:12)
[2025-07-09] MEDS: RESTORIL 30 MG PO (22:13)
[2025-07-09] MEDS: DILAUDID 0.5 MG IV (22:24)
[2025-07-09 23:00] VITALS: BP 127/56
[2025-07-10] MEDS: MAXIPIME 1000 MG IV ×3 (02:08→17:37)
[2025-07-10] MEDS: STERILE WATER FOR INJECTION 10 ML IV ×3 (02:08→17:36)
[2025-07-10 02:30] VITALS: BP 120/58
[2025-07-10] MEDS: DILAUDID 0.25 MG IV ×2 (02:36→22:56)
[2025-07-10] MEDS: VANCOCIN 200 IV (06:26)
[2025-07-10 06:47] LABS: APTT 71.7 Sec (23.4-35.0)
[2025-07-10 07:11] VITALS: BP 104/54
[2025-07-10] MEDS: HEPARIN 25000 UNITS/250 ML IV (07:41)
[2025-07-10 08:23] LABS: Glucose - Point of Care 148 mg/dl (70-99)
[2025-07-10] MEDS: NOVOLOG FLEXPEN-LOW RESISTANCE SC (08:36)
[2025-07-10] MEDS: PROSCAR 5 MG PO (08:50)
[2025-07-10] MEDS: PLAVIX 75 MG PO (08:50)
[2025-07-10] MEDS: LIPITOR 40 MG PO (08:50)
[2025-07-10] MEDS: LASIX 40 MG PO ×2 (08:50→17:35)
[2025-07-10] MEDS: COREG 6.25 MG PO ×2 (08:50→20:27)
[2025-07-10 11:18] VITALS: BMI 22.9
--- NOTE | 2025-07-10 11:18 | W.PN.HOSP.TC ---
Today's Communication/Plan
-
stop Vanco
pending Vasc intervention
cont heparin
cont Cefepime
Assessment / Plan
Assessment / Plan
89yo M with PMHx of HLD, DM, neuroapthy, PAF on Xarelto, PAD s/p angio on LLE , CAD s/p PCI HX of R fot OM s/p R hallux amp sent by podiatry for R foot OM and worsening pAD,, found dry gangrene of the toes, starte don IV heparin, pending vascSx
agead of podiatric surgical mgmt
A/P:
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
#PAD
#Acute OM
cont Plavix
s/o US arterial: RLE infrapopliteal arterial disease
Heparin pending VascSx on 07/10/25
Podiatry folows
Cefepime pending tissue Cx: previous with Pseudomonas, K.pneumoniae and MSSA, completed 6 weeks Abx on 06/18/25 with Zosyn. ID after new wound Cx to be obtained
MRSA screen neg - stop vanco
concern for OM of midfoot. Abx duration to be determined with ID after Podiatric surgical intervention and new tissue Cx
#Supratherapeutic Vanco
bolus IVF
follow Cr
stop Vanco
#DM type 2 with neuropathy
#Paroxysmal Afib
#CAD, stable
#COPD, stable
#BPH
#Anxiety d/o
cont home meds
DVT ppx Heparin drip
DNR/DNI
I have spent at least 52min reviewing chart, test reuslts, communication with consultants and providing direct patient care
Anticipated Discharge: > 48 hours
Subjective/Interval History
-
Date of Service: July 10, 2025
Objective Data
-
Labs:
Laboratory Results
07/10/25 07/10/25
06:13 13:00
APTT 71.7 H Pending
Vital Signs:
Vital Signs
Temp Pulse Resp BP Pulse Ox
98.6 F 62 16 104/54 95
07/10/25 07:11 07/10/25 08:50 07/10/25 07:11 07/10/25 08:50 07/10/25 07:11
I&O
07/09/25 07/10/25 07/11/25
06:59 06:59 06:59
Intake Total 670 / 670 480 / 480
Output Total 1400 / 1400 730 / 730
Balance -730 / -730 -250 / -250
Review of Systems
-
History Source: Patient
All other systems: Reviewed and negative
Physical Exam
-
General: No Apparent Distress
HEENT: Normocephalic
GI: Soft, Nontender and Nondistended
Skin: Other (b/l toe gangrene)
Neuro: Awake, Alert, Oriented and AO x 3
Psych: Calm
[2025-07-10] MEDS: NSS 500 IV (11:25)
[2025-07-10 12:54] LABS: Glucose - Point of Care 261 mg/dl (70-99)
--- NOTE | 2025-07-10 12:55 | CM ---
CM following re: discharge planning.
Reviewed pt's chart, met with pt.
Per CM note, pt lives with spouse in an independent apartment at [facility], was admitted to [facility] in April , admitted to from [facility] and pt stated he is planning to return back to [facility] to continue on short
term rehab care. A referral to [facility] made.
PT and OT will evaluate the pt to determine a level of care at discharge.
D/C plan: most likely return back to [facility] to continue on skilled services.
CM will follow with discharge plan updates as hospitalization progresses
[2025-07-10 13:13] LABS: APTT 101.1 Sec (23.4-35.0)
[2025-07-10] MEDS: NOVOLOG FLEXPEN-LOW RESISTANCE 3 UNITS SC (13:27)
--- NOTE | 2025-07-10 13:29 | WOUNDNOTE ---
R LATERAL FOOT AND HEEL
--- NOTE | 2025-07-10 13:31 | WOUNDNOTE ---
R LATERAL/PLANTAR FOOT
--- NOTE | 2025-07-10 13:32 | WOUNDNOTE ---
R GREAT TOE AND DORSAL FOOT
--- NOTE | 2025-07-10 13:32 | WOUNDNOTE ---
L GREAT AND 2ND TOE
--- NOTE | 2025-07-10 13:32 | WOUNDNOTE ---
L 2ND TOE
--- NOTE | 2025-07-10 13:35 | WOUNDNOTE ---
[facility] RN note: Patient admitted with Peripheral arterial disease, sent to ER from Dr. Fierro's office.
See H&P for complete history. Has been at rehab at [facility].
PMH: He has a history of insulin-dependent diabetes and peripheral arterial disease status post stenting in the right lower extremity.He underwent intravascular lithotripsy as well as balloon angioplasty and stenting of numerous vessels to the
right lower extremity. On 05/09/25 R hallux amputation for osteomyelitis by Dr. Fierro and balloon angioplasty with stent by Dr. Aragon same admission.
Wound Location and type/assessment: Patient known to service for arterial/diabetic wounds to feet. Now with worsening wounds to R lateral foot, heel and amp site. Moderate drainage from foot and heel, toe amp site and dorsal foot with dry eschar. L
great and 2nd toe with dry eschar. L heel non blanchable red, stage 1 PI. L posterior leg with healing venous ulcer. Offloading heel boots in use, R leg with Multi Podus boot and L with fiber filled boot. Boot on R leg rubbing against wounds. R barrett
with abrasion, scant drainage. Arterial studies show TBI on R foot at 0.04 and L 0.40. Patient for arteriogram on Thursday. Reviewed vascular and Podiatry notes. Mid back with same atypical raised pink white earth, friable, small amt of bleeding, has not
followed up with baker yet. Sacrum is blanchable red with scattered incontinent associated skin damage, Calazime being used. Patient incontinent of soft stool when turned. DUNCAN Rivas assisted with care. Aragon catheter in use.
Appetite: Fair, encouraged protein in diet.
Pressure redistribution devices in place: On Air overlay, palm check done with adequate inflation. offloading fiber filled boots applied to both legs, called SPD for new ones. Adhesive foam applied to L heel to protect.
Plan: Painted dry eschar on feet/toes with Betadine. Covered R lateral foot and heel with adaptic, abd pads and kerlix. Calazime applied to buttocks and perianal area. Adaptic and silicone Foams applied to back and L posterior leg. R barrett abrasion
applied silicone foam. Pressure ulcer prevention measures reviewed with patient, states he understands.
Will confirm orders with Physical Therapy Director Dr. Thrasher and follow along peripherally, assist as needed.
Updated nurse and care plan.
Note to case management of equipment requested for discharge: wound care.
Recommend follow up with vascular and podiatry.
[2025-07-10 14:19] VITALS: BMI 22.9
[2025-07-10 15:01] VITALS: BP 93/48
[2025-07-10 15:30] VITALS: BP 107/49
[2025-07-10 17:21] LABS: Glucose - Point of Care 184 mg/dl (70-99)
[2025-07-10] MEDS: NOVOLOG FLEXPEN-LOW RESISTANCE 1 UNITS SC (17:36)
[2025-07-10 19:57] LABS: APTT 102.5 Sec (23.4-35.0)
[2025-07-10 21:33] LABS: Glucose - Point of Care 251 mg/dl (70-99)
[2025-07-10] MEDS: RESTORIL 30 MG PO (22:55)
[2025-07-10] MEDS: NEURONTIN 1800 MG PO (22:55)
[2025-07-10 23:37] VITALS: BP 109/47
[2025-07-11] VITALS (21 sets, daily range): BP systolic 106–163; BP diastolic 55–78; BMI 23.0
[2025-07-11] MEDS: HEPARIN 25000 UNITS/250 ML IV (02:07)
[2025-07-11] MEDS: STERILE WATER FOR INJECTION 10 ML IV ×3 (02:08→20:25)
[2025-07-11] MEDS: MAXIPIME 1000 MG IV ×3 (02:08→20:27)
[2025-07-11 05:40] LABS: Glucose - Point of Care 157 mg/dl (70-99)
[2025-07-11 06:22] LABS: Hematocrit 35.5 % (39.0-52.0); Hemoglobin 11.8 g/dL (13.0-18.0); Mean Corp Hgb Conc. 33.2 g/dL (33.0-37.0); Mean Corpuscular Volume 80.0 fL (80.0-94.0); Nucleated Red Blood Cells % 0 % (-); Platelet Count 272 10^3/uL (130-400); Red Cell Dist. Width 18.4 % (11.5-14.5)
[2025-07-11 06:33] LABS: APTT 114.0 Sec (23.4-35.0)
[2025-07-11 07:24] LABS: ALT (SGPT) 22 U/L (0-50); AST (SGOT) 24 U/L (17-59); Albumin 3.4 g/dl (3.5-5.0); Alkaline Phosphatase 104 U/L (38-126); Blood Urea Nitrogen 26 mg/dl (9-20); Calcium 8.5 mg/dl (8.4-10.2); Carbon Dioxide 23 mmol/L (22-30); Chloride 103 mmol/L (98-107); Estimated Creatinine Clearance 35 ml/min; Glucose 164 mg/dl (70-99); Potassium 3.7 mmol/L (3.5-5.1); Sodium 135 mmol/L (135-145); Total Protein 6.7 g/dl (6.3-8.2); eGFR 41.19
[2025-07-11] MEDS: COREG 6.25 MG PO ×2 (08:47→20:32)
[2025-07-11] MEDS: NSS 500 IV (08:47)
[2025-07-11] MEDS: LIPITOR 40 MG PO (08:47)
[2025-07-11] MEDS: PROSCAR 5 MG PO (08:47)
[2025-07-11] MEDS: PLAVIX 75 MG PO (08:57)
[2025-07-11] MEDS: NOVOLOG FLEXPEN-LOW RESISTANCE SC ×3 (09:23→23:56)
--- NOTE | 2025-07-11 10:41 | W.PN.HOSP.TC ---
Today's Communication/Plan
-
for angio
IVF as BNP lower then prior - low risk of fluid overload
serial BMP
PAtient declined offered call to family at this time
Assessment / Plan
Assessment / Plan
89yo M with PMHx of HLD, DM, neuroapthy, PAF on Xarelto, PAD s/p angio on LLE , CAD s/p PCI HX of R fot OM s/p R hallux amp sent by podiatry for R foot OM and worsening pAD,, found dry gangrene of the toes, starte don IV heparin, pending vascSx
agead of podiatric surgical mgmt
A/P:
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
#PAD
#Acute OM
cont Plavix
s/o US arterial: RLE infrapopliteal arterial disease
Heparin pending VascSx on 07/10/25
Podiatry folows
Cefepime pending tissue Cx: previous with Pseudomonas, K.pneumoniae and MSSA, completed 6 weeks Abx on 06/18/25 with Zosyn. ID after new wound Cx to be obtained
MRSA screen neg - stop vanco
concern for OM of midfoot. Abx duration to be determined with ID after Podiatric surgical intervention and new tissue Cx
#RONDA
concern for vanco-induced
IVF and follow Cr
#Supratherapeutic Vanco
bolus IVF
follow Cr
stop Vanco
#DM type 2 with neuropathy
Accuchecks, Insulin SS, DM diet
#Paroxysmal Afib
#CAD, stable
#COPD, stable
#BPH
#Anxiety d/o
cont home meds
#Chronic urinary retention
intermittent straight cath at home
Now Aragon while hospitalized
#GOC
As per discussion with VascSx: patient will want to avoid amputation if revsc unsuccessful. Discussed in details with patient. Will plan on getting ID consult for medical mgmt of gangrene after results of procedure vs hospice
DVT ppx Heparin drip
DNR/DNI
I have spent at least 55min reviewing chart, test results, communication with consultants and providing direct patient care
Anticipated Discharge: > 48 hours
Subjective/Interval History
-
Date of Service: July 11, 2025
Objective Data
-
Labs:
Laboratory Results
07/11/25 07/11/25 07/11/25
06:08 11:00 13:30
WBC 7.5
Hgb 11.8 L
Hct 35.5 L
Plt Count 272
APTT 114.0 H Pending
Sodium 135 Pending
Potassium 3.7 Pending
Chloride 103 Pending
Carbon Dioxide 23 Pending
BUN 26 H Pending
Creatinine 1.6 H Pending
Glucose 164 H Pending
Calcium 8.5 Pending
Total Bilirubin 0.5
AST 24
ALT 22
Alkaline Phosphatase 104
Vital Signs:
Vital Signs
Temp Pulse Resp BP Pulse Ox
97.7 F 63 16 133/69 98
07/11/25 07:09 07/11/25 08:47 07/11/25 07:09 07/11/25 08:47 07/11/25 07:09
I&O
07/10/25 07/11/25 07/12/25
06:59 06:59 06:59
Intake Total 480 / 480 1320 / 1320
Output Total 730 / 730 1625 / 1625
Balance -250 / -250 -305 / -305
Review of Systems
-
History Source: Patient
All other systems: Reviewed and negative
Physical Exam
-
General: No Apparent Distress
GI: Soft, Nontender and Nondistended
Genito-urinary: Aragon
Musculoskeletal: No Edema
Skin: Other (b/l toes gangrene)
Neuro: Awake, Alert, Oriented and AO x 3
[2025-07-11 11:30] LABS: Blood Urea Nitrogen 25 mg/dl (9-20); Calcium 8.5 mg/dl (8.4-10.2); Carbon Dioxide 22 mmol/L (22-30); Chloride 105 mmol/L (98-107); Estimated Creatinine Clearance 37 ml/min; Glucose 158 mg/dl (70-99); Potassium 3.8 mmol/L (3.5-5.1); Sodium 134 mmol/L (135-145); eGFR 44.50
[2025-07-11] MEDS: NSS 1000 IV (11:41)
[2025-07-11 11:48] LABS: Glucose - Point of Care 156 mg/dl (70-99)
[2025-07-11] MEDS: NOVOLOG FLEXPEN-LOW RESISTANCE 1 UNITS SC (11:56)
--- NOTE | 2025-07-11 12:42 | CM ---
CM following re: discharge planning.
Reviewed pt's chart, met with pt.
Per chart review, Podiatry, vascular surgery, cutter helper following, continue supportive care
Pt lives with spouse in an independent apartment at [facility], was admitted to [facility] in April , admitted to from [facility] and pt stated he is planning to return back to [facility] to continue on short term rehab care.
A referral to [facility] made.
CM spoke to [facility] liaison and she stated that pt is not holding the bed and pt will be accepted based on bed availability on the day of discharge. Per [facility] liaison, pt has been calling them requesting returning back and no
promises have been made due to tough situation with available beds and pt is not interested to go to any other SNF.
PT and OT will evaluate the pt to determine a level of care at discharge.
D/C plan: most likely return back to [facility] to continue on skilled services.
CM will follow with discharge plan updates as hospitalization progresses
--- NOTE | 2025-07-11 13:09 | TRANSFER ---
Patient transferred to dentures lab technician recovery area. Received patient on Heparin @ 10 units/hour and IVF's NSS @ 75 ml/hour. Pt AAOx3 BP 129/65; HR 55 SB currently with hx AfibPOx 99% RA. Anesthesia in to see patient. Last BG 156. Pt remains NPO. B/L
groins shaved. Pt awaiting Dr Aragon to sign consent.
[2025-07-11 14:51] LABS: APTT 97.0 Sec (23.4-35.0)
--- NOTE | 2025-07-11 16:53 | W.IMMPOSTOP ---
Surgical Immed Post Op Note
-
Primary Surgeon: Dr. Cesar Aragon III, MD
Assisting Surgeon: Oscar Becker, PGY2
Pre-op Diagnosis: Chronic limb-threatening ischemia
Post-op Diagnosis: Chronic limb-threatening ischemia
Procedure Performed: IVL of right DP, balloon angioplasty of right DP, AT, popliteal artery
Anesthesia Type: Sedation/local
Specimen / Cultures: None
Estimated Blood Loss: 4 cc
Complications: None
Operative Findings: IVL of right DP, balloon angioplasty of right DP, AT, popliteal artery
[2025-07-11 17:13] LABS: Glucose - Point of Care 148 mg/dl (70-99)
[2025-07-11] MEDS: MORPHINE SULFATE 1 MG IV ×2 (17:28→17:39)
[2025-07-11 19:20] LABS: Glucose - Point of Care 127 mg/dl (70-99)
[2025-07-11 21:00] LABS: Glucose - Point of Care 141 mg/dl (70-99)
[2025-07-11] MEDS: RESTORIL 30 MG PO (23:38)
[2025-07-11] MEDS: NEURONTIN 1800 MG PO (23:39)
[2025-07-11] MEDS: DILAUDID 0.25 MG IV (23:40)
[2025-07-11 23:59] LABS: Glucose - Point of Care 134 mg/dl (70-99)
[2025-07-12] MEDS: MAXIPIME 1000 MG IV ×3 (02:51→18:26)
[2025-07-12] MEDS: STERILE WATER FOR INJECTION 10 ML IV ×3 (02:52→18:26)
[2025-07-12 04:51] VITALS: BMI 23.1
[2025-07-12] MEDS: NSS 1000 IV (05:58)
[2025-07-12 06:48] LABS: Hematocrit 33.9 % (39.0-52.0); Hemoglobin 11.5 g/dL (13.0-18.0); Mean Corp Hgb Conc. 33.9 g/dL (33.0-37.0); Mean Corpuscular Volume 79.8 fL (80.0-94.0); Nucleated Red Blood Cells % 0 % (-); Platelet Count 246 10^3/uL (130-400); Red Cell Dist. Width 18.3 % (11.5-14.5)
[2025-07-12 07:03] VITALS: BP 137/55
[2025-07-12 07:15] LABS: ALT (SGPT) 25 U/L (0-50); AST (SGOT) 24 U/L (17-59); Albumin 3.2 g/dl (3.5-5.0); Alkaline Phosphatase 105 U/L (38-126); Blood Urea Nitrogen 24 mg/dl (9-20); Calcium 8.6 mg/dl (8.4-10.2); Carbon Dioxide 24 mmol/L (22-30); Chloride 105 mmol/L (98-107); Estimated Creatinine Clearance 40 ml/min; Glucose 117 mg/dl (70-99); Potassium 3.8 mmol/L (3.5-5.1); Sodium 136 mmol/L (135-145); Total Protein 6.4 g/dl (6.3-8.2); eGFR 48.34
--- NOTE | 2025-07-12 07:59 | OR.RPT ---
Operative Report
Operative Report
Date of Operation: 07/11/2025
Pre Op Diagnosis:
1. Limb threatening ischemia, right lower extremity
2. [place] artery atherosclerosis with right foot gangrene
3. Tibial artery occlusive disease
Post Op Diagnosis:
1. Limb threatening ischemia, right lower extremity
2. [place] artery atherosclerosis with right foot gangrene
3. Tibial artery occlusive disease
Procedure:
1. Intravascular lithotripsy to distal right anterior tibial artery and dorsalis pedis artery using Shockwave Javelin
2. Balloon angioplasty of right dorsalis pedis artery (2 mm x 150 mm)
3. Balloon angioplasty of right anterior tibial artery (3 mm x 220 mm)
4. Drug-coated balloon angioplasty of right popliteal artery in-stent restenosis (6 mm x 150 mm Lutonix drug-coated balloon)
5. Diagnostic right lower extremity arteriogram
6. Ultrasound guided percutaneous ANTEGRADE access to the proximal right superficial femoral artery
Surgeon: Cesar Aragon III, MD
Senior Business Architect: Oscar Becker MD PGY2
Anesthesia: Sedation with local
Fluoroscopy:
24.9 min
43 mGy
9.70 gy.cm2
Complications: None
Estimated Blood Loss: Less than 20 cc
History and Indications for Procedure: 89-year-old male with multiple advanced medical comorbidities and limb threatening ischemia of his right lower extremity manifested by nonhealing wounds and associated gangrene.
Procedure in Detail: Elvis Enriquez was correctly identified and placed supine on the operating table. After adequate induction of anesthesia the bilateral groins were prepped and draped in the usual sterile fashion. A timeout was performed with
the nursing and anesthesia staff confirming the patient's identity as well as the nature and laterality of the procedure.
The right common femoral artery was identified under ultrasound guidance. The artery was patent. The superior and inferior aspects of the femoral head were identified with radiographic guidance and marked at the skin level. The proposed puncture
site was infiltrated with local anesthesia. Under ultrasound guidance we accessed the origin of the superficial femoral artery with a micropuncture needle and upsized to a 5 Fr sheath over a Bentson wire. A diagnostic right lower extremity
arteriogram was then performed which demonstrated the following:
RIGHT LOWER EXTREMITY:
Superficial femoral artery: Patent
Popliteal artery: Patent. Diffuse in-stent restenosis
Anterior tibial artery: Patent but diffusely diseased. Segmental occlusion of the dorsalis pedis artery identified with distal reconstitution in the forefoot
Tibioperoneal trunk: Patent but highly stenotic.
Peroneal artery: Patent proximally but diffuse high-grade stenosis and distal occlusion
Posterior tibial artery: Occluded
ENDOVASCULAR INTERVENTION: Systemic heparin was administered. Selected the anterior tibial artery under roadmap guidance. The anterior tibial was crossed with a Quickcross and Glidewire. The dorsalis pedis artery occlusion was crossed with a 0.014
Mongo wire and 0.014 quick cross. Due to the heavily calcified nature of the dorsalis pedis artery disease and in an effort to successfully cross the lesion, modify the calcium and achieve luminal gain with endovascular intervention I elected to
proceed with intravascular lithotripsy with a Shockwave Javelin catheter. The Javelin catheter was brought into position under radiographic guidance over the 0.014 wire. The Javelin catheter was advanced through the dorsalis pedis artery occlusion
while simultaneously delivering lithotripsy pulses. 120 pulses were delivered. Subsequent arteriogram demonstrated an excellent technical result with a now patent dorsalis pedis artery. I then followed this with 2 mm x 150 mm angioplasty balloon.
The balloon was positioned in the desired location under roadmap guidance, inflated to nominal pressure and held in place for 3 minutes. I then performed balloon angioplasty on the entire length of the anterior tibial artery disease using a 3 mm x
220 mm angioplasty balloon. 2 separate inflations were performed at nominal pressure, holding each inflation for 3 minutes. I then treated the diffuse in-stent restenosis in the popliteal artery stent with a 6 mm x 150 mm Lutonix drug-coated
angioplasty balloon. This balloon was positioned in the desired location and inflated to nominal pressure for 3-minute inflation.
COMPLETION ARTERIOGRAM: Excellent technical result. Widely patent popliteal artery stent. Patent anterior tibial artery with no significant residual stenosis identified. Patent dorsalis pedis artery with flow to the forefoot identified.
Significant improvement compared to pretreatment.
Satisfied with this result we concluded the procedure. The wire was removed from the 5 Frisian sheath. Protamine was administered. The sheath was pulled and direct manual pressure was held over the puncture site. Hemostasis was achieved. A
sterile dressing was applied.
The patient tolerated the procedure well and was taken to the recovery area in stable condition. Patient had a robust Doppler signal over the dorsalis pedis artery in the right foot at the conclusion of the case
Attestation: I was present and responsible for the entire procedure.
Signed:
Cesar Aragon III, MD
Vascular Surgery
[facility]
[2025-07-12 08:21] LABS: Glucose - Point of Care 132 mg/dl (70-99)
--- NOTE | 2025-07-12 09:03 | W.PN.VS ---
Today's Communication / Plan
-
Plan reviewed with on-call attending Dr. Cesar Aragon
Assessment/Plan
-
Assessment: 89-year-old male POD #1 Intravascular lithotripsy to distal right anterior tibial artery and dorsalis pedis artery using Shockwave Javelin. Balloon angioplasty of right dorsalis pedis artery (2 mm x 150 mm). Balloon angioplasty of right
anterior tibial artery (3 mm x 220 mm). Drug-coated balloon angioplasty of right popliteal artery in-stent restenosis (6 mm x 150 mm Lutonix drug-coated balloon). Diagnostic right lower extremity arteriogram. Ultrasound guided percutaneous ANTEGRADE
access to the proximal right superficial femoral artery
Plan:
Unfortunately, patient has advanced peripheral arterial disease and has yet to heal right foot wound despite multiple successful revascularization procedures at distal arteries. High suspicion patient will not be able to heal right foot wound and
would require BKA versus AKA for definitive treatment. Discussed in detail recommendations for proceeding with BKA versus AKA or alternatively could consider palliative/hospice and considerations of quality of life given advanced age. Patient is
adamant that he does not want further amputations and is strongly considering palliative care management plan. He has asked that I arrange a family meeting with him and Dr. Aragon, tentative plan for tomorrow at 07/13/2025 at noon for family
discussion. Hospitalist and nurse updated.
Patient should have right foot in splint style boot as much as possible, as foot drop further exacerbates occlusion of DP artery and thus lowers likelihood of healing.
Can restart heparin infusion
Subjective Data
-
Date of Service: July 12, 2025
Patient seen examined bedside, reports no discomfort at puncture site.
Objective Data
-
Vital Signs
Temp Pulse Resp BP Pulse Ox
98.1 F 67 16 137/55 98
07/12/25 07:03 07/12/25 07:03 07/12/25 07:03 07/12/25 07:03 07/12/25 07:03
Intake and Output
07/11/25 07/12/25 07/13/25
06:59 06:59 06:59
Intake Total 1320 / 1320 540 / 540
Output Total 1625 / 1625 1450 / 1450
Balance -305 / -305 -910 / -910
Intake:
Oral fluids 1320 / 1320 240 / 240
IV fluids (Total) 0 / 0 300 / 300
Normosal 300 / 300
IV piggybacks 0 / 0
Output:
Urine, Aragon 1625 / 1625 1450 / 1450
Lab Results
07/12/25 06:10
07/12/25 06:10
Calcium 8.6 mg/dl (8.4-10.2) 07/12/25 06:10
Total Bilirubin 0.6 mg/dl (0.2-1.3) 07/12/25 06:10
AST 24 U/L (17-59) 07/12/25 06:10
ALT 25 U/L (0-50) 07/12/25 06:10
Alkaline Phosphatase 105 U/L (38-126) 07/12/25 06:10
Total Protein 6.4 g/dl (6.3-8.2) 07/12/25 06:10
Albumin 3.2 g/dl (3.5-5.0) L 07/12/25 06:10
Physical Exam
-
No apparent distress, resting in bed comfortably
No tachycardia
No dyspnea on room air
ABD rotund, nondistended, nontender
Right groin puncture site dry and intact, no evidence of hematoma or edema, all surrounding compartments soft
[2025-07-12] MEDS: NOVOLOG FLEXPEN-LOW RESISTANCE SC ×3 (09:37→17:47)
[2025-07-12] MEDS: LIPITOR 40 MG PO (09:38)
[2025-07-12] MEDS: COREG 6.25 MG PO ×2 (09:38→21:09)
[2025-07-12] MEDS: PROSCAR 5 MG PO (09:38)
[2025-07-12] MEDS: PLAVIX 75 MG PO (09:39)
[2025-07-12 10:24] LABS: APTT 30.2 Sec (23.4-35.0)
[2025-07-12] MEDS: HEPARIN 25000 UNITS/250 ML IV (10:54)
[2025-07-12 11:48] LABS: Glucose - Point of Care 130 mg/dl (70-99)
--- NOTE | 2025-07-12 12:26 | W.PN.HOSP.TC ---
Today's Communication/Plan
-
restart heparin
cont Cefepime
Pending VAscSx and family meeting with patient , when he would like to discuss his choice for hospice approach
Assessment / Plan
Assessment / Plan
89yo M with PMHx of HLD, DM, neuropathy, PAF on Xarelto, PAD s/p angio on LLE , CAD s/p PCI HX of R fot OM s/p R hallux amp sent by podiatry for R foot OM and worsening pAD,, found dry gangrene of the toes, starte don IV heparin, s/p angio on 07/12/25
A/P:
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
#PAD
#Acute OM
cont Plavix
s/o US arterial: RLE infrapopliteal arterial disease
Heparin drip
Podiatry follows
Cefepime pending tissue Cx: previous with Pseudomonas, K.pneumoniae and MSSA, completed 6 weeks Abx on 06/18/25 with Zosyn. ID after new wound Cx to be obtained
MRSA screen neg - stop vanco
concern for OM of midfoot. Abx duration to be determined with ID after Podiatric surgical intervention and new tissue Cx
VAscSx: s/p angio on 07/12/25 with successful revascularization of distal arteries, however with significant PAD. Had similar procedure prior, however failed later due to extreme sensitivity of vessels to foot positioning that can cause re-occlusion
of the vessels. Podiatry unfortunately has no good prognosis for healing without AKA. Patient absolutely declining amputation. He focused on comfort and preserving the QOC as much as he has now, however current essential bedbound status is not what
patient would want. Patient to discuss with VascSx and Family since his focus is on establishing hospice with no viable alternative management of his significant PAD with LE infection, besides AKA.
#RONDA
improving
concern for vanco-induced
IVF and follow Cr
#Supratherapeutic Vanco
bolus IVF
follow Cr
stop Vanco
#DM type 2 with neuropathy
Accuchecks, Insulin SS, DM diet
#Paroxysmal Afib
#CAD, stable
#COPD, stable
#BPH
#Anxiety d/o
cont home meds
#Chronic urinary retention
intermittent straight cath at home
Now Aragon while hospitalized
#GOC
As per discussion with VascSx: patient will want to avoid amputation if revsc unsuccessful. Discussed in details with patient. Will plan on getting ID consult for medical mgmt of gangrene after results of procedure vs hospice
DVT ppx Heparin drip
DNR/DNI
I have spent at least 57min reviewing chart, test results, communication with consultants and providing direct patient care
Anticipated Discharge: 24 - 48 hours
Subjective/Interval History
-
Date of Service: July 12, 2025
Objective Data
-
Labs:
Laboratory Results
07/12/25 07/12/25 07/12/25
06:10 10:08 17:00
WBC 7.6
Hgb 11.5 L
Hct 33.9 L
Plt Count 246
APTT 30.2 Pending
Sodium 136
Potassium 3.8
Chloride 105
Carbon Dioxide 24
BUN 24 H
Creatinine 1.4 H
Glucose 117 H
Calcium 8.6
Total Bilirubin 0.6
AST 24
ALT 25
Alkaline Phosphatase 105
Vital Signs:
Vital Signs
Temp Pulse Resp BP Pulse Ox
98.1 F 67 16 137/55 98
07/12/25 07:03 07/12/25 09:38 07/12/25 07:03 07/12/25 09:38 07/12/25 07:03
I&O
07/11/25 07/12/25 07/13/25
06:59 06:59 06:59
Intake Total 1320 / 1320 540 / 540
Output Total 1625 / 1625 1450 / 1450
Balance -305 / -305 -910 / -910
Review of Systems
-
History Source: Patient
All other systems: Reviewed and negative
Physical Exam
-
General: No Apparent Distress
HEENT: Normocephalic
Cardiac: Regular Rhythm
Skin: Other
Neuro: Awake, Alert, Oriented and AO x 3
Psych: Calm
--- NOTE | 2025-07-12 13:14 | PN.CDI ---
CDI
- -
CDI:
Physician Documentation Request
Admit Date: 07/07/25 14:23
Dear Doctor Carlos,
Please review the following and provide your response in the progress notes.
Clinical Indicators:
07/10/25 13:35 (created 07/10/25 13:52) - Wound Note
#Wound Location and type/assessment:
#...arterial/diabetic wounds to feet.
#...Now with worsening wounds to R lateral foot, heel and amp site.
#...Moderate drainage from foot and heel, toe amp site and dorsal foot with dry eschar.
#...L great and 2nd toe with dry eschar.
#...L heel non blanchable red, stage 1 PI.
#...L posterior leg with healing venous ulcer.
#...Sacrum is blanchable red with scattered incontinent associated skin damage,
Selected Entries
07/10/25
12:30
Pressure injury stage [Left Heel] Stage 1
Physician documentation of the type and location of wounds is required for compliant documentation. Based on the above clinical findings and your assessment, please provide the following in your progress note:
Yes, Left heel stage 1 PI and Left posterior leg healing venous ulcer, POA
Left heel stage 1 PI, only
Left posterior leg healing venous ulcer, only
No, left heel stage PI and Left posterior leg healing venous ulcer
Other(please specify)
1. Location of the ulcer/wound, including laterality.
2. Type (etiology) of ulcer/wound:
- Diabetic ulcer
- Arterial (ischemic) ulcer
- Traumatic wound
- Venous stasis ulcer
- Pressure (decubitus) ulcer
- Non-healing surgical wound
3. For a non-pressure ulcer, please indicate the depth/severity:
- Limited to the breakdown of skin
- With fat layer exposed
- With necrosis of muscle
- With necrosis of bone
4. If a pressure ulcer, please also include the stage* of the ulcer:
- Stage 1 - Skin intact, non-blanchable redness
- Stage 2 - Partial thickness loss of dermis, includes intact or open blister
- Stage 3 - Full thickness tissue not including bone, tendon or muscle
- Stage 4 - Full thickness tissue loss, including exposed bone, tendon or muscle
- Unstageable - Full thickness loss in which the base of the ulcer is covered by slough (yellow, dang, arredondo, green or brown) and/or eschar (dang, brown or black) in the wound bed.
- Unable to determine
Use of terms such as suspected, likely, concern for, or probable (associated with a specific diagnosis that is being evaluated, monitored, or treated as if it exists) are acceptable and can be coded in the inpatient setting, when documented at the
time of discharge.
Thank you,
Nohelia Santana RN BSN CCDS
CDI Specialist
Please contact via tiger text
Please use your independent medical judgment in providing your response.
*Source: National Pressure Ulcer Advisory Panel (NPUAP)
[2025-07-12 15:18] VITALS: BP 122/59
--- NOTE | 2025-07-12 15:21 | CM ---
CM following re: discharge planning.
Reviewed pt's chart, met with pt.
Per chart review, Podiatry, vascular surgery, primary school teacher following, continue supportive care
Pt lives with spouse in an independent apartment at [facility], was admitted to [facility] in April , admitted to from [facility] and pt stated he is planning to return back to [facility] to continue on short term rehab care.
A referral to [facility] made.
CM spoke to [facility] liaison and she stated that pt is not holding the bed and pt will be accepted based on bed availability on the day of discharge. Per [facility] liaison, pt has been calling them requesting returning back and no
promises have been made due to tough situation with available beds and pt is not interested to go to any other SNF.
PT and OT will evaluate the pt to determine a level of care at discharge.
D/C plan: most likely return back to [facility] to continue on skilled services.
CM will follow with discharge plan updates as hospitalization progresses
[2025-07-12 17:19] LABS: Glucose - Point of Care 110 mg/dl (70-99)
[2025-07-12 18:17] LABS: APTT 55.5 Sec (23.4-35.0)
[2025-07-12 21:20] LABS: Glucose - Point of Care 147 mg/dl (70-99)
[2025-07-12] MEDS: RESTORIL 30 MG PO (21:55)
[2025-07-12] MEDS: NEURONTIN 1800 MG PO (21:56)
[2025-07-12] MEDS: DILAUDID 0.25 MG IV (21:57)
[2025-07-13 00:40] VITALS: BP 121/55
[2025-07-13 00:54] LABS: APTT 97.8 Sec (23.4-35.0)
[2025-07-13] MEDS: STERILE WATER FOR INJECTION 10 ML IV ×2 (02:26→14:19)
[2025-07-13] MEDS: MAXIPIME 1000 MG IV (02:26)
[2025-07-13 05:16] VITALS: BMI 23.1
[2025-07-13 07:27] VITALS: BP 125/58
[2025-07-13 07:55] LABS: Hematocrit 33.2 % (39.0-52.0); Hemoglobin 10.9 g/dL (13.0-18.0); Mean Corp Hgb Conc. 32.8 g/dL (33.0-37.0); Mean Corpuscular Volume 79.8 fL (80.0-94.0); Platelet Count 250 10^3/uL (130-400); Red Cell Dist. Width 18.4 % (11.5-14.5)
[2025-07-13 08:04] LABS: APTT 60.7 Sec (23.4-35.0)
[2025-07-13 08:29] LABS: Blood Urea Nitrogen 25 mg/dl (9-20); Calcium 8.3 mg/dl (8.4-10.2); Carbon Dioxide 21 mmol/L (22-30); Chloride 105 mmol/L (98-107); Estimated Creatinine Clearance 37 ml/min; Glucose 102 mg/dl (70-99); Potassium 3.9 mmol/L (3.5-5.1); Sodium 136 mmol/L (135-145); eGFR 44.50
[2025-07-13] MEDS: HEPARIN 25000 UNITS/250 ML IV (08:42)
[2025-07-13] MEDS: LIPITOR 40 MG PO (08:46)
[2025-07-13] MEDS: PLAVIX 75 MG PO (08:47)
[2025-07-13] MEDS: PROSCAR 5 MG PO (08:47)
[2025-07-13] MEDS: COREG 6.25 MG PO (08:47)
[2025-07-13 09:24] LABS: Glucose - Point of Care 107 mg/dl (70-99)
[2025-07-13] MEDS: NOVOLOG FLEXPEN-LOW RESISTANCE SC ×3 (10:21→16:41)
[2025-07-13] MEDS: STERILE WATER FOR INJECTION IV (11:02)
[2025-07-13] MEDS: MAXIPIME IV (11:02)
--- NOTE | 2025-07-13 12:10 | W.PN.HOSP.TC ---
Addendum entered and electronically signed by Brady Gonzalez MD 07/13/25 12:45:
#L heel non blanchable red, stage 1 PI
#L posterior leg with healing venous ulcer
Wound care
Original Note:
Today's Communication/Plan
-
comfort care
hospice consult
Assessment / Plan
Assessment / Plan
89yo M with PMHx of HLD, DM, neuropathy, PAF on Xarelto, PAD s/p angio on LLE , CAD s/p PCI HX of R fot OM s/p R hallux amp sent by podiatry for R foot OM and worsening pAD,, found dry gangrene of the toes, starte don IV heparin, s/p angio on
07/12/25. Unfortunately due to advanced PAD. Had similar procedure prior, however failed later due to extreme sensitivity of vessels to foot positioning that can cause re-occlusion of the vessels. Podiatry unfortunately has no good prognosis for
healing without AKA. Patient absolutely declining amputation. He focused on comfort and lack of current QoL as well as even worse condition if underwent AKA - (current essential bedbound status is not what patient would want) not what he would like
to experience. Patient discussed with VascSx and Family and with no viable alternative management of his significant PAD with LE infection, besides AKA, elected to proceed with hospice. He understands and agrees with approach to stop all his current
treatment including antiplatelets, antibiotics and anticoagulation., he does not want any additional tests done and declined all medciation except of Neurontin, Restoril and Dilaudid. Comfort care started and hospice consult called
A/P:
#GOC
Comfort care
Hospice consult
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
#PAD
#Acute OM
cont Plavix
s/o US arterial: RLE infrapopliteal arterial disease
Heparin drip
Podiatry follows
Cefepime pending tissue Cx: previous with Pseudomonas, K.pneumoniae and MSSA, completed 6 weeks Abx on 06/18/25 with Zosyn. ID after new wound Cx to be obtained
MRSA screen neg - stop vanco
concern for OM of midfoot. Abx duration to be determined with ID after Podiatric surgical intervention and new tissue Cx
VAscSx: s/p angio on 07/12/25 with successful revascularization of distal arteries, however with significant PAD. .
#RONDA
improving
concern for vanco-induced
IVF and follow Cr
#Supratherapeutic Vanco
bolus IVF
follow Cr
stop Vanco
#DM type 2 with neuropathy
Accuchecks, Insulin SS, DM diet
#Paroxysmal Afib
#CAD, stable
#COPD, stable
#BPH
#Anxiety d/o
cont home meds
#Chronic urinary retention
intermittent straight cath at home
Now Aragon while hospitalized
DVT ppx Heparin drip
DNR/DNI
I have spent at least 78min reviewing chart, test results, communication with consultants, family meeting bedside and providing direct patient care
Anticipated Discharge: 24 - 48 hours
Subjective/Interval History
-
Date of Service: July 13, 2025
Objective Data
-
Labs:
Laboratory Results
07/13/25 07/13/25 07/13/25
00:32 07:33 15:00
WBC 9.1
Hgb 10.9 L
Hct 33.2 L
Plt Count 250
APTT 97.8 H 60.7 H Pending
Sodium 136
Potassium 3.9
Chloride 105
Carbon Dioxide 21 L
BUN 25 H
Creatinine 1.5 H
Glucose 102 H
Calcium 8.3 L
Vital Signs:
Vital Signs
Temp Pulse Resp BP Pulse Ox
98.7 F 68 16 125/58 94
07/13/25 07:27 07/13/25 08:47 07/13/25 07:27 07/13/25 08:47 07/13/25 08:00
I&O
07/12/25 07/13/25 07/14/25
06:59 06:59 06:59
Intake Total 540 / 540 1140 / 1140 480 / 480
Output Total 1450 / 1450 1050 / 1050
Balance -910 / -910 90 / 90 480 / 480
Review of Systems
-
History Source: Patient
All other systems: Reviewed and negative
Physical Exam
-
General: No Apparent Distress
Neuro: Awake, Alert, Oriented and AO x 3
Psych: Calm
--- NOTE | 2025-07-13 13:18 | W.PN.UPDATE ---
Addendum entered and electronically signed by Brady Gonzalez MD 07/13/25 14:01:
As per conversation with VascSx - recommendation will be to restart previous home Xarelto 15mg daily - order placed
Original Note:
Update Note
Progress Note Update
Received message from RN that family would like to postpone palliative approach and hospice consult to the later dte due to concern that cessation of the treatment will facilitate patient demise and that will interfere with family ability to be
bedside, when patient will be worsening, since they are plannign for travel in a week. Medciation restarted. With advanced PAD - unclear role for Abx - will get ID consult
--- NOTE | 2025-07-13 14:00 | HOSPNOTE ---
Hospice referral received and the family has chosen to postpone hospice, send the patient back to [facility] at [facility] and then will contact me at a later date. The family is aware of the room charge on hospice services. The family is also
realistic about the fact that patient may decline and hospice would be warranted sooner and I told son to just tell [facility] to reach out to me directly and we will admit onto our service.
--- NOTE | 2025-07-13 14:13 | CON.ID ---
Consultation
-
Date/Time Consultation Requested: 07/13/2025 1323
Date/Time Consultation Performed: 07/13/2025 1410
Requesting Provider: Dr. Gonzalez
Performing Provider: Dr. Parra
Reason for Consultation: Antibiotic management
Chief Complaint / Past History
History of Present Illness
Elvis Enriquez is a 89-year-old man being evaluated at the request of Dr. Gonzalez in regards to right foot wounds and further antibiotic management. History is obtained from chart review, along with patient interview.
The patient is known to the Infectious Diseases service, having been seen in mid June regarding right foot osteomyelitis. The patient has a significant past medical history of PAD, along with DM with neuropathy. He was admitted in December 2024
for right hallux dry gangrene and ultimately discharged on a 7-day course of Augmentin. He returned in mid April for further care of right hallux osteomyelitis and underwent partial amputation. He additionally was found to have right fifth
metatarsal osteomyelitis. He was discharged on 05/22 to complete a 6-week course of Zosyn (through 06/14/2025.).
He returned back to the ER on 07/07 for further evaluation of possible vascular compromise of the right lower extremity following evaluation by his helicopter engineer. During his hospitalization, both feet were found to have signs of infection. He
underwent IV L of right DP, with balloon angioplasty of right DP, AT and popliteal artery on 07/11/2025.
Currently, vascular has little more to offer him. He continues to have dry gangrene of the feet and has decided upon hospice. Complicating the matter is an upcoming trip by the patient's family to [facility], and they would like to minimize the risk
of anything happening to him while they are out of the country.
At present, the patient reports he feels well. Other than neuropathic pain he denies any significant discomfort. He denies any fevers or chills.
Past History
Additional Past Medical History:
CAD; Hx CO
DM with neuropathy
Atrial fibrillation
COPD
Additional Past Surgical History:
Lower extremity angiography
Cervical and lumbar laminectomy
PCI with stenting
Allergy History:
No Known Allergies Allergy (Verified 05/08/25 15:36)
Medications Reviewed: Yes
Current Antibiotics:
Cefepime 2 gm IV q.12 hours
Social History
Tobacco: Non-Smoker
Alcohol: Former
Drug: None
Employment: Retired
Family History
Family History: Not Pertinent
Review of Systems
Vital Signs
Temp Pulse Resp BP Pulse Ox
98.7 F 68 16 125/58 94
07/13/25 07:27 07/13/25 08:47 07/13/25 07:27 07/13/25 08:47 07/13/25 08:00
Physical Exam
Physical Exam
Constitutional: No Acute Distress, Comfortable, Chronically Ill and Non-toxic
Head: Normocephalic
Eyes: Pupils Equal, Pupils Round, No Conjunctival Hemorrhage and Sclera Anicteric
Oral: No Thrush and No Ulcers
Cardiovascular: Irregular Rate and S1/S2; Negative S3/S4
Pulmonary: Clear; Negative Wheezes, Rales or Rhonchi
Gastrointestinal: Soft, Non Tender, Non Distended and Normal Bowel Sounds
Extremities: Edema (1+ lower extremities) and Erythema (Minimal right foot)
Skin: Warm and Dry; Negative Rash or Jaundice
Wound: Other (Right hallux status post partial amputation with overlying dry gangrene. Right lateral foot and plantar dry gangrene noted. Photos obtained.)
Neurological: Awake and Alert
Psychological: Calm
Lab / Diagnostic Study Results
07/13/25 07:33
07/13/25 07:33
Abs Immat Gran (auto) 0.0 10^3/uL (0-0.05) 07/12/25 06:10
Absolute Neuts (auto) 5.4 10^3/uL (1.4-6.5) 07/12/25 06:10
Absolute Lymphs (auto) 1.1 10^3/uL (1.2-3.4) L 07/12/25 06:10
Absolute Monos (auto) 0.6 10^3/uL (0.1-0.6) 07/12/25 06:10
Absolute Basos (auto) 0.1 10^3/uL (0-0.2) 07/12/25 06:10
Immature Gran % 0.5 % (0-0.5) 07/12/25 06:10
Neutrophils % 70.6 % (42.2-75.2) 07/12/25 06:10
Lymphocytes % 14.6 % (20.5-51.1) L 07/12/25 06:10
Monocytes % 8.3 % (1.7-9.3) 07/12/25 06:10
Eosinophils % 5.3 % (0-6) 07/12/25 06:10
Basophils % 0.7 % (0-2) 07/12/25 06:10
Ur Squamous Epith Cells 0-2 /LPF (Few) 07/07/25 15:22
Microbiology Results
Micro:
07/07/25 15:22 Urine Culture - Final
Urine Pseudomonas aeruginosa
07/07/25 18:32 MRSA Screen - Final
Nose No Methicillin Resistant Staphylococcus aureus isolated.
Imaging:
05/08/2025 X-ray right foot: Diffuse osteopenia noted. New osseous erosion of the distal phalanx of the great toe with adjacent soft tissue swelling and questionable subcutaneous gas. Mild degenerative changes of the first metatarsal joint.
Extensive vascular calcifications. The soft tissue swelling at the great toe tip consistent with acute osteomyelitis. Please see full dictation for additional detail. Film personally viewed.
Photos:
Right foot
Assessment / Plan
Critical limb ischemia
Dry gangrene right foot
Renal insufficiency
CAD; Hx CO
DM with neuropathy
Atrial fibrillation
Recommendations:
I had a long discussion with the patient and family who was present, including his and sons. Their goals at this time are to maintain quality of life and somewhat minimize risk of infection, at least until family has returned from overseas
travel.
I offered several management possibilities, including IV antibiotics, oral antibiotics or no antibiotics. Given that they would like to minimize overall risk of infection, we have settled (via shared decision making) on Augmentin twice daily at
least until family has returned and the patient can then elect to go on full hospice. I advised the family that there is no guarantee that infection will not set in as no antibiotic can completely prevent infection they understand the risks, and
are willing to accept them.
--- NOTE | 2025-07-13 14:19 | CM ---
CM following re: discharge planning.
Reviewed pt's chart, met with pt.
Per chart review, Podiatry, vascular surgery, nurse office following, continue supportive care. [facility] family meeting held today. Family in the beginning expressed their agreement with hospice care. A referral to hospice made and later family
changed their mind, declined hospice care and requested to continue aggressive care.
Pt lives with spouse in an independent apartment at [facility], was admitted to [facility] in April , admitted to from [facility] and pt stated he is planning to return back to [facility] to continue on short term rehab care.
A referral to [facility] made.
CM spoke to [facility] liaison and she stated that pt is not holding the bed and pt will be accepted based on bed availability on the day of discharge. Per [facility] liaison, pt will be accepted for admission to [facility] and they
will continue working with the pt and family regarding goals of care.
PT and OT will evaluate the pt to determine a level of care at discharge.
D/C plan: most likely return back to [facility] to continue on skilled services.
CM will follow with discharge plan updates as hospitalization progresses
[2025-07-13] MEDS: MAXIPIME 2000 MG IV (14:22)
[2025-07-13] MEDS: XARELTO 15 MG PO (14:23)
[2025-07-13 20:05] VITALS: BP 103/69
[2025-07-13] MEDS: COREG 3.125 MG PO (20:30)
[2025-07-13] MEDS: AUGMENTIN 500 MG/125 MG 1 TABLET PO (20:34)
[2025-07-13 21:10] LABS: Glucose - Point of Care 190 mg/dl (70-99)
[2025-07-13] MEDS: RESTORIL 30 MG PO (22:19)
[2025-07-13] MEDS: NEURONTIN 900 MG PO (22:19)
[2025-07-13] MEDS: DILAUDID 0.25 MG IV (22:20)
[2025-07-14] MEDS: DILAUDID 0.25 MG IV (00:47)
[2025-07-14 05:21] VITALS: BMI 23.1
[2025-07-14 08:11] LABS: Glucose - Point of Care 128 mg/dl (70-99)
[2025-07-14] MEDS: AUGMENTIN 500 MG/125 MG 1 TABLET PO ×2 (08:12→20:13)
[2025-07-14] MEDS: XARELTO 15 MG PO (08:12)
[2025-07-14] MEDS: PLAVIX 75 MG PO (08:12)
[2025-07-14] MEDS: LIPITOR 40 MG PO (08:12)
[2025-07-14] MEDS: NOVOLOG FLEXPEN-LOW RESISTANCE SC ×2 (08:12→17:09)
[2025-07-14] MEDS: COREG 3.125 MG PO ×2 (08:13→20:18)
[2025-07-14] MEDS: PROSCAR 5 MG PO (08:13)
[2025-07-14 08:30] VITALS: BP 133/61
--- NOTE | 2025-07-14 09:07 | W.PN.UPDATE ---
Update Note
Progress Note Update
I met with Mr. Enriquez and his family. Mr. Enriquez has decided that he will not pursue any additional surgical intervention. He will move ahead with initiation of palliative care and hospice services. All questions were answered
Cesar Aragon III, MD
Vascular Surgery
[facility]
--- NOTE | 2025-07-14 11:01 | W.PN.HOSP.TC ---
Today's Communication/Plan
-
CM for d/c - PT/OT reordered as reassessment needed
Medically stable for d/c when bed arranged
Assessment / Plan
Assessment / Plan
89yo M with PMHx of HLD, DM, neuropathy, PAF on Xarelto, PAD s/p angio on LLE , CAD s/p PCI HX of R fot OM s/p R hallux amp sent by podiatry for R foot OM and worsening pAD,, found dry gangrene of the toes, starte don IV heparin, s/p angio on
07/12/25. Unfortunately due to advanced PAD. Had similar procedure prior, however failed later due to extreme sensitivity of vessels to foot positioning that can cause re-occlusion of the vessels. Podiatry unfortunately has no good prognosis for
healing without AKA. Patient absolutely declining amputation. He focused on comfort and lack of current QoL as well as even worse condition if underwent AKA - (current essential bedbound status is not what patient would want) not what he would like
to experience. Patient discussed with VascSx and Family and with no viable alternative management of his significant PAD with LE infection, besides AKA, elected to proceed with hospice, however will postpone it since family has plans for travel
recently and would like to avoid possibility of facilitating patient demise in the case if all treatment to be stopped. After conversation with ID - patient and family elected oral Augmentin as a temporary option, although realizing that it might
not be absolutely preventing worsening infection.
A/P:
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
#PAD
#Acute OM
cont Plavix
s/o US arterial: RLE infrapopliteal arterial disease
Heparin drip switched to Xarleto home dose as discussed with VascSx
Podiatry follows
Cefepime switched to Augmentin on 07/14/25
MRSA screen neg - stop vanco
concern for OM of midfoot. Abx duration to be determined with ID after Podiatric surgical intervention and new tissue Cx
VAscSx: s/p angio on 07/12/25 with successful revascularization of distal arterieshowever with significant PAD.
#RONDA
improved
#Supratherapeutic Vanco
bolus IVF
follow Cr
stop Vanco
#DM type 2 with neuropathy
Accuchecks, Insulin SS, DM diet
#Paroxysmal Afib
#CAD, stable
#COPD, stable
#BPH
#Anxiety d/o
cont home meds
#Chronic urinary retention
intermittent straight cath at home
Now Aragon while hospitalized
DVT ppx Xarelto
DNR/DNI
I have spent at least 51min reviewing chart, test results, communication with consultants, family meeting bedside and providing direct patient care
Anticipated Discharge: Within 24 hours
Subjective/Interval History
-
Date of Service: July 14, 2025
Objective Data
-
Vital Signs:
Vital Signs
Temp Pulse Resp BP Pulse Ox
98.6 F 67 16 133/61 95
07/14/25 08:30 07/14/25 08:30 07/14/25 08:30 07/14/25 08:30 07/14/25 08:30
I&O
07/13/25 07/14/25 07/15/25
06:59 06:59 06:59
Intake Total 1140 / 1140 480 / 480
Output Total 1050 / 1050 1050 / 1050
Balance 90 / 90 480 / 480 -1050 / -1050
Review of Systems
-
History Source: Patient
All other systems: Reviewed and negative
Physical Exam
-
General: No Apparent Distress
HEENT: Normocephalic
Cardiac: Regular Rhythm
GI: Soft, Nontender and Nondistended
Musculoskeletal: No Clubbing, No Cyanosis and No Edema
Neuro: Awake, Alert, Oriented and AO x 3
Psych: Calm
--- NOTE | 2025-07-14 11:10 | W.PN.ID1 ---
Date of Service
Date of Service: July 14, 2025
Today's Communication
Continue Augmentin.
Assessment / Plan
Critical limb ischemia
Dry gangrene right foot
Renal insufficiency
CAD; Hx WI
DM with neuropathy
Atrial fibrillation
Recommendations:
Per yesterday's discussion with family, patient will remain on Augmentin 500 mg BID through the return of family from [place]. Thereafter, patient requests transition to hospice, and at that time further antibiotics can be discontinued.
Little more to offer from a Infectious Diseases standpoint.
Will see again at your request.
����������������������������������������������������������
Chief Complaint
-: Other (Critical limb ischemia; necrotic right foot wounds)
Subjective / Review of Systems
Review of Systems: No Fever
Vital Signs / Physical Exam
Vital Signs
Vital Signs
Temp Pulse Resp BP Pulse Ox
98.6 F 67 16 133/61 95
07/14/25 08:30 07/14/25 08:30 07/14/25 08:30 07/14/25 08:30 07/14/25 08:30
Physical Exam
Constitutional: No Acute Distress, Comfortable and Non-toxic
Cardiovascular: S1/S2; Negative S3/S4
Pulmonary: Non Labored
Gastrointestinal: Non Distended
Wound: Other (Right foot wounds dressed. No malodor.)
Objective Data
Lab Data
Lab Results
07/13/25 07:33
07/13/25 07:33
APTT Cancelled 07/13/25 15:00
Estimated Creat Clear 37 ml/min 07/13/25 07:33
Total Bilirubin 0.6 mg/dl (0.2-1.3) 07/12/25 06:10
AST 24 U/L (17-59) 07/12/25 06:10
ALT 25 U/L (0-50) 07/12/25 06:10
Alkaline Phosphatase 105 U/L (38-126) 07/12/25 06:10
Most recent labs reviewed.
Micro Results:
07/07/25 15:22 Urine Culture - Final
Urine Pseudomonas aeruginosa
07/07/25 18:32 MRSA Screen - Final
Nose No Methicillin Resistant Staphylococcus aureus isolated.
Imaging:
05/08/2025 X-ray right foot: Diffuse osteopenia noted. New osseous erosion of the distal phalanx of the great toe with adjacent soft tissue swelling and questionable subcutaneous gas. Mild degenerative changes of the first metatarsal joint.
Extensive vascular calcifications. The soft tissue swelling at the great toe tip consistent with acute osteomyelitis. Please see full dictation for additional detail. Film personally viewed.
[2025-07-14 12:03] LABS: Glucose - Point of Care 234 mg/dl (70-99)
--- NOTE | 2025-07-14 12:30 | HOSPNOTE ---
I spoke with son Hosea and the plan is to discharge to [facility] under skilled and continue with wound treatments. The son is going away however he understands that the patient may decline and then the family will reach out to [facility] hosp[facility] and we
will admit onto hospice at the [facility]. At this time the patient will return when a bed is available for skilled. We continue to be available.
[2025-07-14 12:43] VITALS: BP 130/52; PULSE 61; O2SAT 96
[2025-07-14 12:44] VITALS: BP 130/52; PULSE 62
[2025-07-14] MEDS: NOVOLOG FLEXPEN-LOW RESISTANCE 2 UNITS SC (13:04)
--- NOTE | 2025-07-14 14:00 | CM ---
Addendum entered by Alvarez Ding 07/14/25 15:55:
Nettie desk phone number in case cell phone not working [phone]
Addendum entered by Alvarez Ding 07/14/25 14:30:
CM spoke to [facility] life sciences director and she confirmed that pt is accepted for admission tomorrow and 11:00 a.m discharge time requested. Weekend CM to call [facility] admission coordinator Nettie to update on discharge time [phone].
Both pt and his son Hosea are aware, expressed their agreement. IMM reviewed, placed on chart, pt has a copy.
Pt has a custom wheelchair that belong to [facility] and pt and his son stated that [facility] staff is aware to bring that wheelchair back.
[facility] to arrange [facility].
[facility] nursing report: [phone]
Discharge instructions fax: [phone]
D/C plan: [facility] tomorrow Thursday07/15/25.
Original Note:
CM following re: discharge planning.
Reviewed pt's chart, met with pt.
Both pt and his family declined hospice care at this time and they preferred continue skilled services at [facility] with a plan to further transition to hospice care at [facility]
Pt lives with spouse in an independent apartment at [facility], was admitted to [facility] in April , admitted to from [facility] and pt stated he is planning to return back to [facility] to continue on short term rehab care.
CM spoke to [facility] liaison and she stated that they do not have a bed available today and a bed possibly will be available tomorrow and she will confirm it later today.
PT and OT evaluations noted - SNF level of care recommended.
Requested updated pt's clinical faxed to [facility].
D/C plan: [facility] possible tomorrow or when a bed is available.
CM will follow with discharge plan updates as hospitalization progresses
[2025-07-14 15:57] VITALS: BP 135/61
--- NOTE | 2025-07-14 16:12 | W.PN.UPDATE ---
Update Note
Progress Note Update
89M w/ gangrenous changes to b/l feet R>L
- continue with LWC and offloading precautions
- appreciate vascular recommendations
- WBAT b/l
- we will sign off at this time
[2025-07-14 17:10] LABS: Glucose - Point of Care 147 mg/dl (70-99)
[2025-07-14] MEDS: DILAUDID 0.5 MG IV ×2 (17:58→22:44)
[2025-07-14 21:16] LABS: Glucose - Point of Care 270 mg/dl (70-99)
[2025-07-14] MEDS: NEURONTIN 900 MG PO (22:43)
[2025-07-14] MEDS: RESTORIL 30 MG PO (22:43)
[2025-07-14 23:29] VITALS: BP 131/57
[2025-07-15 06:00] VITALS: BMI 23.2
[2025-07-15] MEDS: DILAUDID 0.5 MG IV (06:07)
[2025-07-15 07:00] VITALS: BP 111/56
[2025-07-15 07:14] LABS: Glucose - Point of Care 162 mg/dl (70-99)
--- NOTE | 2025-07-15 08:09 | W.PN.HOSP.TC ---
Today's Communication/Plan
-
dc
Assessment / Plan
Assessment / Plan
89yo M with PMHx of HLD, DM, neuropathy, PAF on Xarelto, PAD s/p angio on LLE , CAD s/p PCI HX of R fot OM s/p R hallux amp sent by podiatry for R foot OM and worsening pAD,, found dry gangrene of the toes, starte don IV heparin, s/p angio on
07/12/25. Unfortunately due to advanced PAD. Had similar procedure prior, however failed later due to extreme sensitivity of vessels to foot positioning that can cause re-occlusion of the vessels. Podiatry unfortunately has no good prognosis for
healing without AKA. Patient absolutely declining amputation. He focused on comfort and lack of current QoL as well as even worse condition if underwent AKA - (current essential bedbound status is not what patient would want) not what he would like
to experience. Patient discussed with Malick and Family and with no viable alternative management of his significant PAD with LE infection, besides AKA, elected to proceed with hospice, however will postpone it since family has plans for travel
recently and would like to avoid possibility of facilitating patient demise in the case if all treatment to be stopped. After conversation with ID - patient and family elected oral Augmentin as a temporary option, although realizing that it might
not be absolutely preventing worsening infection. Pation is medically stable to be d/c to rehab
A/P:
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
#PAD
#Acute OM
cont Plavix
s/o US arterial: RLE infrapopliteal arterial disease
Heparin drip switched to Xarleto home dose as discussed with VascSx
Podiatry follows
Cefepime switched to Augmentin on 07/14/25
MRSA screen neg - stop vanco
concern for OM of midfoot. Abx duration to be determined with ID after Podiatric surgical intervention and new tissue Cx
VAscSx: s/p angio on 07/12/25 with successful revascularization of distal arterieshowever with significant PAD.
#RONDA
improved
#Supratherapeutic Vanco
bolus IVF
follow Cr
stop Vanco
#DM type 2 with neuropathy
Accuchecks, Insulin SS, DM diet
#Paroxysmal Afib
#CAD, stable
#COPD, stable
#BPH
#Anxiety d/o
cont home meds
#Chronic urinary retention
intermittent straight cath at home
Now Aragon while hospitalized
DVT ppx Xarelto
DNR/DNI
I have spent at least 51min reviewing chart, test results, communication with consultants, family meeting bedside and providing direct patient care
Anticipated Discharge: Today
Subjective/Interval History
-
Date of Service: July 15, 2025
Objective Data
-
Vital Signs:
Vital Signs
Temp Pulse Resp BP Pulse Ox
98.4 F 61 18 131/57 97
07/14/25 23:29 07/14/25 23:29 07/14/25 23:29 07/14/25 23:29 07/14/25 23:29
I&O
07/14/25 07/15/25 07/16/25
06:59 06:59 06:59
Intake Total 480 / 480 300 / 300
Output Total 1500 / 1500
Balance 480 / 480 -1200 / -1200
Review of Systems
-
History Source: Patient
All other systems: Reviewed and negative
Physical Exam
-
General: No Apparent Distress
Neuro: Awake, Alert, Oriented and AO x 3
Psych: Calm
--- NOTE | 2025-07-15 08:15 | W.DCSUMMARY ---
Discharge Summary
Discharge Data
Date of Admission: 07/07/25
Date of Discharge: 07/15/25
-
Pending Results: No
Hospital Course
89yo M with PMHx of HLD, DM, neuropathy, PAF on Xarelto, PAD s/p angio on LLE , CAD s/p PCI HX of R fot OM s/p R hallux amp sent by podiatry for R foot OM and worsening pAD,, found dry gangrene of the toes, starte don IV heparin, s/p angio on
07/12/25. Unfortunately due to advanced PAD. Had similar procedure prior, however failed later due to extreme sensitivity of vessels to foot positioning that can cause re-occlusion of the vessels. Podiatry unfortunately has no good prognosis for
healing without AKA. Patient absolutely declining amputation. He focused on comfort and lack of current QoL as well as even worse condition if underwent AKA - (current essential bedbound status is not what patient would want) not what he would like
to experience. Patient discussed with VascSx and Family and with no viable alternative management of his significant PAD with LE infection, besides AKA, elected to proceed with hospice, however will postpone it since family has plans for travel
recently and would like to avoid possibility of facilitating patient demise in the case if all treatment to be stopped. After conversation with ID - patient and family elected oral Augmentin as a temporary option, although realizing that it might
not be absolutely preventing worsening infection. Pation is medically stable to be d/c to rehab
I have spent at least 51min reviewing chart, test results, communication with consultants, family meeting bedside and providing direct patient care
Patient was managed for:
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
#PAD
#Acute OM
#RONDA
#Supratherapeutic Vanco
#DM type 2 with neuropathy
#Paroxysmal Afib
#CAD, stable
#COPD, stable
#BPH
#Anxiety d/o
#Chronic urinary retention
Discharge Plan
-
Patient Disposition: Intermediate/SNF
Discharge Diagnosis/Procedures: LE gangrene
Diet: Diabetic, Carb Controlled
Activity Restrictions/Additional Instructions:
Wound Care Instructions
clean wounds with saline.
Dry eschar on R toe amp site, dorsal foot, L great and 2nd toe: paint with betadine daily.
R lateral foot and heel: clean with saline, adaptic, abd pad and kerlix change daily and prn drainage.
R barrett, back and L posterior leg: clean with saline, adaptic and silicone foam
change q other day and prn drainage.
L heel: skin prep and adhesive foam change q 3 days and prn soilage
buttocks/perineum: clean with soap and water, barrier cream daily and prn soilage
air mattress at SNF
fiber filled boots when in bed
Follow up with marketing rep
Referrals:
UNKNOWN - PT DOES,NOT KNOW [Family Provider]
Prescriptions:
New
gabapentin 300 mg Capsule
900 mg PO HS Qty: 90 0RF
amoxicillin-pot clavulanate 500-125 mg Tablet
1 tab PO Q12 Qty: 60 0RF
oxycodone 10 mg tablet
10 mg PO Q8H PRN (Reason: Pain) Qty: 9 0RF
Continued
atorvastatin 40 mg Tablet
40 mg PO DAILY
fluticasone propion-salmeterol [Wixela Inhub] 250-50 mcg/dose Blister With Device
1 inh INHALATION R DAILY
carvedilol 6.25 mg Tablet
3.125 mg PO BID
polyethylene glycol 3350 [Miralax] 17 gram Powder In Packet
17 g PO DAILYPRN PRN (Reason: constipation)
finasteride 5 mg Tablet
5 mg PO DAILY
Xarelto 15 mg Tablet
15 mg PO DAILY
clopidogrel 75 mg Tablet
75 mg PO DAILY Qty: 90 0RF
temazepam 30 mg Capsule
30 mg PO HS 3 Days Qty: 3 0RF
glimepiride 2 mg Tablet
2 mg PO DAILY
Discontinued
furosemide 40 mg Tablet
40 mg PO BID
metformin 500 mg Tablet
500 mg PO DAILY
potassium chloride 20 mEq Tablet,Er Particles/Crystals
20 meq PO DAILY 30 Days Qty: 30 0RF
Santyl 250 unit/gram Ointment
1 applic topical DAILY Qty: 15 0RF
gabapentin 600 mg Tablet
1,800 mg PO HS
Humulin N Pen 100 unit/mL (3 mL) Insulin Pen
8 unit SC BID
Discharge Orders:
Discharge Patient (As Directed); Ordered 07/15/25
Ordered By: Brady Gonzalez
Discharge Date and Time
Print Language: TURKISH
[2025-07-15] MEDS: COREG 3.125 MG PO (08:31)
[2025-07-15] MEDS: NOVOLOG FLEXPEN-LOW RESISTANCE 1 UNITS SC (08:31)
[2025-07-15] MEDS: LIPITOR 40 MG PO (08:32)
[2025-07-15] MEDS: XARELTO 15 MG PO (08:32)
[2025-07-15] MEDS: PLAVIX 75 MG PO (08:32)
[2025-07-15] MEDS: PROSCAR 5 MG PO (08:32)
[2025-07-15] MEDS: AUGMENTIN 500 MG/125 MG 1 TABLET PO (08:32)
--- NOTE | 2025-07-15 10:59 | CM ---
Patient for discharge to [facility] today. ambulance for transportation, IMM completed 07/14. Weekend CM to call [facility] admission coordinator Nettie to update on discharge time [phone]. Nettie desk phone number in case cell phone not working
[phone]. CM will continue to follow for discharge planning needs.
Plan; return to [facility] today
[2025-07-15 11:12] VITALS: BP 97/43
--- NOTE | 2025-07-18 07:52 | PN.CDI ---
CDI
- -
CDI:
Physician Documentation Request
Admit Date: 07/07/25 14:23
Dear Doctor Carlos,
Please review the following and provide your response in the progress notes.
Clinical Indicators:
The differential diagnosis of 'Necrotizing Fascitis' was documented on 07/07, but is not consistently noted in subsequent documentation.
ED, 07/07
#DIFFERENTIAL DIAGNOSIS
#...1. Peripheral arterial disease
#...2. Diabetic foot syndrome
#...3. Osteomyelitis recurrence
#...4. Critical limb ischemia
#...5. Necrotizing fasciitis
Discharge Summary, 07/15
#...PMHx of HLD, DM, neuropathy, PAF on Xarelto, PAD s/p angio on LLE ,
#...CAD s/p PCI HX of R fot OM s/p R hallux amp sent by podiatry for R foot OM
#...and worsening pAD,, found dry gangrene of the toes, starte don IV heparin,...
#...no viable alternative management of his significant PAD with LE infection, besides AKA, #...elected to proceed with hospice, however will postpone
#Patient was managed for:
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
#PAD
#Acute OM
#Discharge Diagnosis/Procedures: LE gangrene
Please clarify the following:
Necrotizing Fascitis was present on admission and is now resolved.
Necrotizing Fascitis was present on admission and is still being monitored, evaluated or treated
Necrotizing Fascitis was ruled out
Necrotizing Fascitis is still a likely, suspected, probable diagnosis
Other(please specify)
Use of terms such as suspected, likely, concern for, or probable (associated with a specific diagnosis that is being evaluated, monitored, or treated as if it exists) are acceptable and can be coded in the inpatient setting, when documented at the
time of discharge.
Thank you,
Nohelia Santana RN BSN CCDS
CDI Specialist
Please contact via tiger text
Please use your independent medical judgment in providing your response.
== END 2025-07-15 11:18 | DRG 279 ==
LOC: 2 NORTH 14:23
PROVIDERS: Emergency Medicine; Internal Medicine; Registered Nurse; ADMITTING PHYSICIAN Internal Medicine; ATTENDING PHYSICIAN Internal Medicine; CONSULT PHYSICIAN Internal Medicine Infectious Disease; CONSULT PHYSICIAN Surgery Vascular Surgery; EMERGENCY PHYSICIAN Emergency Medicine; OTHER PHYSICIAN Student in an Organized Health Care Education/Training Program
PROC: 047M3Z1 Dilation of Right Popliteal Artery using Drug-Coated Balloon, Percutaneous Approach (ICD-10-PCS; 2025-07-11)
PROC: B41F1ZZ Fluoroscopy of Right Lower Extremity Arteries using Low Osmolar Contrast (ICD-10-PCS; 2025-07-11)
PROC: 04FY3ZZ Fragmentation of Lower Artery, Percutaneous Approach (ICD-10-PCS; 2025-07-11)
PROC: 047V3ZZ Dilation of Right Foot Artery, Percutaneous Approach (ICD-10-PCS; 2025-07-11)
PROC: 04FR3ZZ Fragmentation of Right Posterior Tibial Artery, Percutaneous Approach (ICD-10-PCS; 2025-07-11)
PROC: 047P3ZZ Dilation of Right Anterior Tibial Artery, Percutaneous Approach (ICD-10-PCS; 2025-07-11)
DX: E11.52 Type 2 diabetes mellitus with diabetic peripheral angiopathy with gangrene (principal); T82.856A Stenosis of peripheral vascular stent, initial encounter; I70.261 Atherosclerosis of native arteries of extremities with gangrene, right leg; M86.9 Osteomyelitis, unspecified; L97.518 Non-pressure chronic ulcer of other part of right foot with other specified severity; M86.171 Other acute osteomyelitis, right ankle and foot; N17.9 Acute kidney failure, unspecified; E11.69 Type 2 diabetes mellitus with other specified complication; Z51.5 Encounter for palliative care; M54.9 Dorsalgia, unspecified; E11.40 Type 2 diabetes mellitus with diabetic neuropathy, unspecified; I48.0 Paroxysmal atrial fibrillation; J44.9 Chronic obstructive pulmonary disease, unspecified; I77.1 Stricture of artery; I25.10 Atherosclerotic heart disease of native coronary artery without angina pectoris; R33.8 Other retention of urine; F41.9 Anxiety disorder, unspecified; L89.621 Pressure ulcer of left heel, stage 1; N40.1 Benign prostatic hyperplasia with lower urinary tract symptoms; Y83.8 Other surgical procedures as the cause of abnormal reaction of the patient, or of later complication, without mention of misadventure at the time of the procedure; Y92.129 Unspecified place in nursing home as the place of occurrence of the external cause; Z66 Do not resuscitate; I25.2 Old myocardial infarction; Z74.01 Bed confinement status; Z89.411 Acquired absence of right great toe; Z79.84 Long term (current) use of oral hypoglycemic drugs; Z79.51 Long term (current) use of inhaled steroids; Z79.01 Long term (current) use of anticoagulants; Z79.02 Long term (current) use of antithrombotics/antiplatelets; Z95.5 Presence of coronary angioplasty implant and graft; Z79.4 Long term (current) use of insulin; Z82.49 Family history of ischemic heart disease and other diseases of the circulatory system; Z83.3 Family history of diabetes mellitus
CPT/HCPCS: 37224; 80048; 80053; 80202; 81003; 81015; 82962; 83036; 83880; 85025; 85027; 85730; 87070; 87077; 87086; 87186; 97163; 97167; 99284; C1725; C1769; C1894; C2623; C9772; Q9967